=== PATIENT | male | born 1970 | race Caucasian/White ===

== ENCOUNTER 2017-05-20 17:10 | Inpatient (IN) ==
[2017-05-20] MEDS ORDERED: SODIUM CHLORIDE 0.9% 500 ML IV STA (17:32)
[2017-05-20] MEDS ORDERED: ALUM/MAG/SIMETH/LIDO VISC 1:1 30 ML BOTTLE PO STA (17:32)
[2017-05-20] MEDS ORDERED: HYDROmorphone 2 MG/1 ML VIAL IV STA ×2 (17:32→19:15)
[2017-05-20] MEDS ORDERED: ONDANSETRON 4 MG/2 ML VIAL IV STA (17:32)
[2017-05-20] MEDS ORDERED: PANTOPRAZOLE 40 MG VIAL IV STA (17:32)
[2017-05-20] MEDS ORDERED: ALUM/MAG/SIMETH/LIDO VISC 1:1 30 ML BOTTLE PO ONE (17:53)
[2017-05-20] MEDS ORDERED: ONDANSETRON 4 MG/2 ML VIAL ONE (17:53)
[2017-05-20] MEDS ORDERED: HYDROmorphone 2 MG/1 ML VIAL ONE (17:53)
--- NOTE | 2017-05-20 17:53 | Emergency Department Note ---
Priya Downing Emily, am scribing for, and in the presence of, Ricci Bro MD 17: 38. Adali Downing Charles R, MD, personally performed the services described in this documentation, ascribed by Isamar Powers in my presence, and it is both accurate and complete 753 . Arrival - Arrival Chief Complaint: Abdominal / Flank Pain Stated Complaint: AB Pain ED Nursing Triage Note: c/o left sided upper abdominal pain radiating into left ribs and back onset noon. Pain worse upon inspiration. +nausea. Denies fever or urination problems. Mode of Arrival: Ambulatory Limitations: No Limitations Source: Patient Time Seen by Provider: 05/20/17 17:26 - History of Present Illness HPI Narrative: Pt is a 46 y/o male who came to ED with c/o epigastric pain and LUQ pain that started after eating greasy chicken at lunch. Pt notes when the pain came on, he thought was just the heartburn acting up again. Pt reports having to take Prilosec or he will wake up in the middle night burning in chest. Pt states pain is worse laying down, but denies nausea, constipation, hx of stomach ulcers or bad taste in mouth. PMHx of prostate CA - 10 years ago. Pt admits to smoking 4 cigarettes in the morning and using smokless tobacco during the day. Onset (ago): hour(s) Consistency: constant Severity: mild, moderate Severity scale (1-10): 4 Quality: aching, burning Allergies/Adverse Reactions: Allergies Allergy/AdvReac Type Severity Reaction Status Date / Time Penicillins Allergy ANAPHYLAXIS Verified 05/20/17 17:16 Home Medications: Home Medications Medication Instructions Recorded Confirmed Type Omeprazole Magnesium [Prilosec Otc] 20 mg PO DAILY 05/20/17 05/20/17 History Review of System - Review of System 12 point system: reviewed and no additional remarkable complaints except as stated - Review of System Constitutional: Absent: fever, weakness Respiratory: Absent: respiratory distress Cardiovascular: Absent: chest pain Gastrointestinal: Present: abdominal pain ( epigastric and left sided abdomen pain). Absent: nausea, vomiting, constipation Musculoskeletal: Absent: arm pain, neck pain Skin: Absent: rash Neurological: Absent: headache, abnormal gait Medical,Surgical,& Family Hx - Medical History Medical History: noncontributory Genitourinary: History of: Kidney Stones Gastrointestinal: History of: GERD - Family History Family History: noncontributory - Social History Smoking Status: Smoker, status unknown (4 cigarettes in the mornings, then smokeless tobacco during day) Frequency of Alcohol Use: None Type of Drug Use: None Marital Status: Single Lives With:: Alone Functional capacity: independent ambulation Exam Vital Signs: Vital Signs Temperature 98.6 F 05/20/17 17:30 Pulse Rate 86 05/20/17 18:32 Respiratory Rate 15 05/20/17 18:32 Blood Pressure 139/83 05/20/17 18:32 O2 Sat by Pulse Oximetry 96 05/20/17 18:32 - General General appearance: alert, in no apparent distress - Head Head exam: Present: atraumatic, normocephalic - Eye Eye exam: Present: PERRL, EOMI - ENT ENT exam: Present: mucous membranes moist. Absent: mucous membranes dry - Neck Neck exam: Present: full ROM, trachea midline - Chest Chest inspection: Present: symmetric chest wall rise - Respiratory Respiratory exam: Present: normal lung sounds bilaterally (squints when breathing). Absent: respiratory distress - Cardiovascular Cardiovascular exam: Present: tachycardia, normal heart sounds - Abdominal Exam Abdominal exam: Present: soft, distention (bloated, distended), tenderness ( tenderness worse in the LUQ, with some epigastric tenderness to mid sternum), diminished bowel sounds. Absent: guarding, rebound - Extremities Exam Extremities exam: Present: full ROM. Absent: pedal edema - Neurological Exam Neurological exam: Present: alert, oriented X3, CN II-XII intact. Absent: motor sensory deficit - Psychiatric Psychiatric exam: Present: normal affect, normal mood - Skin Skin exam: Present: warm, dry Course - Reevaluation(s) Reevaluation #1: Patient continues to have abdominal pain still nauseated even after 2 mg of Dilaudid. Patient has a new onset diabetes his symptoms of pancreatitis. Time: 20:59 - Consultations Consultation #1: Hospitalist will admit patient Time: 21:04 Results - Labs CBC & BMP: 05/20/17 18:04 05/20/17 18:04 Lab Results: I have reviewed the patients labs Labs: Laboratory Tests 05/20/17 05/20/17 18:04 18:04 WBC 13.8 H RBC 4.83 Hgb 14.9 Hct 39.0 L MCV 80.7 L MCHC 38.2 H Plt Count 311 Neut % (Auto) 75.1 H Lymph % (Auto) 17.8 L Neut # (Auto) 10.4 H D-Dimer, Quantitative <= 0.5 Laboratory Tests 05/20/17 18:04 MCHC 38.2 H Platelet Estimate Adequate - Diagnostic Findings Procedure: Abdominal x-ray: report reviewed by me (No acute abdominal process.) , Chest x-ray: report reviewed by me (No acute cardiopulmonary process compared to the previous study) Critical Care Time Critical Care Time: Yes Total Critical Care Time: 60 Disposition Clinical Impression: Gastroenteritis, Abdominal pain, Pancreatitis, Hyponatremia, New onset type 2 diabetes mellitus, Hyperglycemia, Renal insufficiency Case discussed with: patient, patient's family Disposition: Still a Patient Condition: Guarded Time of Disposition: 21:07
[2017-05-20] MEDS ORDERED: PANTOPRAZOLE 40 MG VIAL IV ONE (17:54)
--- NOTE | 2017-05-20 18:45 | XRay Report ---
History: Abdominal pain Date: 05/20/2017 Study: Flat and erect abdomen Comparison exam: KUB July 15, 2016 The bowel gas pattern is nonobstructive without gross mass lesion. There is a moderate amount of stool in the normal caliber colon. There is no evidence of pneumoperitoneum. No radiopaque calculi are seen. Surgical clips overlie the right upper abdomen from previous cholecystectomy. Impression: No acute abdominal process PROCEDURE INTERPRETED AT [facility] DEPARTMENT OF RADIOLOGY Final Report Signed by: Dr. Laura Kerr
--- NOTE | 2017-05-20 18:52 | EKG Report ---
Stationary ECG Study [facility] ER Test Date: 05/20/2017 6:51:28 PM Pat Name: PONCE IVERSON Department: Room: Gender: M Documentation Writer: : 1970 Requested by: Ricci Champagne Order Number: [id number] Reading MD: STANLEY HIGH Intervals [place] Rate: 86 P: 20 [place]: 134 QRS: 55 QRSD: 100 T: 2 QT: 371 QTc: 414 Interpretive Statements SINUS RHYTHM Electronically Signed On 05-20-17 21:21:43 CDT by STANLEY HIGH [email or web address]
[2017-05-20 18:53] LABS: Basophils # 0.1 10*3/uL (0.0-0.2); Basophils % 0.5 % (0.0-0.8); Eosinophils # 0.2 10*3/uL (0.0-0.87); Eosinophils % 1.5 % (0.00-10.9); Hemoglobin 14.9 GM/DL (14.0-18.0); Immature Granulocytes Absolute 0.14 #; Lymphocytes # 2.5 10*3/uL (1.4-4.0); Lymphocytes % 17.8 % (21.2-54.2); Mean Corpuscular Hemoglobin 31 PG (27-34); Mean Corpuscular Volume 80.7 FL (87-102); Mean Platelet Volume 10.7 FL (9.6-12.0); Monocytes # 0.6 10*3/uL (0.11-0.8); Monocytes % 4.1 % (1.7-12.7); NRBC # 0.07 10*3/uL; Neutrophils # 10.4 10*3/uL (1.4-7.4); Neutrophils % 75.1 % (38.7-73.9); Platelet Count 311 T/CUMM (130-400); Red Blood Count 4.83 MC/CUMM (3.8-5.5); Red Cell Distribution Width 12.8 % (9.3-17.3); White Blood Count 13.8 T/CUMM (4-12)
--- NOTE | 2017-05-20 18:55 | XRay Report ---
History: Abdominal pain Date: 05/20/2017 Study: Chest x-ray single view portable Comparison exam: December 22, 2016 The cardiac silhouette is not enlarged. There is no mediastinal mass. The pulmonary vasculature is not engorged. There is no acute pulmonary infiltrate. The lungs and pleural spaces are generally clear. Osseous structures are unchanged. Impression: No acute cardiopulmonary process compared to the previous study PROCEDURE INTERPRETED AT [facility] DEPARTMENT OF RADIOLOGY Final Report Signed by: Dr. Laura Kerr
[2017-05-20 19:02] LABS: Mean Corpuscular HGB Conc 38.2 GM/DL (32-36)
[2017-05-20 19:05] LABS: Platelet Estimate Adequate
[2017-05-20 19:27] LABS: Alanine Aminotransferase 42 U/L (16-61); Albumin 3.9 G/DL (3.4-5.0); Alkaline Phosphatase 150 U/L (45-117); Amylase 33 U/L (25-115); Aspartate Amino Transferase 25 U/L (0-37); Blood Urea Nitrogen 12 MG/DL (7-18); Calcium 9.2 MG/DL (8.5-10.1); Glucose 463 MG/DL (74-106); Osmolality,Calculated 266.8 MOS/KG (273-304); Potassium 3.7 MMOL/L (3.5-5.1); Sodium 123 MMOL/L (136-145); Total Protein 7.5 G/DL (6.4-8.3); Troponin I Only < 0.015 NG/ML (0.00-0.045)
[2017-05-20 19:40] LABS: Lactic Acid 2.7 MMOL/L (0.4-2.0)
--- NOTE | 2017-05-20 20:29 | CT Report ---
History: Epigastric pain. Left upper quadrant pain. Nausea. History of prostate cancer Date: 05/20/2017 Study: CT abdomen and pelvis without contrast Comparison exam: No previous abdominal CT currently available Technique: Spiral CT sections were obtained from the lung bases to the pubic symphysis without contrast. CT abdomen: There is mild dependent atelectasis in the lung bases. There is no gross pleural or pericardial effusion. The gallbladder is surgically absent. There is mild to moderate diffuse fatty infiltration of the otherwise unremarkable liver. The spleen, adrenal glands, and bile ducts are unremarkable. There is mild hazy opacity in the peripancreatic fat suggesting potential changes of pancreatitis. There is no focal pancreatic mass. There is a 6 mm nonobstructing left lower pole renal stone. Some tiny less than 2 mm renal stones are noted on the right. There is no radiopaque ureteral stone or hydronephrosis. There is no aortic aneurysm. There is no evidence of pneumoperitoneum. The appendix is identified and appears normal. There is a tiny periumbilical hernia containing fat and a tiny knuckle of small bowel without obvious jany bowel obstruction. CT pelvis: There is no pelvic mass or abnormal pelvic fluid collection. There is no pelvic lymphadenopathy by short axis diameter criteria. Impression: Hazy peripancreatic fat opacity such as that which can be seen with pancreatitis Bilateral nephrolithiasis without ureterolithiasis or hydronephrosis The CT exam was performed using one or more of the following dose reduction techniques: Automated exposure control, adjustment of the mA and/or kV according to patient size, or use of iterative reconstruction technique. PROCEDURE INTERPRETED AT [facility] DEPARTMENT OF RADIOLOGY Final Report Signed by: Dr. Laura Kerr
[2017-05-20] MEDS ORDERED: MEPERIDINE 50 MG/1 ML VIAL IV STA (20:58)
[2017-05-20] MEDS ORDERED: PROMETHAZINE 25 MG/1 ML VIAL ONE (20:58)
[2017-05-20] MEDS ORDERED: INSULIN REGULAR 100 UNIT/ML IV STA (20:58)
[2017-05-20] MEDS ORDERED: MEPERIDINE 50 MG/1 ML VIAL ONE (20:58)
[2017-05-20] MEDS ORDERED: PROMETHAZINE 25 MG/1 ML VIAL IM STA (20:58)
[2017-05-20] MEDS ORDERED: INSULIN REGULAR 100 UNIT/ML ONE (21:01)
[2017-05-20 21:21] LABS: Allen Test Positive; Pt O2 Delivery Device Room Air
[2017-05-20 21:39] LABS: Apearance,Urine CLEAR (Clear); Bilirubin,Urine Negative (Negative); Blood, Urine Negative (Negative); Glucose,Urine (UA) >=500 mg/dL (Negative); Ketones,Urine 5 mg/dL (Negative); Mucus,Urine Occasional /LPF (Occasional); Nitrite,Urine Negative (Negative); Protein,Urine 30 MG/DL; RBC,Urine <1 /HPF (0-4); Urine Color Yellow (Yellow); Urine Specific Gravity 1.032 (1.001-1.035); WBC,Urine 1 /HPF (0-6)
--- NOTE | 2017-05-20 21:41 | Hospitalist History & Physical ---
Assessment and Plan (1) Gastroenteritis Status: Acute Current Visit: Yes (2) Abdominal pain Status: Acute Current Visit: Yes (3) Pancreatitis Status: Acute Current Visit: Yes (4) Hyponatremia Status: Acute Current Visit: Yes (5) New onset type 2 diabetes mellitus Status: Acute Current Visit: Yes (6) Hyperglycemia Status: Acute Current Visit: Yes (7) Renal insufficiency Status: Acute Assessment and plan: Our plan for this patient 1. Admit patient our service 2. IV fluids 3. N.p.o. for now 4. Treat the nausea 5. Sliding scale for now 6. Check A1c 7. Pain control 8. IV Levaquin 9. Recheck labs in the morning Current Visit: Yes History of Present Illness Chief complaint: Abdominal pain History of present illness: Mr. Calloway is a 46 year old male with past medical history significant for prostate cancer treated approximately 10 years ago and reflux was in his normal state of health till today. Patient said that he ate some greasy chicken and then developed abdominal pain. He says it is a dull ache with real intensity it is 10 out of 10. He rep reports excessive nausea no diarrhea at this time in a cold sweat. Patient has no history of diabetes but he showed up with initial sugar of 463 that is now 265. Patient had a CT scan of his abdomen. The results of that CT scan there was no pelvic mass or abnormal pelvic fluid collection there was no pelvic lymphadenopathy. There was hazy. Pancreatic fat opacity such as that which can be seen with pancreatitis. Patient will be admitted to our service. I was consulted to admit him to the emergency room. Home Medications Medication Instructions Recorded Confirmed Type Omeprazole Magnesium [Prilosec Otc] 20 mg PO DAILY 05/20/17 05/20/17 History Allergies Allergy/AdvReac Type Severity Reaction Status Date / Time Penicillins Allergy ANAPHYLAXIS Verified 05/20/17 17:16 Medical,Surgical,& Family Hx - Medical History Genitourinary: History of: Kidney Stones Gastrointestinal: History of: GERD - Surgical History Abdominal Surgeries: Surgical HX of: Cholecystectomy Additional Surgical History: Basal cell removal, ulnar nerve repositioning, hernia repair - Family History Family History: Reports;: Family Diabetes, Family Heart Disease - Social History Smoking Status: Smoker, status unknown (4 cigarettes in the mornings, then smokeless tobacco during day) Frequency of Alcohol Use: None Type of Drug Use: None 12 point system: reviewed and no additional remarkable complaints except as stated Exam - Constitutional Vitals: Period Temp Pulse Resp BP Sys/Gutierrez Pulse Ox Last 24 Hr 98.6 F-98.6 F 86-101 15-20 120-156/76-90 96-98 - General General appearance: alert, in no apparent distress - Head Head exam: Present: atraumatic, normocephalic - Eye Eye exam: Present: PERRL, EOMI - ENT ENT exam: Present: mucous membranes moist. - Neck Neck exam: Present: full ROM, trachea midline - Chest Chest inspection: Present: symmetric chest wall rise - Respiratory Respiratory exam: Present: normal lung sounds bilaterally . - Cardiovascular Cardiovascular exam: Present: tachycardia, normal heart sounds - Abdominal Exam Abdominal exam: Present: soft, distention (bloated, distended), tenderness ( tenderness worse in the LUQ, with some epigastric tenderness to mid sternum), diminished bowel sounds. Absent: guarding, rebound - Extremities Exam Extremities exam: Present: full ROM. Absent: pedal edema - Neurological Exam Neurological exam: Present: alert, oriented X3, CN II-XII intact - Psychiatric Psychiatric exam: Present: normal affect, normal mood - Skin Skin exam: Present: warm, dry Results - Labs CBC & BMP: 05/20/17 18:04 05/20/17 18:04
[2017-05-20] MEDS ORDERED: SODIUM CHLORIDE 0.9% 2,700 ML IV ONE (21:47)
[2017-05-20] MEDS ORDERED: GLUCAGON 1 MG VIAL IM PRN (21:47)
[2017-05-20] MEDS ORDERED: DEXTROSE 50% 25 GM/50 ML SYRINGE IV PRN (21:47)
[2017-05-20 21:50] LABS: ABG Base Excess 0.3 MMOL/L (-2.5-2.5); ABG HCO3 26.2 MMOL/L (20-26); ABG Oxygen Saturation 97.5 % (95-100); ABG PH 7.364 (7.35-7.45); ABG TCO2 27.6 MMOL/L (23-27)
[2017-05-20] MEDS ORDERED: LEVOFLOXACIN INJ 500 MG in PREMIX 1 EACH IV SCH (22:00)
[2017-05-21] MEDS: HYDROmorphone 2 MG/1 ML VIAL IV PRN ×6 (00:55→20:30)
[2017-05-21] MEDS: ONDANSETRON 4 MG/2 ML VIAL IV PRN ×3 (00:58→15:18)
[2017-05-21] MEDS: SODIUM CHLORIDE 0.45% 1,000 ML IV SCH ×2 (01:05→14:55)
[2017-05-21] MEDS: ENOXAPARIN 40 MG/0.4 ML SYRINGE SUBCUT SCH ×2 (01:09→23:20)
[2017-05-21] MEDS: PROMETHAZINE 25 MG/1 ML VIAL IM PRN ×2 (03:37→09:25)
[2017-05-21] MEDS ORDERED: INSULIN REGULAR 100 UNIT/ML ONE (06:09)
[2017-05-21] MEDS: INSULIN REGULAR 100 UNIT/ML SUBCUT SCH ×3 (06:17→14:55)
[2017-05-21 06:21] LABS: Basophils # 0.1 10*3/uL (0.0-0.2); Basophils % 0.3 % (0.0-0.8); Hematocrit 39.7 VOL% (42.0-52.0); Hemoglobin 17.7 GM/DL (14.0-18.0); Immature Granulocytes % 0.6 %; Immature Granulocytes Absolute 0.14 #; Lymphocytes # 0.9 10*3/uL (1.4-4.0); Lymphocytes % 4.3 % (21.2-54.2); Mean Corpuscular HGB Conc 44.6 GM/DL (32-36); Mean Corpuscular Hemoglobin 37 PG (27-34); Mean Corpuscular Volume 82.2 FL (87-102); Monocytes # 1.4 10*3/uL (0.11-0.8); Monocytes % 6.3 % (1.7-12.7); Neutrophils # 19.2 10*3/uL (1.4-7.4); Neutrophils % 88.5 % (38.7-73.9); Platelet Count 300 T/CUMM (130-400); Red Blood Count 4.83 MC/CUMM (3.8-5.5); Red Cell Distribution Width 13.1 % (9.3-17.3); White Blood Count 21.7 T/CUMM (4-12)
[2017-05-21 07:29] LABS: Band Neutrophils 10 % (0-10); Hypochromasia 1+; Lymphocytes 6 % (20-55); Microcytosis 1+; Segmented Neutrophils 82 % (50-85); Total Cells Counted 100
[2017-05-21 07:30] LABS: Platelet Estimate Normal
[2017-05-21 07:59] LABS: Bilirubin,Total 1.1 MG/DL (0.2-1.0)
[2017-05-21 08:00] LABS: Albumin 3.7 G/DL (3.4-5.0); Osmolality,Calculated 285.2 MOS/KG (273-304); Potassium 5.8 MMOL/L (3.5-5.1); Total Protein 7.2 G/DL (6.4-8.3)
[2017-05-21 08:24] LABS: Calcium 7.9 MG/DL (8.5-10.1)
[2017-05-21] MEDS ORDERED: PANTOPRAZOLE 40 MG TABLET PO SCH (09:00)
--- NOTE | 2017-05-21 09:16 | Gastrointestinal Consult Note ---
<Genie Proctor - Last Filed: 05/21/17 09:12> Assessment and Plan (1) Pancreatitis Status: Acute Assessment and plan: 05/21-sudden onset of abdominal pain with intractable nausea and vomiting, with findings of elevated lipase and CT findings of pancreatitis. No prior history of pancreatitis. History of laparoscopic cholecystectomy with cholelithiasis. New onset diabetes with hemoglobin A1c of 9.8. Elevated lactic acid at 6.1. Continue NPO and IV fluids. Abdominal US this morning. Plan and addendum to follow by Dr Christensen. Current Visit: Yes History of Present Illness Chief complaint: Abdominal pain, nausea and vomiting History of present illness: Mr. Calloway is a 46 year old male who was admitted to the hospital on yesterday with a sudden onset of upper abdominal pain with intractable nausea vomiting. Patient was in his usual state of health until yesterday after he ate lunch. He states that shortly after this he had a sudden severe onset of pain in his upper abdomen that radiated across to the left side and into his back. He states the pain was also followed with onset of nausea and intractable vomiting. He denies any coffee-ground or hematemesis with this. He states that the pain continued to get more severe therefore he came to the emergency room for further evaluation. Patient states that he is relatively healthy with a history of prostate cancer approximately 10 years ago. He works full-time and is fairly active. He states he has never had pain like this before. He denies any associated diarrhea or changes in his bowel habits with this. On admission, patient was found to have an elevated blood sugar near 500. Hgb A1c of 9.8. He does have a reported history of family diabetes. Patient has no prior history of diabetes. He denies any recent weight loss but states he seems to have gained weight over the last several months. He was also found to have an elevated lipase level of 6348. WBCs are also elevated today at 21,000. Patient has never had an episode of pancreatitis in the past. He had a cholecystectomy approximately 2 years ago in [place] which his states he had a large amount of gallstones at that time. She does not recall him undergoing an ERCP with the procedure. His LFTs are fairly unremarkable with a mildly elevated bilirubin at 1.1 and alkaline phosphatase at 133. CT of abdomen without contrast shows hazy peripancreatic fat opacity which is seen with pancreatitis without focal mass noted. At this time, patient is having intractable dry heaving in which his states he has done nonstop throughout the night. He has had minimal relief from pain medication as well as from anti- medics. He has no history of alcohol or tobacco use. He only takes Prilosec daily for reflux. Denies taking any megh-[id number]-[id number] medications or supplements. Denies any recent illnesses or viruses. Home Medications Medication Instructions Recorded Confirmed Type Omeprazole Magnesium [Prilosec Otc] 20 mg PO DAILY 05/20/17 05/20/17 History Allergies Allergy/AdvReac Type Severity Reaction Status Date / Time Penicillins Allergy ANAPHYLAXIS Verified 05/20/17 17:16 Medical,Surgical,& Family Hx - Medical History Cardio: No history of: Aneurysm, Cardiac Dysrhythmia, Cerebrovascular Disease, Congenital Heart Disease, CHF, CAD, Hypertension, SD, Pacemaker, PVD, Valvular Heart Disease, Cardiovascular Problems Neurology: No history of: Brain Aneurysm, Cerebral Hemorrhage, Cerebrovascular Accident , Cerebral Palsy, Dementia, Migraine, Multiple Sclerosis, Parkinson's Disease, Peripheral Neuropathy, Seizures, TIA, Vertigo, Neurologocal Cancer Endocrine: No history of: Dyslipidemia Respiratory: No history of: Asthma, Bronchitis, COPD, Intubation, Obstructive Sleep Apnea , Pulmonary Embolism, Pulmonary Hypertension, Pneumonia, Lung Cancer, Respiratory Problems Genitourinary: History of: Kidney Stones, Prostate Problems (prostate cancer 10 years ago) Gastrointestinal: No history of: Bowel Obstruction, Clostridium Difficile, Crohn's Disease, Diverticulitis/ Diverticulosis, Esophageal Varices, GERD, Gastrointestinal Bleed , Hemorrhoids, Hematochezia, Hepatitis, Liver Problems, Pancreatitis, Polyps, Ulcerative Colitis, Gastrointestinal Cancer, GI Problems Other: History of: Cancer (prostate cancer 10 years ago) - Surgical History Cardiac Surgeries: Patient Denies: Femoral-Popliteal Bypass Graft, Cardiac Catheterization, Cardiac Surgery, Carotid Endarterectomy, Internal Defibrillator, Vascular Access Devices Thoracic Surgeries: Patient denies;: Lobectomy Neurologic Surgeries: Patient denies: Brain Aneurysm, Cerebral Hemorrhage, Neurologic Surgery HEENT Surgeries: Patient denies: Carotid Endarterectomy Abdominal Surgeries: Surgical HX of: Cholecystectomy Patient denies: Abdominal Surgery, Appendectomy, Colonoscopy, Gastric Bypass Surgery, EGD, Hernia Repair, Splenectomy - Family History Family History: Reports;: Family Diabetes, Family Heart Disease - Social History Smoking Status: Smoker, status unknown Frequency of Alcohol Use: None Type of Drug Use: None 12 point system: reviewed and no additional remarkable complaints except as stated - Constitutional Constitutional: Present: as per HPI - EENT Eyes: Present: as per HPI Ears: Present: as per HPI Nose, mouth and throat: Present: as per HPI - Cardiovascular Cardiovascular: Present: as per HPI - Respiratory Respiratory: Present: as per HPI - Gastrointestinal Gastrointestinal: Present: as per HPI, abdominal pain, nausea, vomiting - Genitourinary Genitourinary: Present: as per HPI - Musculoskeletal Musculoskeletal: Present: as per HPI - Neurological Neurological: Present: as per HPI - Psychiatric Psychiatric: Present: as per HPI - Endocrine Endocrine: Present: as per HPI - Hematologic/Lymphatic Hematologic/Lymphatic: Present: as per HPI Exam - Constitutional Vitals: Period Temp Pulse Resp BP Sys/Gutirerez Pulse Ox Last 24 Hr 97.0 F-98.6 F 82-110 15-20 101-156/70-90 93-99 General appearance: normal weight, no acute distress - Head Head exam: Present: normal inspection, normocephalic - Eye Eye exam: Present: other (Lids and conjunctive are unremarkable). Absent: scleral icterus - ENT ENT exam: Present: normal exam, normal oropharynx - Neck Neck exam: Present: normal inspection - Respiratory Respiratory exam: Present: clear to auscultation bilaterally. Absent: rales, rhonchi, wheezes - Cardiovascular Cardiovascular exam: Present: regular rate and rhythm. Absent: diastolic murmur , JVD, systolic murmur - GI/Abdominal GI/Abdominal exam: Present: normal bowel sounds, tenderness (Upper quadrant), soft. Absent: ascites, distended, mass, organomegaly - Extremities Exam Extremities exam: Present: normal inspection, full ROM - Back Exam Back exam: Present: normal inspection - Neurological Exam Neurological exam: Present: alert, oriented X3 - Psychiatric Psychiatric exam: Present: normal affect, normal mood - Skin Skin exam: Present: normal color, warm, dry Results - Labs CBC & BMP: 05/21/17 05:48 05/21/17 05:48 Lab Results: I have reviewed the past 24 hour labs - Diagnostic Findings Procedure: CT Abdomen and Pelvis: report reviewed by me <Alan Christensen - Last Filed: 05/21/17 21:14> History of Present Illness Chief complaint: 3030 History of present illness: Mr. Calloway is a 46 year old male Exam - Constitutional Vitals: Period Temp Pulse Resp BP Sys/Gutierrez Pulse Ox Last 24 Hr 96.6 F-99.0 F 82-139 12-32 97-135/64-101 90-99 Results - Labs CBC & BMP: 05/21/17 05:48 05/21/17 20:34
[2017-05-21] MEDS ORDERED: SCOPOLAMINE 1.5 MG PATCH TRANSDERM SCH (10:30)
[2017-05-21] MEDS ORDERED: PROMETHAZINE 25 MG/1 ML VIAL IM PRN (10:49)
[2017-05-21] MEDS: PANTOPRAZOLE 40 MG VIAL IV SCH (11:17)
--- NOTE | 2017-05-21 11:52 | Ultrasound Report ---
Right upper quadrant ultrasound Indication: Pancreatitis Findings: The liver is normal in size and echogenicity. The gallbladder gallbladder is been removed. The common bile duct measures 6.9 mm. The visualized portion of the pancreas appear within normal limits The right kidney is normal in size and echogenicity and measures 11.1 cm . No free fluid or free air seen. Impression: No evidence of abnormality demonstrated. Ultrasound images stored and captured. PROCEDURE INTERPRETED AT [facility] DEPARTMENT OF RADIOLOGY Final Report Signed by: Dr. Brian Lindsey
[2017-05-21] MEDS ORDERED: SODIUM CHLORIDE 0.9% 1,000 ML IV ONE ×2 (13:15→20:15)
[2017-05-21] MEDS ORDERED: MAGNESIUM SULF RIDER 4 GM in PREMIX 1 EACH IV PRN (13:15)
[2017-05-21] MEDS ORDERED: SODIUM CHLORIDE 0.9% IV PRN (13:15)
[2017-05-21] MEDS ORDERED: INSULIN REGULAR 100 UNIT/ML IV ONE (13:15)
[2017-05-21] MEDS ORDERED: DEXTROSE 50% 25 GM/50 ML SYRINGE IV PRN ×2 (13:15)
[2017-05-21] MEDS ORDERED: SODIUM PHOSPHATE IV PRN (13:15)
[2017-05-21] MEDS ORDERED: SODIUM BICARB INJ 100 MEQ in STERILE WATER INJ 400 ML IV PRN (13:15)
[2017-05-21 13:56] LABS: Osmolality,Calculated 277.9 MOS/KG (273-304); Potassium 5.4 MMOL/L (3.5-5.1)
[2017-05-21 14:19] LABS: Magnesium 1.9 MG/DL (1.8-2.4)
[2017-05-21 14:23] LABS: Phosphorous 1.7 MG/DL (2.5-4.9)
[2017-05-21 14:24] LABS: Calcium 7.5 MG/DL (8.5-10.1)
[2017-05-21] MEDS: INSULIN REGULAR DRIP 100 ML IV SCH (14:25)
[2017-05-21 14:27] LABS: ABG Base Excess -3.9 MMOL/L (-2.5-2.5); ABG HCO3 21.1 MMOL/L (20-26); ABG Oxygen Saturation 91.1 % (95-100); ABG PCO2 38.5 MM HG (35-48); ABG PH 7.351 (7.35-7.45); ABG PO2 60.7 MM HG (80-95); ABG TCO2 18.2 MMOL/L (23-27); Allen Test Positive; Pt O2 Delivery Device Room Air
[2017-05-21] MEDS: SODIUM CHLORIDE 0.9% 1,000 ML IV SCH ×2 (15:29→17:49)
--- NOTE | 2017-05-21 15:50 | Hospitalist Progress Note ---
Hospitalist: Subjective Interval history: 48-year-old white male who was admitted with nausea vomiting, abdominal pain and acute pancreatitis. He also had new onset diabetes, was found to be in DKA today and transferred to intensive care unit. Exam - Constitutional Vitals: Period Temp Pulse Resp BP Sys/Gutierrez Pulse Ox Last 24 Hr 96.6 F-98.8 F 82-130 12-20 101-156/70-90 91-99 Exam: General: [No Acute Distress, but looks sick] HEENT: [Normocephalic, atraumatic, Extra ocular movements intact] Neck: [Supple, No JVD] Chest: [Clear to auscultation B/L] CV: [S1 + S2 audible without murmur, gallop or rub] Abd: [Epigastric tenderness+, BS +] Ext: [No edema] Skin: [No purpura, bruising or rash] Rheumatologic: [No Joint deformities] Neurologic: [Awake and alert] Results - Labs CBC & BMP: 05/21/17 05:48 05/21/17 14:33 - Impressions Acute pancreatitis due to hypertriglyceridemia Status: Acute Assessment and plan: CT scan of the abdomen was also suggestive of acute pancreatitis, will keep him n.p.o. with IV hydration. Pain management with Dilaudid, antiemetics as needed. Lipase was 6348. Current Visit: Yes Diabetic ketoacidosis Status: Acute Assessment and plan: Patient has new onset diabetes. Patient had worsening hyperglycemia and an elevated anion gap indicated of diabetic ketoacidosis. He has been started on IV insulin and IV fluids per DKA protocol. He has been transferred to intensive care unit. We will monitor frequent Accu-Cheks and electrolytes per protocol. Current Visit: Yes Hpertriglyceridemia Status: Acute Assessment and plan: Triglyceride level was significantly elevated at 6348. This is a very likely cause of his acute pancreatitis. Currently mean ultimately he will need control of his diabetes, diet controlled as well as medication to address this problem. Current Visit: Yes DVT prophylaxis with Lovenox
[2017-05-21 16:25] LABS: ABG Base Excess -7.8 MMOL/L (-2.5-2.5); ABG HCO3 18.1 MMOL/L (20-26); ABG Oxygen Saturation 96.5 % (95-100); ABG PCO2 38.5 MM HG (35-48); ABG PO2 88.2 MM HG (80-95); ABG TCO2 19.3 MMOL/L (23-27)
[2017-05-21 16:59] LABS: Apearance,Urine Slightly Hazy (Clear); Bacteria,Urine Occasional /HPF (Few); Bilirubin,Urine Negative (Negative); Blood, Urine Negative (Negative); Glucose,Urine (UA) >=500 mg/dL (Negative); Ketones,Urine 5 mg/dL (Negative); Mucus,Urine Occasional /LPF (Occasional); Nitrite,Urine Negative (Negative); Protein,Urine 30 MG/DL; Squamous Epithelial Cell,Urine Occasional /HPF (0-10); Urine Color Yellow (Yellow); Urine Specific Gravity 1.026 (1.001-1.035); Urine Urobilinogen < 2.0 EU/DL (0.2-1.0); WBC,Urine 1 /HPF (0-6)
[2017-05-21] MEDS ORDERED: SODIUM CHLORIDE 0.9% 1,000 ML IV SCH (18:16)
--- NOTE | 2017-05-21 18:26 | XRay Report ---
History: Shortness of breath Date: 05/21/2017 Study: Chest x-ray AP portable Comparison exam: 05/20/2017 There is mild cardiomegaly. The pulmonary vasculature is borderline prominent. The mediastinal contour is unchanged. There is strandy and hazy bibasilar atelectasis with or without pneumonia. There is no increased pleural effusion. Osseous structures are unchanged. Impression: Cardiomegaly and borderline prominence of the pulmonary vasculature. Shallow inspiration makes it difficult to exclude some mild CHF Atelectatic changes in the lung bases, left more than right PROCEDURE INTERPRETED AT [facility] DEPARTMENT OF RADIOLOGY Final Report Signed by: Dr. Laura Kerr
[2017-05-21] MEDS ORDERED: ETOMIDATE 20 MG/10 ML VIAL IV ONE ×2 (18:42→18:54)
[2017-05-21] MEDS ORDERED: MIDAZOLAM 10 MG/2 ML VIAL ONE (18:42)
[2017-05-21] MEDS ORDERED: VECURONIUM 10 MG VIAL IV ONE ×2 (18:42→18:55)
[2017-05-21] MEDS ORDERED: MIDAZOLAM 2 MG/2 ML VIAL IV ONE (18:52)
[2017-05-21] MEDS ORDERED: MORPHINE 2 MG/1 ML SYRINGE ONE ×2 (18:54→18:56)
[2017-05-21] MEDS ORDERED: ONDANSETRON 4 MG/2 ML VIAL IV ONE (18:58)
[2017-05-21] MEDS ORDERED: MORPHINE 2 MG/1 ML SYRINGE IV ONE (18:59)
[2017-05-21 19:18] LABS: Albumin 2.4 G/DL (3.4-5.0); Bilirubin,Direct 0.18 MG/DL (0.0-0.20); Bilirubin,Indirect 1.1 MG/DL (0.0-1.0); Bilirubin,Total 1.3 MG/DL (0.2-1.0); Total Protein 5.6 G/DL (6.4-8.3)
[2017-05-21] MEDS: SODIUM CHLORIDE 23.4% CONC INJ 38.5 MEQ, SODIUM BICARB INJ 100 MEQ in STERILE WATER INJ... IV SCH (19:30)
[2017-05-21] MEDS ORDERED: PROPOFOL 1,000 MG/100 ML BOTTLE IV ONE (19:49)
--- NOTE | 2017-05-21 19:54 | Event Note ---
I was called to see Mr. Calloway. He is a 46-year-old male that was admitted to the hospital with pancreatitis and has become acutely worse and decompensated. He has increased oxygen demand and utilization. He is on 6 L of nasal cannula oxygen and is satting in the low 90s. He was tachypneic at a respiratory rate of 30. His mental status had changed and in an effort to protect his airways and continue to adequately oxygenate his tissues, the decision was made to electively intubate the patient for airway safety and continued supportive care for his severe acute pancreatitis. This was discussed with his and family members at the bedside. His consent was also obtained prior to the procedure. - Intubation Sedative: Etomidate and Versed Mg given sedative: 20 mg of etomidate and 6 mg of Versed Paralytic: Vecuronium Mg given paralytic: 10 mg Laryngoscope: [Jayson] ET Tube Size: [8] Tube Secured Depth (cm): 24 Tube Secured Location: lips Tube Placement Confirmation: visualized tube passing through cords, equal breath sounds bilaterally, no breath sounds over epigastrium, confirmation by capnometry, confirmation detector color change Patient tolerated procedure intubation: well, no complications Intubation Complications: The patient had bilious vomiting at the time of intubation. His airway was not compromised. Suction was performed immediately. Additional Comments: Chest x-ray reviewed showing adequate placement and good bilateral aeration without pneumothorax.
--- NOTE | 2017-05-21 19:56 | Event Note ---
The patient was seen and examined. The site was marked. A timeout was taken. The patient's identity, procedure, consent and location were identified. The patient was prepped and draped in sterile fashion. Local anesthesia was given with 1% lidocaine plain. The internal jugular vein was accessed and the guide wire placed without difficulty. After using the tissue dilator, the triple lumen catheter was placed over the wire and the wire removed intact. All ports were flushed with normal saline and functioned well. The central line was secured with the enclosed suture. A chest x-ray was ordered to confirm placement. The patient tolerated the procedure well. The nurse will place the dressing according to the hospital protocols. Initial attempts to cannulized the internal jugular vein led to a puncture of the carotid artery. The needle was removed and pressure applied to the affected area. The patient's blood develops fatty deposition and clots quickly due to his hypertriglyceridemia. Chest x-ray report is pending.
--- NOTE | 2017-05-21 19:57 | Event Note ---
I was called to see Mr. Calloway in CCU room 120. He is admitted with acute pancreatitis with acute worsening. He developed oliguria and respiratory distress. The patient was transferred to the CCU earlier today. He is in acute renal failure with suspected acute tubular necrosis with decreased urine output. I had a lengthy discussion with the patient's and family members at the bedside regarding his care. I have consulted Dr. Eric for nephrology. Consulted Dr. Seymour for general surgery and notify Dr. Christensen who is already following his case. A pulmonary consult will be placed after intubation. A central line was also placed in the right internal jugular vein. He will undergo aggressive fluid hydration and continued supportive care for his acute severe pancreatitis. TriCor and statin therapy should be started for treatment of his hypertriglyceridemia. Further recommendations will depend on his response to therapy. He remains critically ill in the intensive care unit at this time. He is a full code.
[2017-05-21] MEDS ORDERED: LEVOFLOXACIN INJ 500 MG in PREMIX 1 EACH IV SCH (20:00)
[2017-05-21] MEDS ORDERED: PROPOFOL 1,000 MG/100 ML BOTTLE IV SCH (20:00)
[2017-05-21 20:15] LABS: ABG Base Excess -4.8 MMOL/L (-2.5-2.5); ABG Oxygen Saturation 97.9 % (95-100); ABG PCO2 41.6 MM HG (35-48); ABG PH 7.322 (7.35-7.45); ABG PO2 109.2 MM HG (80-95); ABG TCO2 22.3 MMOL/L (23-27)
--- NOTE | 2017-05-21 20:21 | General Surgery Consult Note ---
Assessment and Plan (1) Pancreatitis Status: Acute Assessment and plan: This patient has severe pancreatitis. He has hypertriglyceridemia. Dr. Noel showed me a sample of his blood that was drawn through the central line that he place and it had fat coagulation within the tube demonstrating the severity of his hypertriglyceridemia and no intravascularly volume depleted he is right now. He is being aggressively resuscitated. I agree with everything is being done medically treat his pancreatitis including aggressive volume resuscitation. There is no evidence of infection on his CT scan from yesterday and therefore we have no reason to start any antibiotic treatment right now. Surgical indications for severe pancreatitis include abdominal compartment syndrome, bleeding, and infected necrotic pancreatic tissue. None of these seem to be the case right now. The patient's plateau pressures on the ventilator are less than 30 and he is not having increased pressures or difficulty achieving adequate tidal volumes. His abdomen is soft as well and he is making some urine although his urine output is low. His CVP is around 9- 10. I recommended a liter of saline bolus and an aggressive IV fluid rate at 500 cc an hour for now. IV fluids will need to be titrated for urine output. The patient's abdomen will need to be monitored for development of compartment syndrome and we need to keep in mind the possibility of necrotizing pancreatitis and also infected necrotizing pancreatitis as well as hemorrhagic pancreatitis which could all occur in the severe of an episode of pancreatitis. I will continue to follow the patient. Current Visit: Yes History of Present Illness Chief complaint: Severe pancreatitis History of present illness: Mr. Calloway is a 46 year old male who has a history of hypertriglyceridemia admitted with severe pancreatitis that worsened today and he developed a severe inflammatory response requiring intubation and aggressive IV fluids consistent with severe pancreatitis. I was consulted for management of his severe pancreatitis or assistance with management. Again he has been intubated and a central line has been placed and he is now in ICU room 120. Apparently has no history of pancreatitis my history was obtained from the chart because the patient is intubated and on the ventilator. He was admitted with lactic acidosis that worsened during the day today and his initial CT scan showed haziness around the pancreas. His initial lipase was normal but it is now over 6000. He has already had a cholecystectomy in [place] for gallstones several years ago. Home Medications Medication Instructions Recorded Confirmed Type Omeprazole Magnesium [Prilosec Otc] 20 mg PO DAILY 05/20/17 05/20/17 History Allergies Allergy/AdvReac Type Severity Reaction Status Date / Time Penicillins Allergy ANAPHYLAXIS Verified 05/20/17 17:16 Medical,Surgical,& Family Hx - Medical History Cardio: No history of: Aneurysm, Cardiac Dysrhythmia, Cerebrovascular Disease, Congenital Heart Disease, CHF, CAD, Hypertension, [place], Pacemaker, PVD, Valvular Heart Disease, Cardiovascular Problems Neurology: No history of: Brain Aneurysm, Cerebral Hemorrhage, Cerebrovascular Accident , Cerebral Palsy, Dementia, Migraine, Multiple Sclerosis, Parkinson's Disease, Peripheral Neuropathy, Seizures, TIA, Vertigo, Neurologocal Cancer Endocrine: No history of: Dyslipidemia Respiratory: No history of: Asthma, Bronchitis, COPD, Intubation, Obstructive Sleep Apnea , Pulmonary Embolism, Pulmonary Hypertension, Pneumonia, Lung Cancer, Respiratory Problems Genitourinary: History of: Kidney Stones, Prostate Problems (prostate cancer 10 years ago) Gastrointestinal: No history of: Bowel Obstruction, Clostridium Difficile, Crohn's Disease, Diverticulitis/ Diverticulosis, Esophageal Varices, GERD, Gastrointestinal Bleed , Hemorrhoids, Hematochezia, Hepatitis, Liver Problems, Pancreatitis, Polyps, Ulcerative Colitis, Gastrointestinal Cancer, GI Problems Other: History of: Cancer (prostate cancer 10 years ago) - Surgical History Cardiac Surgeries: Patient Denies: Femoral-Popliteal Bypass Graft, Cardiac Catheterization, Cardiac Surgery, Carotid Endarterectomy, Internal Defibrillator, Vascular Access Devices Thoracic Surgeries: Patient denies;: Lobectomy Neurologic Surgeries: Patient denies: Brain Aneurysm, Cerebral Hemorrhage, Neurologic Surgery HEENT Surgeries: Patient denies: Carotid Endarterectomy Abdominal Surgeries: Surgical HX of: Cholecystectomy Patient denies: Abdominal Surgery, Appendectomy, Colonoscopy, Gastric Bypass Surgery, EGD, Hernia Repair, Splenectomy - Family History Family History: Reports;: Family Diabetes, Family Heart Disease - Social History Smoking Status: Smoker, status unknown Frequency of Alcohol Use: None Type of Drug Use: None - Constitutional Constitutional: Present: as per HPI - EENT Nose, mouth and throat: Present: as per HPI - Cardiovascular Cardiovascular: Present: as per HPI - Respiratory Respiratory: Present: as per HPI - Gastrointestinal Gastrointestinal: Present: as per HPI - Genitourinary Genitourinary: Present: as per HPI - Musculoskeletal Musculoskeletal: Present: as per HPI - Neurological Neurological: Present: as per HPI - Endocrine Endocrine: Present: as per HPI Hematologic/Lymphatic: Present: as per HPI Exam - Constitutional Vitals: Period Temp Pulse Resp BP Sys/Gutierrez Pulse Ox Last 24 Hr 96.6 F-99.0 F 82-139 12-32 97-135/64-101 90-99 General appearance: severe distress, over weight - Head Head exam: Present: normal inspection, normocephalic - Eye Eye exam: Present: EOMI - ENT ENT exam: Present: normal exam Mouth exam: Present: normal external inspection - Neck Neck exam: Present: normal inspection, trachea midline - Respiratory Respiratory exam: Present: clear to auscultation bilaterally. Absent: accessory muscle use, chest wall tenderness - Cardiovascular Cardiovascular exam: Present: tachycardia. Absent: irregular rhythm, systolic murmur - GI/Abdominal GI/Abdominal exam: Present: tenderness (The patient does have grimacing with palpation of his midepigastrium. There are no obvious peritoneal signs.), soft. Absent: guarding, rebound - Extremities Exam Extremities exam: Present: normal inspection, normal capillary refill - Back Exam Back exam: Present: normal inspection - Neurological Exam Speech: Present: normal - Skin Skin exam: Present: normal color, warm Results - Labs CBC & BMP: 05/21/17 05:48 05/21/17 18:22 - Diagnostic Findings Procedure: CT Abdomen and Pelvis: image reviewed by me, report reviewed by me ( Pancreatitis)
--- NOTE | 2017-05-21 20:30 | XRay Report ---
History: Endotracheal tube placement Date: 05/21/2017 at 7:30 PM Study: Chest x-ray AP portable Comparison exam: 05/21/2017 at 5:44 PM The right IJ central line is positioned with its tip overlying the level of the right atrium. There is no pneumothorax. The endotracheal tube tip overlies the distal trachea roughly 1 cm above the marnie. The cardiomediastinal silhouette is unchanged. There is some increasing patchy airspace disease in the right suprahilar region compared to the earlier study. There is continued bibasilar platelike atelectasis. There is no gross pleural effusion. Osseous structures are unchanged. Impression: No evidence of a pneumothorax following central line placement. The endotracheal tube tip overlies the distal trachea level. Increasing right suprahilar infiltrate which could represent pneumonia or aspiration PROCEDURE INTERPRETED AT [facility] DEPARTMENT OF RADIOLOGY Final Report Signed by: Dr. Laura Kerr
[2017-05-21] MEDS ORDERED: LABETALOL 20 MG/4 ML SYRINGE IV ONE (20:32)
[2017-05-21 20:56] LABS: Osmolality,Calculated 283.8 MOS/KG (273-304); Potassium 5.5 MMOL/L (3.5-5.1)
[2017-05-21 20:57] LABS: Calcium 5.9 MG/DL (8.5-10.1)
[2017-05-21] MEDS ORDERED: CALCIUM GLUCONATE 1,000 MG in SODIUM CHLORIDE 0.9% 100 ML IV ONE (21:39)
[2017-05-21] MEDS ORDERED: CALCIUM GLUCONATE IV ONE (23:00)
[2017-05-21] MEDS ORDERED: SODIUM CHLORIDE 0.9% IV ONE (23:00)
[2017-05-21] MEDS: MIDAZOLAM 100 MG in SODIUM CHLORIDE 0.9% 80 ML IV SCH (23:20)
[2017-05-22] MEDS ORDERED: MIDAZOLAM 2 MG/2 ML VIAL IV PRN (00:26)
[2017-05-22] MEDS: NOREPINEPHRINE 8 MG in SODIUM CHLORIDE 0.9% 242 ML IV SCH ×4 (00:35→18:36)
[2017-05-22] MEDS ORDERED: ALBUMIN 25% 25 GM in PREMIX 1 EACH IV ONE ×2 (00:51→19:56)
--- NOTE | 2017-05-22 01:05 | Nephrology Consult Note ---
History of Present Illness Chief complaint: Acute renal failure, pancreatitis History of present illness: Mr. Calloway is a 46 year old male with past medical history of prostate cancer now with a new diagnosis of diabetes after presenting with a one-day history of abdominal pain after eating. The patient's symptoms continued to worsen. He was brought to the emergency room and was found to have elevated triglycerides and evidence of pancreatitis. He had elevated amylase and lipase level as well as CT. Pancreatic fat opacity bilateral nephrolithiasis without evidence of obstruction. Patient's condition continued to worsen on the floor for which he was transitioned to an ICU setting and urgently intubated. Patient's urine output continued to decline throughout the night despite volume resuscitation. He is now intubated on multiple pressor medications and has received empiric antibiotics. Blood cultures and urine cultures have been negative. However, temperature continues to trend upward. Serum creatinine is trended up to 2.6. Nephrology has been consulted for acute renal failure. Home Medications Medication Instructions Recorded Confirmed Type Omeprazole Magnesium [Prilosec Otc] 20 mg PO DAILY 05/20/17 05/20/17 History Allergies Allergy/AdvReac Type Severity Reaction Status Date / Time Penicillins Allergy ANAPHYLAXIS Verified 05/20/17 17:16 Medical,Surgical,& Family Hx - Medical History Cardio: No history of: Aneurysm, Cardiac Dysrhythmia, Cerebrovascular Disease, Congenital Heart Disease, CHF, CAD, Hypertension, [place], Pacemaker, PVD, Valvular Heart Disease, Cardiovascular Problems Neurology: No history of: Brain Aneurysm, Cerebral Hemorrhage, Cerebrovascular Accident , Cerebral Palsy, Dementia, Migraine, Multiple Sclerosis, Parkinson's Disease, Peripheral Neuropathy, Seizures, TIA, Vertigo, Neurologocal Cancer Endocrine: No history of: Dyslipidemia Respiratory: No history of: Asthma, Bronchitis, COPD, Intubation, Obstructive Sleep Apnea , Pulmonary Embolism, Pulmonary Hypertension, Pneumonia, Lung Cancer, Respiratory Problems Genitourinary: History of: Kidney Stones, Prostate Problems (prostate cancer 10 years ago) Gastrointestinal: No history of: Bowel Obstruction, Clostridium Difficile, Crohn's Disease, Diverticulitis/ Diverticulosis, Esophageal Varices, GERD, Gastrointestinal Bleed , Hemorrhoids, Hematochezia, Hepatitis, Liver Problems, Pancreatitis, Polyps, Ulcerative Colitis, Gastrointestinal Cancer, GI Problems Other: History of: Cancer (prostate cancer 10 years ago) - Surgical History Cardiac Surgeries: Patient Denies: Femoral-Popliteal Bypass Graft, Cardiac Catheterization, Cardiac Surgery, Carotid Endarterectomy, Internal Defibrillator, Vascular Access Devices Thoracic Surgeries: Patient denies;: Lobectomy Neurologic Surgeries: Patient denies: Brain Aneurysm, Cerebral Hemorrhage, Neurologic Surgery HEENT Surgeries: Patient denies: Carotid Endarterectomy Abdominal Surgeries: Surgical HX of: Cholecystectomy Patient denies: Abdominal Surgery, Appendectomy, Colonoscopy, Gastric Bypass Surgery, EGD, Hernia Repair, Splenectomy - Family History Family History: Reports;: Family Diabetes, Family Heart Disease - Social History Smoking Status: Smoker, status unknown Frequency of Alcohol Use: None Type of Drug Use: None Review of Systems ROS unobtainable: due to endotracheal tube Exam - Vital Signs Vital signs: Period Temp Pulse Resp BP Sys/Gutierrez Pulse Ox Last 24 Hr 96.6 F-99.0 F 114-155 12-32 74-139/51-101 90-100 - General Appearance General appearance: intubated EENT: ATNC Respiratory: rales Cardiology: rapid rhythm Gastrointestinal: hypoactive bowel sounds, no tenderness Integumentary: no rash, warm and dry Results - Labs CBC & BMP: 05/21/17 05:48 05/22/17 00:15 Assessment and Plan (1) Abdominal pain Status: Acute Current Visit: Yes (2) Hyperglycemia Status: Acute Current Visit: Yes (3) New onset type 2 diabetes mellitus Status: Acute Current Visit: Yes (4) Pancreatitis Status: Acute Current Visit: Yes (5) Renal insufficiency Status: Acute Assessment and plan: Acute renal failure due to ATN. Patient with multisystem organ failure. Aggressive fluid repletion. Making preparations for renal replacement therapy. Ask for dialysis catheter. Current Visit: Yes
[2017-05-22] MEDS: PHENYLEPHRINE DRIP 40 MG/250 ML PREMIX IV SCH ×7 (01:10→17:17)
[2017-05-22] MEDS: ACETAMINOPHEN 325 MG/10.15 ML UDCUP PO PRN ×4 (01:44→21:30)
[2017-05-22] MEDS ORDERED: SODIUM CHLORIDE 0.9% 1,000 ML IV ONE (02:00)
[2017-05-22] MEDS ORDERED: VECURONIUM 10 MG VIAL IV ONE ×2 (02:26→05:33)
[2017-05-22 03:12] LABS: Free T4 (Free Thyroxine) 0.95 NG/DL (0.76-1.46); Thyroid Stimulating Hormone 2.69 uIU/ml (0.358-3.74)
--- NOTE | 2017-05-22 03:14 | Event Note ---
I was called by the patient's nurse about 30 minutes or 45 minutes ago about elevated bladder pressures. The bladder pressure was checked and it was about 33 mmHg. The patient's ventilator tidal volumes and plateau and peak pressures have not changed significantly. The patient has since become hypotensive and is on pressors and is becoming febrile as well. The patient was given 20 mg of vecuronium IV and is repeat bladder pressure was around 20 mmHg. His plateau pressures improved some with paralysis. His abdomen is soft and slightly more distended than it was earlier but it is not tense by any means. He has not made any urine since I was here last and his creatinine is increasing. Nephrology actually as he was consulted and Dr. Morales is the individual that order the bladder pressures. They were initially ordered without paralysis but repeated with paralysis once I arrived. I reviewed all the patient's pertinent imaging. There is no other pathology in his abdomen that appears to be causing his acute illness. The picture in my opinion does not really fit with abdominal compartment syndrome and I tend to trust the ventilator pressures, tidal volumes, and mechanics on the ventilator more than a trust a bladder pressure. However, this patient did have some improvement his bladder pressure on paralysis but it is still consistent with intra-abdominal hypertension and bordering on compartment syndrome pressures and certainly if he has a compartment syndrome that is not relieved he will not survive. In addition, the opportunity to evaluate his abdomen for any other pathology that could be causing his acute demise given that his main presentation was abdominal pain is not stable enough for repeat imaging, laparotomy does have some benefits for this patient including decompression and diagnostic laparotomy. I have discussed this in detail with the patient's and I have fully disclosed to her that I am not confident that the patient has compartment syndrome but I think the best course of action at this time would be to proceed with laparotomy to decompress the abdomen and take the issue of compartment syndrome off the table. We will also perform an exploration to make sure that no other pathology is present in the abdomen that is causing his acute demise. I have discussed the risks, benefits, and alternatives of this operation with the , and the expected outcomes were reviewed. In particular, I discussed the risk of not being able to close the abdomen and developing an abdominal wall hernia. In addition, a dialysis catheter has been requested by nephrology. This will be placed tonight at some point.
[2017-05-22] MEDS: INSULIN REGULAR DRIP 100 ML IV SCH ×2 (03:17→14:58)
[2017-05-22] MEDS ORDERED: CLINDAMYCIN INJ 900 MG in PREMIX 1 EACH IV ONE (03:30)
[2017-05-22] MEDS ORDERED: CALCIUM CHLORIDE 1,000 MG/10 ML SYRINGE IV ONE (05:32)
[2017-05-22] MEDS ORDERED: MIDAZOLAM 10 MG/2 ML VIAL ONE (05:33)
[2017-05-22] MEDS ORDERED: LACTATED RINGERS 1,000 ML IV ONE (05:33)
[2017-05-22] MEDS ORDERED: fentaNYL 100 MCG/2 ML VIAL ONE (05:33)
--- NOTE | 2017-05-22 05:38 | Operative Note ---
Date of procedure: 05/22/17 Pre-op diagnosis: Severe pancreatitis with questionable abdominal compartment syndrome Post-op diagnosis: same Procedure: Preoperative diagnosis Severe pancreatitis of questionable abdominal compartment syndrome Postoperative diagnosis Same Procedures performed 1. Left internal jugular vein hemodialysis catheter placement 2. Ultrasound guidance and interpretation of images 3. Exploratory laparotomy 4. Lysis of adhesions 5. Drainage of pancreatic ascites Findings A non-tunneled left internal jugular vein hemodialysis catheter was placed under ultrasound guidance. Exploration of the abdomen reveal large amount of pancreatic ascites with some cloudy fluid. Explored her laparotomy showed no duodenal perforation gastric perforation. The colon was normal but it was distended and there was a lot of edema in the retroperitoneal tissues. The small bowel was also fully evaluated and was unremarkable. There is no bowel perforation or compromised bowel. There is no obvious fluctuance or infection in the pancreas. I did not feel that opening the lesser sac and debriding any pancreas was necessary based on how things looked in the operation. An abdominal wound VAC dressing was placed. Complications None apparent Specimen None Anesthesia General endotracheal Dr. Acevedo Blood loss Minimal Indications Severe pancreatitis with question of abdominal compartment syndrome. The risks , benefits, and alternatives were discussed with the patient's , and the expected outcomes were reviewed. They like to proceed with the operation. I was also asked to place a hemodialysis catheter by nephrology. This was discussed with the family as well and agreed to consent for the procedure. Description of procedure The patient was taken to the operating room and transferred to the operating table in the supine position. Pressure points were padded and SCDs were placed lower extremities. General endotracheal anesthesia was administered. The left neck was prepped with chlorhexidine and draped sterilely. Timeout was called. An ultrasound was used to identify the vascular structures in the left neck and the left internal jugular vein was seen. It was compressible. It was accessed with a needle and a wire was passed easily. Incision was made alongside the wire after the needle was removed and a dilator was placed. Dilator was removed and a hemodialysis catheter was placed using Seldinger technique over the wire. Wire was removed. All 3 lm returned blood easily and were flushed with saline. The sterile dressing was applied. The drapes were then taken down and the abdomen was prepped with chlorhexidine and draped sterilely. Timeout was called. Preoperative antibiotics were administered. Midline laparotomy incision was made with a scalpel. There is a large amount of turbid pancreatic looking fluid in the abdominal cavity. There were adhesions between the omentum and the right lower quadrant as well as the right upper quadrant from the prior cholecystectomy. Adhesio lysis was performed to allow adequate visualization of the entire abdominal cavity. The abdomen was completely explored after the abdomen was opened with electrocautery and the findings were as follows. The stomach was normal with no perforation. There is saponification of fat in the pancreas in the retroperitoneum that could be seen through the retroperitoneal tissues. There is a lot of edema in the retroperitoneum as well and this was making the colon mesentery and omentum swell. The duodenum was normal and the the remainder of the small bowel is normal hepatic flexure of the colon was taken down to fully inspect the duodenum. There was no perforation. As was the colon other than the edema in the retroperitoneum. The abdomen was irrigated and the NG tube was checked for positioning and was in the appropriate position. The abdomen was then closed with an abdominal wound VAC temporary closure without fascial closure. It was hooked up to 125 mmHg suction. The patient was transferred back to his ICU bed and returned to the ICU. Postoperative plan Continue aggressive IV fluids and pressors as needed Return to operating room for second look in 48-72 hours. Implants: AbThera Wound Vac Anesthesia: DANIEL Surgeon / Physician: Andre Seymour Estimated blood loss: minimal Specimens: none sent Condition: stable Disposition: ICU Results - Labs CBC & BMP: 05/21/17 05:48 05/22/17 03:15 Discharge Plan - Discharge Medications No Action Omeprazole Magnesium [Prilosec Otc] 20 mg PO DAILY - Follow Up or Referral - Forms/Instructions
[2017-05-22 05:52] LABS: Basophils # 0.1 10*3/uL (0.0-0.2); Basophils % 0.5 % (0.0-0.8); Eosinophils % 0.1 % (0.00-10.9); Hematocrit 39.6 VOL% (42.0-52.0); Hemoglobin 14.1 GM/DL (14.0-18.0); Immature Granulocytes % 1.2 %; Immature Granulocytes Absolute 0.14 #; Lymphocytes # 1.6 10*3/uL (1.4-4.0); Lymphocytes % 13.6 % (21.2-54.2); Mean Corpuscular HGB Conc 35.6 GM/DL (32-36); Mean Corpuscular Hemoglobin 31 PG (27-34); Mean Corpuscular Volume 85.7 FL (87-102); Mean Platelet Volume 11.3 FL (9.6-12.0); Monocytes # 0.7 10*3/uL (0.11-0.8); NRBC # 0.02 10*3/uL; Neutrophils % 78.6 % (38.7-73.9); Platelet Count 290 T/CUMM (130-400); Red Blood Count 4.62 MC/CUMM (3.8-5.5); Red Cell Distribution Width 14.2 % (9.3-17.3); White Blood Count 11.4 T/CUMM (4-12)
[2017-05-22 06:00] LABS: ABG PCO2 40.7 MM HG (35-48); ABG PO2 80.4 MM HG (80-95); ABG TCO2 16.6 MMOL/L (23-27)
--- NOTE | 2017-05-22 06:15 | Pulmonology Consult Note ---
Assessment and Plan (1) Hypertriglyceridemia Status: Acute Assessment and plan: Patient has severe hypertriglyceridemia which likely precipitated his pancreatitis. His triglycerides are down to 3000 now. Current Visit: Yes (2) Acute respiratory failure Status: Acute Assessment and plan: The patient has a large A-a O2 gradient and will adjust his ventilator. We will continue with ventilatory support Current Visit: Yes (3) Pancreatitis Status: Acute Assessment and plan: Patient has severe pancreatitis and now has an abdomen opened. Current Visit: Yes (4) New onset type 2 diabetes mellitus Status: Acute Assessment and plan: The patient has been found to be a diabetic and his glucoses are better at this point. Current Visit: Yes (5) Renal insufficiency Status: Acute Assessment and plan: His creatinine is 2.5 and stable at present. Current Visit: Yes History of Present Illness Chief complaint: Ventilator management History of present illness: Mr. Calloway is a 46 year old white male that presented several days ago with acute abdominal pain. He started having some nausea and vomiting and was found to have acute pancreatitis due to severe hyperlipidemia. He has been found to have new onset of diabetes with glucoses around 500. His hemoglobin A1c level was 9.8. His only previous medicine was some Prilosec for dyspepsia. He has developed severe pancreatitis and developed worsening renal failure and respiratory distress and was intubated. He has been hypotensive requiring pressors. During the night he was taken to surgery and exploratory lap for worsening abdominal pressure. He is on the ventilator now on 100% O2. The patient has had no previous problems with his lungs. He does not smoke but does dip snuff. He still has a very large A-a O2 gradient. He is sedated now on the ventilator. Home Medications Medication Instructions Recorded Confirmed Type Omeprazole Magnesium [Prilosec Otc] 20 mg PO DAILY 05/20/17 05/20/17 History Allergies Allergy/AdvReac Type Severity Reaction Status Date / Time Penicillins Allergy ANAPHYLAXIS Verified 05/20/17 17:16 ROS unobtainable: due to endotracheal tube (His says he never complains of much problems and wheezed he complained of severe abdominal pain.) Exam (Pulmonay) H&P - Constitutional Vitals: Period Temp Pulse Resp BP Sys/Gutierrez Pulse Ox Last 24 Hr 96.6 F-103.7 F 114-155 12-32 72-139/51-101 90-100 General appearance: normal weight, other (Patient is sedated on the ventilator at present.) - Head Head exam: Present: normal inspection, normocephalic - Eye Eye exam: Present: EOMI. Absent: scleral icterus Pupils: Present: JACOB - ENT ENT exam: Present: normal exam, other (ET tube is in good position) - Neck Neck exam: Absent: lymphadenopathy, thyromegaly - Respiratory Respiratory exam: Present: rhonchi, other (He has coarse breath sounds with some mild rhonchi bilaterally.) - Cardiovascular Cardiovascular exam: Present: regular rate and rhythm. Absent: gallop, systolic murmur - GI/Abdominal GI/Abdominal exam: Present: distended, other (His abdomen is open with a wound VAC in place.) - Extremities Exam Extremities exam: Absent: calf tenderness, edema - Neurological Exam Neurological exam: Present: other (Patient is sedated at present) - Skin Skin exam: Present: warm, dry Medical,Surgical,& Family Hx - Medical History Cardio: No history of: Aneurysm, Cardiac Dysrhythmia, Cerebrovascular Disease, Congenital Heart Disease, CHF, CAD, Hypertension, MO, Pacemaker, PVD, Valvular Heart Disease, Cardiovascular Problems Neurology: No history of: Brain Aneurysm, Cerebral Hemorrhage, Cerebrovascular Accident , Cerebral Palsy, Dementia, Migraine, Multiple Sclerosis, Parkinson's Disease, Peripheral Neuropathy, Seizures, TIA, Vertigo, Neurologocal Cancer Endocrine: No history of: Dyslipidemia Respiratory: No history of: Asthma, Bronchitis, COPD, Intubation, Obstructive Sleep Apnea , Pulmonary Embolism, Pulmonary Hypertension, Pneumonia, Lung Cancer, Respiratory Problems Genitourinary: History of: Kidney Stones, Prostate Problems (prostate cancer 10 years ago) Gastrointestinal: No history of: Bowel Obstruction, Clostridium Difficile, Crohn's Disease, Diverticulitis/ Diverticulosis, Esophageal Varices, GERD, Gastrointestinal Bleed , Hemorrhoids, Hematochezia, Hepatitis, Liver Problems, Pancreatitis, Polyps, Ulcerative Colitis, Gastrointestinal Cancer, GI Problems Other: History of: Cancer (prostate cancer 10 years ago) - Surgical History Cardiac Surgeries: Patient Denies: Femoral-Popliteal Bypass Graft, Cardiac Catheterization, Cardiac Surgery, Carotid Endarterectomy, Internal Defibrillator, Vascular Access Devices Thoracic Surgeries: Patient denies;: Lobectomy Neurologic Surgeries: Patient denies: Brain Aneurysm, Cerebral Hemorrhage, Neurologic Surgery HEENT Surgeries: Patient denies: Carotid Endarterectomy Abdominal Surgeries: Surgical HX of: Cholecystectomy Patient denies: Abdominal Surgery, Appendectomy, Colonoscopy, Gastric Bypass Surgery, EGD, Hernia Repair, Splenectomy - Family History Family History: Reports;: Family Diabetes, Family Heart Disease - Social History Smoking Status: Smoker, status unknown Frequency of Alcohol Use: None Type of Drug Use: None Results - Labs CBC & BMP: 05/22/17 05:50 05/22/17 03:15 Labs: His PO2 is 80 with a PCO2 of 40 and a pH of 7.27. His lung compliance is not bad at all. - Diagnostic Findings Procedure: Chest x-ray: image reviewed by me, report reviewed by me (Chest x- ray is relatively clear.)
[2017-05-22 06:25] LABS: Magnesium 1.7 MG/DL (1.8-2.4); Phosphorous 1.6 MG/DL (2.5-4.9)
[2017-05-22] MEDS ORDERED: SODIUM CHLORIDE 0.9% 1,000 ML IV SCH (06:30)
[2017-05-22 06:33] LABS: Hypochromasia 1+
[2017-05-22 06:34] LABS: Microcytosis 1+
[2017-05-22] MEDS: SODIUM CHLORIDE 23.4% CONC INJ 38.5 MEQ, SODIUM BICARB INJ 100 MEQ in STERILE WATER INJ... IV SCH ×4 (06:40→20:58)
[2017-05-22 06:42] LABS: Hepatitis A Ab IgM Quant 0.12 Index; Hepatitis A Ab IgM Result Negative (Negative); Hepatitis B Core IgM Quant 0.12 Index; Hepatitis B Core IgM Result Negative (Negative); Hepatitis B Surface Ag Quant 0.23 Index; Hepatitis B Surface Ag Result Negative (Negative); Hepatitis C Virus Ab Quant 0.04 Index; Hepatitis C Virus Ab Result Negative (Negative)
[2017-05-22] MEDS: DEXTROSE 5% NACL 0.9% 1,000 ML IV SCH ×3 (07:03→20:27)
[2017-05-22] MEDS: SODIUM CHLORIDE 0.45% 1,000 ML IV SCH ×4 (07:05→21:29)
[2017-05-22 07:44] LABS: Potassium 5.1 MMOL/L (3.5-5.1); Sodium 141 MMOL/L (136-145)
[2017-05-22 07:47] LABS: Calcium 6.8 MG/DL (8.5-10.1)
[2017-05-22 07:48] LABS: Albumin 2.1 G/DL (3.4-5.0); Blood Urea Nitrogen 26 MG/DL (7-18); Glucose 171 MG/DL (74-106); Osmolality,Calculated 289.3 MOS/KG (273-304)
[2017-05-22 07:51] LABS: Alanine Aminotransferase 40 U/L (16-61); Aspartate Amino Transferase 119 U/L (0-37)
[2017-05-22 07:53] LABS: Total Protein 4.7 G/DL (6.4-8.3)
[2017-05-22 07:54] LABS: Alkaline Phosphatase 62 U/L (45-117)
[2017-05-22] MEDS: COLESEVELAM 625 MG TABLET PO SCH ×2 (07:56→16:42)
[2017-05-22 07:58] LABS: Bilirubin,Direct < 0.100 MG/DL (0.0-0.20); Bilirubin,Indirect 0.9 MG/DL (0.0-1.0)
--- NOTE | 2017-05-22 08:05 | XRay Report ---
XR chest 1V portable Indication: Catheter placement Comparison: 22 May 2017 at 3:11 AM Findings: The heart and mediastinum are normal in size and configuration. Left internal jugular catheter is been added with tip overlying right atrium. Remaining support structures are stable. The pulmonary vascularity is normal in caliber. No lung infiltrates, effusions, pneumothorax or other abnormality is demonstrated. Impression: Left internal jugular catheter position appears within normal limits. PROCEDURE INTERPRETED AT [facility] DEPARTMENT OF RADIOLOGY Final Report Signed by: Dr. Brian Lindsey
[2017-05-22] MEDS: PANTOPRAZOLE 40 MG VIAL IV SCH (08:13)
--- NOTE | 2017-05-22 08:22 | XRay Report ---
XR chest 1V portable Indication: Ventilator patient Comparison: 21 May 2017 Findings: The heart and mediastinum are stable in size and configuration. The lines and tubes are unchanged in position. The pulmonary vascularity is normal in caliber. Linear densities is slightly improved. No other lung infiltrates, effusions, pneumothorax or other abnormality is demonstrated. Impression: Improving linear densities may indicate resolving atelectasis. PROCEDURE INTERPRETED AT [facility] DEPARTMENT OF RADIOLOGY Final Report Signed by: Dr. Brian Lindsey
[2017-05-22] MEDS: MAGNESIUM SULF RIDER 2 GM in PREMIX 1 EACH IV PRN (08:54)
[2017-05-22 09:00] LABS: ABG Base Excess -8.1 MMOL/L (-2.5-2.5); ABG Oxygen Saturation 96.3 % (95-100); ABG PCO2 40.7 MM HG (35-48); ABG PH 7.269 (7.35-7.45); ABG PO2 89.5 MM HG (80-95); ABG TCO2 16.3 MMOL/L (23-27)
--- NOTE | 2017-05-22 09:14 | Nephrology Progress Note ---
Nephrology - PN: Subj Interval history: Patient did undergo exploratory laparoscopy this morning. Urine output is now 30cc/hr. triglycerides remain elevated at 3000. Patient is on multiple present medications. Exam (PN)-Nephrology - Vital Signs Vital signs: Period Temp Pulse Resp BP Sys/Gutierrez Pulse Ox Last 24 Hr 96.6 F-103.7 F 114-155 12-32 72-159/51-101 90-100 - General Appearance General appearance: intubated EENT: ATNC Neck: supple Respiratory: clear Cardiology: regular rate, regular rhythm Gastrointestinal: absent bowel sounds Integumentary: no rash - Lab 05/22/17 05:50 05/22/17 07:45 Most recent lab results ABG pH 7.269 (7.35-7.45) L 05/22/17 08:45 ABG pCO2 40.7 MM HG (35-48) 05/22/17 08:45 ABG pO2 89.5 MM HG (80-95) 05/22/17 08:45 ABG HCO3 18.0 MMOL/L (20-26) L 05/22/17 08:45 ABG O2 Saturation 96.3 % (95-100) 05/22/17 08:45 Calcium 6.8 MG/DL (8.5-10.1) L 05/22/17 05:46 Phosphorus 1.6 MG/DL (2.5-4.9) L 05/22/17 05:46 Magnesium 1.7 MG/DL (1.8-2.4) L 05/22/17 05:46 Assessment and Plan (1) Abdominal pain Status: Acute Current Visit: Yes (2) Hyperglycemia Status: Acute Current Visit: Yes (3) New onset type 2 diabetes mellitus Status: Acute Current Visit: Yes (4) Pancreatitis Status: Acute Current Visit: Yes (5) Renal insufficiency Status: Acute Assessment and plan: Acute renal failure due to ATN. Patient with multisystem organ failure. Aggressive fluid repletion. Making preparations for renal replacement therapy. Ask for dialysis catheter. Current Visit: Yes
[2017-05-22] MEDS ORDERED: CLINDAMYCIN INJ 900 MG in PREMIX 1 EACH IV SCH (09:30)
[2017-05-22 10:22] LABS: Osmolality,Calculated 285.7 MOS/KG (273-304); Potassium 5.4 MMOL/L (3.5-5.1)
[2017-05-22 10:27] LABS: Calcium 5.7 MG/DL (8.5-10.1)
--- NOTE | 2017-05-22 11:01 | Gastrointestinal Progress Note ---
<HiteshGenie Anish - Last Filed: 05/22/17 10:53> Assessment and Plan (1) Pancreatitis Status: Acute Assessment and plan: 05/22-series of events noted as below. Patient continue with aggressive management for his multiple system organ failure at this time. To begin dialysis. Continue to monitor present time. Plan an addendum to followed by Dr. Christensen. 05/21-sudden onset of abdominal pain with intractable nausea and vomiting, with findings of elevated lipase and CT findings of pancreatitis. No prior history of pancreatitis. History of laparoscopic cholecystectomy with cholelithiasis. New onset diabetes with hemoglobin A1c of 9.8. Elevated lactic acid at 6.1. Continue NPO and IV fluids. Abdominal US this morning. Plan and addendum to follow by Dr Christensen. Current Visit: Yes Gastroenterology - PN: Subj Interval history: CC: Pancreatitis Patient is seen now in the intensive care unit, sedated and intubated. Patient was noted to have a triglyceride level over 6000 yesterday afternoon. Series of events are noted from yesterday following initial consult with patient decompensated and developed respiratory distress. At that time he was intubated and placed on the ventilator. He also developed ATN with oliguria. Dr. Morales was consulted at that time as well as Dr. Seymour due to worsening lactic acidosis with concern for abdominal compartment syndrome. Patient was taken last night urgently to the operating room by Dr. Seymour in which he underwent placement of hemodialysis catheter, exploratory laparotomy with lysis of adhesions and drainage of pancreatic ascites. Patient's abdomen was left surgically open and wound VAC was placed. Patient's triglycerides are now down to 2100. Nursing staff states that as patient begins to stabilize, there are tentative plans to transfer him to another facility for higher level care due to complexity of this case. He is noted also to be on pressor support at this time for his pressure. He is starting to make urine however Dr. Morales is going to proceed with dialysis. ROS: No acute distress noted Exam (Progress Note) - Constitutional Vitals: Period Temp Pulse Resp BP Sys/Gutierrez Pulse Ox Last 24 Hr 98.1 F-103.7 F 114-155 12-32 72-159/51-101 90-100 General appearance: normal weight, no acute distress - Head Head exam: Present: normal inspection, normocephalic - Eye Eye exam: Present: other (Lids and identified unremarkable). Absent: scleral icterus - ENT ENT exam: Present: normal exam, normal oropharynx - Neck Neck exam: Present: normal inspection - Respiratory Respiratory exam: Present: clear to auscultation bilaterally. Absent: rales, rhonchi, wheezes - Cardiovascular Cardiovascular exam: Present: regular rate and rhythm. Absent: diastolic murmur , JVD, systolic murmur - GI/Abdominal GI/Abdominal exam: Present: soft. Absent: ascites, distended, mass, organomegaly - Extremities Exam Extremities exam: Present: normal inspection - Back Exam Back exam: Present: normal inspection - Neurological Exam Neurological exam: Present: altered - Psychiatric Psychiatric exam: Present: other - Skin Skin exam: Present: normal color, warm, dry Results - Labs CBC & BMP: 05/22/17 05:50 05/22/17 09:36 Lab Results: I have reviewed the past 24 hour labs <Alan Christensen L - Last Filed: 05/22/17 14:50> Exam (Progress Note) - Constitutional Vitals: Period Temp Pulse Resp BP Sys/Gutierrez Pulse Ox Last 24 Hr 98.6 F-103.7 F 114-155 12-32 72-159/51-106 90-100 Results - Labs CBC & BMP: 05/22/17 05:50 05/22/17 14:25
[2017-05-22] MEDS: MEROPENEM 1,000 MG in SODIUM CHLORIDE 0.9% 100 ML IV SCH ×2 (11:35→21:31)
--- NOTE | 2017-05-22 11:56 | Infectious Disease Consult ---
Assessment and Plan (1) Acute respiratory failure Status: Acute Current Visit: Yes (2) Hypertriglyceridemia Status: Acute Current Visit: Yes (3) New onset type 2 diabetes mellitus Status: Acute Current Visit: Yes (4) Pancreatitis Status: Acute Assessment and plan: This is a very severe case of pancreatitis with abdominal compartment syndrome. Patient with hypotensive shock on 2 vasopressors. He is quite critically ill , on the vent with 100% FiO2. It is probably too early for this to be infected pancreatitis. The fever could just be from the acute pancreatitis and not necessarily infection. However the patient is a newly diagnosed diabetic and that increases his risk for infection in general. Recommendations: I prefer to have the patient's covered empirically for infection and therefore I am going to put him on meropenem renally dosed at 1 g IV every 12 hours. Discontinue levofloxacin and clindamycin. We will follow- up the results of blood cultures which are pending. Thank you very much for the consult. Prognosis guarded. Will check back on Thursday but I am available via telephone over the weekend. Discussed with Dr. Mejia Discussed with patient's at bedside Current Visit: Yes (5) Renal insufficiency Status: Acute Current Visit: Yes History of Present Illness Chief complaint: Fever History of present illness: History obtained from patient's , from review of chart and from discussing with Dr. Mejia. The patient's nurse and Mr. Calloway is a 46 year old male presented to hospital 2 days ago with severe abdominal pain. He drove himself to the hospital. He was found to be hyperglycemic without a previous diagnosis of diabetes. He ultimately was found to have a severe case of pancreatitis based on imaging studies. There is no obvious cause of pancreatitis initially but then when triglyceride level was done it was over 6000. The patient quickly declined after admission and had to be transferred to ICU yesterday and intubated. He has been on 2 vasopressor agents. Patient also has been oliguric although this morning urine output is picking up somewhat. He started spiking fever intermittently yesterday and today has been febrile to almost 100.9. The patient underwent emergency laparotomy last night for abdominal compartment syndrome. He was put on clindamycin and levofloxacin. There is a large to penicillin but this was as a child. I am asked to assist with management. Home Medications Medication Instructions Recorded Confirmed Type Omeprazole Magnesium [Prilosec Otc] 20 mg PO DAILY 05/20/17 05/20/17 History Allergies Allergy/AdvReac Type Severity Reaction Status Date / Time Penicillins Allergy ANAPHYLAXIS Verified 05/20/17 17:16 ROS unobtainable: due to endotracheal tube, due to mental status Medical,Surgical,& Family Hx - Medical History Cardio: No history of: Aneurysm, Cardiac Dysrhythmia, Cerebrovascular Disease, Congenital Heart Disease, CHF, CAD, Hypertension, AL, Pacemaker, PVD, Valvular Heart Disease, Cardiovascular Problems Neurology: No history of: Brain Aneurysm, Cerebral Hemorrhage, Cerebrovascular Accident , Cerebral Palsy, Dementia, Migraine, Multiple Sclerosis, Parkinson's Disease, Peripheral Neuropathy, Seizures, TIA, Vertigo, Neurologocal Cancer Endocrine: No history of: Dyslipidemia Respiratory: No history of: Asthma, Bronchitis, COPD, Intubation, Obstructive Sleep Apnea , Pulmonary Embolism, Pulmonary Hypertension, Pneumonia, Lung Cancer, Respiratory Problems Genitourinary: History of: Kidney Stones, Prostate Problems (prostate cancer 10 years ago) Gastrointestinal: No history of: Bowel Obstruction, Clostridium Difficile, Crohn's Disease, Diverticulitis/ Diverticulosis, Esophageal Varices, GERD, Gastrointestinal Bleed , Hemorrhoids, Hematochezia, Hepatitis, Liver Problems, Pancreatitis, Polyps, Ulcerative Colitis, Gastrointestinal Cancer, GI Problems Other: History of: Cancer (prostate cancer 10 years ago) - Surgical History Cardiac Surgeries: Patient Denies: Femoral-Popliteal Bypass Graft, Cardiac Catheterization, Cardiac Surgery, Carotid Endarterectomy, Internal Defibrillator, Vascular Access Devices Thoracic Surgeries: Patient denies;: Lobectomy Neurologic Surgeries: Patient denies: Brain Aneurysm, Cerebral Hemorrhage, Neurologic Surgery HEENT Surgeries: Patient denies: Carotid Endarterectomy Abdominal Surgeries: Surgical HX of: Cholecystectomy Patient denies: Abdominal Surgery, Appendectomy, Colonoscopy, Gastric Bypass Surgery, EGD, Hernia Repair, Splenectomy - Family History Family History: Reports;: Family Diabetes, Family Heart Disease - Social History Smoking Status: Current every day smoker Frequency of Alcohol Use: None Type of Drug Use: None Infectious Disease Exam H&P - Constitutional Vitals: Vital Signs Temp Pulse Resp BP Pulse Ox 100.9 F H 135 H 26 H 105/70 97 05/22/17 09:12 05/22/17 09:45 05/22/17 11:21 05/22/17 09:45 05/22/17 09:45 Intake and Output 05/21/17 05/22/17 05/22/17 23:59 07:59 15:59 Intake Total 2157.6 / 2157.6 4358.725 / 4358.725 1571.1 / 1571.1 Output Total 265 / 265 587 / 587 160 / 160 Balance 1892.6 / 1892.6 3771.725 / 3771.725 1411.1 / 1411.1 Intake: IV 2157.6 / 2157.6 4238.725 / 4238.725 1571.1 / 1571.1 Albumin 25% 25 gm/100 ml 100 / 100 In Premix 1 Each @ 100 mls/hr IV ONCE ONE Rx#: [id number] Calcium Gluconate 1,000 1040 / 1040 mg/10 ml In Ns 1,000 ml @ 100 mls/hr IV ONCE ONE Rx#:[id number] Calcium Gluconate 1,000 110 / 110 mg/10 ml In Ns 100 ml @ 200 mls/hr IV ONCE ONE Rx #:[id number] Ns 1,000 ml @ 150 mls/ 50 / 50 hr IV .Q6H40M [facility] Rx#: [id number] Insulin Regular Drip 100 27.6 / 27.6 119.1 / 119.1 31.1 / 31.1 Unit/100 ml @ 0.1 UNITS/ KG/HR 9.412 mls/hr IV TITRATE [facility] Rx#: [id number] Levaquin Inj 500 mg In 100 / 100 Premix 1 Each @ 100 mls/ hr IV Q48H [facility] Rx#: [id number] Versed 100 mg In Ns 80 ml 10 / 10 @ 0.02 MG/KG/HR 1.88 mls /hr IV TITRATE [facility] Rx#: [id number] Levophed 8 mg In Ns 242 500 / 500 ml @ 2 MCG/MIN 3.75 mls/ hr IV TITRATE [facility] Rx#: [id number] KRISTA SYNEPHRINE DRIP 40 mg 250 / 250 500 / 500 In 250 ml @ 10 MCG/MIN 3 .75 mls/hr IV TITRATE PEALR Rx#:[id number] DIPRIVAN 1,000 mg In 100 20 / 20 ml @ 5 MCG/KG/MIN 2.824 mls/hr IV TITRATE [place] Rx# :[id number] Ns 1,000 ml @ 250 mls/hr 1999 IV .Q4H ONE Rx#: [id number] NaCl 23.4% Conc Inj 38.5 1109.625 / 1109.625 Meq Sodium Bicarb Inj 50 Meq/50 ml In Water Sterile Inj 1,000 ml @ 100 mls/hr IV .Q11H6M [facility] Rx#:[id number] Oral 0 / 0 Urinary Catheter Flush 120 / 120 Output: Gastric Drainage 60 / 60 0 / 0 Right Nare 60 / 60 0 / 0 Drainage 50 / 50 Wound Vac #1 50 / 50 Urine 160 / 160 477 / 477 160 / 160 Post Void Residual Amount 105 / 105 Uretheral (Snow) 105 / 105 Stool 0 / 0 Other: Voiding Method Indwelling Catheter Indwelling Catheter Indwelling Catheter # Bowel Movements 0 0 Weight 93.894 kg Patient Weight 05/22/17 23:59 Weight 93.894 kg Exam: General: Patient looks very ill, he is moving his limbs a bit but no purposeful interaction, still waiting for the sedation to wear off HEENT: Mucous membranes pink and moist, anicteric acyanotic, JACOB, ET tube in situ Neck: Supple, no thyroid gland enlargement Respiratory system: Breath sounds vesicular, no crepitations or wheezes Cardiovascular: Normal S1 and S2, no murmurs appreciated Abdomen: Very distended, wound VAC present to midline laparotomy wound, absent bowel sounds, s firm, unable to appreciate organomegaly or mass Genitourinary: No suprapubic pain or bladder distention, concentrated urine from Snow catheter Extremities: no edema Skin: No rash Reports - Labs CBC & BMP: 05/22/17 05:50 05/22/17 10:57 Labs: Laboratory Results - last 24 hr 05/21/17 05/21/17 05/21/17 11:45 11:46 12:09 WBC RBC Hgb Hct MCV MCH MCHC RDW Plt Count MPV Neut % (Auto) Lymph % (Auto) [place] % (Auto) Eos % (Auto) Baso % (Auto) Neut # (Auto) Lymph # (Auto) [place] # (Auto) Eos # (Auto) Baso # (Auto) Immature Gran % Nucleated RBC % Immature Gran # Nucleated RBCs # Immature Plt Fraction Hypochromasia Microcytosis Morphology Comment ABG pH ABG pCO2 ABG pO2 ABG HCO3 ABG Total CO2 ABG O2 Saturation ABG Base Excess FiO2 Sodium Potassium Chloride Carbon Dioxide Anion Gap BUN Creatinine GFR Calculation BUN/Creatinine Ratio Glucose 659 H* POC Glucose 469 H 453 H Hemoglobin A1c Calculated Osmolality Calcium Phosphorus Magnesium Total Bilirubin Direct Bilirubin Indirect Bilirubin AST ALT Alkaline Phosphatase Lactate Dehydrogenase Total Protein Albumin Globulin Albumin/Globulin Ratio Triglycerides Free T4 TSH 3rd Generation Urine Color Urine Appearance Urine pH Ur Specific [place] Urine Protein Urine Glucose (UA) Urine Ketones Urine Blood Urine Nitrate Urine Bilirubin Urine Urobilinogen Urine Leukocytes Urine WBC Ur Squamous Epith Cells Urine Bacteria Urine Mucus Ur Culture Indicated? Hepatitis A IgM Ab Hep Bs Antigen Hep B Core IgM Ab Hepatitis C Antibody 05/21/17 05/21/17 05/21/17 12:09 13:00 13:00 WBC RBC Hgb Hct MCV MCH MCHC RDW Plt Count MPV Neut % (Auto) Lymph % (Auto) [place] % (Auto) Eos % (Auto) Baso % (Auto) Neut # (Auto) Lymph # (Auto) [place] # (Auto) Eos # (Auto) Baso # (Auto) Immature Gran % Nucleated RBC % Immature Gran # Nucleated RBCs # Immature Plt Fraction Hypochromasia Microcytosis Morphology Comment ABG pH ABG pCO2 ABG pO2 ABG HCO3 ABG Total CO2 ABG O2 Saturation ABG Base Excess FiO2 Sodium 122 L Potassium 5.4 H Chloride 87 L Carbon Dioxide 21 Anion Gap 19.4 H BUN 18 Creatinine 2.60 H GFR Calculation 35 BUN/Creatinine Ratio 6.00 Glucose 656 H* POC Glucose Hemoglobin A1c Calculated Osmolality 277.9 Calcium 7.5 L Phosphorus 1.7 L Magnesium 1.9 Total Bilirubin Direct Bilirubin Indirect Bilirubin AST ALT Alkaline Phosphatase Lactate Dehydrogenase Total Protein Albumin Globulin Albumin/Globulin Ratio Triglycerides 6393 H Free T4 TSH 3rd Generation Urine Color Urine Appearance Urine pH Ur Specific [place] Urine Protein Urine Glucose (UA) Urine Ketones Urine Blood Urine Nitrate Urine Bilirubin Urine Urobilinogen Urine Leukocytes Urine WBC Ur Squamous Epith Cells Urine Bacteria Urine Mucus Ur Culture Indicated? Hepatitis A IgM Ab Hep Bs Antigen Hep B Core IgM Ab Hepatitis C Antibody 05/21/17 05/21/17 05/21/17 13:30 14:33 14:36 WBC RBC Hgb Hct MCV MCH MCHC RDW Plt Count MPV Neut % (Auto) Lymph % (Auto) [place] % (Auto) Eos % (Auto) Baso % (Auto) Neut # (Auto) Lymph # (Auto) [place] # (Auto) Eos # (Auto) Baso # (Auto) Immature Gran % Nucleated RBC % Immature Gran # Nucleated RBCs # Immature Plt Fraction Hypochromasia Microcytosis Morphology Comment ABG pH 7.351 ABG pCO2 38.5 ABG pO2 60.7 L ABG HCO3 21.1 ABG Total CO2 18.2 L ABG O2 Saturation 91.1 L ABG Base Excess -3.9 L FiO2 21.00 Sodium Potassium Chloride Carbon Dioxide Anion Gap BUN Creatinine GFR Calculation BUN/Creatinine Ratio Glucose 607 H* POC Glucose Hemoglobin A1c Calculated Osmolality Calcium Phosphorus Magnesium Total Bilirubin Direct Bilirubin Indirect Bilirubin AST ALT Alkaline Phosphatase Lactate Dehydrogenase Total Protein Albumin Globulin Albumin/Globulin Ratio Triglycerides Free T4 TSH 3rd Generation Urine Color Yellow Urine Appearance Slightly hazy Urine pH 5.0 Ur Specific [place] 1.026 Urine Protein 30 Urine Glucose (UA) >=500 Urine Ketones 5 Urine Blood Negative Urine Nitrate Negative Urine Bilirubin Negative Urine Urobilinogen < 2.0 H Urine Leukocytes Negative Urine WBC 1 Ur Squamous Epith Cells Occasional Urine Bacteria Occasional Urine Mucus Occasional Ur Culture Indicated? Not indicated Hepatitis A IgM Ab Hep Bs Antigen Hep B Core IgM Ab Hepatitis C Antibody 05/21/17 05/21/17 05/21/17 15:16 15:30 16:21 WBC RBC Hgb Hct MCV MCH MCHC RDW Plt Count MPV Neut % (Auto) Lymph % (Auto) [place] % (Auto) Eos % (Auto) Baso % (Auto) Neut # (Auto) Lymph # (Auto) [place] # (Auto) Eos # (Auto) Baso # (Auto) Immature Gran % Nucleated RBC % Immature Gran # Nucleated RBCs # Immature Plt Fraction Hypochromasia Microcytosis Morphology Comment ABG pH 7.290 L ABG pCO2 38.5 ABG pO2 88.2 ABG HCO3 18.1 L ABG Total CO2 19.3 L ABG O2 Saturation 96.5 ABG Base Excess -7.8 L FiO2 Sodium Potassium Chloride Carbon Dioxide Anion Gap BUN Creatinine GFR Calculation BUN/Creatinine Ratio Glucose 512 H* 460 H POC Glucose Hemoglobin A1c Calculated Osmolality Calcium Phosphorus Magnesium Total Bilirubin Direct Bilirubin Indirect Bilirubin AST ALT Alkaline Phosphatase Lactate Dehydrogenase Total Protein Albumin Globulin Albumin/Globulin Ratio Triglycerides Free T4 TSH 3rd Generation Urine Color Urine Appearance Urine pH Ur Specific [place] Urine Protein Urine Glucose (UA) Urine Ketones Urine Blood Urine Nitrate Urine Bilirubin Urine Urobilinogen Urine Leukocytes Urine WBC Ur Squamous Epith Cells Urine Bacteria Urine Mucus Ur Culture Indicated? Hepatitis A IgM Ab Hep Bs Antigen Hep B Core IgM Ab Hepatitis C Antibody 05/21/17 05/21/17 05/21/17 18:19 18:22 18:22 WBC RBC Hgb Hct MCV MCH MCHC RDW Plt Count MPV Neut % (Auto) Lymph % (Auto) [place] % (Auto) Eos % (Auto) Baso % (Auto) Neut # (Auto) Lymph # (Auto) [place] # (Auto) Eos # (Auto) Baso # (Auto) Immature Gran % Nucleated RBC % Immature Gran # Nucleated RBCs # Immature Plt Fraction Hypochromasia Microcytosis Morphology Comment ABG pH ABG pCO2 ABG pO2 ABG HCO3 ABG Total CO2 ABG O2 Saturation ABG Base Excess FiO2 Sodium Potassium Chloride Carbon Dioxide Anion Gap BUN Creatinine GFR Calculation BUN/Creatinine Ratio Glucose 415 H POC Glucose 307 H Hemoglobin A1c Calculated Osmolality Calcium Phosphorus Magnesium Total Bilirubin 1.30 H Direct Bilirubin 0.180 Indirect Bilirubin 1.1 H AST 46 H ALT 30 Alkaline Phosphatase 87 Lactate Dehydrogenase Total Protein 5.6 L Albumin 2.4 L Globulin Albumin/Globulin Ratio Triglycerides Free T4 TSH 3rd Generation Urine Color Urine Appearance Urine pH Ur Specific [place] Urine Protein Urine Glucose (UA) Urine Ketones Urine Blood Urine Nitrate Urine Bilirubin Urine Urobilinogen Urine Leukocytes Urine WBC Ur Squamous Epith Cells Urine Bacteria Urine Mucus Ur Culture Indicated? Hepatitis A IgM Ab Hep Bs Antigen Hep B Core IgM Ab Hepatitis C Antibody 05/21/17 05/21/17 05/21/17 18:22 19:30 20:34 WBC RBC Hgb Hct MCV MCH MCHC RDW Plt Count MPV Neut % (Auto) Lymph % (Auto) [place] % (Auto) Eos % (Auto) Baso % (Auto) Neut # (Auto) Lymph # (Auto) [place] # (Auto) Eos # (Auto) Baso # (Auto) Immature Gran % Nucleated RBC % Immature Gran # Nucleated RBCs # Immature Plt Fraction Hypochromasia Microcytosis Morphology Comment ABG pH 7.322 L ABG pCO2 41.6 ABG pO2 109.2 H ABG HCO3 21.0 ABG Total CO2 22.3 L ABG O2 Saturation 97.9 ABG Base Excess -4.8 L FiO2 Sodium 130 L Potassium 5.5 H Chloride 98 Carbon Dioxide 20 L Anion Gap 17.5 H BUN 24 H Creatinine 2.50 H GFR Calculation 37 BUN/Creatinine Ratio 9.00 Glucose 455 H POC Glucose Hemoglobin A1c Calculated Osmolality 283.8 Calcium 5.9 L D Phosphorus Magnesium Total Bilirubin Direct Bilirubin Indirect Bilirubin AST ALT Alkaline Phosphatase Lactate Dehydrogenase 402 H Total Protein Albumin Globulin Albumin/Globulin Ratio Triglycerides Free T4 TSH 3rd Generation Urine Color Urine Appearance Urine pH Ur Specific [place] Urine Protein Urine Glucose (UA) Urine Ketones Urine Blood Urine Nitrate Urine Bilirubin Urine Urobilinogen Urine Leukocytes Urine WBC Ur Squamous Epith Cells Urine Bacteria Urine Mucus Ur Culture Indicated? Hepatitis A IgM Ab Hep Bs Antigen Hep B Core IgM Ab Hepatitis C Antibody 05/21/17 05/22/17 05/22/17 23:00 00:15 01:30 WBC RBC Hgb Hct MCV MCH MCHC RDW Plt Count MPV Neut % (Auto) Lymph % (Auto) [place] % (Auto) Eos % (Auto) Baso % (Auto) Neut # (Auto) Lymph # (Auto) [place] # (Auto) Eos # (Auto) Baso # (Auto) Immature Gran % Nucleated RBC % Immature Gran # Nucleated RBCs # Immature Plt Fraction Hypochromasia Microcytosis Morphology Comment ABG pH ABG pCO2 ABG pO2 ABG HCO3 ABG Total CO2 ABG O2 Saturation ABG Base Excess FiO2 Sodium Potassium Chloride Carbon Dioxide Anion Gap BUN Creatinine GFR Calculation BUN/Creatinine Ratio Glucose 293 H 236 H POC Glucose Hemoglobin A1c Calculated Osmolality Calcium Phosphorus Magnesium Total Bilirubin Direct Bilirubin Indirect Bilirubin AST ALT Alkaline Phosphatase Lactate Dehydrogenase Total Protein Albumin Globulin Albumin/Globulin Ratio Triglycerides 3081 H Free T4 TSH 3rd Generation Urine Color Urine Appearance Urine pH Ur Specific [place] Urine Protein Urine Glucose (UA) Urine Ketones Urine Blood Urine Nitrate Urine Bilirubin Urine Urobilinogen Urine Leukocytes Urine WBC Ur Squamous Epith Cells Urine Bacteria Urine Mucus Ur Culture Indicated? Hepatitis A IgM Ab Hep Bs Antigen Hep B Core IgM Ab Hepatitis C Antibody 05/22/17 05/22/17 05/22/17 01:30 01:30 03:15 WBC RBC Hgb Hct MCV MCH MCHC RDW Plt Count MPV Neut % (Auto) Lymph % (Auto) [place] % (Auto) Eos % (Auto) Baso % (Auto) Neut # (Auto) Lymph # (Auto) [place] # (Auto) Eos # (Auto) Baso # (Auto) Immature Gran % Nucleated RBC % Immature Gran # Nucleated RBCs # Immature Plt Fraction Hypochromasia Microcytosis Morphology Comment ABG pH ABG pCO2 ABG pO2 ABG HCO3 ABG Total CO2 ABG O2 Saturation ABG Base Excess FiO2 Sodium Potassium Chloride Carbon Dioxide Anion Gap BUN Creatinine GFR Calculation BUN/Creatinine Ratio Glucose 183 H POC Glucose Hemoglobin A1c Calculated Osmolality Calcium Phosphorus Magnesium Total Bilirubin Direct Bilirubin Indirect Bilirubin AST ALT Alkaline Phosphatase Lactate Dehydrogenase Total Protein Albumin Globulin Albumin/Globulin Ratio Triglycerides Free T4 0.95 TSH 3rd Generation 2.690 Urine Color Urine Appearance Urine pH Ur Specific [place] Urine Protein Urine Glucose (UA) Urine Ketones Urine Blood Urine Nitrate Urine Bilirubin Urine Urobilinogen Urine Leukocytes Urine WBC Ur Squamous Epith Cells Urine Bacteria Urine Mucus Ur Culture Indicated? Hepatitis A IgM Ab Negative Hep Bs Antigen Negative Hep B Core IgM Ab Negative Hepatitis C Antibody Negative 05/22/17 05/22/17 05/22/17 05:04 05:46 05:46 WBC RBC Hgb Hct MCV MCH MCHC RDW Plt Count MPV Neut % (Auto) Lymph % (Auto) [place] % (Auto) Eos % (Auto) Baso % (Auto) Neut # (Auto) Lymph # (Auto) [place] # (Auto) Eos # (Auto) Baso # (Auto) Immature Gran % Nucleated RBC % Immature Gran # Nucleated RBCs # Immature Plt Fraction Hypochromasia Microcytosis Morphology Comment ABG pH ABG pCO2 ABG pO2 ABG HCO3 ABG Total CO2 ABG O2 Saturation ABG Base Excess FiO2 Sodium 141 Potassium 5.1 Chloride 111 H Carbon Dioxide 18 L Anion Gap 17.1 H BUN 26 H Creatinine 2.90 H GFR Calculation 31 BUN/Creatinine Ratio 8.00 Glucose 171 H POC Glucose 116 H Hemoglobin A1c Calculated Osmolality 289.3 Calcium 6.8 L Phosphorus 1.6 L Magnesium 1.7 L Total Bilirubin 1.00 Direct Bilirubin < 0.100 Indirect Bilirubin 0.9 AST 119 H ALT 40 Alkaline Phosphatase 62 Lactate Dehydrogenase 694 H Total Protein 4.7 L Albumin 2.1 L Globulin 2.6 Albumin/Globulin Ratio 0.8 L Triglycerides Free T4 TSH 3rd Generation Urine Color Urine Appearance Urine pH Ur Specific [place] Urine Protein Urine Glucose (UA) Urine Ketones Urine Blood Urine Nitrate Urine Bilirubin Urine Urobilinogen Urine Leukocytes Urine WBC Ur Squamous Epith Cells Urine Bacteria Urine Mucus Ur Culture Indicated? Hepatitis A IgM Ab Hep Bs Antigen Hep B Core IgM Ab Hepatitis C Antibody 05/22/17 05/22/17 05/22/17 05:46 05:50 06:35 WBC 11.4 D RBC 4.62 Hgb 14.1 D Hct 39.6 L MCV 85.7 L MCH 31 MCHC 35.6 RDW 14.2 Plt Count 290 MPV 11.3 Neut % (Auto) 78.6 H Lymph % (Auto) 13.6 L [place] % (Auto) 6.0 Eos % (Auto) 0.1 Baso % (Auto) 0.5 Neut # (Auto) 9.0 H Lymph # (Auto) 1.6 [place] # (Auto) 0.7 Eos # (Auto) 0.0 Baso # (Auto) 0.1 Immature Gran % 1.2 Nucleated RBC % 0.2 Immature Gran # 0.14 Nucleated RBCs # 0.02 Immature Plt Fraction 0.0 Hypochromasia 1+ Microcytosis 1+ Morphology Comment ABG pH 7.270 L ABG pCO2 40.7 ABG pO2 80.4 ABG HCO3 18.0 L ABG Total CO2 16.6 L ABG O2 Saturation 95.0 ABG Base Excess -8.0 L FiO2 Sodium Potassium Chloride Carbon Dioxide Anion Gap BUN Creatinine GFR Calculation BUN/Creatinine Ratio Glucose POC Glucose Hemoglobin A1c 10.2 H Calculated Osmolality Calcium Phosphorus Magnesium Total Bilirubin Direct Bilirubin Indirect Bilirubin AST ALT Alkaline Phosphatase Lactate Dehydrogenase Total Protein Albumin Globulin Albumin/Globulin Ratio Triglycerides Free T4 TSH 3rd Generation Urine Color Urine Appearance Urine pH Ur Specific [place] Urine Protein Urine Glucose (UA) Urine Ketones Urine Blood Urine Nitrate Urine Bilirubin Urine Urobilinogen Urine Leukocytes Urine WBC Ur Squamous Epith Cells Urine Bacteria Urine Mucus Ur Culture Indicated? Hepatitis A IgM Ab Hep Bs Antigen Hep B Core IgM Ab Hepatitis C Antibody 05/22/17 05/22/17 05/22/17 06:35 07:45 08:45 WBC RBC Hgb Hct MCV MCH MCHC RDW Plt Count MPV Neut % (Auto) Lymph % (Auto) [place] % (Auto) Eos % (Auto) Baso % (Auto) Neut # (Auto) Lymph # (Auto) [place] # (Auto) Eos # (Auto) Baso # (Auto) Immature Gran % Nucleated RBC % Immature Gran # Nucleated RBCs # Immature Plt Fraction Hypochromasia Microcytosis Morphology Comment ABG pH ABG pCO2 ABG pO2 ABG HCO3 ABG Total CO2 ABG O2 Saturation ABG Base Excess FiO2 Sodium 138 Potassium 5.4 H Chloride 109 H Carbon Dioxide 22 Anion Gap 12.4 BUN 27 H Creatinine 2.78 H GFR Calculation 32 BUN/Creatinine Ratio 9.00 Glucose 207 H 234 H 210 H POC Glucose Hemoglobin A1c Calculated Osmolality 285.7 Calcium 5.7 L* Phosphorus Magnesium Total Bilirubin Direct Bilirubin Indirect Bilirubin AST ALT Alkaline Phosphatase Lactate Dehydrogenase Total Protein Albumin Globulin Albumin/Globulin Ratio Triglycerides 2183 H Free T4 TSH 3rd Generation Urine Color Urine Appearance Urine pH Ur Specific [place] Urine Protein Urine Glucose (UA) Urine Ketones Urine Blood Urine Nitrate Urine Bilirubin Urine Urobilinogen Urine Leukocytes Urine WBC Ur Squamous Epith Cells Urine Bacteria Urine Mucus Ur Culture Indicated? Hepatitis A IgM Ab Hep Bs Antigen Hep B Core IgM Ab Hepatitis C Antibody 05/22/17 05/22/17 05/22/17 08:45 09:36 10:57 WBC RBC Hgb Hct MCV MCH MCHC RDW Plt Count MPV Neut % (Auto) Lymph % (Auto) [place] % (Auto) Eos % (Auto) Baso % (Auto) Neut # (Auto) Lymph # (Auto) [place] # (Auto) Eos # (Auto) Baso # (Auto) Immature Gran % Nucleated RBC % Immature Gran # Nucleated RBCs # Immature Plt Fraction Hypochromasia Microcytosis Morphology Comment ABG pH 7.269 L ABG pCO2 40.7 ABG pO2 89.5 ABG HCO3 18.0 L ABG Total CO2 16.3 L ABG O2 Saturation 96.3 ABG Base Excess -8.1 L FiO2 [employer] Sodium Potassium Chloride Carbon Dioxide Anion Gap BUN Creatinine GFR Calculation BUN/Creatinine Ratio Glucose 206 H 196 H POC Glucose Hemoglobin A1c Calculated Osmolality Calcium Phosphorus Magnesium Total Bilirubin Direct Bilirubin Indirect Bilirubin AST ALT Alkaline Phosphatase Lactate Dehydrogenase Total Protein Albumin Globulin Albumin/Globulin Ratio Triglycerides Free T4 TSH 3rd Generation Urine Color Urine Appearance Urine pH Ur Specific [place] Urine Protein Urine Glucose (UA) Urine Ketones Urine Blood Urine Nitrate Urine Bilirubin Urine Urobilinogen Urine Leukocytes Urine WBC Ur Squamous Epith Cells Urine Bacteria Urine Mucus Ur Culture Indicated? Hepatitis A IgM Ab Hep Bs Antigen Hep B Core IgM Ab Hepatitis C Antibody - Reports Microbiology: Microbiology 05/20/17 21:13 Urine Culture - Final Urine,Voided No Growth at 48 hours. 05/20/17 22:24 Blood Culture - Preliminary Blood No growth at 1 day 05/20/17 21:13 Blood Culture - Preliminary Blood No growth at 1 day - Diagnostic Findings Procedure: Chest x-ray: image reviewed by me, report reviewed by me (No consolidation or effusion), CT Abdomen and Pelvis: report reviewed by me ( Pancreatitis)
[2017-05-22] MEDS ORDERED: SODIUM CHLORIDE 0.9% 250 ML IV PRN (12:14)
[2017-05-22] MEDS ORDERED: CALCIUM GLUCONATE 2,000 MG in SODIUM CHLORIDE 0.9% 100 ML IV ONE ×2 (12:45→21:00)
[2017-05-22] MEDS: MIDAZOLAM 100 MG in SODIUM CHLORIDE 0.9% 80 ML IV SCH ×3 (13:01→23:15)
--- NOTE | 2017-05-22 13:45 | Hospitalist Progress Note ---
Assessment and Plan (1) Hypertriglyceridemia Status: Acute Assessment and plan: We do not perform plasmapheresis at this hospital however Dr. Morales will use the dialysis machine to perform phoresis and transfuse plasma for 2 hours each day until patient stable enough to transport to [facility] for plasma phoresis. Current Visit: Yes (2) Acute renal failure Status: Acute Assessment and plan: urine output has improved overnight. Dr. Morales consulted. Potassium valeriano to 5.4 but repeat potassium down to 4.3 Current Visit: Yes (3) Compartment syndrome Status: Acute Assessment and plan: Dr. Seymour consulted for possible compartment syndrome P. Patient was taken to the OR on May 22, 2017 a dialysis catheter was placed. Exploratory lap was done with lysis of adhesions and drainage of pancreatic ascites and a wound VAC was placed. Current Visit: Yes (4) Hypomagnesemia Status: Acute Assessment and plan: replacing and recheck in am Current Visit: Yes (5) Hypophosphatemia Status: Acute Assessment and plan: replacing and recheck in am Current Visit: Yes (6) Pancreatitis Status: Acute Assessment and plan: will start TPN Current Visit: Yes (7) Hyponatremia Status: Acute Assessment and plan: resolved Current Visit: Yes (8) New onset type 2 diabetes mellitus Status: Acute Assessment and plan: no evidence of DKA, diabetes new onset and contributed to the pancreatitis, hgb A1c 10.2, insulin drip Current Visit: Yes (9) Acute respiratory failure Status: Acute Assessment and plan: Dr. Martinez managing the vent. Respiratory failure mainly due to volume overload caused by third spacing Current Visit: Yes (10) Hypotension Status: Acute Assessment and plan: due to shock, doubt sepsis but will do sepsis protocol, keep cvp 10-12. Cont pressors Current Visit: Yes Hospitalist: Subjective Interval history: Meet with patient's twice today and spoke with both Dr. Morales and Dr. Murry. Patient too unstable to transport. Plasma pheresis is not available at this hospital. Patient is currently on 2 pressors and would not be able to survive transport to [facility] or [facility] at this time. If I can stabilize him on one pressor we may be able to fly him out to [facility] or [facility]. Family prefers [facility] when he is stable. Currently his CVP pressure was vacillating between 8 and 9 our goal is to keep it between 10 and 12. He is currently on 2 50/h of normal saline. Dr. Morales is going to use the dialysis machine in order to do a type of pheresis until we can get him to [facility]. We will do this for approximately 2 hours each day. I have asked Dr. Morales to specifically speak to the about the procedure. His urine output has picked up overnight. He is waking up and following commands which is wonderful. I have asked him to use Versed for sedation as he is prone to less hypotension with Versed. Elevation in his white count is probably inflammatory in nature but I discussed with Dr. Moreira switching him over to meropenem. 60 min cc Exam - Constitutional Vitals: Period Temp Pulse Resp BP Sys/Gutierrez Pulse Ox Last 24 Hr 98.6 F-103.7 F 114-155 12-32 72-159/51-106 90-100 Exam: Heart Rate-[tachy] Lungs-[CTAB] GI-[diminished,distended with edema, wound vac ] Ext-[1+ LE edema third spacing ] Neuro woke up and following simple commands, trying to talk to his psych agitated mood and affect General [no acute distress] Results - Labs CBC & BMP: 05/22/17 05:50 05/22/17 12:56 Lab Results: I have reviewed the past 24 hour labs - Diagnostic Findings Procedure: Chest x-ray: report reviewed by me (nothing acute )
[2017-05-22 13:49] LABS: Osmolality,Calculated 288.4 MOS/KG (273-304); Potassium 4.3 MMOL/L (3.5-5.1)
[2017-05-22] MEDS ORDERED: SODIUM CHLORIDE 0.9% 500 ML IV ONE (14:18)
[2017-05-22 14:25] LABS: ABG HCO3 18.8 MMOL/L (20-26); ABG Oxygen Saturation 98.4 % (95-100); ABG PCO2 33.1 MM HG (35-48); ABG PH 7.341 (7.35-7.45); ABG TCO2 15.6 MMOL/L (23-27)
[2017-05-22] MEDS ORDERED: SODIUM PHOSPHATE INJ 30 MMOL in SODIUM CHLORIDE 0.9% 250 ML IV ONE (15:00)
[2017-05-22] MEDS: fentaNYL INJ 1,250 MCG in SODIUM CHLORIDE 0.9% 225 ML IV SCH (15:08)
[2017-05-22] MEDS ORDERED: DEXTROSE 5% NACL 0.45% 1,000 ML IV SCH (16:30)
[2017-05-22] MEDS ORDERED: TRACE ELEMENTS (5) 1 ML, MULTIVITAMIN INJ 10 ML in AMINO ACIDS 10% 700 ML, DEXTROSE 70%... IV SCH (17:00)
[2017-05-22] MEDS ORDERED: DEXTROSE 10% 1,000 ML IV PRN (17:00)
--- NOTE | 2017-05-22 17:01 | ECHO Report ---
Lester Calloway Exam Date: 05/22/2017 14:35 Referring Physician: Technologist: Dimple Saenz Age: 46 Ht (in): 71 Wt (lb): 207 Gender: M Exam Location: [facility] Echo Indications: Hypotension, acute resp. failure, acute pancreatitis due to hypertrigly, diabetic ketoacidosis BP: 106 / 66 HR: 127 Rhythm: tachycarddia Technical Quality: Technically difficult study IMPRESSIONS Mild concentric left ventricular hypertrophy. No mass, thrombus or pericardial effusion visualized. Left ventricular ejection fraction is estimated at 50-55 %. Normal right ventricular size. Normal right atrial size. Normal left atrial size. Morphologically normal mitral valve. The aortic valve is trileaflet, delicate and has normal motion. Morphologically normal tricuspid valve. Pulmonic valve not well visualized. No pericardial effusion. Normal size aortic root and proximal ascending aorta. MEASUREMENTS (Male / Female) Normal Values 2D ECHO LV Diastolic Diameter PLAX 3.1 cm 4.2 - 5.9 / 3.9 - 5.3 cm LV Systolic Diameter PLAX 1.5 cm LV Fractional Shortening PLAX 50.4 % IVS Diastolic Thickness 1.0 cm 0.6 - 1.0 / 0.6 - 0.9 cm LVPW Diastolic Thickness 1.1 cm 0.6 - 1.0 / 0.6 - 0.9 cm Aortic Root Diameter 2.6 cm LA Systolic Diameter LX 2.9 cm 3.0 - 4.0 / 2.7 - 3.8 cm FINDINGS Left Ventricle Mild concentric left ventricular hypertrophy. No mass, thrombus or pericardial effusion visualized. Left ventricular ejection fraction is estimated at 50-55 %. Right Ventricle Normal right ventricular size. Right Atrium Normal right atrial size. Left Atrium Normal left atrial size. Mitral Valve Morphologically normal mitral valve. Aortic Valve The aortic valve is trileaflet, delicate and has normal motion. Tricuspid Valve Morphologically normal tricuspid valve. Pulmonic Valve Pulmonic valve not well visualized. Pericardium No pericardial effusion. Aorta Normal size aortic root and proximal ascending aorta. Tylor Carmona MD (Electronically Signed) Final Date: 22 May 2017 17:00
[2017-05-22] MEDS ORDERED: SODIUM CHLORIDE 0.9% IV ONE (17:31)
[2017-05-22] MEDS ORDERED: ALTEPLASE IV ONE (17:31)
[2017-05-22] MEDS ORDERED: ALTEPLASE 2 MG VIAL INTRACATH ONE ×2 (18:00→18:30)
[2017-05-22] MEDS: PHENYLEPHRINE INJ 80 MG in SODIUM CHLORIDE 0.9% 242 ML IV SCH (18:45)
[2017-05-22 20:37] LABS: ABG Base Excess -4.6 MMOL/L (-2.5-2.5); ABG HCO3 20.4 MMOL/L (20-26); ABG Oxygen Saturation 95.6 % (95-100); ABG PCO2 37.2 MM HG (35-48); ABG PH 7.357 (7.35-7.45); ABG TCO2 21.5 MMOL/L (23-27)
[2017-05-22] MEDS: NOREPINEPHRINE 16 MG in SODIUM CHLORIDE 0.9% 234 ML IV SCH (20:49)
[2017-05-22] MEDS: ENOXAPARIN 40 MG/0.4 ML SYRINGE SUBCUT SCH (21:01)
[2017-05-22 21:38] LABS: Calcium 6.5 MG/DL (8.5-10.1); Osmolality,Calculated 290.8 MOS/KG (273-304); Potassium 3.5 MMOL/L (3.5-5.1)
[2017-05-22] MEDS: POTASSIUM CHLORIDE RIDER 20 MEQ in PREMIX 1 EACH IV PRN (22:24)
[2017-05-23] MEDS: fentaNYL INJ 1,250 MCG in SODIUM CHLORIDE 0.9% 225 ML IV SCH ×3 (00:15→18:58)
[2017-05-23] MEDS: PHENYLEPHRINE INJ 80 MG in SODIUM CHLORIDE 0.9% 242 ML IV SCH ×5 (00:15→21:57)
[2017-05-23] MEDS: POTASSIUM CHLORIDE RIDER 10 MEQ in PREMIX 1 EACH IV PRN ×3 (00:23→19:42)
[2017-05-23 01:36] LABS: Calcium 6.2 MG/DL (8.5-10.1)
[2017-05-23] MEDS: SODIUM CHLORIDE 23.4% CONC INJ 38.5 MEQ, SODIUM BICARB INJ 100 MEQ in STERILE WATER INJ... IV SCH ×4 (03:28→18:02)
[2017-05-23 04:48] LABS: ABG Base Excess -6.8 MMOL/L (-2.5-2.5); ABG HCO3 18.8 MMOL/L (20-26); ABG Oxygen Saturation 94.1 % (95-100); ABG PCO2 41.5 MM HG (35-48); ABG PH 7.282 (7.35-7.45); ABG PO2 75.8 MM HG (80-95); ABG TCO2 17.9 MMOL/L (23-27)
[2017-05-23 05:26] LABS: Albumin 2.4 G/DL (3.4-5.0); Bilirubin,Total 1.2 MG/DL (0.2-1.0); Calcium 6.3 MG/DL (8.5-10.1); Osmolality,Calculated 292.1 MOS/KG (273-304); Potassium 4.4 MMOL/L (3.5-5.1); Total Protein 4.7 G/DL (6.4-8.3)
[2017-05-23 05:39] LABS: Basophils % 0.2 % (0.0-0.8); Eosinophils % 0.1 % (0.00-10.9); Hematocrit 29.4 VOL% (42.0-52.0); Immature Granulocytes % 0.7 %; Immature Granulocytes Absolute 0.08 #; Lymphocytes # 0.8 10*3/uL (1.4-4.0); Lymphocytes % 7.6 % (21.2-54.2); Mean Corpuscular Hemoglobin 30 PG (27-34); Mean Corpuscular Volume 87.8 FL (87-102); Mean Platelet Volume 10.3 FL (9.6-12.0); Monocytes # 0.6 10*3/uL (0.11-0.8); Monocytes % 5.4 % (1.7-12.7); Neutrophils # 9.3 10*3/uL (1.4-7.4); Red Blood Count 3.35 MC/CUMM (3.8-5.5); Red Cell Distribution Width 14.6 % (9.3-17.3); White Blood Count 10.8 T/CUMM (4-12)
[2017-05-23 05:40] LABS: Platelet Count 150 T/CUMM (130-400)
[2017-05-23] MEDS ORDERED: DEXTROSE 50% 25 GM/50 ML SYRINGE IV PRN (05:44)
[2017-05-23] MEDS ORDERED: GLUCAGON 1 MG VIAL IM PRN (05:44)
[2017-05-23 05:57] LABS: Band Neutrophils 15 % (0-10); Lymphocytes 8 % (20-55); Segmented Neutrophils 76 % (50-85); Total Cells Counted 100
[2017-05-23 05:58] LABS: Platelet Estimate Normal
[2017-05-23 06:08] LABS: Magnesium 1.8 MG/DL (1.8-2.4); Phosphorous 3.2 MG/DL (2.5-4.9)
[2017-05-23] MEDS: SODIUM CHLORIDE 0.45% 1,000 ML IV SCH ×2 (06:14→08:12)
--- NOTE | 2017-05-23 07:08 | Operative Note ---
Date of procedure: 05/23/17 Pre-op diagnosis: Need for hemodialysis access Post-op diagnosis: same Procedure: Preoperative diagnosis Need for hemodialysis access with malfunctioning left dialysis catheter Postoperative diagnosis Same Procedures performed Placement of new non-tunneled right internal jugular vein dialysis catheter using existing wire access through triple-lumen catheter Findings The existing triple-lumen catheter was used and the dialysis catheter was placed over a wire through the existing catheter access. Postop x-rays showed no pneumothorax and good positioning of the tip of the catheter. Complications None apparent Specimen None Anesthesia None Blood loss Minimal Indications Need for hemodialysis access with malfunctioning left internal jugular vein hemodialysis catheter Description of procedure The patient remained in his ICU bed and his neck was turned to the left side. The existing catheter was prepped and draped with chlorhexidine and sterile drapes. The wire access was used through the distal lumen of the catheter and the existing catheter was removed. The incision on the neck was extended and dilators were placed over the wire using Seldinger technique. A new dialysis catheter was placed over the wire and advanced easily to its final position. Catheter was sewn in place with 3-0 silk sutures and a sterile dressing was applied with a Biopatch. Chest x-ray revealed good position of the tip the catheter and it returned blood and flushed easily. Postoperative plan Resume hemodialysis per nephrology Surgeon / Physician: Andre Seymour Results - Labs CBC & BMP: 05/23/17 04:30 05/23/17 04:30 Discharge Plan - Discharge Medications No Action Omeprazole Magnesium [Prilosec Otc] 20 mg PO DAILY - Follow Up or Referral - Forms/Instructions
[2017-05-23] MEDS: COLESEVELAM 625 MG TABLET PO SCH ×2 (07:14→17:12)
[2017-05-23] MEDS ORDERED: INSULIN LISPRO 100 UNIT/ML SUBCUT SCH (07:30)
[2017-05-23] MEDS: NOREPINEPHRINE 16 MG in SODIUM CHLORIDE 0.9% 234 ML IV SCH ×2 (07:40→20:32)
--- NOTE | 2017-05-23 07:44 | Pulmonology Progress Note ---
Pulmonary - PN: Subj Interval history: 46-year-old white male with acute pancreatitis. He had abdominal compartment syndrome requiring surgery. This apparently was caused by severe hypertriglyceridemia and an undiagnosed diabetic. He is on the ventilator. Chest x-ray really looks okay. Minimal right upper lobe infiltrate. ET tube good position. PO2 is only 75 on 100% with 10 of PEEP. Not able to reduce minute ventilation or FiO2 at this time. Probably has pulmonary shunting due to his pancreatitis. Exam (Progress Note) - Constitutional Vitals: Period Temp Pulse Resp BP Sys/Gutierrez Pulse Ox Last 24 Hr 100.1 F-101.2 F 103-140 11 69-158/52-106 92-100 Exam: Patient is sedated. Systolic blood pressure 98 on maximum dose Rafael-Synephrine. Pupils reactive. Orotracheal tube in place. Neck is supple. Chest reveals good breath sounds bilaterally. Heart rate is around 110 regular rhythm. I do not hear murmur. Abdomen distended wound VAC in place. No bowel sounds. Extremities no clubbing cyanosis trace of edema. Results - Labs CBC & BMP: 05/23/17 04:30 05/23/17 06:55 Lab Results: I have reviewed the past 24 hour labs - Diagnostic Findings Procedure: Chest x-ray: image reviewed by me (Minimal right upper lobe infiltrate. ET tube good position.) Assessment and Plan (1) Pancreatitis Status: Acute Assessment and plan: Due to severe hypertriglyceridemia. Developed an abdominal compartment syndrome. Also acute renal failure due to this. Prognosis guarded. Current Visit: Yes (2) New onset type 2 diabetes mellitus Status: Acute Assessment and plan: Continuing sliding scale insulin. Blood sugars look acceptable. Current Visit: Yes (3) Acute respiratory failure Status: Acute Assessment and plan: PO2 only 75 on 100% with 10 cm of PEEP. Likely has pulmonary shunting due to the pancreatitis. No real infiltrates on x-ray to indicate ARDS but it acts like that. Unable to decrease ventilator settings at present. He is on assist control of 16 with a tidal volume of 700. Keeping him sedated. Current Visit: Yes Qualifiers: Qualified Code(s): J96.01 - Acute respiratory failure with hypoxia; J96.02 - Acute respiratory failure with hypercapnia (4) Acute renal failure Status: Acute Assessment and plan: Continuing dialysis as required Current Visit: Yes (5) Compartment syndrome Status: Acute Assessment and plan: Has had laparotomy to decompress. Acute abdominal compartment syndrome due to pancreatitis. Current Visit: Yes (6) Hypotension Status: Acute Assessment and plan: Still requiring max dose Rafael-Synephrine. Current Visit: Yes
[2017-05-23] MEDS ORDERED: FUROSEMIDE INJ 160 MG in SODIUM CHLORIDE 0.9% 50 ML IV ONE (07:57)
[2017-05-23] MEDS: PANTOPRAZOLE 40 MG VIAL IV SCH (08:10)
[2017-05-23] MEDS: MAGNESIUM SULF RIDER 2 GM in PREMIX 1 EACH IV PRN (08:10)
[2017-05-23] MEDS: ACETAMINOPHEN 325 MG/10.15 ML UDCUP PO PRN (08:11)
[2017-05-23] MEDS: INSULIN REGULAR DRIP 100 ML IV SCH ×3 (09:34→18:34)
--- NOTE | 2017-05-23 09:34 | XRay Report ---
History is central line placement ventilator management Comparison earlier the same day Chest one view 05/23/2017 at 6:30 AM Mediastinal contours and support devices unchanged. ET tube tip remains at T4 Mild hazy bilateral perihilar infiltrates remain with the mild hypoaeration changes in the left lung base. No pneumothorax seen Impression: No interval change described above PROCEDURE INTERPRETED AT [facility] DEPARTMENT OF RADIOLOGY Final Report Signed by: Dr. Cherri Rolon
[2017-05-23] MEDS: MEROPENEM 1,000 MG in SODIUM CHLORIDE 0.9% 100 ML IV SCH ×2 (09:41→21:30)
[2017-05-23 09:43] LABS: Calcium 6.2 MG/DL (8.5-10.1); Osmolality,Calculated 292.5 MOS/KG (273-304)
--- NOTE | 2017-05-23 10:24 | Event Note ---
General Surgery Progress Note Chief complaint This patient is a 46-year-old man admitted with pancreatitis due to hypertriglyceridemia who was eventually treated with a decompressive laparotomy for potential abdominal compartment syndrome that occurred with his resuscitation on 05/22/2017 Interval history The patient had no major events last night. He is still critically ill. His dialysis catheter that I placed in the OR yesterday clotted and a new one was placed this morning in his right internal jugular vein. He is receiving modified plasma exchange with dialysis filters in attempts to clear his cytokine release and hypertriglyceridemia. He is still making urine and his lab work is relatively stable. Physical exam The patient is sedated on the ventilator Chest is clear Heart is tachycardic but regular Abdomen is distended and wound VAC has a good seal Labs Reviewed Imaging Reviewed, catheters appear in good position with no pneumothorax Assessment and plan s/p decompressive laparotomy with wound vac placement Continue aggressive supportive care The wound VAC will be changed on Thursday and I will schedule a noncontrast CT scan of the abdomen tomorrow to evaluate for any infection that could be occurring in his pancreatic tissue. Continue to follow
[2017-05-23] MEDS: MIDAZOLAM 100 MG in SODIUM CHLORIDE 0.9% 80 ML IV SCH ×3 (10:34→21:52)
--- NOTE | 2017-05-23 10:34 | XRay Report ---
Single view the chest. Indication: Shortness of breath. Comparison: May 22, 2017. The heart is normal in size. The film was obtained in expiration. An endotracheal tube, nasogastric tube, and right IJ line are in satisfactory position. No consolidation, pneumothorax, or pleural effusion. Stable pleural thickening and mild interstitial prominence at the right lung apex. Impression: Expiratory chest. Stable findings of the right lung apex. PROCEDURE INTERPRETED AT [facility] DEPARTMENT OF RADIOLOGY Final Report Signed by: Dr. Tameka Rolon
--- NOTE | 2017-05-23 10:53 | Nephrology Progress Note ---
Nephrology - PN: Subj Interval history: Mr. Calloway is seen in follow-up of his acute renal failure. He is making urine but blood pressure is 90-100 with Levophed support. He has a good bit of edema and a CVP of 20. Triglycerides are down to around 700 this morning. We will plan to dialyze him today with the new right internal jugular catheter and hopefully there will be less occlusion of the dialyzer membrane by triglyceride since the triglyceride level is decreasing. He remains critically ill with maximal support on the ventilator and on pressor support. Exam (PN)-Nephrology - Vital Signs Vital signs: Period Temp Pulse Resp BP Sys/Gutierrez Pulse Ox Last 24 Hr 99.9 F-101.2 F 103-139 11-26 69-142/50-99 92-100 - Lab 05/23/17 04:30 05/23/17 09:12 Most recent lab results ABG pH 7.282 (7.35-7.45) L 05/23/17 04:30 ABG pCO2 41.5 MM HG (35-48) 05/23/17 04:30 ABG pO2 75.8 MM HG (80-95) L 05/23/17 04:30 ABG HCO3 18.8 MMOL/L (20-26) L 05/23/17 04:30 ABG O2 Saturation 94.1 % (95-100) L 05/23/17 04:30 Calcium 6.2 MG/DL (8.5-10.1) L 05/23/17 09:12 Phosphorus 3.2 MG/DL (2.5-4.9) 05/23/17 04:30 Magnesium 1.8 MG/DL (1.8-2.4) 05/23/17 04:30
[2017-05-23] MEDS ORDERED: CALCIUM GLUCONATE 2,000 MG in SODIUM CHLORIDE 0.9% 100 ML IV ONE ×2 (11:08→14:19)
--- NOTE | 2017-05-23 12:41 | Anesthesia Post-Op ---
Anesthesia Post OP - Post Ansesthetic Evaluation Patient seen in post op: Yes Resp: within normal limits (pt still on vent vss NAC noted) CV: within normal limits Mental: within normal limits Temp: within normal limits [id number]: within normal limits Nausea and Vomiting: within normal limits Pain: within normal limits
--- NOTE | 2017-05-23 12:50 | Event Note ---
Chief complaint pancreatitis with multisystem failure Remains on a ventilator with pressors in place bicarbonate drip for acidosis urinary output has actually improved some. Dialysis has been initiated. No significant elevation of his white count is been noted lipase has continued to improve serum creatinine is 2.2. He does look more comfortable today with his fentanyl infusion. Review of systems unobtainable for the patient on the ventilator. On exam vital signs are noted blood pressure remains stable but requiring pressor support. Patient is unresponsive lids conjunctiva was unremarkable lungs clear to auscultation heart regular rate and rhythm without murmur abdomen protuberant bowel sounds decreased extremities reveal 1+ edema. Recommendations: Continue aggressive medical support. He has had a relatively uneventful 24 hours and hopefully this represents some stabilization and turn towards improvement. Biggest concern at this time remains his ongoing acidosis. At this time I see no indication for repeat exploration. Family was not available in the waiting room for discussion
--- NOTE | 2017-05-23 14:05 | Dialysis Note ---
Dialysis Note - Dialysis Note Mr. Calloway is seen during his hemodialysis. He is tolerating dialysis fairly well today but we are unable to remove fluid due to hypotension. He is not clotting his dialyzer with triglycerides today.
--- NOTE | 2017-05-23 14:11 | Hospitalist Progress Note ---
Assessment and Plan (1) Hypertriglyceridemia Status: Acute Assessment and plan: Improving with insulin drip, IV fluids and use of dialysis filters. Triglycerides are down to 778 before dialysis today. Current Visit: Yes (2) Acute renal failure Status: Acute Assessment and plan: Patient continues to have adequate urine output. Potassium valeriano to 5 today. Patient is still slightly acidotic despite fluids with bicarb. Creatinine is stable. Patient had dialysis today and remove 400 mL's. Patient responded with 160 of Lasix by putting out over 600 mL's of fluid per I will continue giving 25% albumin every 6 hours Current Visit: Yes (3) Compartment syndrome Status: Acute Assessment and plan: Status post fasciotomy with wound VAC in place Dr. Seymour managing and monitoring. Repeat CT of abdomen on Thursday. Current Visit: Yes (4) Hypomagnesemia Status: Acute Assessment and plan: To need to replace and recheck in a.m. Current Visit: No (5) Hypophosphatemia Status: Acute Assessment and plan: Resolved Current Visit: Yes (6) Pancreatitis Status: Acute Assessment and plan: Start TPN, continue bowel rest, NG hooked to wall suction draining stool-like contents, lipase down to 485. Continue meropenem white count almost returning to normal. Repeat CT of abdomen on Thursday. Current Visit: Yes (7) New onset type 2 diabetes mellitus Status: Acute Assessment and plan: Continue insulin drip to control blood sugars during critical care illness. Insulin drip also helping to curtail elevation of triglycerides. Current Visit: Yes (8) Acute respiratory failure Status: Acute Assessment and plan: Ana had seen him and adjusted the vent. Patient is requiring less PEEP today. We will attempt to diurese him to wean his FiO2. Current Visit: Yes Qualifiers: Qualified Code(s): J96.01 - Acute respiratory failure with hypoxia; J96.02 - Acute respiratory failure with hypercapnia (9) Hypotension Status: Acute Assessment and plan: We will continue to keep CVP pressure between 10 and 12, patient has arterial line, completely weaned off Levophed, continue attempts to wean off neisha- Current Visit: Yes (10) Anemia Status: Acute Assessment and plan: cont protonix IV Current Visit: Yes Hospitalist: Subjective Interval history: Patient's condition improved overnight. Patient was weaned completely off the Levophed patient CVP pressure was elevated at 20 and I spoke with Dr. Boothe asked me to give 160 mg IV Lasix 1. His triglycerides were down to 855. We are going to attempt to do dialysis today to pull off more triglycerides if possible and fluid. Patient's urine output varies from 30-60 mL's per hour. I have spoke with Dr. Perez who indicated he was planning to adjust the oxygen and PEEP down. Patient seems less agitated today. He is still receiving Versed and fentanyl. Swelling in his abdomen is less pronounced today. He is still third spacing pretty bad. His white count had returned to almost normal at 10.8 I have consulted with Dr. Seymour this morning and he is comfortable managing his pancreatitis. He plans to repeat his CT of his abdomen on Thursday. Patient's dialysis catheter on the left was clogged with triglycerides. Dr. Seymour placed a new dialysis catheter on the right today. I met with his , parents and other family this morning and told them that he was stable to transfer to [facility] if they still preferred to transfer him. At this point he would not require plasmapheresis. I have spoken with renal pulmonary and surgery all of which are comfortable managing his care at [facility] but if they still want to proceed with transfer to [facility] we will be happy to do so at any time as he is stable now to transfer. Was able to remove 400 ml by dialysis. 60 min critical care time. Exam - Constitutional Vitals: Period Temp Pulse Resp BP Sys/Gutierrez Pulse Ox Last 24 Hr 99.6 F-101.2 F 102-139 11-21 69-147/50-99 92-100 Exam: Heart Rate-[tachy] Lungs-[diffuse fine crackles ] GI-[diminished,distended with edema, wound vac, less distended than last night ] Ext-[2 anasarca ] Neuro sedated and intubated psych sedated and intubated General [no acute distress] Results - Labs CBC & BMP: 05/23/17 04:30 05/23/17 09:12 Lab Results: I have reviewed the past 24 hour labs Labs: Blood cultures 4 negative no growth, urine culture negative no growth, nares no evidence MRSA - Diagnostic Findings Procedure: Chest x-ray: report reviewed by me (Bilateral perihilar infiltrates with hypo-aeration changes in left lung base)
[2017-05-23] MEDS ORDERED: MAGNESIUM SULF RIDER 2 GM in PREMIX 1 EACH IV ONE (14:20)
[2017-05-23 15:23] LABS: Calcium 7.9 MG/DL (8.5-10.1); Osmolality,Calculated 280.7 MOS/KG (273-304); Potassium 3.3 MMOL/L (3.5-5.1)
[2017-05-23] MEDS: ALBUMIN 25% 25 GM in PREMIX 1 EACH IV SCH ×2 (15:38→21:30)
[2017-05-23] MEDS: MINERAL OIL/PETROLATUM OPH OINT 3.5 GM TUBE BOTH EYES SCH ×2 (15:55→20:24)
[2017-05-23] MEDS: POTASSIUM CHLORIDE RIDER 20 MEQ in PREMIX 1 EACH IV PRN ×2 (16:32→20:23)
[2017-05-23] MEDS ORDERED: INSULIN REGULAR DRIP 100 ML IV ONE (18:30)
[2017-05-23] MEDS: TRACE ELEMENTS (5) 1 ML, MULTIVITAMIN INJ 10 ML in AMINO ACIDS 10% 700 ML, DEXTROSE 70%... IV SCH (18:36)
[2017-05-23] MEDS: FUROSEMIDE 40 MG/4 ML VIAL IV SCH (18:39)
--- NOTE | 2017-05-23 18:43 | XRay Report ---
Portable chest. Indication: Line placement. Comparison: Exam from 6:00 AM. The heart is normal in size with left ventricular hypertrophy. An endotracheal tube and nasogastric tube are in satisfactory position. The distal tip of a right IJ line is in the right atrium. There is development of atelectasis and possible infiltrate at the left lung base, with a pleural effusion. There is prominent pulmonary vasculature bilaterally. Impression: Development of left basilar pleural and parenchymal abnormality. PROCEDURE INTERPRETED AT [facility] DEPARTMENT OF RADIOLOGY Final Report Signed by: Dr. Tameka Rolon
[2017-05-23 18:53] LABS: ABG Base Excess 3.6 MMOL/L (-2.5-2.5); ABG HCO3 27.6 MMOL/L (20-26); ABG Oxygen Saturation 99.4 % (95-100); ABG PCO2 38.1 MM HG (35-48); ABG PH 7.465 (7.35-7.45); ABG TCO2 24.9 MMOL/L (23-27)
[2017-05-23] MEDS ORDERED: SODIUM CHLORIDE 0.9% 250 ML IV ONE (19:07)
[2017-05-23] MEDS ORDERED: SODIUM CHLORIDE 0.9% 1,000 ML IV SCH (19:30)
[2017-05-23 19:45] LABS: Albumin 2.3 G/DL (3.4-5.0); Bilirubin,Total 1.2 MG/DL (0.2-1.0); Calcium 7.1 MG/DL (8.5-10.1); Osmolality,Calculated 284.3 MOS/KG (273-304); Potassium 3.3 MMOL/L (3.5-5.1); Total Protein 4.6 G/DL (6.4-8.3)
[2017-05-23] MEDS: ENOXAPARIN 40 MG/0.4 ML SYRINGE SUBCUT SCH (21:18)
[2017-05-24] MEDS: POTASSIUM CHLORIDE RIDER 20 MEQ in PREMIX 1 EACH IV PRN ×6 (01:16→22:16)
[2017-05-24] MEDS: INSULIN REGULAR DRIP 100 ML IV SCH ×3 (03:29→14:08)
[2017-05-24 04:30] LABS: Basophils % 0.1 % (0.0-0.8); Eosinophils # 0.1 10*3/uL (0.0-0.87); Eosinophils % 1.1 % (0.00-10.9); Hematocrit 22.8 VOL% (42.0-52.0); Hemoglobin 7.6 GM/DL (14.0-18.0); Immature Granulocytes % 0.5 %; Immature Granulocytes Absolute 0.04 #; Lymphocytes # 0.6 10*3/uL (1.4-4.0); Lymphocytes % 7.9 % (21.2-54.2); Mean Corpuscular HGB Conc 33.3 GM/DL (32-36); Mean Corpuscular Hemoglobin 29 PG (27-34); Mean Platelet Volume 10.1 FL (9.6-12.0); Monocytes # 0.3 10*3/uL (0.11-0.8); Monocytes % 4.6 % (1.7-12.7); Neutrophils # 6.3 10*3/uL (1.4-7.4); Neutrophils % 85.8 % (38.7-73.9); Platelet Count 109 T/CUMM (130-400); Red Blood Count 2.62 MC/CUMM (3.8-5.5); Red Cell Distribution Width 14.6 % (9.3-17.3); White Blood Count 7.3 T/CUMM (4-12)
[2017-05-24 04:40] LABS: ABG Oxygen Saturation 97.6 % (95-100); ABG PCO2 39.3 MM HG (35-48); ABG PO2 100.1 MM HG (80-95); ABG TCO2 29.2 MMOL/L (23-27)
[2017-05-24 05:03] LABS: Magnesium 2.4 MG/DL (1.8-2.4); Phosphorous 1.7 MG/DL (2.5-4.9)
[2017-05-24] MEDS: ALBUMIN 25% 25 GM in PREMIX 1 EACH IV SCH ×3 (05:48→21:31)
[2017-05-24] MEDS: POTASSIUM CHLORIDE RIDER 10 MEQ in PREMIX 1 EACH IV PRN (05:49)
[2017-05-24 06:42] LABS: Anisocytosis 1+; Hypochromasia 1+; Platelet Estimate Adequate
[2017-05-24 07:38] LABS: Albumin 2.6 G/DL (3.4-5.0); Bilirubin,Total 1.4 MG/DL (0.2-1.0); Calcium 7.2 MG/DL (8.5-10.1); Potassium 3.2 MMOL/L (3.5-5.1); Total Protein 4.7 G/DL (6.4-8.3)
--- NOTE | 2017-05-24 07:55 | CT Report ---
CT of the abdomen and pelvis without intravenous or oral contrast. Indication: Pancreatitis. Comparison: May 20, 2017. Axial images were obtained with sagittal and coronal 2-D reconstructions. The heart is normal in size. Distal tip of a central venous catheter is at the junction of the SVC and right atrium. The distal tip of the nasogastric tube is within the antrum of the stomach. There are small bilateral pleural effusions which have developed since the previous exam. There is consolidation with air bronchograms now seen in both lower lobes. Scattered atelectasis in the anterior lung bases. The liver the liver is enlarged with a length of 22 cm. There is fatty infiltration of the liver. There has been a decompression of the abdomen in the interval, due to compartment syndrome from the pancreatitis. The midline of the abdomen is open, and there is a air beneath the peritoneal surface, thought to be related to the surgery. There is an increase in the amount of fluid within the abdomen and pelvis, extending along both paracolic gutter areas, and into the pelvis. The pancreas is less distinct than seen previously, with stranding in the surrounding fat. There is no air within the pancreas. No discrete pseudocyst formation. The pancreatic duct is not discernible. There is edema involving the duodenum and proximal small intestine. The terminal ileum and appendix present a normal appearance. The colon is relatively unremarkable. No evidence of bowel obstruction. A catheter is noted within the urinary bladder. There is generalized subcutaneous edema present. The osseous structures are unchanged. Impression: 1. Status post decompression for compartment syndrome secondary to appendicitis. There is air just beneath the peritoneal surface, consistent with sequelae of the procedure. 2. There is an increase in the amount of free fluid within the abdomen and pelvis in the amount of inflammation surrounding the pancreas 3. There is no air in the pancreas. 4. Enlarged fatty liver. 5. Diffuse subcutaneous edema. 6. Development of bilateral basilar pneumonia and small bilateral pleural effusions. These findings were discussed with Dr. Seymour but the time of dictation. The CT exam was performed using one or more of the following dose reduction techniques: Automated exposure control, adjustment of the mA and/or kV according to patient size, or use of iterative reconstruction technique. PROCEDURE INTERPRETED AT [facility] DEPARTMENT OF RADIOLOGY Final Report Signed by: Dr. Tameka Rolon
--- NOTE | 2017-05-24 08:11 | Pulmonology Progress Note ---
Pulmonary - PN: Subj Interval history: 46-year-old white male with acute pancreatitis. He had abdominal compartment syndrome requiring surgery. This apparently was caused by severe hypertriglyceridemia and an undiagnosed diabetic. He is on the ventilator. Chest x-ray really looks okay. Minimal right upper lobe infiltrate. ET tube good position. PO2 is only 75 on 100% with 10 of PEEP. Not able to reduce minute ventilation or FiO2 at this time. Probably has pulmonary shunting due to his pancreatitis. 05/24/2017 patient remained sedated. Triglyceride levels have come down below 500. ABGs a little better with PO2 100 on 80% and 8 of PEEP. Will try to reduce a little further and start CPAP's. Still has fairly firm abdomen and pretty severe pancreatitis. Not ready for extubation yet. Chest x-ray showing small left pleural effusion as before Exam (Progress Note) - Constitutional Vitals: Period Temp Pulse Resp BP Sys/Gutierrez Pulse Ox Last 24 Hr 99.6 F-100.3 F 93-116 15-25 73-147/46-80 90-100 Exam: Patient is sedated. Systolic blood pressure 98 on maximum dose Rafael-Synephrine. Pupils reactive. Orotracheal tube in place. Neck is supple. Chest reveals good breath sounds bilaterally. Heart rate is around 100 regular rhythm. I do not hear murmur. Abdomen distended wound VAC in place. No bowel sounds. Extremities no clubbing cyanosis trace of edema. Results - Labs CBC & BMP: 05/24/17 04:20 05/24/17 06:56 Lab Results: I have reviewed the past 24 hour labs - Diagnostic Findings Procedure: Chest x-ray: image reviewed by me (Small left pleural effusion. ET tube in good position.) Assessment and Plan (1) Pancreatitis Status: Acute Assessment and plan: Due to severe hypertriglyceridemia. Developed an abdominal compartment syndrome. Also acute renal failure due to this. Prognosis guarded. 05/24/2017 severe life-threatening pancreatitis due to hypertriglyceridemia. Triglycerides now down to normal. Hopefully pancreatitis will cool off soon. Current Visit: Yes (2) New onset type 2 diabetes mellitus Status: Acute Assessment and plan: Continuing sliding scale insulin. Blood sugars look acceptable. 05/24/2017 blood sugars controlled. Current Visit: Yes (3) Acute respiratory failure Status: Acute Assessment and plan: PO2 only 75 on 100% with 10 cm of PEEP. Likely has pulmonary shunting due to the pancreatitis. No real infiltrates on x-ray to indicate ARDS but it acts like that. Unable to decrease ventilator settings at present. He is on assist control of 16 with a tidal volume of 700. Keeping him sedated. 05/24/2017 PO2 100 on 80% and 8 of PEEP. Will reduce settings further. Hopefully can start CPAP. However not ready for extubation yet. Current Visit: Yes Qualifiers: Qualified Code(s): J96.01 - Acute respiratory failure with hypoxia; J96.02 - Acute respiratory failure with hypercapnia (4) Acute renal failure Status: Acute Assessment and plan: Continuing dialysis as required 05/24/2017 creatinine down to 1.3. Dialysis was to offload the triglycerides. Current Visit: Yes (5) Compartment syndrome Status: Acute Assessment and plan: Has had laparotomy to decompress. Acute abdominal compartment syndrome due to pancreatitis. Current Visit: Yes (6) Hypotension Status: Acute Assessment and plan: Still requiring max dose Rafael-Synephrine. 05/24/2017 and blood pressure improved. Requiring less pressors. Current Visit: Yes
[2017-05-24] MEDS ORDERED: SODIUM CHLORIDE 0.9% 250 ML IV PRN (08:28)
[2017-05-24] MEDS: FUROSEMIDE 40 MG/4 ML VIAL IV SCH ×2 (08:50→16:16)
[2017-05-24] MEDS: COLESEVELAM 625 MG TABLET PO SCH (08:50)
[2017-05-24] MEDS: PANTOPRAZOLE 40 MG VIAL IV SCH (08:50)
[2017-05-24] MEDS: MINERAL OIL/PETROLATUM OPH OINT 3.5 GM TUBE BOTH EYES SCH ×2 (08:51→21:13)
--- NOTE | 2017-05-24 08:53 | Nephrology Progress Note ---
Nephrology - PN: Subj Interval history: Mr. Calloway is seen in follow-up of his acute renal failure and pancreatitis. He has improved significantly. He is now making generous amounts of urine and his creatinine is down to 1.3. His blood pressure is stable off pressors with a systolic of 120. He remains on a ventilator. His renal function should remain stable and he should not require further dialysis. His acidosis has resolved. Overall he is much improved Exam (PN)-Nephrology - Vital Signs Vital signs: Period Temp Pulse Resp BP Sys/Gutierrez Pulse Ox Last 24 Hr 99.6 F-100.3 F 93-116 15-25 73-147/46-80 90-100 - Lab 05/24/17 04:20 05/24/17 06:56 Most recent lab results ABG pH 7.470 (7.35-7.45) H 05/24/17 04:30 ABG pCO2 39.3 MM HG (35-48) 05/24/17 04:30 ABG pO2 100.1 MM HG (80-95) H 05/24/17 04:30 ABG HCO3 28.0 MMOL/L (20-26) H 05/24/17 04:30 ABG O2 Saturation 97.6 % (95-100) 05/24/17 04:30 Calcium 7.2 MG/DL (8.5-10.1) L 05/24/17 06:56 Phosphorus 1.7 MG/DL (2.5-4.9) L 05/24/17 04:20 Magnesium 2.4 MG/DL (1.8-2.4) 05/24/17 04:20
[2017-05-24 09:28] LABS: ABG Base Excess 4.3 MMOL/L (-2.5-2.5); ABG HCO3 28.2 MMOL/L (20-26); ABG Oxygen Saturation 96.7 % (95-100); ABG PCO2 41.3 MM HG (35-48); ABG PH 7.449 (7.35-7.45); ABG TCO2 25.7 MMOL/L (23-27)
[2017-05-24] MEDS: MEROPENEM 1,000 MG in SODIUM CHLORIDE 0.9% 100 ML IV SCH ×2 (09:30→21:30)
--- NOTE | 2017-05-24 10:30 | XRay Report ---
Portable chest. Indication: Pancreatitis. Shortness of breath. Comparison: Yesterday's exam. The heart is normal in size. There is infiltrate and pleural effusion present at the left lung base. Central venous catheters, endotracheal tube and nasogastric tube are in satisfactory position Impression: No interval change. PROCEDURE INTERPRETED AT [facility] DEPARTMENT OF RADIOLOGY Final Report Signed by: Dr. Tameka Rolon
--- NOTE | 2017-05-24 10:52 | Event Note ---
General Surgery Progress Note Chief complaint This patient is a 46-year-old man admitted with pancreatitis due to hypertriglyceridemia who was eventually treated with a decompressive laparotomy for potential abdominal compartment syndrome that occurred with his resuscitation on 05/22/2017 Interval history The patient is improving overnight. This is the most improvement is made in a 24 hour. Since he came into the hospital. He is off of pressors. He has minimal NG tube output. He developed some neck swelling last night but I was asked to look at but it looks mostly like third spacing edema. He is still on high ventilator support. He is responding with brisk urine output to Lasix diuresis. His renal function is improving. His blood counts did drop some today hemoglobin is 7.6 and the hospitalist service has ordered 2 units packed red blood cells for transfusion. I ordered a CT scan of the abdomen and pelvis without IV contrast which showed no air in the pancreas and no obvious necrotizing pancreatitis although IV contrast was not used and the study was limited for that reason. Physical exam The patient is sedated on the ventilator Chest is clear Heart is tachycardic but regular Abdomen is distended and wound VAC has a good seal Labs Reviewed Imaging Reviewed Assessment and plan s/p decompressive laparotomy with wound vac placement CT scan today shows no evidence of infected necrotic pancreas. Plan for changing wound VAC tomorrow in the operating room. We will start trickle tube feeds today. There is plenty of new data to support enteral feeding and pancreatitis and I do not think we need to rely solely on TPN for postpyloric tube feeding. Continue TPN until tolerating enteral feeding Repeat labs tomorrow
[2017-05-24] MEDS: FUROSEMIDE 40 MG/4 ML VIAL IV PRN ×2 (11:24→14:28)
[2017-05-24] MEDS ORDERED: POTASSIUM PHOSPHATE 30 MMOL in SODIUM CHLORIDE 0.9% 250 ML IV ONE (11:32)
--- NOTE | 2017-05-24 11:33 | Hospitalist Progress Note ---
Assessment and Plan (1) Hypertriglyceridemia Status: Acute Assessment and plan: Continues to improve. Triglycerides down to 387, continue insulin drip. Current Visit: Yes (2) Acute renal failure Status: Acute Assessment and plan: Improving significantly creatinine down to 1.3 Current Visit: Yes (3) Compartment syndrome Status: Acute Assessment and plan: Status post fasciotomy with wound VAC in place Dr. Seymour. Dr. Seymour does not plan on closing the abdomen. Current Visit: Yes (4) Hypomagnesemia Status: Acute Assessment and plan: Resolved Current Visit: No (5) Hypophosphatemia Status: Acute Assessment and plan: We will continue to replace and recheck in am Current Visit: Yes (6) Pancreatitis Status: Acute Assessment and plan: Continue TPN. Hold trickle feeds. Lipase down to 240. Continue to control triglycerides. Current Visit: Yes (7) New onset type 2 diabetes mellitus Status: Acute Assessment and plan: Continue insulin drip per critical care protocol. Keep blood sugars less than less than 180 but greater than 80. Current Visit: Yes (8) Acute respiratory failure Status: Acute Assessment and plan: Patient's chest x-ray has improved and we are weaning his FiO2 and PEEP down. He tolerated 1 hour of CPAP. Current Visit: Yes Qualifiers: Qualified Code(s): J96.01 - Acute respiratory failure with hypoxia; J96.02 - Acute respiratory failure with hypercapnia (9) Hypotension Status: Acute Assessment and plan: She has been completely weaned off the Rafael-Synephrine and Levophed. His CVP pressure remains high and I will continue to diurese him. Current Visit: Yes (10) Anemia Status: Acute Assessment and plan: 2 units of packed red blood cells, cont protonix IV Current Visit: Yes (11) Hypokalemia Status: Acute Assessment and plan: Aggressive replacement of potassium, CMP every 12 Current Visit: Yes Hospitalist: Subjective Interval history: Mr. Calloway's family was given an update today at his improvement and prognosis. Dr. Seymour has seen him and reviewed his CT feels that his pancreatitis is resolving. He does not intend to close him. He would like to start him on trickle feeds to get his got moving. I have stopped his WelChol as it can be very constipating even though it is very good for lowering triglycerides. Patient's hemoglobin is drifted down and will receive 2 units of packed red blood cells today. Dr. Boothe and I have also discussed his case no further dialysis is needed as his urinary output is excellent. Exam - Constitutional Vitals: Period Temp Pulse Resp BP Sys/Gutierrez Pulse Ox Last 24 Hr 99.4 F-100.3 F 93-116 16-25 78-147/46-80 90-100 Exam: Heart Rate-[tachy] Lungs-[course crackles ] GI-[diminished,distended with edema, wound vac, less distended than yesterday Ext-[1 anasarca ] Neuro sedated and intubated psych sedated and intubated General [no acute distress] Results - Labs CBC & BMP: 05/24/17 04:20 05/24/17 09:04 Lab Results: I have reviewed the past 24 hour labs Labs: Triglycerides 387, lipase 240, magnesium 2.4, phosphorus 1.7, potassium 3.1, sodium 143, BUN 23, creatinine 1.3, glucose 93. Blood cultures 4 negative no growth urine culture negative no growth. - Diagnostic Findings Procedure: Chest x-ray: report reviewed by me (No interval change NG tube in satisfactory position. Central venous catheters and ET tube in good position), CT Abdomen and Pelvis: report reviewed by me (Status post decompression for compartment syndrome, increase free fluid within the abdomen and pelvis. Fatty liver and subcutaneous edema still present. Bilateral basilar pneumonia and pleural effusions)
[2017-05-24] MEDS: POTASSIUM CHLORIDE 20 MEQ/15 ML UDCUP PER TUBE SCH ×2 (11:53→21:13)
--- NOTE | 2017-05-24 13:09 | Event Note ---
Chief complaint pancreatitis Overall more stable today's pH is now normalized his urine output is improved he is off pressors with more stable blood pressure. He remains sedated on ventilator. Plans for repeat surgical exploration tomorrow are noted. I discussed with Dr. Seymour I am reluctant at this time to start early tube feedings and would recommend we go ahead and hold off on this unless we can have more distal to its unit in the good to lessen pancreatic stimulation. We have discussed consideration of small bowel feeding tube tomorrow and surgery if he feels like it is appropriate. This is likely to be a long-haul and additional enteral nutrition distal to the pancreas may be beneficial. TPN without has been started and at this point we have to remain aware that this can also aggravate his pancreatitis particularly with intralipids which so far being held. Review of systems unobtainable. On exam he is afebrile vital signs are stable he remains on a ventilator sedated lungs clear to auscultation heart regular rate and rhythm without murmur abdomen is soft remains open Extremities 2+ edema Recommendations continue aggressive supportive care. NG tube feeding continue TPN without lipids and consideration of small bowel jejunal feeding tube. Prognosis remains guarded.
[2017-05-24] MEDS: fentaNYL INJ 1,250 MCG in SODIUM CHLORIDE 0.9% 225 ML IV SCH (14:15)
[2017-05-24] MEDS: TRACE ELEMENTS (5) 1 ML, MULTIVITAMIN INJ 10 ML in AMINO ACIDS 10% 700 ML, DEXTROSE 70%... IV SCH (14:28)
[2017-05-24] MEDS: ACETAMINOPHEN 325 MG/10.15 ML UDCUP PO PRN (16:16)
[2017-05-24] MEDS: PHENYLEPHRINE INJ 80 MG in SODIUM CHLORIDE 0.9% 242 ML IV SCH (19:38)
[2017-05-24] MEDS: MIDAZOLAM 100 MG in SODIUM CHLORIDE 0.9% 80 ML IV SCH ×2 (19:39→21:14)
[2017-05-24 19:40] LABS: Albumin 2.7 G/DL (3.4-5.0); Bilirubin,Total 1.4 MG/DL (0.2-1.0); Calcium 7.8 MG/DL (8.5-10.1); Osmolality,Calculated 290.7 MOS/KG (273-304); Potassium 3.1 MMOL/L (3.5-5.1); Total Protein 5.1 G/DL (6.4-8.3)
[2017-05-24] MEDS: ENOXAPARIN 40 MG/0.4 ML SYRINGE SUBCUT SCH (21:14)
[2017-05-25] MEDS: INSULIN REGULAR DRIP 100 ML IV SCH ×2 (01:38→14:39)
[2017-05-25] MEDS: fentaNYL INJ 1,250 MCG in SODIUM CHLORIDE 0.9% 225 ML IV SCH ×2 (01:40→17:53)
[2017-05-25 03:57] LABS: Magnesium 2.2 MG/DL (1.8-2.4); Phosphorous 1.8 MG/DL (2.5-4.9)
[2017-05-25 04:00] LABS: Basophils % 0.3 % (0.0-0.8); Eosinophils # 0.2 10*3/uL (0.0-0.87); Eosinophils % 2.4 % (0.00-10.9); Immature Granulocytes % 0.9 %; Immature Granulocytes Absolute 0.07 #; Lymphocytes # 0.5 10*3/uL (1.4-4.0); Lymphocytes % 6.9 % (21.2-54.2); Mean Corpuscular HGB Conc 33.3 GM/DL (32-36); Mean Corpuscular Hemoglobin 30 PG (27-34); Mean Corpuscular Volume 88.5 FL (87-102); Mean Platelet Volume 10.4 FL (9.6-12.0); Monocytes # 0.7 10*3/uL (0.11-0.8); Monocytes % 9.4 % (1.7-12.7); Neutrophils # 5.9 10*3/uL (1.4-7.4); Neutrophils % 80.1 % (38.7-73.9); Platelet Count 101 T/CUMM (130-400); Red Blood Count 3.05 MC/CUMM (3.8-5.5); Red Cell Distribution Width 14.6 % (9.3-17.3); White Blood Count 7.4 T/CUMM (4-12)
[2017-05-25 04:02] LABS: ABG Base Excess 5.7 MMOL/L (-2.5-2.5); ABG HCO3 29.5 MMOL/L (20-26); ABG Oxygen Saturation 95.8 % (95-100); ABG PH 7.469 (7.35-7.45); ABG PO2 75.4 MM HG (80-95); ABG TCO2 27.2 MMOL/L (23-27); Allen Test Positive; Pt O2 Delivery Device Ventilator
[2017-05-25] MEDS: POTASSIUM CHLORIDE RIDER 20 MEQ in PREMIX 1 EACH IV PRN ×2 (04:05→06:13)
[2017-05-25 05:13] LABS: Band Neutrophils 5 % (0-10); Eosinophils 4 % (0-10); Lymphocytes 10 % (20-55); Platelet Estimate Adequate; Polychromasia Slight; Segmented Neutrophils 75 % (50-85); Total Cells Counted 100
[2017-05-25] MEDS: ALBUMIN 25% 25 GM in PREMIX 1 EACH IV SCH (06:15)
[2017-05-25] MEDS: MIDAZOLAM 100 MG in SODIUM CHLORIDE 0.9% 80 ML IV SCH ×2 (06:46→21:01)
--- NOTE | 2017-05-25 07:14 | Event Note ---
General Surgery Progress Note Chief complaint This patient is a 46-year-old man admitted with pancreatitis due to hypertriglyceridemia who was eventually treated with a decompressive laparotomy for potential abdominal compartment syndrome that occurred with his resuscitation on 05/22/2017 Interval history No events overnight. NG tube output 300cc bilious fluid Physical exam The patient is sedated on the ventilator Chest is clear Heart is tachycardic but regular Abdomen is distended and wound VAC has a good seal Labs Reviewed Imaging Reviewed Assessment and plan s/p decompressive laparotomy with wound vac placement Plan for vac change under anesthesia with possible jejunostomy tube placement to assist with enteral feedings
--- NOTE | 2017-05-25 07:53 | Pulmonology Progress Note ---
Pulmonary - PN: Subj Interval history: The patient is a 46-year-old white man that has very severe pancreatitis from hypertriglyceridemia. He was found to be a diabetic recently and had very high lipids. He came in with abdominal pain and acute pancreatitis. He has been very ill but seems to be improving now. He had a compartment syndrome with the renal failure and had exploratory lap last week. He is going back for a wound VAC change today. He was started on dialysis and has done fairly well over the weekend. He is off pressors and his blood pressure is better. He has very good urine output now. His triglycerides are down to 335. His glucose is under much better control. His creatinine was 1.4 yesterday. His oxygenation has improved and his lung compliance is stable. He is on 60% O2 and 6 of PEEP and his PO2 75. Chest x-ray does have some mild fluid present. Overall he is reasonably stable at present. Exam (Progress Note) - Constitutional Vitals: Period Temp Pulse Resp BP Sys/Gutierrez Pulse Ox Last 24 Hr 99.3 F-101 F 103-118 16-38 91-138/54-76 94-100 Exam: General appearance: normal weight, other (Patient is sedated on the ventilator at present. He appears to be hemodynamically stable.) - Head Head exam: Present: normal inspection, normocephalic - Eye Eye exam: Present: EOMI. Absent: scleral icterus Pupils: Present: JACOB - ENT ENT exam: Present: normal exam, other (ET tube is in good position) - Neck Neck exam: Absent: lymphadenopathy, thyromegaly - Respiratory Respiratory exam: Present: His lungs have good breath sounds bilaterally with fairly good air movement. He does have some minimal rhonchi. - Cardiovascular Cardiovascular exam: Present: regular rate and rhythm. Absent: gallop, systolic murmur - GI/Abdominal GI/Abdominal exam: Present: His abdomen is still very distended and wrapped but it is soft. - Extremities Exam Extremities exam: Absent: calf tenderness, edema - Neurological Exam Neurological exam: Present: other (Patient is sedated at present) - Skin Skin exam: Present: warm, dry Results - Labs CBC & BMP: 05/25/17 03:55 05/25/17 02:15 Labs: Her PO2 75 with a PCO2 of 41 and a pH of 7.46. - Diagnostic Findings Procedure: Chest x-ray: image reviewed by me, report reviewed by me (Chest x- ray does show mild effusions and mild infiltrates.) Assessment and Plan (1) Hypertriglyceridemia Status: Acute Assessment and plan: Patient has severe hypertriglyceridemia which likely precipitated his pancreatitis. His triglycerides are now down to 335. Current Visit: Yes (2) Acute respiratory failure Status: Acute Assessment and plan: The patient has a large A-a O2 gradient and will adjust his ventilator. His oxygenation is better but he still is requiring a high FiO2. We will continue ventilatory support for now. Current Visit: Yes Qualifiers: Qualified Code(s): J96.01 - Acute respiratory failure with hypoxia; J96.02 - Acute respiratory failure with hypercapnia (3) Pancreatitis Status: Acute Assessment and plan: Patient has severe pancreatitis and now has an abdomen opened. He is going back to surgery today. Current Visit: Yes (4) New onset type 2 diabetes mellitus Status: Acute Assessment and plan: The patient has been found to be a diabetic and his glucoses are better at this point. His glucose was 78 today. Current Visit: Yes (5) Renal insufficiency Status: Acute Assessment and plan: His creatinine is 1.3 today. He had dialysis over the weekend. Current Visit: Yes
[2017-05-25 07:56] LABS: Albumin 2.8 G/DL (3.4-5.0); Bilirubin,Total 1.3 MG/DL (0.2-1.0); Calcium 7.9 MG/DL (8.5-10.1); Osmolality,Calculated 287.8 MOS/KG (273-304); Potassium 3.5 MMOL/L (3.5-5.1); Total Protein 5.6 G/DL (6.4-8.3)
[2017-05-25] MEDS: POTASSIUM CHLORIDE 20 MEQ/15 ML UDCUP PER TUBE SCH ×2 (08:02→21:01)
--- NOTE | 2017-05-25 08:46 | XRay Report ---
Exam: XR chest 1V portable Date: 05/25/2017 4:00 AM Indication: Shortness of breath follow-up Comparison: 05/24/2017 Technical: AP Findings: A right IJ catheter and a left IJ catheter endotracheal tube and nasogastric tube are present. Mild cardiac enlargement with low volume effusions and shunt vascularity without pneumothorax. Bony structures are intact. Impression: 1. Stable appearance of the life support tubes 2. Increasing effusions bilaterally with layering with underlying atelectatic change. PROCEDURE INTERPRETED AT [facility] DEPARTMENT OF RADIOLOGY Final Report Signed by: Dr. Alek Ulrich
--- NOTE | 2017-05-25 09:13 | Hospitalist Progress Note ---
Assessment and Plan (1) Pancreatitis Status: Acute Assessment and plan: The patient's initial illness was triglyceride induced pancreatitis. The patient's lipase has now normalized to 176. The patient remains on mechanical ventilation with evidence of systemic inflammatory response syndrome. The patient will have wound VAC changed today and we will continue supportive care with TPN and insulin infusion. The patient has good urine output today. Current Visit: Yes (2) Hypertriglyceridemia Status: Acute Current Visit: Yes (3) Acute respiratory failure Status: Acute Current Visit: Yes Qualifiers: Qualified Code(s): J96.01 - Acute respiratory failure with hypoxia; J96.02 - Acute respiratory failure with hypercapnia Hospitalist: Subjective Interval history: Mr. Calloway is resting quietly on ventilator today. He is well sedated. I coordinated care with Dr. Seymour today and reviewed the hospital course today with the patient's family at the bedside. The patient continues on mechanical ventilation and oxygenation is stable although he has a large AA gradient. The patient will go today for change of wound VAC on the belly and possible jejunostomy placement. Exam - Constitutional Vitals: Period Temp Pulse Resp BP Sys/Gutierrez Pulse Ox Last 24 Hr 99.3 F-101 F 103-118 16-38 91-138/54-75 94-100 Exam: Constitutional System: Sedated and without distress. No tremulousness. The patient is orally intubated and mechanically ventilated Head: Normocephalic, atraumatic. Ears, Nose and Throat System: No evidence of Otitis or Mastoiditis. No epistaxis or discharge Eyes System: Pupils equal, round, and reactive. Neck: Supple, without adenopathy, No jugular venous distention. Respiratory System: Chest bilateral rhonchi to auscultation. Cardiovascular System: Heart with regular rate and rhythm. No murmur. GI System: Abdomen wound dressing in place with wound VAC. Musculoskeletal System: limbs with 1+ pedal edema. Full distal pulses. Neurological System: Not testable due to sedation Results - Labs CBC & BMP: 05/25/17 03:55 05/25/17 07:08 Lab Results: I have reviewed the past 24 hour labs
--- NOTE | 2017-05-25 09:46 | Nephrology Progress Note ---
Nephrology - PN: Subj Interval history: Patient did undergo exploratory laparoscopy this morning. Urine output is now 30cc/hr. triglycerides remain elevated at 3000. Patient is on multiple present medications. 05/25/2017. The patient has shown dramatic improvement in over the weekend. He did require 2 sessions of dialysis over the weekend. His triglycerides have trended down. He is currently off pressor medications. He has been able to put out approximately 40-50 cc an hour. Serum creatinine is noted to be 1. At this time no new recommendations for this patient from a renal standpoint. We will sign off please call if needed. Exam (PN)-Nephrology - Vital Signs Vital signs: Period Temp Pulse Resp BP Sys/Gutierrez Pulse Ox Last 24 Hr 99.3 F-101 F 103-118 16-38 91-138/54-75 94-100 - General Appearance General appearance: well-developed, well-nourished, intubated Neck: supple Respiratory: clear Cardiology: regular rate, regular rhythm Gastrointestinal: hypoactive bowel sounds - Lab 05/25/17 03:55 05/25/17 07:08 Most recent lab results ABG pH 7.469 (7.35-7.45) H 05/25/17 03:55 ABG pCO2 41.0 MM HG (35-48) 05/25/17 03:55 ABG pO2 75.4 MM HG (80-95) L 05/25/17 03:55 ABG HCO3 29.5 MMOL/L (20-26) H 05/25/17 03:55 ABG O2 Saturation 95.8 % (95-100) 05/25/17 03:55 Calcium 7.9 MG/DL (8.5-10.1) L 05/25/17 07:08 Phosphorus 1.8 MG/DL (2.5-4.9) L 05/25/17 02:15 Magnesium 2.2 MG/DL (1.8-2.4) 05/25/17 02:15 Assessment and Plan (1) Abdominal pain Status: Acute Current Visit: Yes (2) Hyperglycemia Status: Resolved Current Visit: Yes (3) New onset type 2 diabetes mellitus Status: Chronic Current Visit: Yes (4) Pancreatitis Status: Acute Current Visit: Yes (5) Renal insufficiency Status: Resolved Assessment and plan: Renal function is recovered. No indication for hemodialysis. Will sign off. Please call if needed. Current Visit: Yes
[2017-05-25] MEDS: FUROSEMIDE 40 MG/4 ML VIAL IV SCH ×3 (09:53→17:10)
[2017-05-25] MEDS: PANTOPRAZOLE 40 MG VIAL IV SCH (10:14)
[2017-05-25] MEDS: MINERAL OIL/PETROLATUM OPH OINT 3.5 GM TUBE BOTH EYES SCH ×2 (10:16→21:01)
[2017-05-25] MEDS: MEROPENEM 1,000 MG in SODIUM CHLORIDE 0.9% 100 ML IV SCH ×3 (10:16→21:00)
[2017-05-25] MEDS ORDERED: PHENYLEPHRINE 1 MG/10 ML SYRINGE IV ONE (10:38)
[2017-05-25] MEDS ORDERED: LACTATED RINGERS 1,000 ML IV ONE (11:13)
[2017-05-25] MEDS ORDERED: MIDAZOLAM 2 MG/2 ML VIAL ONE (11:13)
[2017-05-25] MEDS ORDERED: ROCURONIUM 100 MG/10 ML VIAL IV ONE (11:13)
[2017-05-25] MEDS ORDERED: SEVOFLURANE 1 UNIT/15 MINUTE INH ONE ×2 (11:13→12:29)
[2017-05-25] MEDS ORDERED: TISSUE ADHESIVE 1 EACH APPLICATOR TOP ONE (11:42)
--- NOTE | 2017-05-25 12:05 | Operative Note ---
Date of procedure: 05/25/17 Pre-op diagnosis: Open abdomen with severe acute pancreatitis Post-op diagnosis: same Procedure: Preoperative diagnosis Open abdomen with severe acute pancreatitis with inability to tolerate gastric tube feeds Postoperative diagnosis same Procedures performed 1. Reopening of recent laparotomy 2. Abdominal washout 3. Feeding jejunostomy tube placement 4. Reapplication of wound VAC under anesthesia Findings There is some fibrinous exudate on some of the bowel but there is no evidence of abscess or necrotizing pancreatitis. The abdomen was washed out with saline and the Witzel tunnel was created with feeding jejunostomy tube placed 10 cm distal to the ligament of Treitz. The wound VAC was reapplied. Complications None apparent Specimen None Anesthesia General endotracheal Blood loss Minimal Indications Open abdomen with severe acute pancreatitis with inability to tolerate gastric tube feeds. The risks, benefits, and alternatives of the operation were discussed with the family in detail, and the expected outcomes were reviewed. They elected to proceed with the operation. Description of procedure The patient was taken to the operating room and transferred to the operating table in supine position. Pressure points were padded and general anesthesia was administered. The abdominal wound VAC was removed and the abdomen was prepped with Betadine and draped sterilely. Timeout was called. The abdomen was washed out and the exudate in the abdomen was cleared off. There is no evidence of necrotizing pancreatitis or abscess in the retroperitoneum. The ligament of Treitz was identified and the spot on the jejunum 10 cm distal to ligament of Treitz was repaired for jejunostomy placement. A separate incision was made in the left lateral abdominal wall and the jejunostomy tube was pulled through the fascia with a Krystal clamp. A spot on the jejunum was then opened in the catheter was placed within the jejunal lumen. A Witzel tunnel was then created with seromuscular 3-0 silk sutures approximately 3 cm in length. The distal balloon on the feeding tube was inflated slightly but with care to not occlude the lumen of the jejunum. The Witzel tunnel and jejunostomy was then sewn up to the abdominal wall and the flange on the catheter was secured to the abdominal wall with skin glue. The abdomen was reclosed with a temporary abdominal wound VAC dressing with no complications. The jejunal tube flushed easily and was left in place. The patient was transferred back to the intensive care unit in stable condition. Postoperative plan Start tube feeds tomorrow and flush tube 3 times daily with sterile water. Implants: jejunostomy tube Anesthesia: GETA Surgeon / Physician: Andre Seymour Specimens: none sent Condition: critical Disposition: ICU Results - Labs CBC & BMP: 05/25/17 03:55 05/25/17 10:01 Discharge Plan - Discharge Medications No Action Omeprazole Magnesium [Prilosec Otc] 20 mg PO DAILY - Follow Up or Referral - Forms/Instructions
--- NOTE | 2017-05-25 12:27 | Anesthesia Post-Op ---
Anesthesia Post OP - Post Ansesthetic Evaluation Patient seen in post op: Yes Resp: other (pt to ICU intubated and sedated) CV: within normal limits Mental: other (sedated) Temp: within normal limits [id number]: within normal limits Nausea and Vomiting: within normal limits Pain: within normal limits
[2017-05-25] MEDS: TRACE ELEMENTS (5) 1 ML, MULTIVITAMIN INJ 10 ML in AMINO ACIDS 10% 700 ML, DEXTROSE 70%... IV SCH (12:58)
--- NOTE | 2017-05-25 13:16 | Gastrointestinal Progress Note ---
<HiteshGenie Anish - Last Filed: 05/25/17 13:13> Assessment and Plan (1) Pancreatitis Status: Acute Assessment and plan: 05/25-postop reopened laparotomy. Labs noted as below. Hemodynamically stable at present time. Jejunostomy tube placed today and to start feedings tomorrow. Plan an addendum to followed by Dr. Christensen. 05/22-series of events noted as below. Patient continue with aggressive management for his multiple system organ failure at this time. To begin dialysis. Continue to monitor present time. Plan an addendum to followed by Dr. Christensen. 05/21-sudden onset of abdominal pain with intractable nausea and vomiting, with findings of elevated lipase and CT findings of pancreatitis. No prior history of pancreatitis. History of laparoscopic cholecystectomy with cholelithiasis. New onset diabetes with hemoglobin A1c of 9.8. Elevated lactic acid at 6.1. Continue NPO and IV fluids. Abdominal US this morning. Plan and addendum to follow by Dr Christensen. Current Visit: Yes Gastroenterology - PN: Subj Interval history: CC: Pancreatitis Patient is seen, sedated, on the ventilator just returning from surgery in which he had reopening of his laparotomy with abdominal washout, jejunostomy feeding tube placement and reapplication of wound VAC. He is hemodynamically stable at this time off of pressor support. He is having good urine output as well with creatinine down to 1.0. His H&H is stable at 06/03 following 2 units of packed red blood cells on yesterday. Lipase is down to 176 and triglycerides are also trended down to 234. Abdominal dressing is intact. ROS: No acute distress at this time. Exam (Progress Note) - Constitutional Vitals: Period Temp Pulse Resp BP Sys/Gutierrez Pulse Ox Last 24 Hr 99.3 F-101 F 103-117 16-23 91-141/54-75 94-100 General appearance: normal weight, no acute distress - Head Head exam: Present: normal inspection, normocephalic - Eye Eye exam: Present: other (Lids and conjunctivae are unremarkable). Absent: scleral icterus - ENT ENT exam: Present: normal exam, normal oropharynx - Neck Neck exam: Present: normal inspection - Respiratory Respiratory exam: Present: clear to auscultation bilaterally. Absent: rales, rhonchi, wheezes - Cardiovascular Cardiovascular exam: Present: regular rate and rhythm. Absent: diastolic murmur , JVD, systolic murmur - GI/Abdominal GI/Abdominal exam: Present: other (Dressing intact, wound VAC). Absent: ascites , distended, mass, organomegaly - Extremities Exam Extremities exam: Present: normal inspection - Back Exam Back exam: Present: normal inspection - Neurological Exam Neurological exam: Present: other (Sedated) - Psychiatric Psychiatric exam: Present: other (Sedated) - Skin Skin exam: Present: normal color, warm, dry Results - Labs CBC & BMP: 05/25/17 03:55 05/25/17 10:01 Lab Results: I have reviewed the past 24 hour labs <Alan Christensen - Last Filed: 05/25/17 18:00> Exam (Progress Note) - Constitutional Vitals: Period Temp Pulse Resp BP Sys/Gutierrez Pulse Ox Last 24 Hr 99.5 F-101.3 F 103-115 16-23 91-141/54-78 94-100 Results - Labs CBC & BMP: 05/25/17 03:55 05/25/17 10:01
[2017-05-25] MEDS: HYDROmorphone 2 MG/1 ML VIAL IV PRN (13:50)
--- NOTE | 2017-05-25 14:25 | Infectious Disease Progress ---
Assessment and Plan (1) Acute respiratory failure Status: Acute Current Visit: Yes Qualifiers: Qualified Code(s): J96.01 - Acute respiratory failure with hypoxia; J96.02 - Acute respiratory failure with hypercapnia (2) Hypertriglyceridemia Status: Acute Current Visit: Yes (3) New onset type 2 diabetes mellitus Status: Chronic Current Visit: Yes (4) Pancreatitis Status: Acute Assessment and plan: This is a very severe case of pancreatitis with abdominal compartment syndrome. He status post laparotomy and went again today for second continue wound VAC. No positive cultures. The fever is likely because of the information related to the severe pancreatitis. Recommendations: Continue empiric meropenem but given resolved renal failure will increase dose to 1 g every 8 hours. Discussed with patient's mother at bedside Current Visit: Yes (5) Renal insufficiency Status: Resolved Assessment and plan: Patient got 2 sessions of dialysis. Renal function has now normalized. Current Visit: Yes Infectious Disease - PN: Subj Interval history: Patient did dialysis over the weekend. Seems incrementally better. No fever over the weekend but again today fever up to 101. He went for wound VAC changes morning and per Dr. Seymour soft note there was no obviously infected fluid or tissues in the abdomen. Infectious Disease Exam (PN) - Constitutional Vitals: Temp Pulse Resp BP Pulse Ox 100.3 F H 108 H 16 132/57 95 05/25/17 08:00 05/25/17 10:00 05/25/17 14:11 05/25/17 10:00 05/25/17 10:00 General appearance: normal weight, no acute distress Exam: General appearance: Sedated on the vent - Eye Eye exam: Present: EOMI. no icterus Pupils: Present: JACOB - ENT ENT exam: ET tube in situ - Respiratory Respiratory exam: vesicular BS, no crepitations or wheezes - Cardiovascular Cardiovascular exam: regular rate and rhythm, no murmurs - GI/Abdominal GI/Abdominal exam: Wound VAC to mid abdomen, absent bowel sounds, soft, non- tender, no organomegaly or mass - Extremities Exam Extremities exam: no edema - Skin Skin exam: no rash Results - Labs CBC & BMP: 05/25/17 03:55 05/25/17 10:01 Lab Results: I have reviewed the past 24 hour labs (Blood cultures negative to date) - Diagnostic Findings Procedure: Chest x-ray: image reviewed by me, report reviewed by me (Bilateral pleural effusions), CT Abdomen and Pelvis: image reviewed by me, report reviewed by me (Bilateral effusions and probable compressive atelectasis bilaterally, left more than right)
[2017-05-25] MEDS: POTASSIUM CHLORIDE RIDER 10 MEQ in PREMIX 1 EACH IV PRN ×3 (17:11→21:00)
[2017-05-25] MEDS: ACETAMINOPHEN 325 MG/10.15 ML UDCUP PO PRN (17:52)
[2017-05-25] MEDS: ENOXAPARIN 40 MG/0.4 ML SYRINGE SUBCUT SCH (21:01)
[2017-05-26] MEDS: INSULIN REGULAR DRIP 100 ML IV SCH ×4 (00:35→22:07)
[2017-05-26] MEDS: HYDROmorphone 2 MG/1 ML VIAL IV PRN ×4 (01:12→18:18)
[2017-05-26] MEDS: ONDANSETRON 4 MG/2 ML VIAL IV PRN (01:13)
[2017-05-26] MEDS: MIDAZOLAM 100 MG in SODIUM CHLORIDE 0.9% 80 ML IV SCH ×3 (02:22→21:14)
[2017-05-26] MEDS: ACETAMINOPHEN 325 MG/10.15 ML UDCUP PO PRN ×4 (02:27→20:13)
[2017-05-26 03:54] LABS: ABG Base Excess 5.2 MMOL/L (-2.5-2.5); ABG HCO3 29.1 MMOL/L (20-26); ABG Oxygen Saturation 99.2 % (95-100); ABG PCO2 42.9 MM HG (35-48); ABG PH 7.449 (7.35-7.45); Allen Test Positive; Pt O2 Delivery Device Ventilator
[2017-05-26 04:27] LABS: Basophils % 0.4 % (0.0-0.8); Eosinophils # 0.3 10*3/uL (0.0-0.87); Eosinophils % 3.4 % (0.00-10.9); Hematocrit 28.9 VOL% (42.0-52.0); Hemoglobin 9.6 GM/DL (14.0-18.0); Immature Granulocytes % 5.5 %; Immature Granulocytes Absolute 0.44 #; Lymphocytes # 0.9 10*3/uL (1.4-4.0); Lymphocytes % 10.9 % (21.2-54.2); Mean Corpuscular HGB Conc 33.2 GM/DL (32-36); Mean Corpuscular Hemoglobin 30 PG (27-34); Mean Corpuscular Volume 90.3 FL (87-102); Mean Platelet Volume 10.7 FL (9.6-12.0); Monocytes # 0.9 10*3/uL (0.11-0.8); Monocytes % 10.7 % (1.7-12.7); Neutrophils # 5.6 10*3/uL (1.4-7.4); Neutrophils % 69.1 % (38.7-73.9); Platelet Count 116 T/CUMM (130-400); Red Cell Distribution Width 14.8 % (9.3-17.3)
[2017-05-26 05:00] LABS: Albumin 2.3 G/DL (3.4-5.0); Bilirubin,Total 0.9 MG/DL (0.2-1.0); Calcium 7.6 MG/DL (8.5-10.1); Osmolality,Calculated 297.4 MOS/KG (273-304); Potassium 3.3 MMOL/L (3.5-5.1); Total Protein 4.8 G/DL (6.4-8.3)
[2017-05-26 05:03] LABS: Band Neutrophils 5 % (0-10); Lymphocytes 11 % (20-55); Metamyelocytes 1 %; Myelocytes 2 %; Platelet Estimate Adequate; Segmented Neutrophils 74 % (50-85); Total Cells Counted 100
[2017-05-26] MEDS: TRACE ELEMENTS (5) 1 ML, MULTIVITAMIN INJ 10 ML in AMINO ACIDS 10% 700 ML, DEXTROSE 70%... IV SCH ×2 (05:20→09:59)
[2017-05-26] MEDS: POTASSIUM CHLORIDE RIDER 20 MEQ in PREMIX 1 EACH IV PRN ×3 (05:48→16:25)
[2017-05-26] MEDS: MEROPENEM 1,000 MG in SODIUM CHLORIDE 0.9% 100 ML IV SCH ×3 (05:49→21:15)
--- NOTE | 2017-05-26 07:09 | Event Note ---
General Surgery Progress Note Chief complaint This patient is a 46-year-old man admitted with pancreatitis due to hypertriglyceridemia who was eventually treated with a decompressive laparotomy for potential abdominal compartment syndrome that occurred with his resuscitation on 05/22/2017 Interval history Patient had a jejunostomy tube placed yesterday. No events overnight. He continues to show signs of improvement on the ventilator. Tube was flushed with 10 cc of sterile water every 8 hours overnight with no problems. Physical exam The patient is sedated on the ventilator Chest is clear Heart is tachycardic but regular Abdomen is distended and wound VAC has a good seal, there is some bowel visible under the left lateral wound VAC but I took the outer sticky dressing off and the bowel was still covered by the internal protective layer of the wound VAC. The seal was reapplied with a Tegaderm. This is unchanged this morning. Jejunostomy tube is in place with no evidence of complications. Labs Reviewed Imaging Reviewed Assessment and plan Start jejunal tube feeds today Return to operating room tomorrow for wound VAC change and possible Dara patch placement to assist with abdominal wall closure
--- NOTE | 2017-05-26 07:43 | Pulmonology Progress Note ---
Pulmonary - PN: Subj Interval history: The patient is a 46-year-old white man that has very severe pancreatitis from hypertriglyceridemia. He was found to be a diabetic recently and had very high lipids. He came in with abdominal pain and acute pancreatitis. He has been very ill but seems to be improving now. He had a compartment syndrome with the renal failure and had exploratory lap last week. He is going back for a wound VAC change today. He was started on dialysis and has done fairly well over the weekend. He is off pressors and his blood pressure is better. He went back to surgery and had his wound VAC change. He has a jejunostomy tube placed. He has continued to diurese well and his renal function is back to normal. He did have a temp to 101.5 and is on meropenem. His oxygenation is improving nicely. Overall he continues to do fairly well. Exam (Progress Note) - Constitutional Vitals: Period Temp Pulse Resp BP Sys/Gutierrez Pulse Ox Last 24 Hr 99 F-101.4 F 97-110 16-23 86-138/53-78 94-100 Exam: General appearance: normal weight, other (Patient is sedated on the ventilator at present. He appears to be hemodynamically stable. His oxygenation is much improved.) - Head Head exam: Present: normal inspection, normocephalic - Eye Eye exam: Present: EOMI. Absent: scleral icterus Pupils: Present: JACOB - ENT ENT exam: Present: normal exam, other (ET tube is in good position) - Neck Neck exam: Absent: lymphadenopathy, thyromegaly - Respiratory Respiratory exam: Present: His lungs have good breath sounds bilaterally with fairly good air movement. His lungs sound better overall. - Cardiovascular Cardiovascular exam: Present: regular rate and rhythm. Absent: gallop, systolic murmur - GI/Abdominal GI/Abdominal exam: Present: His abdomen is still very distended and wrapped but it is soft. - Extremities Exam Extremities exam: Absent: calf tenderness, edema - Neurological Exam Neurological exam: Present: other (Patient is sedated at present) - Skin Skin exam: Present: warm, dry Results - Labs CBC & BMP: 05/26/17 04:00 05/26/17 04:10 Labs: Her PO2 is 158 with a PCO2 of 42 and a pH of 7.44 - Diagnostic Findings Procedure: Chest x-ray: image reviewed by me, report reviewed by me (Chest x- ray shows mild bilateral infiltrates but does look better.) Assessment and Plan (1) Hypertriglyceridemia Status: Acute Assessment and plan: Patient has severe hypertriglyceridemia which likely precipitated his pancreatitis. His triglycerides are now down to 179. Current Visit: Yes (2) Acute respiratory failure Status: Acute Assessment and plan: The patient has improving oxygenation and will adjust his ventilator. Current Visit: Yes Qualifiers: Qualified Code(s): J96.01 - Acute respiratory failure with hypoxia; J96.02 - Acute respiratory failure with hypercapnia (3) Pancreatitis Status: Acute Assessment and plan: Patient has severe pancreatitis and now has an abdomen opened. He is going back to surgery tomorrow. Current Visit: Yes (4) New onset type 2 diabetes mellitus Status: Chronic Assessment and plan: The patient has been found to be a diabetic and his glucoses are better at this point. His glucose was 95 today. Current Visit: Yes (5) Renal insufficiency Status: Resolved Assessment and plan: His creatinine is down to 0.9 and his renal function is much better. Current Visit: Yes
--- NOTE | 2017-05-26 08:26 | XRay Report ---
XR chest 1V portable Indication: Hypoxia Comparison: Chest x-ray May 25, 2017 Technique: Single frontal view of the chest. Findings: Lines and tubes appear grossly unchanged. The cardiomediastinal silhouette is stable in configuration. Hazy opacification of the left lung with probable layering pleural fluid appears grossly unchanged. Visualized osseous and surrounding soft tissue structures appear grossly unchanged. IMPRESSION: No significant interval change. PROCEDURE INTERPRETED AT [facility] DEPARTMENT OF RADIOLOGY Final Report Signed by: Dr Raphael Kevin
[2017-05-26] MEDS: MINERAL OIL/PETROLATUM OPH OINT 3.5 GM TUBE BOTH EYES SCH ×2 (09:31→21:16)
[2017-05-26] MEDS: POTASSIUM CHLORIDE 20 MEQ/15 ML UDCUP PER TUBE SCH ×2 (09:31→21:16)
[2017-05-26] MEDS: PANTOPRAZOLE 40 MG VIAL IV SCH (09:31)
[2017-05-26] MEDS: FUROSEMIDE 40 MG/4 ML VIAL IV SCH ×2 (09:31→15:41)
--- NOTE | 2017-05-26 10:22 | Hospitalist Progress Note ---
Assessment and Plan (1) Pancreatitis Status: Acute Assessment and plan: The patient's initial illness was triglyceride induced pancreatitis. The patient's lipase has now normalized. The patient remains on mechanical ventilation with evidence of systemic inflammatory response syndrome. Had wound VAC changed yesterday and will likely have it changed again tomorrow. The patient has no evidence of intra-abdominal ischemia at present. We will discontinue arterial line today as he is no longer on pressor support. The patient will continue weaning from the ventilator with the goal of extubation in 1-2 days. Current Visit: Yes (2) Hypertriglyceridemia Status: Acute Current Visit: Yes (3) Acute respiratory failure Status: Acute Current Visit: Yes Qualifiers: Qualified Code(s): J96.01 - Acute respiratory failure with hypoxia; J96.02 - Acute respiratory failure with hypercapnia Hospitalist: Subjective Interval history: Mr. Guthrie has improved gas exchange today. The patient had jejunostomy placed yesterday and is starting tube feedings. Kidney function is improved and urine output is brisk. We will discontinue arterial line today as pressor support is no longer necessary. Exam - Constitutional Vitals: Period Temp Pulse Resp BP Sys/Gutierrez Pulse Ox Last 24 Hr 99 F-101.4 F 97-119 13-25 86-138/53-89 94-100 Exam: Constitutional System: Sedated and without distress. No tremulousness. The patient is orally intubated and mechanically ventilated Head: Normocephalic, atraumatic. Ears, Nose and Throat System: No evidence of Otitis or Mastoiditis. No epistaxis or discharge Eyes System: Pupils equal, round, and reactive. Neck: Supple, without adenopathy, No jugular venous distention. Respiratory System: Chest bilateral rhonchi to auscultation. Cardiovascular System: Heart with regular rate and rhythm. No murmur. GI System: Abdomen wound dressing in place with wound VAC. Musculoskeletal System: limbs with 1+ pedal edema. Full distal pulses. Neurological System: Not testable due to sedation Results - Labs CBC & BMP: 05/26/17 04:00 05/26/17 04:10 Lab Results: I have reviewed the past 24 hour labs
[2017-05-26] MEDS: fentaNYL INJ 1,250 MCG in SODIUM CHLORIDE 0.9% 225 ML IV SCH ×2 (10:56→14:31)
--- NOTE | 2017-05-26 12:45 | Gastrointestinal Progress Note ---
<HiteshGenie Anish - Last Filed: 05/26/17 12:43> Assessment and Plan (1) Pancreatitis Status: Acute Assessment and plan: 05/26-no changes noted as below. Tolerating tube feedings at present time. Plan an addendum to followed by Dr. Christensen. 05/25-postop reopened laparotomy. Labs noted as below. Hemodynamically stable at present time. Jejunostomy tube placed today and to start feedings tomorrow. Plan an addendum to followed by Dr. Christensen. 05/22-series of events noted as below. Patient continue with aggressive management for his multiple system organ failure at this time. To begin dialysis. Continue to monitor present time. Plan an addendum to followed by Dr. Christensen. 05/21-sudden onset of abdominal pain with intractable nausea and vomiting, with findings of elevated lipase and CT findings of pancreatitis. No prior history of pancreatitis. History of laparoscopic cholecystectomy with cholelithiasis. New onset diabetes with hemoglobin A1c of 9.8. Elevated lactic acid at 6.1. Continue NPO and IV fluids. Abdominal US this morning. Plan and addendum to follow by Dr Christensen. Current Visit: Yes Gastroenterology - PN: Subj Interval history: CC: Pancreatitis Patient is seen, sedated on the ventilator. He is reportedly continuing weaning trials at this time. He has had tube feedings initiated this morning and at this time is tolerating this per jejunostomy tube. He continues on TPN however if patient tolerates the tube feedings this will be weaned down. He continues to have good urine output without any pressor support. He is afebrile without leukocytosis. Triglycerides are down to 179 today. Nursing staff states that patient does respond when sedation is weaned down however not purposefully to commands due to agitation. Abdominal dressing/wound VAC noted. ROS: No acute distress. Exam (Progress Note) - Constitutional Vitals: Period Temp Pulse Resp BP Sys/Gutierrez Pulse Ox Last 24 Hr 99 F-101.4 F 97-119 13-25 86-138/53-89 94-100 General appearance: normal weight, no acute distress - Head Head exam: Present: normal inspection, normocephalic - Eye Eye exam: Present: other (Lids and conjunctive are unremarkable). Absent: scleral icterus - ENT ENT exam: Present: normal exam, normal oropharynx - Neck Neck exam: Present: normal inspection - Respiratory Respiratory exam: Present: clear to auscultation bilaterally. Absent: rales, rhonchi, wheezes - Cardiovascular Cardiovascular exam: Present: regular rate and rhythm. Absent: diastolic murmur , JVD, systolic murmur - GI/Abdominal GI/Abdominal exam: Absent: ascites, distended, mass, organomegaly - Extremities Exam Extremities exam: Present: normal inspection - Back Exam Back exam: Present: normal inspection - Neurological Exam Neurological exam: Present: other - Psychiatric Psychiatric exam: Present: other - Skin Skin exam: Present: normal color, warm, dry Results - Labs CBC & BMP: 05/26/17 04:00 05/26/17 04:10 Lab Results: I have reviewed the past 24 hour labs <Alan Christensen - Last Filed: 05/26/17 22:15> Exam (Progress Note) - Constitutional Vitals: Period Temp Pulse Resp BP Sys/Gutierrez Pulse Ox Last 24 Hr 99 F-101.4 F 98-119 12-29 86-134/53-89 96-100 Results - Labs CBC & BMP: 05/26/17 04:00 05/26/17 14:39
--- NOTE | 2017-05-26 15:17 | Infectious Disease Progress ---
Assessment and Plan (1) Acute respiratory failure Status: Acute Current Visit: Yes Qualifiers: Qualified Code(s): J96.01 - Acute respiratory failure with hypoxia; J96.02 - Acute respiratory failure with hypercapnia (2) Hypertriglyceridemia Status: Acute Current Visit: Yes (3) New onset type 2 diabetes mellitus Status: Chronic Current Visit: Yes (4) Pancreatitis Status: Acute Assessment and plan: This is a very severe case of pancreatitis with abdominal compartment syndrome. He status post laparotomy and generally seems to be improving since last week. No positive cultures. Recommendations: Continue empiric meropenem Current Visit: Yes (5) Renal insufficiency Status: Resolved Current Visit: Yes Infectious Disease - PN: Subj Interval history: Patient somewhat improved, been off vasopressors for the past 1-2 days. Still with fever but fever curve generally seems to be down. Urine output is good, he has responded well to Lasix. Infectious Disease Exam (PN) - Constitutional Vitals: Temp Pulse Resp BP Pulse Ox 100.3 F H 109 H 15 111/56 97 05/26/17 15:00 05/26/17 15:00 05/26/17 15:00 05/26/17 15:00 05/26/17 15:00 General appearance: normal weight, no acute distress Exam: General appearance: Sedated on the vent - Eye Eye exam: Present: EOMI. no icterus Pupils: Present: JACOB - ENT ENT exam: ET tube in situ - Respiratory Respiratory exam: vesicular BS, no crepitations or wheezes - Cardiovascular Cardiovascular exam: regular rate and rhythm, no murmurs - GI/Abdominal GI/Abdominal exam: Wound VAC to mid abdomen with serosanguineous output, absent bowel sounds, soft - Extremities Exam Extremities exam: Increasing edema - Skin Skin exam: no rash Results - Labs CBC & BMP: 05/26/17 04:00 05/26/17 04:10 Lab Results: I have reviewed the past 24 hour labs (All blood cultures have been negative)
[2017-05-26] MEDS: ENOXAPARIN 40 MG/0.4 ML SYRINGE SUBCUT SCH (21:16)
[2017-05-27] MEDS: TRACE ELEMENTS (5) 1 ML, MULTIVITAMIN INJ 10 ML in AMINO ACIDS 10% 700 ML, DEXTROSE 70%... IV SCH (00:58)
[2017-05-27] MEDS: fentaNYL INJ 1,250 MCG in SODIUM CHLORIDE 0.9% 225 ML IV SCH ×2 (02:46→18:22)
[2017-05-27 02:57] LABS: ABG Base Excess 5.9 MMOL/L (-2.5-2.5); ABG HCO3 29.8 MMOL/L (20-26); ABG Oxygen Saturation 98.1 % (95-100); ABG PCO2 42.4 MM HG (35-48); ABG PH 7.462 (7.35-7.45); ABG TCO2 27.5 MMOL/L (23-27); Allen Test Positive; Pt O2 Delivery Device Ventilator
[2017-05-27] MEDS: HYDROmorphone 2 MG/1 ML VIAL IV PRN ×2 (03:58→12:39)
[2017-05-27] MEDS: ACETAMINOPHEN 325 MG/10.15 ML UDCUP PO PRN ×3 (03:58→17:46)
[2017-05-27 05:10] LABS: Basophils % 0.4 % (0.0-0.8); Eosinophils # 0.3 10*3/uL (0.0-0.87); Eosinophils % 2.8 % (0.00-10.9); Hematocrit 28.8 VOL% (42.0-52.0); Hemoglobin 9.5 GM/DL (14.0-18.0); Immature Granulocytes % 5.5 %; Immature Granulocytes Absolute 0.61 #; Lymphocytes % 9.1 % (21.2-54.2); Mean Corpuscular Hemoglobin 30 PG (27-34); Mean Corpuscular Volume 90.6 FL (87-102); Monocytes # 1.2 10*3/uL (0.11-0.8); Monocytes % 10.8 % (1.7-12.7); Neutrophils % 71.4 % (38.7-73.9); Platelet Count 160 T/CUMM (130-400); Red Blood Count 3.18 MC/CUMM (3.8-5.5); Red Cell Distribution Width 14.7 % (9.3-17.3); White Blood Count 11.1 T/CUMM (4-12)
[2017-05-27 05:29] LABS: Calcium 7.8 MG/DL (8.5-10.1); Magnesium 2.1 MG/DL (1.8-2.4); Osmolality,Calculated 296.4 MOS/KG (273-304); Potassium 3.9 MMOL/L (3.5-5.1)
[2017-05-27 05:38] LABS: Band Neutrophils 5 % (0-10); Eosinophils 3 % (0-10); Giant Platelets Few; Hypochromasia 1+; Lymphocytes 6 % (20-55); Platelet Estimate Normal; Segmented Neutrophils 79 % (50-85); Total Cells Counted 100
[2017-05-27] MEDS: MEROPENEM 1,000 MG in SODIUM CHLORIDE 0.9% 100 ML IV SCH ×3 (06:03→21:07)
--- NOTE | 2017-05-27 07:44 | Pulmonology Progress Note ---
Pulmonary - PN: Subj Interval history: The patient is a 46-year-old white man that has very severe pancreatitis from hypertriglyceridemia. He was found to be a diabetic recently and had very high lipids. He came in with abdominal pain and acute pancreatitis. He has been very ill but seems to be improving now. He had a compartment syndrome with the renal failure and had exploratory lap last week. He is going back for a wound VAC change today. He was started on dialysis and has done fairly well over the weekend. He is off pressors and his blood pressure is better. He went back to surgery and had his wound VAC change. He has a jejunostomy tube placed. He has continued to diurese well and his renal function is back to normal. He continues to have a low-grade fever but his cultures have been negative. He looks quite comfortable on the ventilator and his oxygenation is been okay. His renal function is back to normal. He is going back to surgery to have his wound evaluated today. He is tolerating some CPAP trials. Exam (Progress Note) - Constitutional Vitals: Period Temp Pulse Resp BP Sys/Gutierrez Pulse Ox Last 24 Hr 99 F-101.3 F 99-118 12-29 86-134/52-76 96-100 Exam: General appearance: normal weight, other (Patient is sedated on the ventilator at present. He appears to be hemodynamically stable. His oxygenation is much improved. He looks comfortable on the ventilator. He still has a low-grade fever from his pancreatitis.) - Head Head exam: Present: normal inspection, normocephalic - Eye Eye exam: Present: EOMI. Absent: scleral icterus Pupils: Present: JACOB - ENT ENT exam: Present: normal exam, other (ET tube is in good position) - Neck Neck exam: Absent: lymphadenopathy, thyromegaly - Respiratory Respiratory exam: Present: His lungs have good breath sounds bilaterally with fairly good air movement. His lungs sound better overall. - Cardiovascular Cardiovascular exam: Present: regular rate and rhythm. Absent: gallop, systolic murmur - GI/Abdominal GI/Abdominal exam: Present: His abdomen is still very distended and wrapped but it is soft. - Extremities Exam Extremities exam: Absent: calf tenderness, edema - Neurological Exam Neurological exam: Present: other (Patient is sedated at present) - Skin Skin exam: Present: warm, dry Results - Labs CBC & BMP: 05/27/17 04:00 05/27/17 04:00 Labs: PO2 is 105 with a PCO2 of 42 and a pH of 7.46 - Diagnostic Findings Procedure: Chest x-ray: image reviewed by me, report reviewed by me (Chest x- ray is improved with less infiltrates) Assessment and Plan (1) Hypertriglyceridemia Status: Acute Assessment and plan: Patient has severe hypertriglyceridemia which likely precipitated his pancreatitis. His triglycerides are now down to 147 Current Visit: Yes (2) Acute respiratory failure Status: Acute Assessment and plan: The patient is quite stable on the ventilator and his oxygenation is better. Current Visit: Yes Qualifiers: Qualified Code(s): J96.01 - Acute respiratory failure with hypoxia; J96.02 - Acute respiratory failure with hypercapnia (3) Pancreatitis Status: Acute Assessment and plan: Patient has severe pancreatitis and now has an abdomen opened. He will have his wound VAC changed today and surgery. Overall he is improving. Current Visit: Yes (4) New onset type 2 diabetes mellitus Status: Chronic Assessment and plan: The patient has been found to be a diabetic and his glucoses are better at this point. His glucose was 81 today. Current Visit: Yes (5) Renal insufficiency Status: Resolved Assessment and plan: His creatinine is 1.0 and fairly stable now. He has good urine output. Current Visit: Yes
--- NOTE | 2017-05-27 07:53 | Event Note ---
The patient continues to show signs of improvement. He is still having intermittent fevers. The output from the wound VAC is clear. He is tolerating tube feeds well through his jejunostomy tube and his NG tube output is decreased. Plan to go back to the operating room today for washout of the abdomen and Dara patch placement
[2017-05-27] MEDS ORDERED: LIDOCAINE 1%/EPI INJ 20 ML VIAL ONE (08:11)
--- NOTE | 2017-05-27 08:41 | XRay Report ---
XR chest 1V portable Indication: Hypoxemia Comparison: 26 May 2017 Findings: The heart and mediastinum are stable in size and configuration. The lines and tubes are unchanged in position. The pulmonary vascularity is prominent similar to previous exam. There is hazy left lower lung density present. No other lung infiltrates, effusions, pneumothorax or other abnormality is demonstrated. Impression: No significant change PROCEDURE INTERPRETED AT [facility] DEPARTMENT OF RADIOLOGY Final Report Signed by: Dr. Brian Lindsey
[2017-05-27] MEDS ORDERED: DEXTROSE 50% 25 GM/50 ML SYRINGE IV PRN (09:30)
[2017-05-27] MEDS ORDERED: GLUCAGON 1 MG VIAL IM PRN (09:30)
--- NOTE | 2017-05-27 09:33 | Operative Note ---
Date of procedure: 05/27/17 Pre-op diagnosis: Open abdomen with severe acute pancreatitis Post-op diagnosis: same Procedure: Preoperative diagnosis Open abdomen with severe acute pancreatitis Postoperative diagnosis Same Procedures performed 1. Reopening of recent laparotomy 2. Partial abdominal wall closure with application of Flor patch 3. Application of negative pressure wound VAC dressing Findings The abdomen was irrigated and there was no infection or evidence of pancreatic abscess. The J-tube was in good position. The abdomen was partially closed with a Hubbard patch that was sewn into the fascial edges and secured down. A wound VAC was reapplied. Complications None apparent Specimen None Anesthesia General endotracheal Blood loss None Indications Open abdomen with severe acute pancreatitis Description of procedure The patient was taken to the operating room and transferred to the operating table in the supine position. Pressure points were padded and SCDs were applied to the lower extremities. General endotracheal anesthesia was administered. The abdomen was prepped with Betadine and draped sterilely after the wound VAC was removed. Timeout was called. The abdomen was irrigated and there is no evidence of pancreatic necrosis or infection. The abdominal irrigation revealed no undrained abscess or cloudy fluid. The J-tube is in good position. The Witzel tunnel was intact and sewn to the abdominal wall as prior. The internal plastic layer of the wound VAC was reapplied and a Flor patch was sewn to the edges of the fascia using a running #1 Prolene suture. This allowed partial closure of the abdomen with a wound VAC secured on top of the Hubbard patch after the Hubbard patch was secured to itself using a self adhesive properties. The wound VAC sponge was then applied and suction was re- created. The patient tolerated the procedure well. He was transferred back to the intensive care unit. Postoperative plan Repeat washout and continued closure in 2 days Implants: flor patch Anesthesia: DANIEL Surgeon / Physician: Andre Seymour Estimated blood loss: none Specimens: none sent Condition: stable Disposition: ICU Results - Labs CBC & BMP: 05/27/17 04:00 05/27/17 04:00 Discharge Plan - Discharge Medications No Action Omeprazole Magnesium [Prilosec Otc] 20 mg PO DAILY - Follow Up or Referral - Forms/Instructions
--- NOTE | 2017-05-27 09:35 | Hospitalist Progress Note ---
Assessment and Plan (1) Pancreatitis Status: Acute Assessment and plan: The patient's initial illness was triglyceride induced pancreatitis. The patient's lipase has now normalized. The patient remains on mechanical ventilation with evidence of systemic inflammatory response syndrome. His wound VAC will be changed during surgery today. The patient will continue on progressive weaning from the ventilator. We are going to transition to enteral feedings with sliding scale insulin today. Current Visit: Yes Qualifiers: Chronicity: acute Pancreatitis type: other (2) Hypertriglyceridemia Status: Acute Current Visit: Yes (3) Acute respiratory failure Status: Acute Current Visit: Yes Qualifiers: Qualified Code(s): J96.01 - Acute respiratory failure with hypoxia; J96.02 - Acute respiratory failure with hypercapnia Hospitalist: Subjective Interval history: the patient continues with incremnetal improvement. Gas exchange is improved and the patient is tolerating jejunal feedings. We are ready to discontinue TPN and insulin infusion. The patient will be on sliding scale now. Exam - Constitutional Vitals: Period Temp Pulse Resp BP Sys/Gutierrez Pulse Ox Last 24 Hr 99 F-101.3 F 99-118 12-29 98-134/52-76 97-100 Exam: Constitutional System: Sedated and without distress. No tremulousness. The patient is orally intubated and mechanically ventilated Head: Normocephalic, atraumatic. Ears, Nose and Throat System: No evidence of Otitis or Mastoiditis. No epistaxis or discharge Eyes System: Pupils equal, round, and reactive. Neck: Supple, without adenopathy, No jugular venous distention. Respiratory System: Chest bilateral rhonchi to auscultation. Cardiovascular System: Heart with regular rate and rhythm. No murmur. GI System: Abdomen wound dressing in place with wound VAC. Musculoskeletal System: limbs with 1+ pedal edema. Full distal pulses. Neurological System: Not testable due to sedation Results - Labs CBC & BMP: 05/27/17 04:00 05/27/17 04:00 Lab Results: I have reviewed the past 24 hour labs
--- NOTE | 2017-05-27 09:47 | Anesthesia Post-Op ---
Anesthesia Post OP - Post Ansesthetic Evaluation Patient seen in post op: Yes Resp: within normal limits CV: within normal limits Mental: within normal limits Temp: within normal limits [id number]-[id number]: within normal limits Nausea and Vomiting: within normal limits Pain: within normal limits
[2017-05-27] MEDS: MINERAL OIL/PETROLATUM OPH OINT 3.5 GM TUBE BOTH EYES SCH ×2 (09:51→21:08)
[2017-05-27] MEDS: FUROSEMIDE 40 MG/4 ML VIAL IV SCH ×2 (09:52→15:09)
[2017-05-27] MEDS: PANTOPRAZOLE 40 MG VIAL IV SCH (09:52)
[2017-05-27] MEDS: POTASSIUM CHLORIDE 20 MEQ/15 ML UDCUP PER TUBE SCH ×2 (09:53→21:07)
[2017-05-27] MEDS: INSULIN LISPRO 100 UNIT/ML SUBCUT SCH ×2 (09:54→13:47)
[2017-05-27] MEDS ORDERED: VECURONIUM 10 MG VIAL IV ONE (11:33)
[2017-05-27] MEDS ORDERED: LACTATED RINGERS 1,000 ML IV ONE (11:33)
[2017-05-27] MEDS ORDERED: SEVOFLURANE 1 UNIT/15 MINUTE INH ONE (11:33)
[2017-05-27] MEDS ORDERED: MIDAZOLAM 2 MG/2 ML VIAL ONE (11:34)
[2017-05-27] MEDS ORDERED: fentaNYL 100 MCG/2 ML VIAL ONE (11:34)
--- NOTE | 2017-05-27 12:23 | Gastrointestinal Progress Note ---
<HiteshGenie Anish - Last Filed: 05/27/17 12:20> Assessment and Plan (1) Pancreatitis Status: Acute Assessment and plan: 05/27-tolerating tube feedings. Postop from partial abdominal wound closure. Lab values noted as below. Plan an addendum to followed by Dr. Christensen. 05/26-no changes noted as below. Tolerating tube feedings at present time. Plan an addendum to followed by Dr. Christensen. 05/25-postop reopened laparotomy. Labs noted as below. Hemodynamically stable at present time. Jejunostomy tube placed today and to start feedings tomorrow. Plan an addendum to followed by Dr. Christensen. 05/22-series of events noted as below. Patient continue with aggressive management for his multiple system organ failure at this time. To begin dialysis. Continue to monitor present time. Plan an addendum to followed by Dr. Christensen. 05/21-sudden onset of abdominal pain with intractable nausea and vomiting, with findings of elevated lipase and CT findings of pancreatitis. No prior history of pancreatitis. History of laparoscopic cholecystectomy with cholelithiasis. New onset diabetes with hemoglobin A1c of 9.8. Elevated lactic acid at 6.1. Continue NPO and IV fluids. Abdominal US this morning. Plan and addendum to follow by Dr Christensen. Current Visit: Yes Qualifiers: Chronicity: acute Pancreatitis type: other Gastroenterology - PN: Subj Interval history: CC: Pancreatitis Patient is seen, sedated on the vent, just returning from partial abdominal wall closure with [place] patch. He is reportedly tolerating his tube feedings at this time. He has been reportedly tolerating some of his CPAP trials as well. Lipase levels are down to 158 with triglycerides 147. Creatinine is 1 with good urine output. Overall patient is making incremental improvements. Abdomen is noted with dressing intact. ROS: No acute distress at this time. Exam (Progress Note) - Constitutional Vitals: Period Temp Pulse Resp BP Sys/Gutierrez Pulse Ox Last 24 Hr 99 F-101.3 F 99-118 12-29 98-134/52-81 94-100 General appearance: normal weight, no acute distress - Head Head exam: Present: normal inspection, normocephalic - Eye Eye exam: Present: other (Lids and conjunctive are unremarkable). Absent: scleral icterus - ENT ENT exam: Present: normal exam, normal oropharynx - Neck Neck exam: Present: normal inspection - Respiratory Respiratory exam: Present: clear to auscultation bilaterally. Absent: rales, rhonchi, wheezes - Cardiovascular Cardiovascular exam: Present: regular rate and rhythm. Absent: diastolic murmur , JVD, systolic murmur - GI/Abdominal GI/Abdominal exam: Present: hypoactive bowel sounds, soft. Absent: ascites, distended, mass, organomegaly, tenderness - Extremities Exam Extremities exam: Present: normal inspection, full ROM - Back Exam Back exam: Present: normal inspection - Neurological Exam Neurological exam: Present: altered - Psychiatric Psychiatric exam: Present: other - Skin Skin exam: Present: normal color, warm, dry Results - Labs CBC & BMP: 05/27/17 04:00 05/27/17 04:00 Lab Results: I have reviewed the past 24 hour labs <Alan Christensen - Last Filed: 05/27/17 21:58> Exam (Progress Note) - Constitutional Vitals: Period Temp Pulse Resp BP Sys/Gutierrez Pulse Ox Last 24 Hr 99 F-101.9 F 99-120 14-26 96-122/52-81 92-100 Results - Labs CBC & BMP: 05/27/17 04:00 05/27/17 04:00
--- NOTE | 2017-05-27 12:34 | Infectious Disease Progress ---
Assessment and Plan (1) Acute respiratory failure Status: Acute Current Visit: Yes Qualifiers: Qualified Code(s): J96.01 - Acute respiratory failure with hypoxia; J96.02 - Acute respiratory failure with hypercapnia (2) Hypertriglyceridemia Status: Acute Current Visit: Yes (3) New onset type 2 diabetes mellitus Status: Chronic Current Visit: Yes (4) Pancreatitis Status: Acute Assessment and plan: This is a very severe case of pancreatitis with abdominal compartment syndrome. He status post laparotomy and generally has improved since last week off vasopressors. Still has low-grade fevers but probably because of the significant inflammation intra-abdominally. Recommendations: Continue empiric meropenem. May consider stopping it towards the end of the week. Current Visit: Yes Qualifiers: Chronicity: acute Pancreatitis type: other (5) Renal insufficiency Status: Resolved Assessment and plan: Patient got 2 sessions of dialysis. Renal function has now normalized. Current Visit: Yes Infectious Disease - PN: Subj Interval history: Patient went back to the operating room today and by Dr. Seymour's op note no infected tissue is noted in the abdomen. Wound VAC was changed. He continues to have intermittent fever, T-max 101.3 early this morning. Normal hemodynamic instability. Infectious Disease Exam (PN) - Constitutional Vitals: Temp Pulse Resp BP Pulse Ox 100 F H 112 H 16 107/77 94 L 05/27/17 07:00 05/27/17 11:54 05/27/17 11:54 05/27/17 11:54 05/27/17 11:00 General appearance: normal weight, no acute distress Exam: General appearance: Sedated on the vent - Eye Eye exam: Present: EOMI. no icterus Pupils: Present: JACOB - ENT ENT exam: ET tube in situ - Respiratory Respiratory exam: vesicular BS, no crepitations or wheezes - Cardiovascular Cardiovascular exam: regular rate and rhythm, no murmurs - GI/Abdominal GI/Abdominal exam: Wound VAC to mid abdomen with serosanguineous output, absent bowel sounds, soft - Extremities Exam Extremities exam: Peripheral edema less than yesterday - Skin Skin exam: no rash Results - Labs CBC & BMP: 05/27/17 04:00 05/27/17 04:00 Lab Results: I have reviewed the past 24 hour labs (Blood cultures 2 sets from last week negative)
[2017-05-27] MEDS: MIDAZOLAM 100 MG in SODIUM CHLORIDE 0.9% 80 ML IV SCH (15:01)
[2017-05-27] MEDS: INSULIN REGULAR DRIP 100 ML IV SCH ×2 (17:07→18:20)
[2017-05-27] MEDS: ENOXAPARIN 40 MG/0.4 ML SYRINGE SUBCUT SCH (21:07)
[2017-05-28] MEDS: HYDROmorphone 2 MG/1 ML VIAL IV PRN ×5 (00:51→18:26)
[2017-05-28 03:21] LABS: ABG HCO3 29.9 MMOL/L (20-26); ABG PCO2 47.2 MM HG (35-48); ABG PH 7.429 (7.35-7.45); ABG TCO2 28.4 MMOL/L (23-27); Allen Test Positive; Pt O2 Delivery Device Ventilator
[2017-05-28 03:23] LABS: Basophils % 0.2 % (0.0-0.8); Eosinophils # 0.2 10*3/uL (0.0-0.87); Eosinophils % 1.9 % (0.00-10.9); Hematocrit 30.4 VOL% (42.0-52.0); Hemoglobin 9.7 GM/DL (14.0-18.0); Immature Granulocytes Absolute 0.61 #; Lymphocytes # 1.2 10*3/uL (1.4-4.0); Lymphocytes % 9.5 % (21.2-54.2); Mean Corpuscular HGB Conc 31.9 GM/DL (32-36); Mean Corpuscular Hemoglobin 30 PG (27-34); Monocytes # 0.7 10*3/uL (0.11-0.8); Monocytes % 5.5 % (1.7-12.7); Neutrophils # 9.5 10*3/uL (1.4-7.4); Neutrophils % 77.9 % (38.7-73.9); Platelet Count 208 T/CUMM (130-400); Red Blood Count 3.27 MC/CUMM (3.8-5.5); Red Cell Distribution Width 14.9 % (9.3-17.3); White Blood Count 12.2 T/CUMM (4-12)
[2017-05-28 03:46] LABS: Calcium 7.8 MG/DL (8.5-10.1); Magnesium 2.5 MG/DL (1.8-2.4); Osmolality,Calculated 308.4 MOS/KG (273-304); Potassium 4.4 MMOL/L (3.5-5.1)
[2017-05-28 04:18] LABS: Band Neutrophils 3 % (0-10); Eosinophils 1 % (0-10); Lymphocytes 4 % (20-55); Metamyelocytes 2 %; Platelet Estimate Normal; Promyelocytes 1 %; Segmented Neutrophils 85 % (50-85); Total Cells Counted 100
[2017-05-28 04:21] LABS: Phosphorous 2.9 MG/DL (2.5-4.9); Prealbumin 8.1 MG/DL (20-40)
[2017-05-28] MEDS: ACETAMINOPHEN 325 MG/10.15 ML UDCUP PO PRN ×4 (04:36→18:28)
[2017-05-28] MEDS: MEROPENEM 1,000 MG in SODIUM CHLORIDE 0.9% 100 ML IV SCH (04:36)
[2017-05-28] MEDS: MIDAZOLAM 100 MG in SODIUM CHLORIDE 0.9% 80 ML IV SCH ×2 (04:36→13:30)
[2017-05-28] MEDS: INSULIN REGULAR DRIP 100 ML IV SCH ×4 (06:14→22:29)
--- NOTE | 2017-05-28 07:08 | XRay Report ---
Exam: XR chest 1V portable Date: 05/28/2017 4:00 AM Indication: Respiratory failure follow-up ventilator Comparison: 05/27/2017 Technical: AP Findings: Endotracheal tube is at the mid clavicle. A right IJ catheter and the left sided catheter are present with the distal tip in superior vena cava right atrial junction. Mild cardiomegaly present. Low volume left effusion. External cardiac leads are present. No pneumothorax. Mediastinum is intact. Platelike atelectatic change in the right upper and left perihilar region. Impression: 1. Stable appearance of life support tubing with persistent low volume effusions without significant interval change and underlying atelectasis. PROCEDURE INTERPRETED AT [facility] DEPARTMENT OF RADIOLOGY Final Report Signed by: Dr. Alek Ulrich
--- NOTE | 2017-05-28 07:12 | Event Note ---
No major changes. Dara patch and wound VAC placed yesterday. Patient is tolerating tube feeds at goal. He is having fevers. His VAC drainage is clear. He does have 2 lines in his neck and has had a Snow since admission. Chest x-ray shows persistent left pleural effusion but no discrete infiltrate on my review. He is weaning off the ventilator with argue against a worsening pneumonia. On his abdominal exam he does have some skin blistering but there is no erythema. His abdomen was pristine yesterday with no evidence of infection. We will plan to return to the operating room tomorrow for wound VAC change and tightening of [place] patch with hopes of eventual abdominal closure. I will order repeat blood cultures and urine cultures with urinalysis today to evaluate for the source of his fever.
--- NOTE | 2017-05-28 07:20 | Pulmonology Progress Note ---
Pulmonary - PN: Subj Interval history: The patient is a 46-year-old white man that has very severe pancreatitis from hypertriglyceridemia. He was found to be a diabetic recently and had very high lipids. He came in with abdominal pain and acute pancreatitis. He has been very ill but seems to be improving now. He had a compartment syndrome with the renal failure and had exploratory lap last week. He is going back for a wound VAC change today. He was started on dialysis and has done fairly well over the weekend. He is off pressors and his blood pressure is better. He went back to surgery and had his wound VAC change. He has a jejunostomy tube placed. He has continued to diurese well and his renal function is back to normal. He has been reasonably stable on the ventilator but does have a temperature to 102. His chest x-ray is better with just slight left pleural effusion. He still has a wound VAC on his abdomen. His blood cultures have been negative. His urine output is much improved. He is on meropenem now. Exam (Progress Note) - Constitutional Vitals: Period Temp Pulse Resp BP Sys/Gutierrez Pulse Ox Last 24 Hr 100.9 F-102 F 99-120 14-26 96-126/56-83 92-100 Exam: General appearance: normal weight, other (Patient is sedated on the ventilator at present. He appears to be hemodynamically stable. His oxygenation is much improved. He looks comfortable on the ventilator. He still has a low-grade fever from his pancreatitis.) - Head Head exam: Present: normal inspection, normocephalic - Eye Eye exam: Present: EOMI. Absent: scleral icterus Pupils: Present: JACOB - ENT ENT exam: Present: normal exam, other (ET tube is in good position) - Neck Neck exam: Absent: lymphadenopathy, thyromegaly - Respiratory Respiratory exam: Present: His lungs have good breath sounds bilaterally with fairly good air movement. His lungs still sound reasonably clear at present. - Cardiovascular Cardiovascular exam: Present: regular rate and rhythm. Absent: gallop, systolic murmur - GI/Abdominal GI/Abdominal exam: Present: His abdomen is still very distended and wrapped but it is soft. He has a wound VAC in place. - Extremities Exam Extremities exam: Absent: calf tenderness, edema - Neurological Exam Neurological exam: Present: other (Patient is sedated at present) - Skin Skin exam: Present: warm, dry Results - Labs CBC & BMP: 05/28/17 03:12 05/28/17 03:12 Labs: PO2 is 107 with a PCO2 of 47 and pH of 7.42 - Diagnostic Findings Procedure: Chest x-ray: image reviewed by me, report reviewed by me (Chest x- ray shows a mild left pleural effusion) Assessment and Plan (1) Hypertriglyceridemia Status: Acute Assessment and plan: Patient has severe hypertriglyceridemia which likely precipitated his pancreatitis. His triglycerides are now down to 147. Current Visit: Yes (2) Acute respiratory failure Status: Acute Assessment and plan: The patient is quite stable on the ventilator and his oxygenation is better. His chest x-ray is improving. Will continue with CPAP trials. Current Visit: Yes Qualifiers: Qualified Code(s): J96.01 - Acute respiratory failure with hypoxia; J96.02 - Acute respiratory failure with hypercapnia (3) Pancreatitis Status: Acute Assessment and plan: Patient has severe pancreatitis and now has an abdomen opened. He has a wound VAC in place. His abdomen is improving now. Current Visit: Yes Qualifiers: Chronicity: acute Pancreatitis type: other (4) New onset type 2 diabetes mellitus Status: Chronic Assessment and plan: The patient has been found to be a diabetic and his glucoses are better at this point. His glucose was 235 today. Current Visit: Yes (5) Renal insufficiency Status: Resolved Assessment and plan: His creatinine is 1.1 and fairly stable now. He has good urine output. I will cut back on his diuresis now. Current Visit: Yes
[2017-05-28] MEDS: FUROSEMIDE 40 MG/4 ML VIAL IV SCH (08:10)
[2017-05-28] MEDS: POTASSIUM CHLORIDE 20 MEQ/15 ML UDCUP PER TUBE SCH (08:11)
[2017-05-28] MEDS: PANTOPRAZOLE 40 MG VIAL IV SCH (08:11)
[2017-05-28] MEDS: MINERAL OIL/PETROLATUM OPH OINT 3.5 GM TUBE BOTH EYES SCH ×2 (08:12→21:09)
[2017-05-28 08:39] LABS: Apearance,Urine Slightly Hazy (Clear); Bilirubin,Urine Negative (Negative); Blood, Urine Moderate mg/dL (Negative); Glucose,Urine (UA) 50 mg/dL (Negative); Ketones,Urine Negative (Negative); Mucus,Urine Occasional /LPF (Occasional); Nitrite,Urine Negative (Negative); Protein,Urine 100 MG/DL; RBC,Urine 1 /HPF (0-4); Urine Color Yellow (Yellow); Urine Specific Gravity 1.025 (1.001-1.035); Urine Urobilinogen < 2.0 EU/DL (0.2-1.0); WBC,Urine 3 /HPF (0-6)
[2017-05-28] MEDS: fentaNYL INJ 1,250 MCG in SODIUM CHLORIDE 0.9% 225 ML IV SCH ×3 (10:31→22:28)
--- NOTE | 2017-05-28 11:16 | Gastrointestinal Progress Note ---
Addendum entered and electronically signed by Genie Proctor FNP 05/28/17 14:11: Original Note: Assessment and Plan (1) Pancreatitis Status: Acute Assessment and plan: 05/28-continues to tolerate his tube feedings. Findings noted as below. Continue to monitor present time. Plan an addendum to followed by Dr. Christensen. 05/27-tolerating tube feedings. Postop from partial abdominal wound closure. Lab values noted as below. Plan an addendum to followed by Dr. Christensen. 05/26-no changes noted as below. Tolerating tube feedings at present time. Plan an addendum to followed by Dr. Christensen. 05/25-postop reopened laparotomy. Labs noted as below. Hemodynamically stable at present time. Jejunostomy tube placed today and to start feedings tomorrow. Plan an addendum to followed by Dr. Christensen. 05/22-series of events noted as below. Patient continue with aggressive management for his multiple system organ failure at this time. To begin dialysis. Continue to monitor present time. Plan an addendum to followed by Dr. Christensen. 05/21-sudden onset of abdominal pain with intractable nausea and vomiting, with findings of elevated lipase and CT findings of pancreatitis. No prior history of pancreatitis. History of laparoscopic cholecystectomy with cholelithiasis. New onset diabetes with hemoglobin A1c of 9.8. Elevated lactic acid at 6.1. Continue NPO and IV fluids. Abdominal US this morning. Plan and addendum to follow by Dr Christensen. Current Visit: Yes Qualifiers: Chronicity: acute Pancreatitis type: other Gastroenterology - PN: Subj Interval history: CC:Pancreatitis Patient is seen, sedated on ventilator. He continues with CPAP trials and weaning which nursing staff states he is doing fairly well with. He continues to have good urine output. He is noted to have a temp of 202 last night with an elevation in WBCs at 12,000. He does awaken off of sedation and has some purposeful movements to command but not fully. Blood cultures have been ordered. Urinalysis fairly unremarkable. Wound VAC abdominal dressing intact. Chest x-ray noted with mild left pleural effusion. ROS: No acute distress Exam (Progress Note) - Constitutional Vitals: Period Temp Pulse Resp BP Sys/Gutierrez Pulse Ox Last 24 Hr 100.1 F-102 F 103-120 12-26 96-128/56-83 92-100 General appearance: normal weight, no acute distress - Head Head exam: Present: normal inspection, normocephalic - Eye Eye exam: Present: other (Lids and conjunctive are unremarkable). Absent: scleral icterus - ENT ENT exam: Present: normal exam, normal oropharynx - Neck Neck exam: Present: normal inspection - Respiratory Respiratory exam: Present: clear to auscultation bilaterally. Absent: rales, rhonchi, wheezes - Cardiovascular Cardiovascular exam: Present: regular rate and rhythm. Absent: JVD, systolic murmur - GI/Abdominal GI/Abdominal exam: Present: hypoactive bowel sounds, soft. Absent: ascites, distended, mass, organomegaly - Extremities Exam Extremities exam: Present: normal inspection - Back Exam Back exam: Present: normal inspection - Neurological Exam Neurological exam: Present: altered - Psychiatric Psychiatric exam: Present: other - Skin Skin exam: Present: normal color, warm, dry Results - Labs CBC & BMP: 05/28/17 03:12 05/28/17 03:12 Lab Results: I have reviewed the past 24 hour labs
[2017-05-28] MEDS: MEROPENEM 1,000 MG in SODIUM CHLORIDE 0.9% 50 ML IV SCH ×2 (12:55→21:08)
--- NOTE | 2017-05-28 15:11 | Infectious Disease Progress ---
Assessment and Plan (1) Acute respiratory failure Status: Acute Current Visit: Yes Qualifiers: Qualified Code(s): J96.01 - Acute respiratory failure with hypoxia; J96.02 - Acute respiratory failure with hypercapnia (2) Hypertriglyceridemia Status: Acute Current Visit: Yes (3) New onset type 2 diabetes mellitus Status: Chronic Current Visit: Yes (4) Pancreatitis Status: Acute Assessment and plan: This is a very severe case of pancreatitis with abdominal compartment syndrome. He has been persistently febrile but initial cultures were negative. His initial severe leukocytosis has just about resolved. Incremental increase in white count today. No more hemodynamic instability. Recommendations: Continue empiric meropenem. Agree with Dr. Seymour to revisit possibility of infection. He has been on TPN now for almost a week and is at risk for candidemia among other bloodstream infections. We will see what culture sent off today have shown. If hemodynamic instability occurs or if white blood cell count increases further, will add antifungal therapy. Discussed with Current Visit: Yes Qualifiers: Chronicity: acute Pancreatitis type: other (5) Renal insufficiency Status: Resolved Assessment and plan: Patient got 2 sessions of dialysis. Renal function has now normalized. Current Visit: Yes Infectious Disease - PN: Subj Interval history: Patient still with almost persistent fever, T-max 102 this morning early. He remains off vasopressors for several days. Today he has been doing well with CPAP since 730 this morning until about an hour ago. Infectious Disease Exam (PN) - Constitutional Vitals: Temp Pulse Resp BP Pulse Ox 100 F H 106 H 15 127/79 99 05/28/17 14:58 05/28/17 14:00 05/28/17 14:00 05/28/17 14:00 05/28/17 14:00 General appearance: normal weight, no acute distress Exam: General appearance: Arousable, relatively comfortable on CPAP t - Eye Eye exam: Present: EOMI. no icterus Pupils: Present: JACOB - ENT ENT exam: ET tube in situ - Respiratory Respiratory exam: vesicular BS, no crepitations or wheezes - Cardiovascular Cardiovascular exam: regular rate and rhythm, no murmurs - GI/Abdominal GI/Abdominal exam: Wound VAC to mid abdomen with serosanguineous output, no significant surrounding erythema, absent bowel sounds, soft - Extremities Exam Extremities exam: Peripheral edema present - Skin Skin exam: no rash Results - Labs CBC & BMP: 05/28/17 03:12 05/28/17 03:12 Lab Results: I have reviewed the past 24 hour labs
[2017-05-28] MEDS: ENOXAPARIN 40 MG/0.4 ML SYRINGE SUBCUT SCH (21:08)
[2017-05-28] MEDS ORDERED: MIDAZOLAM 100 MG in SODIUM CHLORIDE 0.9% 80 ML IV SCH (22:00)
[2017-05-29] MEDS: ACETAMINOPHEN 325 MG/10.15 ML UDCUP PO PRN ×4 (00:29→21:14)
[2017-05-29 03:37] LABS: ABG Base Excess 9.6 MMOL/L (-2.5-2.5); ABG HCO3 34.1 MMOL/L (20-26); ABG Oxygen Saturation 98.2 % (95-100); ABG PCO2 46.4 MM HG (35-48); ABG PH 7.484 (7.35-7.45); ABG PO2 131.7 MM HG (80-95); ABG TCO2 35.5 MMOL/L (23-27); Allen Test Positive; Pt O2 Delivery Device Ventilator
[2017-05-29 04:43] LABS: Basophils % 0.3 % (0.0-0.8); Eosinophils # 0.5 10*3/uL (0.0-0.87); Hemoglobin 10.2 GM/DL (14.0-18.0); Immature Granulocytes % 2.5 %; Immature Granulocytes Absolute 0.39 #; Mean Corpuscular HGB Conc 31.9 GM/DL (32-36); Mean Corpuscular Hemoglobin 30 PG (27-34); Mean Corpuscular Volume 93.6 FL (87-102); Mean Platelet Volume 11.2 FL (9.6-12.0); Monocytes % 6.4 % (1.7-12.7); Neutrophils # 11.6 10*3/uL (1.4-7.4); Neutrophils % 74.8 % (38.7-73.9); Platelet Count 256 T/CUMM (130-400); Red Blood Count 3.42 MC/CUMM (3.8-5.5); Red Cell Distribution Width 14.9 % (9.3-17.3); White Blood Count 15.5 T/CUMM (4-12)
[2017-05-29 05:05] LABS: Calcium 7.9 MG/DL (8.5-10.1); Magnesium 2.4 MG/DL (1.8-2.4); Osmolality,Calculated 307.7 MOS/KG (273-304); Potassium 4.3 MMOL/L (3.5-5.1)
[2017-05-29 05:28] LABS: Band Neutrophils 1 % (0-10); Eosinophils 4 % (0-10); Hypochromasia Slight; Lymphocytes 14 % (20-55); Platelet Estimate Normal; Segmented Neutrophils 74 % (50-85); Total Cells Counted 100
[2017-05-29] MEDS: MEROPENEM 1,000 MG in SODIUM CHLORIDE 0.9% 50 ML IV SCH (05:36)
[2017-05-29] MEDS: HYDROmorphone 2 MG/1 ML VIAL IV PRN ×2 (05:36→20:06)
[2017-05-29] MEDS ORDERED: LIDOCAINE 1%/EPI INJ 20 ML VIAL ONE (06:33)
[2017-05-29] MEDS: fentaNYL INJ 1,250 MCG in SODIUM CHLORIDE 0.9% 225 ML IV SCH ×3 (07:02→21:33)
--- NOTE | 2017-05-29 07:34 | XRay Report ---
Exam: XR chest 1V portable Date: 05/29/2017 4:00 AM Indication: Follow-up ventilator respiratory failure Comparison: 05/28/2017 Technical: AP Findings: A right IJ catheter is present. A left IJ catheter is present. Endotracheal tube and nasogastric tube are present. Atelectatic change and low volume left effusion present with mild cardiac enlargement. Mediastinum is intact. No pneumothorax Impression: 1. Stable appearance of life support tubing 2. Low volume effusions and atelectatic change left base similar to previous exam. Overall no significant interval change PROCEDURE INTERPRETED AT [facility] DEPARTMENT OF RADIOLOGY Final Report Signed by: Dr. Alek Ulrich
--- NOTE | 2017-05-29 07:44 | Operative Note ---
Date of procedure: 05/29/17 Pre-op diagnosis: Open abdomen with severe acute pancreatitis Post-op diagnosis: same Procedure: Preoperative diagnosis Open abdomen with severe acute pancreatitis Postoperative diagnosis Same Procedures performed 1. Reopening of recent laparotomy 2. Abdominal washout 3. Tightening of Guthrie patch with partial abdominal wall closure 4. Reapplication of negative pressure wound therapy under anesthesia Findings There is no evidence of infection the abdomen. Progress was made with tightening of the Dara patch and partial closure of the abdominal wall. There is no changes in the pressures on the ventilator. Complications None apparent Specimen None Anesthesia GETA Blood loss None Indications Open abdomen with severe acute pancreatitis. The risks, benefits, and alternatives of the operation were discussed with the patient's and the expected outcomes were reviewed. They like to proceed with the operation. Description of procedure The patient was taken to the operating room and transferred to the operating table in the supine position. Pressure points were padded and SCDs were placed lower extremities. General endotracheal anesthesia was administered. The abdomen was prepped with Betadine and draped sterilely. The outer layer of the wound VAC was removed prior to prepping. Timeout was called. The Guthrie patch was undone and the internal layer of the wound VAC was removed. The was no infection in the abdomen and the abdomen was washed out. The J-tube appeared intact and working well. The washout was performed with warm normal saline and the internal layer of the wound VAC was reapplied. A Guthrie patch was then tightened down and the wound VAC was reapplied. The excess Dara patch was trimmed off. Wound VAC was hooked up to suction patient was awakened from anesthesia and transferred to back to ICU. Postoperative plan Return to operating room Thursday Implants: wound vac Anesthesia: JELANIA Surgeon / Physician: Andre Seymour Estimated blood loss: none Specimens: none sent Condition: stable Disposition: ICU Results - Labs CBC & BMP: 05/29/17 03:50 05/29/17 03:50 Discharge Plan - Discharge Medications No Action Omeprazole Magnesium [Prilosec Otc] 20 mg PO DAILY - Follow Up or Referral - Forms/Instructions
--- NOTE | 2017-05-29 08:02 | Anesthesia Post-Op ---
Anesthesia Post OP - Post Ansesthetic Evaluation Patient seen in post op: Yes Resp: within normal limits CV: within normal limits Mental: within normal limits Temp: within normal limits Nmct-Cf-[id number]: within normal limits Nausea and Vomiting: within normal limits Pain: within normal limits
[2017-05-29] MEDS ORDERED: ROCURONIUM 100 MG/10 ML VIAL IV ONE (08:04)
[2017-05-29] MEDS ORDERED: SEVOFLURANE 1 UNIT/15 MINUTE INH ONE (08:04)
[2017-05-29] MEDS: PANTOPRAZOLE 40 MG VIAL IV SCH (08:50)
[2017-05-29] MEDS: FUROSEMIDE 40 MG/4 ML VIAL IV SCH (08:52)
[2017-05-29] MEDS: POTASSIUM CHLORIDE 20 MEQ/15 ML UDCUP PER TUBE SCH (08:59)
[2017-05-29] MEDS: MINERAL OIL/PETROLATUM OPH OINT 3.5 GM TUBE BOTH EYES SCH ×2 (09:05→21:41)
--- NOTE | 2017-05-29 09:14 | Hospitalist Progress Note ---
Assessment and Plan (1) Pancreatitis Status: Acute Assessment and plan: The patient's initial illness was triglyceride induced pancreatitis. The patient's lipase has now normalized. The patient remains on mechanical ventilation with evidence of systemic inflammatory response syndrome. The patient is off TPN. The patient is to restart tube feedings through jejunostomy later today. The patient remains on insulin infusion for optimal glucose control. I discussed antibiotic care with Dr. Murry. I am going to discontinue meropenem and start Levaquin today to rule out the possibility of drug fever. Current Visit: Yes Qualifiers: Chronicity: acute Pancreatitis type: other (2) Hypertriglyceridemia Status: Acute Current Visit: Yes (3) Acute respiratory failure Status: Acute Current Visit: Yes Qualifiers: Qualified Code(s): J96.01 - Acute respiratory failure with hypoxia; J96.02 - Acute respiratory failure with hypercapnia Hospitalist: Subjective Interval history: The patient is resting quietly in his room this morning. The patient had surgery this morning to washout the abdominal wound and to replace the negative pressure dressing. I coordinate care with Dr. Martinez and with Dr. Murry. The patient remains with some fever without obvious source of infection. Hemodynamics are stable without pressor. The patient's peak pressure on the ventilator is little higher today. Exam - Constitutional Vitals: Period Temp Pulse Resp BP Sys/Gutierrez Pulse Ox Last 24 Hr 99 F-102.1 F 97-123 11-26 91-137/59-81 96-100 Exam: Constitutional System: Sedated and without distress. No tremulousness. The patient is orally intubated and mechanically ventilated Head: Normocephalic, atraumatic. Ears, Nose and Throat System: No evidence of Otitis or Mastoiditis. No epistaxis or discharge Eyes System: Pupils equal, round, and reactive. Neck: Supple, without adenopathy, No jugular venous distention. Respiratory System: Chest bilateral rhonchi to auscultation. Cardiovascular System: Heart with regular rate and rhythm. No murmur. GI System: Abdomen wound dressing in place with wound VAC. Musculoskeletal System: limbs with 1+ pedal edema. Full distal pulses. Neurological System: Not testable due to sedation Results - Labs CBC & BMP: 05/29/17 03:50 05/29/17 03:50 Lab Results: I have reviewed the past 24 hour labs
--- NOTE | 2017-05-29 09:17 | Pulmonology Progress Note ---
Pulmonary - PN: Subj Interval history: The patient is a 46-year-old white man that has very severe pancreatitis from hypertriglyceridemia. He was found to be a diabetic recently and had very high lipids. He came in with abdominal pain and acute pancreatitis. He has been very ill but seems to be improving now. He had a compartment syndrome with the renal failure and had exploratory lap last week. He has gone back to surgery several times and he went back this morning. The abdomen apparently look good without signs of infection. He has been reasonably stable on the ventilator. His oxygenation was much better this morning and his chest x-ray looks okay. Overall he has been hemodynamically stable. Exam (Progress Note) - Constitutional Vitals: Period Temp Pulse Resp BP Sys/Gutierrez Pulse Ox Last 24 Hr 99 F-102.1 F 97-123 11-26 91-137/59-81 96-100 Exam: General appearance: normal weight, other (Patient is sedated on the ventilator at present. He still has a low-grade fever but is stable.) Head exam: Present: normal inspection, normocephalic - Eye Eye exam: Present: EOMI. Absent: scleral icterus Pupils: Present: JACOB - ENT ENT exam: Present: normal exam, other (ET tube is in good position) - Neck Neck exam: Absent: lymphadenopathy, thyromegaly - Respiratory Respiratory exam: Present: His lungs have good breath sounds bilaterally with fairly good air movement. His lungs still sound reasonably clear at present. - Cardiovascular Cardiovascular exam: Present: regular rate and rhythm. Absent: gallop, systolic murmur - GI/Abdominal GI/Abdominal exam: Present: His abdomen is less distended but still has a wound VAC in place. - Extremities Exam Extremities exam: Absent: calf tenderness, edema - Neurological Exam Neurological exam: Present: other (Patient is sedated at present) - Skin Skin exam: Present: warm, dry Results - Labs CBC & BMP: 05/29/17 03:50 05/29/17 03:50 Labs: His PO2 was 131 on 50% oxygen. His PCO2 is 46 with a pH of 7.48 - Diagnostic Findings Procedure: Chest x-ray: image reviewed by me, report reviewed by me (Chest x- ray still shows mild consolidation in the left base.) Assessment and Plan (1) Hypertriglyceridemia Status: Acute Assessment and plan: Patient has severe hypertriglyceridemia which likely precipitated his pancreatitis. His triglycerides are now down to 147. Current Visit: Yes (2) Acute respiratory failure Status: Acute Assessment and plan: The patient is quite stable on the ventilator and his oxygenation is better. His chest x-ray is improving. We will continue ventilatory support over the weekend since he is going back to surgery Thursday. We will continue weaning trials. Current Visit: Yes Qualifiers: Qualified Code(s): J96.01 - Acute respiratory failure with hypoxia; J96.02 - Acute respiratory failure with hypercapnia (3) Pancreatitis Status: Acute Assessment and plan: Patient has severe pancreatitis and now has an abdomen opened. His exploration this morning apparently look better. He will continue with present therapy. Current Visit: Yes Qualifiers: Chronicity: acute Pancreatitis type: other (4) New onset type 2 diabetes mellitus Status: Chronic Assessment and plan: The patient has been found to be a diabetic and his glucoses are better at this point. His glucose was 156 today. Current Visit: Yes (5) Renal insufficiency Status: Resolved Assessment and plan: His creatinine is 0.8 today. Current Visit: Yes
--- NOTE | 2017-05-29 09:26 | Infectious Disease Progress ---
Assessment and Plan (1) Acute respiratory failure Status: Acute Current Visit: Yes Qualifiers: Qualified Code(s): J96.01 - Acute respiratory failure with hypoxia; J96.02 - Acute respiratory failure with hypercapnia (2) Hypertriglyceridemia Status: Acute Current Visit: Yes (3) New onset type 2 diabetes mellitus Status: Chronic Current Visit: Yes (4) Pancreatitis Status: Acute Assessment and plan: This is a very severe case of pancreatitis with abdominal compartment syndrome. He has been persistently febrile but initial cultures were negative. Dr. Posada mentioned possibility of a drug fever from meropenem and I think that is a good thought. Recommendations: 1. Agree with Dr. Posada in switching meropenem to levofloxacin 2. Follow-up blood cultures 3. If the fever persists after 2 days of meropenem, consider adding antifungal therapy, micafungin Discussed with Dr. Posada Current Visit: Yes Qualifiers: Chronicity: acute Pancreatitis type: other (5) Renal insufficiency Status: Resolved Assessment and plan: Patient got 2 sessions of dialysis. Renal function has now normalized. Current Visit: Yes Infectious Disease - PN: Subj Interval history: Patient went back to the operating room again today, further closure of wound done, wound VAC placed. Patient still having almost persisting fever. He remains off vasopressors. Infectious Disease Exam (PN) - Constitutional Vitals: Temp Pulse Resp BP Pulse Ox 99 F 106 H 25 H 100/59 100 05/29/17 09:00 05/29/17 06:00 05/29/17 06:00 05/29/17 06:00 05/29/17 06:00 General appearance: normal weight, no acute distress Exam: General appearance: Sedated, just came out from the OR - Eye Eye exam: Present: EOMI. no icterus Pupils: Present: JACOB - ENT ENT exam: ET tube in situ - Respiratory Respiratory exam: vesicular BS, no crepitations or wheezes - Cardiovascular Cardiovascular exam: regular rate and rhythm, no murmurs - GI/Abdominal GI/Abdominal exam: Wound VAC to mid abdomen with serosanguineous output, wound significantly smaller than yesterday, no significant surrounding erythema, absent bowel sounds - Extremities Exam Extremities exam: Peripheral edema present - Skin Skin exam: no rash Results - Labs CBC & BMP: 05/29/17 03:50 05/29/17 03:50 Lab Results: I have reviewed the past 24 hour labs (Blood cultures from yesterday negative to date)
[2017-05-29] MEDS: LEVOFLOXACIN INJ 500 MG in PREMIX 1 EACH IV SCH (11:11)
--- NOTE | 2017-05-29 11:44 | Gastrointestinal Progress Note ---
<Genie Proctor Anish - Last Filed: 05/29/17 11:41> Assessment and Plan (1) Pancreatitis Status: Acute Assessment and plan: 05/29-tolerating tube feedings. Labs noted as below. Continue to monitor present time. Plan an addendum to followed by Dr. Christensen 05/28-continues to tolerate his tube feedings. Findings noted as below. Continue to monitor present time. Plan an addendum to followed by Dr. Christensen. 05/27-tolerating tube feedings. Postop from partial abdominal wound closure. Lab values noted as below. Plan an addendum to followed by Dr. Christensen. 05/26-no changes noted as below. Tolerating tube feedings at present time. Plan an addendum to followed by Dr. Christensen. 05/25-postop reopened laparotomy. Labs noted as below. Hemodynamically stable at present time. Jejunostomy tube placed today and to start feedings tomorrow. Plan an addendum to followed by Dr. Christensen. 05/22-series of events noted as below. Patient continue with aggressive management for his multiple system organ failure at this time. To begin dialysis. Continue to monitor present time. Plan an addendum to followed by Dr. Christensen. 05/21-sudden onset of abdominal pain with intractable nausea and vomiting, with findings of elevated lipase and CT findings of pancreatitis. No prior history of pancreatitis. History of laparoscopic cholecystectomy with cholelithiasis. New onset diabetes with hemoglobin A1c of 9.8. Elevated lactic acid at 6.1. Continue NPO and IV fluids. Abdominal US this morning. Plan and addendum to follow by Dr Christensen. Current Visit: Yes Qualifiers: Chronicity: acute Pancreatitis type: other Gastroenterology - PN: Subj Interval history: CC: Pancreatitis Patient is seen, sedated on the vent. He is returned from additional surgery to continue to close his abdomen. He remains hemodynamically stable although blood pressure is slightly on the low side at this time. Abdomen is soft, dressing intact. He continues to have weaning from the vent at this time. Dr. Maguire is a consult with patient and is adjusting his antibiotic therapy. WBCs are elevated 15,000 today. Low-grade fever noted. He has continued to tolerate his tube feedings as well. ROS: No acute distress at present time Exam (Progress Note) - Constitutional Vitals: Period Temp Pulse Resp BP Sys/Gutierrez Pulse Ox Last 24 Hr 98.8 F-102.1 F 93-123 11- 90-137/7-81 96-100 General appearance: normal weight, no acute distress - Head Head exam: Present: normal inspection, normocephalic - Eye Eye exam: Present: other (Lids and conjunctival unremarkable). Absent: scleral icterus - ENT ENT exam: Present: normal exam, normal oropharynx - Neck Neck exam: Present: normal inspection - Respiratory Respiratory exam: Present: clear to auscultation bilaterally. Absent: rales, rhonchi, wheezes - Cardiovascular Cardiovascular exam: Present: regular rate and rhythm. Absent: diastolic murmur , JVD, systolic murmur - GI/Abdominal GI/Abdominal exam: Present: hypoactive bowel sounds, soft. Absent: ascites, distended, mass, organomegaly - Extremities Exam Extremities exam: Present: normal inspection - Back Exam Back exam: Present: normal inspection - Neurological Exam Neurological exam: Present: altered - Psychiatric Psychiatric exam: Present: other Results - Labs CBC & BMP: 05/29/17 03:50 05/29/17 03:50 Lab Results: I have reviewed the past 24 hour labs <Alan Christensen - Last Filed: 05/29/17 12:59> Exam (Progress Note) - Constitutional Vitals: Period Temp Pulse Resp BP Sys/Gutierrez Pulse Ox Last 24 Hr 98.8 F-102.1 F 93-123 11-26 90-137/7-81 96-100 Results - Labs CBC & BMP: 05/29/17 03:50 05/29/17 03:50
--- NOTE | 2017-05-29 12:44 | Physician Query Form ---
CLICK EDIT DOCUMENT TO SELECT QUERY ANSWER --> OK --> SIGN PROVIDERS: Make your selection(s) from the choices in EACH section by typing an "x" and enter comments in the comment section. Please use your independent medical judgment in providing your response. This request does not imply that any particular answer is desired or expected. CLINICAL INDICATORS: (Providers should not edit this section) The medical record indicates that the patient was admitted with pancreatitis, [place] , admitted to the ER on the evening of the @ 17:12---- glucose Level of 463 # on the @ 18:04----Glucose of 659 on the @ 12:09---- on the history on the : "New onset type 2 diabetes mellitus" is mentioned---- on the : Urine Ketones on the , Urine Glucose > 500----on the : "was found to be in DKA today" ----and the patient would be placed in ICU on the . ----As the attending MD can you please clarify if the DKA was ? Diagnosis: DKA Please clarify the status of (diagnosis) based on the above: ( X) The above diagnosis was present on admission ( ) The above diagnosis was NOT present on admission ( ) Other, please specify: ( ) Clinically unable to determine COMMENTS: PLEASE ALSO DOCUMENT RESPONSE IN PROGRESS NOTES AND/OR DISCHARGE SUMMARY Use of terms such as suspected, likely, or probable (associated with a specific diagnosis that is being evaluated, monitored, or treated as if it exists) are acceptable and can be restated in the discharge summary if not ruled out. MTDD
--- NOTE | 2017-05-29 12:45 | Physician Query Form ---
CLICK EDIT DOCUMENT TO SELECT QUERY ANSWER --> OK --> SIGN Stefania Orellana RN, CCDS Certified Clinical Recruiting Consultant W) [phone] (f) [phone] [email or web address] PROVIDERS: Make your selection(s) from the choices in EACH section by typing an "x" and enter comments in the comment section. Please use your independent medical judgment in providing your response. This request does not imply that any particular answer is desired or expected. CLINICAL INDICATORS: (Providers should not edit this section) The below diagnosis was documented in the record, but is not consistently noted in subsequent documentation. "Severe pancreatitis with questionable abdominal compartment syndrome" and the patient later had surgery: Diagnosis: abdominal compartment syndrome Please clarify the following: ( ) The above diagnosis was monitored, evaluated, and/or treated and is a confirmed diagnosis ( ) The above diagnosis was ruled out (x) The above diagnosis is still a likely, suspected, probable diagnosis ( ) Other, please specify: ( ) Clinically unable to determine COMMENTS: PLEASE ALSO DOCUMENT RESPONSE IN PROGRESS NOTES AND/OR DISCHARGE SUMMARY Use of terms such as suspected, likely, or probable (associated with a specific diagnosis that is being evaluated, monitored, or treated as if it exists) are acceptable and can be restated in the discharge summary if not ruled out. MTDD
[2017-05-29] MEDS: MIDAZOLAM 100 MG in SODIUM CHLORIDE 0.9% 80 ML IV SCH (15:09)
[2017-05-29] MEDS: INSULIN REGULAR DRIP 100 ML IV SCH ×2 (18:01→21:28)
[2017-05-29] MEDS ORDERED: INSULIN NPH 100 UNIT/ML SUBCUT ONE (20:08)
[2017-05-29] MEDS: ENOXAPARIN 40 MG/0.4 ML SYRINGE SUBCUT SCH (21:41)
[2017-05-30] MEDS ORDERED: INSULIN REGULAR 100 UNIT/ML SUBCUT SCH
[2017-05-30] MEDS: HYDROmorphone 2 MG/1 ML VIAL IV PRN ×3 (00:03→21:16)
[2017-05-30] MEDS: ACETAMINOPHEN 325 MG/10.15 ML UDCUP PO PRN ×3 (01:50→17:05)
[2017-05-30 04:45] LABS: ABG HCO3 30.7 MMOL/L (20-26); ABG Oxygen Saturation 96.3 % (95-100); ABG PCO2 56.3 MM HG (35-48); ABG PH 7.383 (7.35-7.45); ABG PO2 87.7 MM HG (80-95); ABG TCO2 30.7 MMOL/L (23-27); Allen Test Positive; Pt O2 Delivery Device Ventilator
[2017-05-30 05:00] LABS: Basophils % 0.2 % (0.0-0.8); Eosinophils # 0.4 10*3/uL (0.0-0.87); Eosinophils % 2.8 % (0.00-10.9); Hematocrit 30.7 VOL% (42.0-52.0); Hemoglobin 9.3 GM/DL (14.0-18.0); Immature Granulocytes % 2.7 %; Immature Granulocytes Absolute 0.36 #; Lymphocytes # 1.5 10*3/uL (1.4-4.0); Lymphocytes % 11.5 % (21.2-54.2); Mean Corpuscular HGB Conc 30.3 GM/DL (32-36); Mean Corpuscular Hemoglobin 29 PG (27-34); Mean Corpuscular Volume 94.8 FL (87-102); Mean Platelet Volume 10.6 FL (9.6-12.0); Monocytes # 0.8 10*3/uL (0.11-0.8); Monocytes % 5.9 % (1.7-12.7); Neutrophils # 10.3 10*3/uL (1.4-7.4); Neutrophils % 76.9 % (38.7-73.9); Platelet Count 245 T/CUMM (130-400); Red Blood Count 3.24 MC/CUMM (3.8-5.5); Red Cell Distribution Width 14.7 % (9.3-17.3); White Blood Count 13.4 T/CUMM (4-12)
[2017-05-30 05:26] LABS: Calcium 7.7 MG/DL (8.5-10.1); Magnesium 2.7 MG/DL (1.8-2.4); Osmolality,Calculated 312.7 MOS/KG (273-304); Potassium 3.9 MMOL/L (3.5-5.1)
[2017-05-30 06:29] LABS: Band Neutrophils 2 % (0-10); Eosinophils 4 % (0-10); Giant Platelets Few; Hypochromasia 1+; Lymphocytes 9 % (20-55); Microcytosis Slight; Platelet Estimate Adequate; Segmented Neutrophils 76 % (50-85); Total Cells Counted 100
[2017-05-30] MEDS: POTASSIUM CHLORIDE RIDER 20 MEQ in PREMIX 1 EACH IV PRN (06:33)
--- NOTE | 2017-05-30 08:14 | Pulmonology Progress Note ---
Pulmonary - PN: Subj Interval history: The patient is a 46-year-old white man that has very severe pancreatitis from hypertriglyceridemia. He was found to be a diabetic recently and had very high lipids. He came in with abdominal pain and acute pancreatitis. He has been very ill but seems to be improving now. He had a compartment syndrome with the renal failure and had exploratory lap last week. He has gone back to surgery several times and he went back this morning. The abdomen apparently look good without signs of infection. He has been reasonably stable on the ventilator. His oxygenation was much better this morning and his chest x-ray looks okay. Overall he has been hemodynamically stable. Patient had a fairly stable night and is comfortable on the ventilator. His renal function has been stable. He will go back to surgery Thursday. Exam (Progress Note) - Constitutional Vitals: Period Temp Pulse Resp BP Sys/Gutierrez Pulse Ox Last 24 Hr 98.8 F-102 F 90-126 12-18 83-120/7-87 92-100 Exam: General appearance: normal weight, other (Patient is sedated on the ventilator at present. He still has a low-grade fever but is stable.) Head exam: Present: normal inspection, normocephalic - Eye Eye exam: Present: EOMI. Absent: scleral icterus Pupils: Present: JACOB - ENT ENT exam: Present: normal exam, other (ET tube is in good position) - Neck Neck exam: Absent: lymphadenopathy, thyromegaly - Respiratory Respiratory exam: Present: His lungs have good breath sounds bilaterally with fairly good air movement. His lungs still sound reasonably clear at present. - Cardiovascular Cardiovascular exam: Present: regular rate and rhythm. Absent: gallop, systolic murmur - GI/Abdominal GI/Abdominal exam: Present: His abdomen is less distended but still has a wound VAC in place. He is still quite swollen. - Extremities Exam Extremities exam: Absent: calf tenderness, edema - Neurological Exam Neurological exam: Present: other (Patient is sedated at present) - Skin Skin exam: Present: warm, dry Results - Labs CBC & BMP: 05/30/17 04:50 05/30/17 04:50 Labs: His PO2 is 87 with a PCO2 of 56 and a pH of 7.38 - Diagnostic Findings Procedure: Chest x-ray: image reviewed by me, report reviewed by me (Chest x- ray shows minimal changes in the left base.) Assessment and Plan (1) Hypertriglyceridemia Status: Acute Assessment and plan: Patient has severe hypertriglyceridemia which likely precipitated his pancreatitis. His triglycerides are now down to 147. Current Visit: Yes (2) Acute respiratory failure Status: Acute Assessment and plan: The patient is quite stable on the ventilator and his oxygenation is better. His chest x-ray is improving. We will continue ventilatory support for now. We will continue with CPAP trials. Current Visit: Yes Qualifiers: Qualified Code(s): J96.01 - Acute respiratory failure with hypoxia; J96.02 - Acute respiratory failure with hypercapnia (3) Pancreatitis Status: Acute Assessment and plan: Patient has severe pancreatitis and now has an abdomen opened. He will go back to surgery Thursday. Current Visit: Yes Qualifiers: Chronicity: acute Pancreatitis type: other (4) New onset type 2 diabetes mellitus Status: Chronic Assessment and plan: The patient has been found to be a diabetic and his glucoses are better at this point. His glucose was 169 today. He is getting insulin infusion. Current Visit: Yes (5) Renal insufficiency Status: Resolved Assessment and plan: His creatinine is 0.9 today. Current Visit: Yes
[2017-05-30] MEDS: PANTOPRAZOLE 40 MG VIAL IV SCH (09:14)
[2017-05-30] MEDS: POTASSIUM CHLORIDE 20 MEQ/15 ML UDCUP PER TUBE SCH (09:14)
[2017-05-30] MEDS: MINERAL OIL/PETROLATUM OPH OINT 3.5 GM TUBE BOTH EYES SCH ×2 (09:16→21:17)
[2017-05-30] MEDS: fentaNYL INJ 1,250 MCG in SODIUM CHLORIDE 0.9% 225 ML IV SCH ×3 (09:16→21:49)
[2017-05-30] MEDS: MIDAZOLAM 100 MG in SODIUM CHLORIDE 0.9% 80 ML IV SCH ×2 (09:18→16:07)
[2017-05-30] MEDS: INSULIN REGULAR DRIP 100 ML IV SCH ×2 (09:19→23:46)
[2017-05-30] MEDS: LEVOFLOXACIN INJ 500 MG in PREMIX 1 EACH IV SCH (09:29)
--- NOTE | 2017-05-30 11:41 | XRay Report ---
History is ventilator management Comparison 05/29/2017 The heart is enlarged. Support devices grossly unchanged with ET tube tip at T4 There remain mild hazy opacities in the lower half the left chest consistent with combination of the infiltrate and suspected underlying effusion. Atelectasis could easily be present as well. Right lung is clear Impression: No significant change detailed above PROCEDURE INTERPRETED AT [facility] DEPARTMENT OF RADIOLOGY Final Report Signed by: Dr. Cherri Rolon
--- NOTE | 2017-05-30 12:12 | Hospitalist Progress Note ---
Assessment and Plan (1) Pancreatitis Status: Acute Assessment and plan: The patient's initial illness was triglyceride induced pancreatitis. The patient's lipase has now normalized. The patient remains on mechanical ventilation with evidence of systemic inflammatory response syndrome. The patient is having nutrition via jejunostomy. The patient remains on insulin infusion for optimal glucose control. The patient continues on Levaquin IV antibiotic. If fever persists we will add Diflucan tomorrow. Current Visit: Yes Qualifiers: Chronicity: acute Pancreatitis type: other (2) Hypertriglyceridemia Status: Acute Current Visit: Yes (3) Acute respiratory failure Status: Acute Current Visit: Yes Qualifiers: Qualified Code(s): J96.01 - Acute respiratory failure with hypoxia; J96.02 - Acute respiratory failure with hypercapnia Hospitalist: Subjective Interval history: Mr. Calloway continues incremental recovering from severe pancreatitis which was apparently caused by hypertriglyceridemia on account of new onset diabetes mellitus. The patient continues with stable hemodynamics on mechanical ventilation. The patient will have surgery again on Thursday for management of the laparotomy wound. The patient has been febrile and we have changed antibiotic from meropenem to Levaquin yesterday. Temperature trend has been lower but we continue surveillance for infection. The patient is tolerating tube feedings and blood glucose is controlled on insulin infusion. Exam - Constitutional Vitals: Period Temp Pulse Resp BP Sys/Gutierrez Pulse Ox Last 24 Hr 99.1 F-102 F 90-126 10-18 83-126/48-87 92-100 Exam: Constitutional System: Sedated and without distress. No tremulousness. The patient is orally intubated and mechanically ventilated Head: Normocephalic, atraumatic. Ears, Nose and Throat System: No evidence of Otitis or Mastoiditis. No epistaxis or discharge Eyes System: Pupils equal, round, and reactive. Neck: Supple, without adenopathy, No jugular venous distention. Respiratory System: Chest bilateral rhonchi to auscultation. Cardiovascular System: Heart with regular rate and rhythm. No murmur. GI System: Abdomen wound dressing in place with wound VAC. Musculoskeletal System: limbs with 1+ pedal edema. Full distal pulses. Neurological System: Not testable due to sedation Results - Labs CBC & BMP: 05/30/17 04:50 05/30/17 04:50 Lab Results: I have reviewed the past 24 hour labs
[2017-05-30] MEDS: INSULIN GLARGINE 100 UNIT/ML SUBCUT SCH (14:30)
--- NOTE | 2017-05-30 17:33 | Event Note ---
05/30/2017 Patient remains on the ventilator is stable at this time when wound VAC is functioning well. He is scheduled for surgery again on Thursday. Labs generally looks stable at this time and is tolerating his tube feedings without problems. Will maintain present supportive care.
[2017-05-30] MEDS ORDERED: INSULIN NPH 100 UNIT/ML SUBCUT ONE (19:23)
[2017-05-30] MEDS: FLUCONAZOLE INJ 200 MG in PREMIX 1 EACH IV SCH (21:16)
[2017-05-30] MEDS: ENOXAPARIN 40 MG/0.4 ML SYRINGE SUBCUT SCH (21:51)
[2017-05-31 03:53] LABS: ABG Base Excess 8.1 MMOL/L (-2.5-2.5); ABG HCO3 31.9 MMOL/L (20-26); ABG Oxygen Saturation 98.4 % (95-100); ABG PCO2 49.7 MM HG (35-48); ABG PH 7.436 (7.35-7.45); ABG TCO2 30.7 MMOL/L (23-27)
[2017-05-31] MEDS: fentaNYL INJ 1,250 MCG in SODIUM CHLORIDE 0.9% 225 ML IV SCH ×4 (04:11→17:34)
[2017-05-31 05:35] LABS: Basophils % 0.2 % (0.0-0.8); Eosinophils # 0.4 10*3/uL (0.0-0.87); Eosinophils % 2.8 % (0.00-10.9); Hematocrit 28.7 VOL% (42.0-52.0); Hemoglobin 8.8 GM/DL (14.0-18.0); Immature Granulocytes % 2.4 %; Lymphocytes # 1.8 10*3/uL (1.4-4.0); Lymphocytes % 13.9 % (21.2-54.2); Mean Corpuscular HGB Conc 30.7 GM/DL (32-36); Mean Corpuscular Hemoglobin 29 PG (27-34); Mean Corpuscular Volume 94.7 FL (87-102); Mean Platelet Volume 10.9 FL (9.6-12.0); Monocytes % 7.8 % (1.7-12.7); Neutrophils # 9.2 10*3/uL (1.4-7.4); Neutrophils % 72.9 % (38.7-73.9); Platelet Count 263 T/CUMM (130-400); Red Blood Count 3.03 MC/CUMM (3.8-5.5); Red Cell Distribution Width 15.1 % (9.3-17.3); White Blood Count 12.6 T/CUMM (4-12)
[2017-05-31 06:16] LABS: Calcium 7.7 MG/DL (8.5-10.1); Osmolality,Calculated 307.4 MOS/KG (273-304); Potassium 4.4 MMOL/L (3.5-5.1)
[2017-05-31 06:28] LABS: Band Neutrophils 1 % (0-10); Giant Platelets Few; Hypochromasia 1+; Lymphocytes 14 % (20-55); Platelet Estimate Adequate; Segmented Neutrophils 78 % (50-85); Total Cells Counted 100
[2017-05-31 06:29] LABS: Microcytosis Slight
[2017-05-31 06:41] LABS: Magnesium 2.7 MG/DL (1.8-2.4)
--- NOTE | 2017-05-31 07:38 | Pulmonology Progress Note ---
Pulmonary - PN: Subj Interval history: The patient is a 46-year-old white man that has very severe pancreatitis from hypertriglyceridemia. He was found to be a diabetic recently and had very high lipids. He came in with abdominal pain and acute pancreatitis. He has been very ill but seems to be improving now. He had a compartment syndrome with the renal failure and had exploratory lap last week. He has gone back to surgery several times still has an open abdomen with wound VAC in place. He has been very stable on the ventilator. His oxygenation is getting better. He appears to be hemodynamically stable. Exam (Progress Note) - Constitutional Vitals: Period Temp Pulse Resp BP Sys/Gutierrez Pulse Ox Last 24 Hr 98.2 F-102 F 95-119 10-23 93-135/53-95 91-100 Exam: General appearance: normal weight, other (Patient is sedated on the ventilator at present. He still has a low-grade fever but is stable. His blood pressure and heart rate of been stable.) Head exam: Present: normal inspection, normocephalic - Eye Eye exam: Present: EOMI. Absent: scleral icterus Pupils: Present: JACOB - ENT ENT exam: Present: normal exam, other (ET tube is in good position) - Neck Neck exam: Absent: lymphadenopathy, thyromegaly - Respiratory Respiratory exam: Present: His lungs have good breath sounds bilaterally with fairly good air movement. His lungs do sound better now. - Cardiovascular Cardiovascular exam: Present: regular rate and rhythm. Absent: gallop, systolic murmur - GI/Abdominal GI/Abdominal exam: Present: His abdomen is less distended but still has a wound VAC in place. He is still quite swollen. - Extremities Exam Extremities exam: Absent: calf tenderness, edema - Neurological Exam Neurological exam: Present: other (Patient is sedated at present) - Skin Skin exam: Present: warm, dry Results - Labs CBC & BMP: 05/31/17 04:47 05/31/17 04:47 Labs: PO2 is 117 with a PCO2 of 49 and a pH of 7.43 - Diagnostic Findings Procedure: Chest x-ray: image reviewed by me, report reviewed by me (Chest x- ray has minimal changes in the left base and overall looks better.) Assessment and Plan (1) Hypertriglyceridemia Status: Acute Assessment and plan: Patient has severe hypertriglyceridemia which likely precipitated his pancreatitis. His triglycerides are now down to 121. Current Visit: Yes (2) Acute respiratory failure Status: Acute Assessment and plan: The patient is quite stable on the ventilator and his oxygenation is better. His chest x-ray is improving. He has been doing CPAP quite well. He should be able to come off the ventilator once surgery is completed. Current Visit: Yes Qualifiers: Qualified Code(s): J96.01 - Acute respiratory failure with hypoxia; J96.02 - Acute respiratory failure with hypercapnia (3) Pancreatitis Status: Acute Assessment and plan: Patient has severe pancreatitis and now has an abdomen opened. He will go back to surgery Thursday. His pancreatitis is improving. Current Visit: Yes Qualifiers: Chronicity: acute Pancreatitis type: other (4) New onset type 2 diabetes mellitus Status: Chronic Assessment and plan: The patient has been found to be a diabetic and his glucoses are better at this point. His glucose was 123 today. He is getting insulin infusion. Current Visit: Yes (5) Renal insufficiency Status: Resolved Assessment and plan: His creatinine is 0.8 today. Current Visit: Yes
[2017-05-31] MEDS ORDERED: GLIMEPIRIDE 4 MG TABLET PER TUBE SCH ×2 (08:00→15:00)
[2017-05-31] MEDS ORDERED: POTASSIUM CHLORIDE 20 MEQ/15 ML UDCUP PER TUBE SCH (08:01)
[2017-05-31] MEDS: MINERAL OIL/PETROLATUM OPH OINT 3.5 GM TUBE BOTH EYES SCH ×2 (08:20→20:40)
[2017-05-31] MEDS: PANTOPRAZOLE 40 MG VIAL IV SCH (08:20)
[2017-05-31] MEDS: INSULIN GLARGINE 100 UNIT/ML SUBCUT SCH (08:20)
[2017-05-31] MEDS: ACETAMINOPHEN 325 MG/10.15 ML UDCUP PO PRN ×2 (08:23→15:34)
[2017-05-31] MEDS: LEVOFLOXACIN INJ 500 MG in PREMIX 1 EACH IV SCH (08:54)
--- NOTE | 2017-05-31 10:56 | XRay Report ---
Portable chest Exam date: 05/31/2017 4:00 AM Indication: Shortness of breath, cough Comparison: Previous day at 0324 hours Findings: Cardiomediastinal contours are stable with no change in tube or line placement. Bibasilar atelectasis with suspect small left pleural effusion, unchanged. No acute osseous abnormalities. Visualized upper abdomen demonstrates no acute pathology. Impression: Bibasilar atelectasis with small left pleural effusion, unchanged PROCEDURE INTERPRETED AT [facility] DEPARTMENT OF RADIOLOGY Final Report Signed by: Frankie Farnsworth
--- NOTE | 2017-05-31 11:35 | Event Note ---
05/31/2017 1130 hrs. Patient has little change at this time a little low-grade temperature 200 last night. Labs look fairly stable. Wound VAC is in place and apparently is scheduled to be changed tomorrow. Not overly responsive seems to be tolerating the tube feedings at this time. Will maintain present level of care.
[2017-05-31] MEDS: MIDAZOLAM 100 MG in SODIUM CHLORIDE 0.9% 80 ML IV SCH ×2 (14:33→17:33)
[2017-05-31] MEDS: INSULIN REGULAR DRIP 100 ML IV SCH (14:34)
--- NOTE | 2017-05-31 14:41 | Hospitalist Progress Note ---
Assessment and Plan (1) Pancreatitis Status: Acute Assessment and plan: The patient's initial illness was triglyceride induced pancreatitis. The patient's lipase has now normalized. The patient remains on mechanical ventilation with evidence of systemic inflammatory response syndrome. The patient is having nutrition via jejunostomy. The patient remains on insulin infusion for optimal glucose control. The patient continues on Levaquin IV antibiotic. I am going to add Diflucan today due to persistent fever. I had coordinated this issue with Dr. Murry on Thursday. I am going to increase free water to bring the sodium back in 2 normal limits. We will recheck electrolytes tomorrow. I am going to increase oral antidiabetic medication. Current Visit: Yes Qualifiers: Chronicity: acute Pancreatitis type: other (2) Hypertriglyceridemia Status: Acute Current Visit: Yes (3) Acute respiratory failure Status: Acute Current Visit: Yes Qualifiers: Qualified Code(s): J96.01 - Acute respiratory failure with hypoxia; J96.02 - Acute respiratory failure with hypercapnia Hospitalist: Subjective Interval history: The patient continues with incremental improvement of pancreatitis and ventilation gas exchange. The patient is tolerating jejunal feedings at goal rate. The patient is appropriately sedated. The patient tolerated 15 hours CPAP yesterday. Blood glucose control is improving. Exam - Constitutional Vitals: Period Temp Pulse Resp BP Sys/Gutierrez Pulse Ox Last 24 Hr 99.4 F-102 F 91-119 10-23 90-135/56-95 91-100 Exam: Constitutional System: Sedated and without distress. No tremulousness. The patient is orally intubated and mechanically ventilated Head: Normocephalic, atraumatic. Ears, Nose and Throat System: No evidence of Otitis or Mastoiditis. No epistaxis or discharge Eyes System: Pupils equal, round, and reactive. Neck: Supple, without adenopathy, No jugular venous distention. Respiratory System: Chest bilateral rhonchi to auscultation. Cardiovascular System: Heart with regular rate and rhythm. No murmur. GI System: Abdomen wound dressing in place with wound VAC. Musculoskeletal System: limbs with 1+ pedal edema. Full distal pulses. Neurological System: Not testable due to sedation Results - Labs CBC & BMP: 05/31/17 04:47 05/31/17 04:47 Lab Results: I have reviewed the past 24 hour labs
[2017-05-31] MEDS: ENOXAPARIN 40 MG/0.4 ML SYRINGE SUBCUT SCH (21:59)
[2017-05-31] MEDS: FLUCONAZOLE INJ 200 MG in PREMIX 1 EACH IV SCH (21:59)
[2017-06-01] MEDS: fentaNYL INJ 1,250 MCG in SODIUM CHLORIDE 0.9% 225 ML IV SCH ×4 (00:04→20:56)
[2017-06-01] MEDS: INSULIN REGULAR DRIP 100 ML IV SCH (00:27)
[2017-06-01] MEDS: ACETAMINOPHEN 325 MG/10.15 ML UDCUP PO PRN ×4 (03:22→21:21)
[2017-06-01 03:29] LABS: Basophils % 0.1 % (0.0-0.8); Eosinophils # 0.3 10*3/uL (0.0-0.87); Eosinophils % 1.8 % (0.00-10.9); Immature Granulocytes % 2.2 %; Immature Granulocytes Absolute 0.34 #; Lymphocytes # 1.6 10*3/uL (1.4-4.0); Lymphocytes % 10.2 % (21.2-54.2); Mean Corpuscular Hemoglobin 29 PG (27-34); Mean Corpuscular Volume 94.2 FL (87-102); Mean Platelet Volume 10.4 FL (9.6-12.0); Monocytes # 0.9 10*3/uL (0.11-0.8); Monocytes % 5.6 % (1.7-12.7); Neutrophils # 12.4 10*3/uL (1.4-7.4); Neutrophils % 80.1 % (38.7-73.9); Platelet Count 261 T/CUMM (130-400); Red Blood Count 3.08 MC/CUMM (3.8-5.5); Red Cell Distribution Width 14.8 % (9.3-17.3); White Blood Count 15.4 T/CUMM (4-12)
[2017-06-01 03:51] LABS: Band Neutrophils 1 % (0-10); Eosinophils 4 % (0-10); Lymphocytes 5 % (20-55); Segmented Neutrophils 85 % (50-85)
[2017-06-01 03:52] LABS: Anisocytosis Slight; Hypochromasia 1+; Microcytosis Slight; Platelet Estimate Normal
[2017-06-01 03:53] LABS: Total Cells Counted 100
[2017-06-01 03:59] LABS: Calcium 7.6 MG/DL (8.5-10.1); Potassium 4.5 MMOL/L (3.5-5.1)
[2017-06-01 04:00] LABS: ABG Base Excess 7.1 MMOL/L (-2.5-2.5); ABG HCO3 30.9 MMOL/L (20-26); ABG Oxygen Saturation 97.3 % (95-100); ABG PCO2 45.8 MM HG (35-48); ABG PH 7.452 (7.35-7.45); ABG PO2 93.8 MM HG (80-95); ABG TCO2 29.4 MMOL/L (23-27); Pt O2 Delivery Device Ventilator
[2017-06-01 04:22] LABS: Magnesium 2.6 MG/DL (1.8-2.4); Phosphorous 3.9 MG/DL (2.5-4.9); Prealbumin 6.8 MG/DL (20-40)
[2017-06-01 05:42] LABS: Apearance,Urine Slightly Hazy (Clear); Bilirubin,Urine Negative (Negative); Blood, Urine Moderate mg/dL (Negative); Glucose,Urine (UA) Negative (Negative); Granular Casts,Urine 3 /LPF (0-1); Hyaline Casts,Urine 4 /LPF (0-3); Ketones,Urine Negative (Negative); Mucus,Urine Occasional /LPF (Occasional); Nitrite,Urine Negative (Negative); Protein,Urine 100 MG/DL; RBC,Urine 57 /HPF (0-4); Urine Color Amber (Yellow); Urine Specific Gravity 1.028 (1.001-1.035); WBC,Urine 8 /HPF (0-6)
[2017-06-01] MEDS ORDERED: PHENYLEPHRINE 1 MG/10 ML SYRINGE IV ONE (07:05)
[2017-06-01] MEDS ORDERED: ROCURONIUM 100 MG/10 ML VIAL IV ONE (07:05)
--- NOTE | 2017-06-01 07:10 | Event Note ---
No events over the weekend. Plan for wound VAC change today in the operating room
--- NOTE | 2017-06-01 07:33 | Pulmonology Progress Note ---
Pulmonary - PN: Subj Interval history: The patient is a 46-year-old white man that has very severe pancreatitis from hypertriglyceridemia. He was found to be a diabetic recently and had very high lipids. He came in with abdominal pain and acute pancreatitis. He has been very ill but seems to be improving now. He had a compartment syndrome with the renal failure and had exploratory lap last week. He has gone back to surgery several times still has an open abdomen with wound VAC in place. He has been very stable on the ventilator. He will probably go back to surgery today. Hopefully we can wean him in a few days. He has been doing CPAP very well. Exam (Progress Note) - Constitutional Vitals: Period Temp Pulse Resp BP Sys/Gutierrez Pulse Ox Last 24 Hr 99.2 F-102.1 F 88-110 10-18 90-121/53-78 96-100 Exam: General appearance: normal weight, other (Patient is sedated on the ventilator at present. He still has a low-grade fever but is stable. His blood pressure and heart rate of been stable.) Head exam: Present: normal inspection, normocephalic - Eye Eye exam: Present: EOMI. Absent: scleral icterus Pupils: Present: JACOB - ENT ENT exam: Present: normal exam, other (ET tube is in good position) - Neck Neck exam: Absent: lymphadenopathy, thyromegaly - Respiratory Respiratory exam: Present: His lungs have good breath sounds bilaterally with fairly good air movement. His lungs sound better with just very minimal rhonchi. - Cardiovascular Cardiovascular exam: Present: regular rate and rhythm. Absent: gallop, systolic murmur - GI/Abdominal GI/Abdominal exam: Present: His abdomen is less distended and appears to be softer and still has a wound VAC in place. - Extremities Exam Extremities exam: Absent: calf tenderness, edema - Neurological Exam Neurological exam: Present: other (Patient is sedated at present. he does respond quite easily.) - Skin Skin exam: Present: warm, dry Results - Labs CBC & BMP: 06/01/17 03:18 06/01/17 03:18 Labs: PO2 is 93 with a PCO2 of 45 and a pH of 7.45 - Diagnostic Findings Procedure: Chest x-ray: image reviewed by me, report reviewed by me (Chest x- ray shows mild left lower lobe infiltrate) Assessment and Plan (1) Hypertriglyceridemia Status: Acute Assessment and plan: Patient has severe hypertriglyceridemia which likely precipitated his pancreatitis. His triglycerides are now down to 121. Current Visit: Yes (2) Acute respiratory failure Status: Acute Assessment and plan: The patient is quite stable on the ventilator and his oxygenation is better. His chest x-ray is improving. He has been doing CPAP quite well. His respiratory status is stable overall. Hopefully will try him off the ventilator in the next day or 2. Current Visit: Yes Qualifiers: Qualified Code(s): J96.01 - Acute respiratory failure with hypoxia; J96.02 - Acute respiratory failure with hypercapnia (3) Pancreatitis Status: Acute Assessment and plan: Patient has severe pancreatitis and now has an abdomen opened. He will go back to surgery today for relook. He has been doing better overall. Current Visit: Yes Qualifiers: Chronicity: acute Pancreatitis type: other (4) New onset type 2 diabetes mellitus Status: Chronic Assessment and plan: The patient has been found to be a diabetic and his glucoses are better at this point. His glucose was 125 today. He is getting insulin infusion. Current Visit: Yes (5) Renal insufficiency Status: Resolved Assessment and plan: His creatinine is 0.9 today. Current Visit: Yes
--- NOTE | 2017-06-01 07:57 | XRay Report ---
History: Patient on ventilator Date: 06/01/2017 Study: Chest x-ray AP portable Comparison exam: 05/31/2017 The supporting tubes are unchanged. There is no pneumothorax. The cardiomediastinal silhouette is unchanged. There is mildly increased patchy and strandy atelectasis/infiltrate in the left lower lung compared to the previous study. There is mild left pleural effusion, mildly increased. Strandy atelectatic changes in the right mid to upper lung are mildly improved. Osseous structures are similar. Impression: Increasing atelectasis/infiltrate and mild left pleural effusion in the left lung base compared to the previous study PROCEDURE INTERPRETED AT [facility] DEPARTMENT OF RADIOLOGY Final Report Signed by: Dr. Laura Kerr
--- NOTE | 2017-06-01 08:14 | Operative Note ---
Date of procedure: 06/01/17 Pre-op diagnosis: Open abdomen with severe acute pancreatitis Post-op diagnosis: same Procedure: Preoperative diagnosis Open abdomen with severe acute pancreatitis Postoperative diagnosis Same Procedures performed 1. Reopening of recent laparotomy 2. Removal of [place] patch 3. Abdominal washout 4. Complete closure of abdominal wall Findings There is no purulent fluid in the abdomen. The effluent in the abdomen was clear. The abdomen was closed with no significant increase in ventilator pressures were decreased tidal volumes or difficulty with ventilation. The skin was left open and a wet-to-dry dressing was placed with plans for wound VAC. Complications None apparent Specimen None Anesthesia GETA Blood loss Minimal Indications Open abdomen with severe acute pancreatitis. The family was counseled regarding the risks, benefits, and alternatives of the operation, and the expected outcomes were reviewed. They like to proceed with the operation. Description of procedure Patient was taken to the operating room and transferred to the operating table in the supine position. Pressure points were padded and SCDs were placed lower extremities. The abdominal wound VAC was removed and the abdomen was prepped with Betadine and draped sterilely. General endotracheal anesthesia was administered with paralysis. Timeout was performed and preoperative antibiotics were administered. The [place] patch was removed when it became evident that the fascia would be able to be closed without any significant increased tension on the abdominal wall. The sutures on the Dara patch was cut and the abdomen was washed out with irrigation was warm. The effluent was clear there is no evidence of infection. The abdomen was closed with a running #1 non-looped PDS suture. There were no significant increases in the ventilator pressures with closure of the abdomen. The skin was left open and packed with a wet-to-dry dressing. The patient was transferred to the ICU. Postoperative plan Place wound VAC to open skin wound on abdominal wall Anesthesia: DANIEL Surgeon / Physician: Andre Seymour Estimated blood loss: minimal Specimens: none sent Condition: stable Disposition: ICU Results - Labs CBC & BMP: 06/01/17 03:18 06/01/17 03:18 Discharge Plan - Discharge Medications No Action Omeprazole Magnesium [Prilosec Otc] 20 mg PO DAILY - Follow Up or Referral - Forms/Instructions
--- NOTE | 2017-06-01 08:35 | Anesthesia Post-Op ---
Anesthesia Post OP - Post Ansesthetic Evaluation Patient seen in post op: Yes Resp: other (remains intubated on preop vent settings) CV: within normal limits Mental: other (remains sedated) Temp: within normal limits [id number]: within normal limits Nausea and Vomiting: within normal limits Pain: within normal limits
[2017-06-01] MEDS ORDERED: ALBUMIN 5% 12.5 GM/250 ML VIAL IV ONE (08:40)
[2017-06-01] MEDS ORDERED: SEVOFLURANE 1 UNIT/15 MINUTE INH ONE (08:40)
[2017-06-01] MEDS ORDERED: MIDAZOLAM 10 MG/2 ML VIAL ONE (08:41)
[2017-06-01] MEDS ORDERED: fentaNYL 100 MCG/2 ML VIAL ONE (08:41)
[2017-06-01] MEDS ORDERED: GLUCAGON 1 MG VIAL IM PRN (08:45)
--- NOTE | 2017-06-01 08:54 | Hospitalist Progress Note ---
Assessment and Plan (1) IDDM (insulin dependent diabetes mellitus) Status: Acute Assessment and plan: The patient has insulin-dependent diabetes mellitus related to his acute severe pancreatitis. He has been receiving IV insulin and will be transitioned to subcutaneous NovoLog. Continue Accu-Cheks and sliding scale insulin coverage every 4 hours. Will discuss with dietitian regarding changing the patient over to diabetic formulations and reassessing his goal rate. Current Visit: Yes (2) Hypernatremia Status: Acute Assessment and plan: Increase free water flushes to 80 cc/h. Continue to monitor sodium and chloride levels. The only sodium chloride containing solutions are his sedation and pain medication including fentanyl and Versed. Current Visit: Yes (3) Pancreatitis Status: Acute Assessment and plan: This is improving. Current Visit: Yes Qualifiers: Chronicity: acute Pancreatitis type: other (4) Hypertriglyceridemia Status: Acute Assessment and plan: Continue medications Current Visit: Yes (5) Acute respiratory failure Status: Acute Assessment and plan: Pulmonary following. Vent weaning in progress. Current Visit: Yes Qualifiers: Qualified Code(s): J96.01 - Acute respiratory failure with hypoxia; J96.02 - Acute respiratory failure with hypercapnia Hospitalist: Subjective Interval history: Patient seen and examined. No acute events overnight. Case discussed with nursing staff. Labs reviewed. The patient was seen after returning from the operating room after abdominal wall closure. Tube feeds are being restarted. I am going to change him over to subcutaneous NovoLog insulin and q. 4 hour Accu-Cheks. Will discuss with pump house engineer and dietitians regarding his tube feeds selection and goal rate. He is currently on Osmolite 1.2 at 80 cc/h. He has received approximately 245 cc of insulin in the last 24 hours. Exam - Constitutional Vitals: Period Temp Pulse Resp BP Sys/Gutierrez Pulse Ox Last 24 Hr 99.2 F-102.1 F 88-110 10-18 90-121/53-78 96-100 Exam: Constitutional System: No distress. No tremulousness. Remains intubated and sedated. Head: Normocephalic, atraumatic. Ears, Nose and Throat System: No pain or tenderness. No epistaxis or discharge. NG tube and ET tube in place Eyes System: Pupils equal, round, and reactive. Extraocular muscles intact. Neck: Supple, without adenopathy, No jugular venous distention. No thyromegaly, neck mass, or prior surgery apparent. Respiratory System: Chest clear to auscultation. Cardiovascular System: Heart with regular rate and rhythm. No murmur. GI System: Abdomen is distended with hypoactive bowel sounds. Surgical dressing in place with minimal drainage. Musculoskeletal System: limbs with no pedal edema. Full distal pulses. Normal capillary refill. Results - Labs CBC & BMP: 06/01/17 03:18 06/01/17 03:18 Lab Results: I have reviewed the past 24 hour labs
[2017-06-01] MEDS: INSULIN GLARGINE 100 UNIT/ML SUBCUT SCH (09:42)
[2017-06-01] MEDS: PANTOPRAZOLE 40 MG VIAL IV SCH (09:43)
[2017-06-01] MEDS: LEVOFLOXACIN INJ 500 MG in PREMIX 1 EACH IV SCH (09:45)
[2017-06-01] MEDS: MINERAL OIL/PETROLATUM OPH OINT 3.5 GM TUBE BOTH EYES SCH ×2 (09:50→21:21)
[2017-06-01] MEDS ORDERED: DEXTROSE 50% 25 GM/50 ML VIAL IV PRN (10:01)
[2017-06-01] MEDS: INSULIN LISPRO 100 UNIT/ML SUBCUT SCH ×4 (11:03→21:22)
[2017-06-01] MEDS: INSULIN ASPART PROTAMINE/ASPART 70/30 100 UNIT/ML SUBCUT SCH ×2 (11:03→15:40)
--- NOTE | 2017-06-01 11:19 | Gastrointestinal Progress Note ---
<HiteshGenie Anish - Last Filed: 06/01/17 11:17> Assessment and Plan (1) Pancreatitis Status: Acute Assessment and plan: 06/01-continues tolerate tube feedings. Events noted as below. Continue to monitor this time. Plan an addendum to followed by Dr. Christensen. 05/29-tolerating tube feedings. Labs noted as below. Continue to monitor present time. Plan an addendum to followed by Dr. Christensen 05/28-continues to tolerate his tube feedings. Findings noted as below. Continue to monitor present time. Plan an addendum to followed by Dr. Christensen. 05/27-tolerating tube feedings. Postop from partial abdominal wound closure. Lab values noted as below. Plan an addendum to followed by Dr. Christensen. 05/26-no changes noted as below. Tolerating tube feedings at present time. Plan an addendum to followed by Dr. Christensen. 05/25-postop reopened laparotomy. Labs noted as below. Hemodynamically stable at present time. Jejunostomy tube placed today and to start feedings tomorrow. Plan an addendum to followed by Dr. Christensen. 05/22-series of events noted as below. Patient continue with aggressive management for his multiple system organ failure at this time. To begin dialysis. Continue to monitor present time. Plan an addendum to followed by Dr. Christensen. 05/21-sudden onset of abdominal pain with intractable nausea and vomiting, with findings of elevated lipase and CT findings of pancreatitis. No prior history of pancreatitis. History of laparoscopic cholecystectomy with cholelithiasis. New onset diabetes with hemoglobin A1c of 9.8. Elevated lactic acid at 6.1. Continue NPO and IV fluids. Abdominal US this morning. Plan and addendum to follow by Dr Christensen. Current Visit: Yes Qualifiers: Chronicity: acute Pancreatitis type: other Gastroenterology - PN: Subj Interval history: CC: Pancreatitis Patient is seen, sedated, on the ventilator. He is returned from repeat surgery for abdominal closure. He is to have a wound VAC placed later today. He continues to run low-grade fever with WBCs at 15,000. According to nursing staff, Dr. Seymour did not see any evidence in his abdomen for source of his fever at this time. He is tolerating his tube feedings at this time. He has no longer on insulin infusion as well and his had NovoLog initiated. Abdominal dressing is intact. Patient is able to follow commands when sedation is lifted. ROS: No acute distress at this time. Exam (Progress Note) - Constitutional Vitals: Period Temp Pulse Resp BP Sys/Gutierrez Pulse Ox Last 24 Hr 98.3 F-102.1 F 88-110 10-18 91-121/53-78 97-100 General appearance: normal weight, no acute distress - Head Head exam: Present: normal inspection, normocephalic - Eye Eye exam: Present: other (Lids and conjunctival are unremarkable). Absent: scleral icterus - ENT ENT exam: Present: normal exam, normal oropharynx - Neck Neck exam: Present: normal inspection - Respiratory Respiratory exam: Present: clear to auscultation bilaterally. Absent: rales, rhonchi, wheezes - Cardiovascular Cardiovascular exam: Present: regular rate and rhythm. Absent: diastolic murmur , JVD, systolic murmur - GI/Abdominal GI/Abdominal exam: Present: soft. Absent: ascites, distended, mass, organomegaly, tenderness - Extremities Exam Extremities exam: Present: normal inspection, full ROM - Back Exam Back exam: Present: normal inspection - Neurological Exam Neurological exam: Present: altered - Psychiatric Psychiatric exam: Present: other - Skin Skin exam: Present: normal color, warm, dry Results - Labs CBC & BMP: 06/01/17 03:18 06/01/17 03:18 Lab Results: I have reviewed the past 24 hour labs <Alan Christensen - Last Filed: 06/01/17 20:21> Exam (Progress Note) - Constitutional Vitals: Period Temp Pulse Resp BP Sys/Gutierrez Pulse Ox Last 24 Hr 98.3 F-103 F 88-125 12-24 93-129/62-93 94-100 Results - Labs CBC & BMP: 06/01/17 03:18 06/01/17 03:18
--- NOTE | 2017-06-01 12:22 | Infectious Disease Progress ---
Assessment and Plan (1) Acute respiratory failure Status: Acute Current Visit: Yes Qualifiers: Qualified Code(s): J96.01 - Acute respiratory failure with hypoxia; J96.02 - Acute respiratory failure with hypercapnia (2) Hypertriglyceridemia Status: Acute Current Visit: Yes (3) New onset type 2 diabetes mellitus Status: Chronic Current Visit: Yes (4) Pancreatitis Status: Acute Assessment and plan: This is a very severe case of pancreatitis with abdominal compartment syndrome. He has been persistently febrile but all cultures are negative. The possibility of drug fever to meropenem was entertained last Thursday however he continues to have fever off this drug this is not likely be a drug fever. Suspect he was due to the extensive inflammation about the pancreas. Recommendations: Continue current antimicrobials and follow-up finalized cultures. Current Visit: Yes Qualifiers: Chronicity: acute Pancreatitis type: other (5) Renal insufficiency Status: Resolved Current Visit: Yes Infectious Disease - PN: Subj Interval history: Chart reviewed and events over the weekend noted. Patient went back to the operating room today for repeat laparotomy and then had complete closure of abdominal wound. He continues to have fever almost persistently. No hemodynamic instability. He does awaken off sedation and follows commands appropriately. Infectious Disease Exam (PN) - Constitutional Vitals: Temp Pulse Resp BP Pulse Ox 98.3 F 108 H 21 126/81 99 06/01/17 08:00 06/01/17 12:00 06/01/17 12:00 06/01/17 12:00 06/01/17 11:00 General appearance: normal weight, no acute distress Exam: General appearance: Sedated, just came out from the OR - Eye Eye exam: Present: EOMI. no icterus Pupils: Present: JACOB - ENT ENT exam: ET tube in situ - Respiratory Respiratory exam: vesicular BS, no crepitations or wheezes - Cardiovascular Cardiovascular exam: regular rate and rhythm, no murmurs - GI/Abdominal GI/Abdominal exam: Surgical dressing over midline abdominal wound, absent bowel sounds - Extremities Exam Extremities exam: Peripheral edema present possibly slightly less than last week - Skin Skin exam: no rash Results - Labs CBC & BMP: 06/01/17 03:18 06/01/17 03:18 Lab Results: I have reviewed the past 24 hour labs (Blood cultures from 4 days ago negative today)
[2017-06-01] MEDS: HYDROmorphone 2 MG/1 ML VIAL IV PRN ×2 (13:55→17:59)
[2017-06-01] MEDS: MIDAZOLAM 100 MG in SODIUM CHLORIDE 0.9% 80 ML IV SCH ×2 (15:06→16:03)
[2017-06-01] MEDS: ONDANSETRON 4 MG/2 ML VIAL IV PRN (15:32)
[2017-06-01] MEDS: METOCLOPRAMIDE 10 MG/2 ML VIAL IV SCH (18:00)
--- NOTE | 2017-06-01 20:05 | XRay Report ---
Limited abdomen June 01, 2017 at 618 p.m. Indication: NG tube placement Comparison images dated May 20, 2017 Findings: Limited evaluation of the upper abdomen demonstrates satisfactory nasogastric tube placement. Bibasilar atelectasis is noted Impression: Satisfactory NG tube placement PROCEDURE INTERPRETED AT [facility] DEPARTMENT OF RADIOLOGY Final Report Signed by: Frankie Farnsworth
[2017-06-01] MEDS: FLUCONAZOLE INJ 200 MG in PREMIX 1 EACH IV SCH (21:20)
[2017-06-01] MEDS: ENOXAPARIN 40 MG/0.4 ML SYRINGE SUBCUT SCH (21:21)
[2017-06-01] MEDS: IBUPROFEN 100 MG/5 ML UDCUP PO PRN (22:28)
[2017-06-02] MEDS: METOCLOPRAMIDE 10 MG/2 ML VIAL IV SCH ×5 (00:40→23:45)
[2017-06-02] MEDS ORDERED: SODIUM CHLORIDE 0.9% 500 ML IV ONE (01:57)
[2017-06-02] MEDS: INSULIN LISPRO 100 UNIT/ML SUBCUT SCH ×6 (02:11→21:36)
[2017-06-02 04:39] LABS: Basophils % 0.2 % (0.0-0.8); Eosinophils # 0.2 10*3/uL (0.0-0.87); Hematocrit 26.4 VOL% (42.0-52.0); Hemoglobin 8.1 GM/DL (14.0-18.0); Immature Granulocytes % 2.1 %; Lymphocytes # 1.3 10*3/uL (1.4-4.0); Lymphocytes % 6.9 % (21.2-54.2); Mean Corpuscular HGB Conc 30.7 GM/DL (32-36); Mean Corpuscular Hemoglobin 29 PG (27-34); Mean Platelet Volume 10.9 FL (9.6-12.0); Monocytes % 5.1 % (1.7-12.7); NRBC # 0.02 10*3/uL; Neutrophils # 16.2 10*3/uL (1.4-7.4); Neutrophils % 84.7 % (38.7-73.9); Platelet Count 297 T/CUMM (130-400); Red Blood Count 2.78 MC/CUMM (3.8-5.5); Red Cell Distribution Width 14.7 % (9.3-17.3); White Blood Count 19.1 T/CUMM (4-12)
[2017-06-02] MEDS: HYDROmorphone 2 MG/1 ML VIAL IV PRN (04:48)
[2017-06-02 04:56] LABS: Albumin 1.6 G/DL (3.4-5.0); Bilirubin,Total 0.8 MG/DL (0.2-1.0); Calcium 7.5 MG/DL (8.5-10.1); Osmolality,Calculated 307.1 MOS/KG (273-304); Potassium 4.4 MMOL/L (3.5-5.1); Total Protein 5.3 G/DL (6.4-8.3)
[2017-06-02 05:12] LABS: Lymphocytes 5 % (20-55); Platelet Estimate Normal; Segmented Neutrophils 89 % (50-85); Total Cells Counted 100
[2017-06-02] MEDS: INSULIN GLARGINE 100 UNIT/ML SUBCUT SCH (08:23)
[2017-06-02] MEDS: PANTOPRAZOLE 40 MG VIAL IV SCH (08:23)
[2017-06-02] MEDS: INSULIN ASPART PROTAMINE/ASPART 70/30 100 UNIT/ML SUBCUT SCH ×3 (08:23→16:51)
[2017-06-02] MEDS: MINERAL OIL/PETROLATUM OPH OINT 3.5 GM TUBE BOTH EYES SCH ×2 (08:24→21:43)
[2017-06-02] MEDS: IBUPROFEN 100 MG/5 ML UDCUP PO PRN ×2 (08:31→23:44)
[2017-06-02] MEDS: LEVOFLOXACIN INJ 500 MG in PREMIX 1 EACH IV SCH (08:39)
--- NOTE | 2017-06-02 09:00 | Pulmonology Progress Note ---
Pulmonary - PN: Subj Interval history: The patient is a 46-year-old white man that has very severe pancreatitis from hypertriglyceridemia. He was found to be a diabetic recently and had very high lipids. He came in with abdominal pain and acute pancreatitis. He has been very ill but seems to be improving now. He had a compartment syndrome with the renal failure and had exploratory lap last week. He has gone back to surgery several times still has an open abdomen with wound VAC in place. He has been very stable on the ventilator. He went back yesterday and had his abdomen partially closed. He continues to have some fever at night. He has been doing CPAP quite well. He still has a mild left lower lobe infiltrate. He can probably come off the ventilator if he does not require more surgery soon. Exam (Progress Note) - Constitutional Vitals: Period Temp Pulse Resp BP Sys/Gutierrez Pulse Ox Last 24 Hr 97.7 F-103 F 89-125 14-24 87-129/49-93 94-100 Exam: General appearance: normal weight, other (Patient is sedated on the ventilator at present. He still has a low-grade fever but is stable. His blood pressure and heart rate have been stable.) Head exam: Present: normal inspection, normocephalic - Eye Eye exam: Present: EOMI. Absent: scleral icterus Pupils: Present: JACOB - ENT ENT exam: Present: normal exam, other (ET tube is in good position) - Neck Neck exam: Absent: lymphadenopathy, thyromegaly - Respiratory Respiratory exam: Present: His lungs have good breath sounds bilaterally with fairly good air movement. His lungs sound better with just very minimal rhonchi. - Cardiovascular Cardiovascular exam: Present: regular rate and rhythm. Absent: gallop, systolic murmur - GI/Abdominal GI/Abdominal exam: Present: His abdomen is less distended and appears to be softer and still has a wound VAC in place. He still has a fairly large wound. - Extremities Exam Extremities exam: Absent: calf tenderness, edema - Neurological Exam Neurological exam: Present: other (Patient is sedated at present. he does respond quite easily.) - Skin Skin exam: Present: warm, dry Results - Labs CBC & BMP: 06/02/17 03:40 06/02/17 03:40 - Diagnostic Findings Procedure: Chest x-ray: image reviewed by me, report reviewed by me (Chest x- ray does show a small left effusion and infiltrate.) Assessment and Plan (1) Hypertriglyceridemia Status: Acute Assessment and plan: Patient has severe hypertriglyceridemia which likely precipitated his pancreatitis. His triglycerides are now down to 121. Current Visit: Yes (2) Acute respiratory failure Status: Acute Assessment and plan: The patient is quite stable on the ventilator and his oxygenation has been okay. He has been doing CPAP well. We can probably try him off the ventilator if he is not going back to surgery soon. Current Visit: Yes Qualifiers: Qualified Code(s): J96.01 - Acute respiratory failure with hypoxia; J96.02 - Acute respiratory failure with hypercapnia (3) Pancreatitis Status: Acute Assessment and plan: Patient has severe pancreatitis and now has an abdomen opened. He will go back to surgery today for relook. He has been doing better overall. Current Visit: Yes Qualifiers: Chronicity: acute Pancreatitis type: other (4) New onset type 2 diabetes mellitus Status: Chronic Assessment and plan: The patient has been found to be a diabetic and his glucoses are better at this point. His glucose was 160 today. He is getting insulin infusion. Current Visit: Yes (5) Renal insufficiency Status: Resolved Assessment and plan: His creatinine is 1.4 today. Current Visit: Yes
[2017-06-02] MEDS: MIDAZOLAM 100 MG in SODIUM CHLORIDE 0.9% 80 ML IV SCH ×3 (09:30→23:59)
--- NOTE | 2017-06-02 10:38 | XRay Report ---
Exam: XR chest 1V portable Date: 06/02/2017 10:17 AM Indication: Follow-up pneumonia Comparison: 06/01/2017 Technical: AP portable Findings: Endotracheal tube nasogastric tube and dialysis catheters are present from a left and right IJ approach with the distal tip right atrium. Low volume effusions are present with alveolar edema and infiltrates present in the perihilar regions left greater than right. Mild cardiac enlargement. External cardiac leads are present. No pneumothorax. Mediastinum reveals no acute findings. Impression: 1. Stable appearance of life support tubing with persistent effusions and alveolar infiltrates more prominent in the left perihilar region but unchanged from previous study PROCEDURE INTERPRETED AT [facility] DEPARTMENT OF RADIOLOGY Final Report Signed by: Dr. Alek Ulrich
--- NOTE | 2017-06-02 10:38 | Hospitalist Progress Note ---
Assessment and Plan (1) Pneumonia involving left lung Status: Acute Assessment and plan: Patient receiving Diflucan and Levaquin. Appears worse on x-ray today. Will discuss with pulmonary and infectious disease. WBC count increased to 19,000 and persistent fever spikes of 102 and 103 overnight. Current Visit: Yes Qualifiers: Pneumonia type: due to unspecified organism Lung location: lower lobe of lung Qualified Code(s): J18.1 - Lobar pneumonia, unspecified organism (2) IDDM (insulin dependent diabetes mellitus) Status: Acute Assessment and plan: The patient has insulin-dependent diabetes mellitus related to his acute severe pancreatitis. He has been receiving IV insulin and will be transitioned to subcutaneous NovoLog. Continue Accu-Cheks and sliding scale insulin coverage every 4 hours. Blood sugars remain under 200 with subcutaneous insulin administration and Glucerna tube feeds. Current Visit: Yes (3) Hypernatremia Status: Acute Assessment and plan: Increase free water flushes to 80 cc/h. Continue to monitor sodium and chloride levels. The only sodium chloride containing solutions are his sedation and pain medication including fentanyl and Versed. Improving with free water flushes Current Visit: Yes (4) Pancreatitis Status: Acute Assessment and plan: This is improving. Current Visit: Yes Qualifiers: Chronicity: acute Pancreatitis type: other (5) Hypertriglyceridemia Status: Acute Assessment and plan: Continue medications Current Visit: Yes (6) Acute respiratory failure Status: Acute Assessment and plan: Pulmonary following. Vent weaning in progress. Current Visit: Yes Qualifiers: Qualified Code(s): J96.01 - Acute respiratory failure with hypoxia; J96.02 - Acute respiratory failure with hypercapnia Hospitalist: Subjective Interval history: Patient seen and examined. No acute events overnight. Case discussed with nursing staff. Labs reviewed. Plans for extubation today. Chest x-ray reveals worsening of left lung pneumonia. Patient continues to spike fevers of 102 and 103. He is currently receiving Levaquin and Diflucan. Blood sugars have improved with subcutaneous insulin and change of tube feedings to Glucerna. Exam - Constitutional Vitals: Period Temp Pulse Resp BP Sys/Gutierrez Pulse Ox Last 24 Hr 97.7 F-103 F 89-125 14-24 87-129/49-93 94-100 Exam: Constitutional System: No distress. No tremulousness. Remains intubated. Sedation held for planned extubation. Patient follows commands. Head: Normocephalic, atraumatic. Ears, Nose and Throat System: No pain or tenderness. No epistaxis or discharge. NG tube and ET tube in place Eyes System: Pupils equal, round, and reactive. Extraocular muscles intact. Neck: Supple, without adenopathy, No jugular venous distention. No thyromegaly, neck mass, or prior surgery apparent. Respiratory System: Chest rhonchi left lung to auscultation. Cardiovascular System: Heart with regular rate and rhythm. No murmur. GI System: Abdomen is distended with hypoactive bowel sounds. Surgical dressing in place with minimal drainage. Musculoskeletal System: limbs with no pedal edema. Full distal pulses. Normal capillary refill. Results - Labs CBC & BMP: 06/02/17 03:40 06/02/17 03:40 Lab Results: I have reviewed the past 24 hour labs - Diagnostic Findings Procedure: Chest x-ray: image reviewed by me, report reviewed by me
[2017-06-02] MEDS ORDERED: DEXTROSE 5% NACL 0.45% 1,000 ML IV SCH (11:00)
--- NOTE | 2017-06-02 12:24 | Event Note ---
General surgery progress note Chief Complaint Patient is a 46-year-old male initially admitted with pancreatitis who underwent exploratory laparotomy for concern for abdominal compartment syndrome with drainage of pancreatic ascites on 05/22/2017. Repeat laparotomy with abdominal washout and Jtube placement 05/25/2017. Additional repeat abdominal washouts 05/27, 05/29, and 06/01 with abdominal wall closure and wound vac placement. Interval History No evidence overnight. Leukocytosis worsened with WBC of 19. H&H are stable. Patient continues to spike fevers with T-max 93 with a worsening infiltrate on chest x-ray. Patient on IV Diflucan and Levaquin. He is tolerating tube feedings. Objective: T-max 103; slight tachycardia; blood pressure stable Wound VAC in place. Abdomen is soft. Bowel sounds present. Labs reviewed as above Assessment and plan The patient is postop day #1 status post his most recent procedure as above with wound VAC in place. No intra-abdominal process suspected to explain worsening leukocytosis at this time. Continue to monitor.
--- NOTE | 2017-06-02 14:12 | Infectious Disease Progress ---
Assessment and Plan (1) Acute respiratory failure Status: Acute Current Visit: Yes Qualifiers: Qualified Code(s): J96.01 - Acute respiratory failure with hypoxia; J96.02 - Acute respiratory failure with hypercapnia (2) Hypertriglyceridemia Status: Acute Current Visit: Yes (3) New onset type 2 diabetes mellitus Status: Chronic Current Visit: Yes (4) Pancreatitis Status: Acute Assessment and plan: Abdomen looks better and he has had progressive closure of his wound. Current Visit: Yes Qualifiers: Chronicity: acute Pancreatitis type: other (5) Renal insufficiency Status: Resolved Current Visit: Yes (6) Fever Status: Acute Assessment and plan: Patient has persisting fever [though better today] and I am not sure what the cause is. He has a lot of inflammation in the abdomen but there is no evidence of infection. All blood cultures have been negative, no evidence of UTI. He is developing an opacity in the left lung and maybe he has now a ventilator associated pneumonia. Recommendations: Continue with the levofloxacin and I am going to discontinue fluconazole. Sputum culture pending, the Gram stain was negative. Continue to monitor. If he gets a high fever again, add aztreonam. Current Visit: Yes Infectious Disease - PN: Subj Interval history: Patient has been hemodynamically stable but almost persistently febrile. He tolerated about 5 hours of CPAP yesterday. When sedation is turned down he does wake up and follow commands appropriately according to his nurse. Infectious Disease Exam (PN) - Constitutional Vitals: Temp Pulse Resp BP Pulse Ox 99.1 F 106 H 25 H 111/56 98 06/02/17 12:00 06/02/17 13:00 06/02/17 13:00 06/02/17 13:00 06/02/17 13:00 General appearance: normal weight, no acute distress Exam: General appearance: Sedated - Eye Eye exam: Present: EOMI. no icterus Pupils: Present: JACOB - ENT ENT exam: ET tube in situ - Respiratory Respiratory exam: vesicular BS decreased in bases, no crepitations or wheezes - Cardiovascular Cardiovascular exam: regular rate and rhythm, no murmurs - GI/Abdominal GI/Abdominal exam: Wound VAC to midline abdominal wound - Extremities Exam Extremities exam: Generalized edema present - Skin Skin exam: no rash Results - Labs CBC & BMP: 06/02/17 03:40 06/02/17 03:40 Lab Results: I have reviewed the past 24 hour labs
--- NOTE | 2017-06-02 14:36 | Operative Note ---
Date of procedure: 06/02/17 Pre-op diagnosis: Left lower lobe infiltrate Post-op diagnosis: other (Unremarkable airways with minimal secretions) Procedure: The patient is on the ventilator in ICU. He has had a low-grade fever and has a slightly worsening infiltrate in the left. A fiberoptic bronchoscope will be done to clear airways and obtain cultures. Procedure: The patient is on the ventilator in ICU. The bronchoscope was passed through the ET tube into the airways. The bronchopulmonary segments were identified and specimens obtained. Findings: The ET tube is in good position in the trachea. The main bronchi are open. The airways look unremarkable and the left upper lobe, lingula, and left lower lobe are open. The right upper lobe, right middle lobe, and right lower lobe are open. There is only a small amount of frothy secretions present and they do not look that purulent. The left upper lobe and left lower lobe were irrigated and washings were sent for culture. He tolerated the procedure well without any problems. Impression: Left lung infiltrate which may be pleural effusion, with only minimal secretions in the airways. Plan: We will continue treatment for possible pneumonia and await culture. Hopefully can extubate soon. Anesthesia: conscious sedation Surgeon / Physician: Bob Martinez Estimated blood loss: none Specimens: other (Washings were sent for culture) Condition: stable Disposition: ICU Results - Labs CBC & BMP: 06/02/17 03:40 06/02/17 03:40 Discharge Plan - Discharge Medications No Action Omeprazole Magnesium [Prilosec Otc] 20 mg PO DAILY - Follow Up or Referral - Forms/Instructions
[2017-06-02] MEDS: fentaNYL INJ 1,250 MCG in SODIUM CHLORIDE 0.9% 225 ML IV SCH ×2 (15:33→23:58)
[2017-06-02] MEDS: ACETAMINOPHEN 325 MG/10.15 ML UDCUP PO PRN ×2 (15:39→20:34)
[2017-06-02] MEDS: ENOXAPARIN 40 MG/0.4 ML SYRINGE SUBCUT SCH (21:44)
[2017-06-03] MEDS: INSULIN LISPRO 100 UNIT/ML SUBCUT SCH ×6 (01:58→21:38)
[2017-06-03 05:07] LABS: Basophils % 0.2 % (0.0-0.8); Eosinophils # 0.4 10*3/uL (0.0-0.87); Eosinophils % 2.5 % (0.00-10.9); Hematocrit 24.7 VOL% (42.0-52.0); Hemoglobin 7.6 GM/DL (14.0-18.0); Immature Granulocytes % 2.7 %; Immature Granulocytes Absolute 0.44 #; Lymphocytes # 1.8 10*3/uL (1.4-4.0); Lymphocytes % 11.3 % (21.2-54.2); Mean Corpuscular HGB Conc 30.8 GM/DL (32-36); Mean Corpuscular Hemoglobin 29 PG (27-34); Mean Corpuscular Volume 94.6 FL (87-102); Mean Platelet Volume 11.3 FL (9.6-12.0); Monocytes % 5.9 % (1.7-12.7); Neutrophils # 12.5 10*3/uL (1.4-7.4); Neutrophils % 77.4 % (38.7-73.9); Platelet Count 326 T/CUMM (130-400); Red Blood Count 2.61 MC/CUMM (3.8-5.5); Red Cell Distribution Width 15.1 % (9.3-17.3); White Blood Count 16.2 T/CUMM (4-12)
[2017-06-03] MEDS: METOCLOPRAMIDE 10 MG/2 ML VIAL IV SCH ×4 (05:56→23:36)
[2017-06-03 06:07] LABS: Calcium 7.8 MG/DL (8.5-10.1); Osmolality,Calculated 301.4 MOS/KG (273-304); Potassium 4.2 MMOL/L (3.5-5.1)
[2017-06-03 06:43] LABS: Band Neutrophils 7 % (0-10); Eosinophils 5 % (0-10); Hypochromasia 1+; Lymphocytes 11 % (20-55); Microcytosis Slight; Platelet Estimate Adequate; Segmented Neutrophils 71 % (50-85); Total Cells Counted 100
[2017-06-03] MEDS ORDERED: AZTREONAM 2,000 MG in SODIUM CHLORIDE 0.9% 50 ML IV SCH (07:00)
--- NOTE | 2017-06-03 07:49 | Pulmonology Progress Note ---
Pulmonary - PN: Subj Interval history: The patient is a 46-year-old white man that has very severe pancreatitis from hypertriglyceridemia. He was found to be a diabetic recently and had very high lipids. He came in with abdominal pain and acute pancreatitis. He has been very ill but seems to be improving now. He had a compartment syndrome with the renal failure and had exploratory lap last week. He has gone back to surgery several times and still has an open abdomen with wound VAC in place. He has been very stable on the ventilator. He does have a left lung infiltrate in yesterday we did a bronchoscope. His airways did not look bad at all. He has had a fairly stable night and his oxygenation is okay. We will see if he can come off the ventilator today. Exam (Progress Note) - Constitutional Vitals: Period Temp Pulse Resp BP Sys/Gutierrez Pulse Ox Last 24 Hr 99.1 F-101.8 F 96-122 14-29 90-136/51-84 97-100 Exam: General appearance: normal weight, other (Patient is sedated on the ventilator at present. He does respond okay. He still has a low-grade fever but is stable. His blood pressure and heart rate have been stable.) Head exam: Present: normal inspection, normocephalic - Eye Eye exam: Present: EOMI. Absent: scleral icterus Pupils: Present: JACOB - ENT ENT exam: Present: normal exam, other (ET tube is in good position) - Neck Neck exam: Absent: lymphadenopathy, thyromegaly - Respiratory Respiratory exam: Present: His lungs have good breath sounds bilaterally with fairly good air movement. His lungs are sounding better today. - Cardiovascular Cardiovascular exam: Present: regular rate and rhythm. Absent: gallop, systolic murmur - GI/Abdominal GI/Abdominal exam: Present: His abdomen is less distended and appears to be softer and still has a wound VAC in place. He still has a fairly large wound. - Extremities Exam Extremities exam: Absent: calf tenderness, edema - Neurological Exam Neurological exam: Present: other (Patient is sedated at present. he does respond quite easily.) - Skin Skin exam: Present: warm, dry Results - Labs CBC & BMP: 06/03/17 04:32 06/03/17 04:32 Assessment and Plan (1) Hypertriglyceridemia Status: Acute Assessment and plan: Patient has severe hypertriglyceridemia which likely precipitated his pancreatitis. His triglycerides are now down to 121. Current Visit: Yes (2) Acute respiratory failure Status: Acute Assessment and plan: The patient is quite stable on the ventilator and his oxygenation has been okay. He has been doing CPAP well. We can probably try him off the ventilator if he is not going back to surgery soon. We will see about extubating him today. Current Visit: Yes Qualifiers: Qualified Code(s): J96.01 - Acute respiratory failure with hypoxia; J96.02 - Acute respiratory failure with hypercapnia (3) Pancreatitis Status: Acute Assessment and plan: Patient has severe pancreatitis and now has an abdomen opened. He has a wound VAC in place and is doing fairly well. Current Visit: Yes Qualifiers: Chronicity: acute Pancreatitis type: other (4) New onset type 2 diabetes mellitus Status: Chronic Assessment and plan: The patient has been found to be a diabetic and his glucoses are better at this point. His glucose was 153 today. He is getting insulin infusion. Current Visit: Yes (5) Renal insufficiency Status: Resolved Assessment and plan: His creatinine is 1.2 today. Current Visit: Yes
[2017-06-03 08:28] LABS: ABG Base Excess 4.4 MMOL/L (-2.5-2.5); ABG HCO3 28.3 MMOL/L (20-26); ABG PH 7.401 (7.35-7.45); ABG PO2 96.7 MM HG (80-95); ABG TCO2 27.4 MMOL/L (23-27); Allen Test Positive; Pt O2 Delivery Device Ventilator
[2017-06-03] MEDS: AZTREONAM 2,000 MG in SODIUM CHLORIDE 0.9% 100 ML IV SCH ×3 (08:51→23:36)
[2017-06-03] MEDS: INSULIN GLARGINE 100 UNIT/ML SUBCUT SCH (08:52)
[2017-06-03] MEDS: INSULIN ASPART PROTAMINE/ASPART 70/30 100 UNIT/ML SUBCUT SCH ×3 (08:52→16:07)
[2017-06-03] MEDS: PANTOPRAZOLE 40 MG VIAL IV SCH (08:52)
[2017-06-03] MEDS: MINERAL OIL/PETROLATUM OPH OINT 3.5 GM TUBE BOTH EYES SCH ×2 (09:02→21:38)
[2017-06-03] MEDS: IBUPROFEN 100 MG/5 ML UDCUP PO PRN ×2 (09:25→18:32)
[2017-06-03] MEDS ORDERED: SODIUM CHLORIDE 0.9% 250 ML IV PRN (09:27)
--- NOTE | 2017-06-03 09:33 | Hospitalist Progress Note ---
Assessment and Plan (1) Pneumonia involving left lung Status: Acute Assessment and plan: Patient receiving aztreonam and Levaquin. Appears improved on x-ray today. Bronchoscopy report From 06/02/2017 reviewed WBC count improving however he still has persistent fever spikes of 102 overnight. Current Visit: Yes Qualifiers: Pneumonia type: due to unspecified organism Lung location: lower lobe of lung Qualified Code(s): J18.1 - Lobar pneumonia, unspecified organism (2) IDDM (insulin dependent diabetes mellitus) Status: Acute Assessment and plan: The patient has insulin-dependent diabetes mellitus related to his acute severe pancreatitis. He has been receiving IV insulin and will be transitioned to subcutaneous NovoLog. Continue Accu-Cheks and sliding scale insulin coverage every 4 hours. Blood sugars remain under 200 with subcutaneous insulin administration and Glucerna tube feeds. Current Visit: Yes (3) Hypernatremia Status: Acute Assessment and plan: Increase free water flushes to 80 cc/h. Continue to monitor sodium and chloride levels. The only sodium chloride containing solutions are his sedation and pain medication including fentanyl and Versed. Improving with free water flushes Current Visit: Yes (4) Pancreatitis Status: Acute Assessment and plan: This is improving. Current Visit: Yes Qualifiers: Chronicity: acute Pancreatitis type: other (5) Hypertriglyceridemia Status: Acute Assessment and plan: Continue medications. Improved 150 today Current Visit: Yes (6) Acute respiratory failure Status: Acute Assessment and plan: Pulmonary following. Vent weaning in progress. Current Visit: Yes Qualifiers: Qualified Code(s): J96.01 - Acute respiratory failure with hypoxia; J96.02 - Acute respiratory failure with hypercapnia Hospitalist: Subjective Interval history: Patient seen and examined. No acute events overnight. Case discussed with nursing staff. Labs reviewed. Case discussed with Dr. Martinez. Patient continues to have high fever overnight. Aztreonam added this morning. Hemoglobin is down to 7.5. Plan to transfuse 2 units of packed red blood cells today and add Lasix for peripheral and scrotal edema. Plan for extubation today. Chest x-ray appears improved. Bronchial washings and sputum culture pending with no organisms seen on preliminary results. Consider LTAC placement for prolonged illness and rehab. Exam - Constitutional Vitals: Period Temp Pulse Resp BP Sys/Gutierrez Pulse Ox Last 24 Hr 99.1 F-102 F 96-122 14-29 90-136/51-84 97-100 Exam: Constitutional System: No distress. No tremulousness. Remains intubated. Sedation held for planned extubation. Patient follows commands. Head: Normocephalic, atraumatic. Ears, Nose and Throat System: No pain or tenderness. No epistaxis or discharge. NG tube and ET tube in place Eyes System: Pupils equal, round, and reactive. Extraocular muscles intact. Neck: Supple, without adenopathy, No jugular venous distention. Respiratory System: Chest clear to auscultation. Cardiovascular System: Heart with tachycardic rate and rhythm. No murmur. GI System: Abdomen is distended with hypoactive bowel sounds. Wound VAC dressing in place Musculoskeletal System: limbs with bilateral edema. Full distal pulses. Normal capillary refill. Scrotal swelling noted Results - Labs CBC & BMP: 06/03/17 04:32 06/03/17 04:32 Lab Results: I have reviewed the past 24 hour labs - Diagnostic Findings Procedure: Chest x-ray: image reviewed by me, report reviewed by me
--- NOTE | 2017-06-03 09:34 | Gastrointestinal Progress Note ---
<HiteshGenie Anish - Last Filed: 06/03/17 09:31> Assessment and Plan (1) Pancreatitis Status: Acute Assessment and plan: 06/03-tolerating tube feedings. Lipase level is elevated today at 413. Continues to be febrile however WBCs down today. Her extubation later this morning. Plan an addendum to follow Dr. Christensen. 06/01-continues tolerate tube feedings. Events noted as below. Continue to monitor this time. Plan an addendum to followed by Dr. Christensen. 05/29-tolerating tube feedings. Labs noted as below. Continue to monitor present time. Plan an addendum to followed by Dr. Christensen 05/28-continues to tolerate his tube feedings. Findings noted as below. Continue to monitor present time. Plan an addendum to followed by Dr. Christensen. 05/27-tolerating tube feedings. Postop from partial abdominal wound closure. Lab values noted as below. Plan an addendum to followed by Dr. Christensen. 05/26-no changes noted as below. Tolerating tube feedings at present time. Plan an addendum to followed by Dr. Christensen. 05/25-postop reopened laparotomy. Labs noted as below. Hemodynamically stable at present time. Jejunostomy tube placed today and to start feedings tomorrow. Plan an addendum to followed by Dr. Christensen. 05/22-series of events noted as below. Patient continue with aggressive management for his multiple system organ failure at this time. To begin dialysis. Continue to monitor present time. Plan an addendum to followed by Dr. Christensen. 05/21-sudden onset of abdominal pain with intractable nausea and vomiting, with findings of elevated lipase and CT findings of pancreatitis. No prior history of pancreatitis. History of laparoscopic cholecystectomy with cholelithiasis. New onset diabetes with hemoglobin A1c of 9.8. Elevated lactic acid at 6.1. Continue NPO and IV fluids. Abdominal US this morning. Plan and addendum to follow by Dr Christensen. Current Visit: Yes Gastroenterology - PN: Subj Interval history: CC: Pancreatitis Patient is seen, continued on ventilator at this time. His sedation is now on hold for possible extubation this morning. He was noted to have an FOB on yesterday with findings of left lung infiltrate and bronchial washings with no fungus seen and negative Gram stain on the sputum. Nursing staff at bedside states that he will awaken and follow commands however he does remain still somewhat somnolent. His lipase levels are noted to be elevated today at 413. H &H is down slightly at 724 without overt bleeding. He is to be transfused 2 units of packed red blood cells this morning. His WBCs are trending downward as well at 16,000 however he continues to run fever at 102. He remains tachycardic. He is tolerating his tube feedings as well. Wound VAC in place. Dr. Murry is following his initiated Azactam this morning. ROS: No acute distress at present time Exam (Progress Note) - Constitutional Vitals: Period Temp Pulse Resp BP Sys/Gutierrez Pulse Ox Last 24 Hr 99.1 F-102 F 96-122 14-29 90-136/51-84 97-100 General appearance: normal weight, no acute distress - Head Head exam: Present: normal inspection, normocephalic - Eye Eye exam: Present: other (Lids and conjunctive are unremarkable). Absent: scleral icterus - ENT ENT exam: Present: normal exam, normal oropharynx - Neck Neck exam: Present: normal inspection - Respiratory Respiratory exam: Present: clear to auscultation bilaterally. Absent: rales, rhonchi, wheezes - Cardiovascular Cardiovascular exam: Present: regular rate and rhythm. Absent: diastolic murmur , JVD, systolic murmur - GI/Abdominal GI/Abdominal exam: Absent: ascites, distended, mass, organomegaly - Extremities Exam Extremities exam: Present: normal inspection, full ROM - Back Exam Back exam: Present: normal inspection - Neurological Exam Neurological exam: Present: alert, altered - Psychiatric Psychiatric exam: Present: other - Skin Skin exam: Present: normal color, warm, dry Results - Labs CBC & BMP: 06/03/17 04:32 06/03/17 04:32 Lab Results: I have reviewed the past 24 hour labs <Alan Christensen - Last Filed: 06/03/17 20:53> Exam (Progress Note) - Constitutional Vitals: Period Temp Pulse Resp BP Sys/Gutierrez Pulse Ox Last 24 Hr 99.0 F-102 F 96-122 12-40 93-130/51-81 97-100 Results - Labs CBC & BMP: 06/03/17 04:32 06/03/17 04:32
[2017-06-03] MEDS: LEVOFLOXACIN INJ 500 MG in PREMIX 1 EACH IV SCH (10:31)
--- NOTE | 2017-06-03 11:06 | Infectious Disease Progress ---
Assessment and Plan (1) Acute respiratory failure Status: Acute Current Visit: Yes Qualifiers: Qualified Code(s): J96.01 - Acute respiratory failure with hypoxia; J96.02 - Acute respiratory failure with hypercapnia (2) Hypertriglyceridemia Status: Acute Current Visit: Yes (3) New onset type 2 diabetes mellitus Status: Chronic Current Visit: Yes (4) Pancreatitis Status: Acute Assessment and plan: Abdomen looks better and he has had progressive closure of his wound. Current Visit: Yes Qualifiers: Chronicity: acute Pancreatitis type: other (5) Renal insufficiency Status: Resolved Assessment and plan: Resolved Current Visit: Yes (6) Fever Status: Acute Assessment and plan: Persisting fever but cultures remain negative including sputum from yesterday. Causes probably inflammatory but we are not show. He does have 2 central lines although there is no apparent drainage from about that. Recommendations: 1. Repeat blood cultures again today 2. Add aztreonam 2 g every 8 hours 3. Continue with levofloxacin for now 4. It would be nice to start getting rid of his central lines however his nurse tells me he still needs all of them because of all the medicines he is getting Current Visit: Yes Infectious Disease - PN: Subj Interval history: Patient continues to be persistently febrile however he remains hemodynamically stable. He was to be extubated today however he still quite sleepy even though sedation was turned off at about 7:00 this morning. Infectious Disease Exam (PN) - Constitutional Vitals: Temp Pulse Resp BP Pulse Ox 100.5 F H 113 H 36 H 107/58 98 06/03/17 11:02 06/03/17 11:02 06/03/17 11:02 06/03/17 11:02 06/03/17 11:02 General appearance: normal weight, no acute distress Exam: General appearance: Sedated but slightly arousable trying to open eyes with stimulation - Eye Eye exam: Present: EOMI. no icterus Pupils: Present: JACOB - ENT ENT exam: ET tube in situ - Respiratory Respiratory exam: vesicular BS decreased in bases, no crepitations or wheezes - Cardiovascular Cardiovascular exam: regular rate and rhythm, no murmurs - GI/Abdominal GI/Abdominal exam: Wound VAC to midline abdominal wound, abdomen is less distended, bowel sounds heard - Extremities Exam Extremities exam: Generalized edema present - Skin Skin exam: no rash Results - Labs CBC & BMP: 06/03/17 04:32 06/03/17 04:32 Lab Results: I have reviewed the past 24 hour labs (Sputum culture with normal connie to date)
[2017-06-03] MEDS: HYDROmorphone 2 MG/1 ML VIAL IV PRN ×5 (11:24→23:47)
--- NOTE | 2017-06-03 11:26 | XRay Report ---
Exam: XR chest 1V portable Date: 06/03/2017 7:47 AM Indication: Follow-up respiratory failure intubation dialysis Comparison: 06/02/2017 Technical: AP Findings: Endotracheal tube nasogastric tube and right and left IJ catheters are present with distal tip in the right atrium. Cardiomegaly is present. Tiny low volume effusions are present. Improving aeration with decreasing infiltrates in the perihilar regions bilaterally. No pneumothorax. External cardiac leads are present. Impression: 1. Stable position of life-support tubing 2. Improving aeration with decreasing infiltrates and effusions bilaterally PROCEDURE INTERPRETED AT [facility] DEPARTMENT OF RADIOLOGY Final Report Signed by: Dr. Alek Ulrich
--- NOTE | 2017-06-03 12:40 | Event Note ---
General surgery progress note Chief Complaint Patient is a 46-year-old male initially admitted with pancreatitis who underwent exploratory laparotomy for concern for abdominal compartment syndrome with drainage of pancreatic ascites on 05/22/2017. Repeat laparotomy with abdominal washout and Jtube placement 05/25/2017. Additional repeat abdominal washouts 05/27, 05/29, and 06/01 with abdominal wall closure and wound vac placement. Interval History Remains intubated. No events overnight. Leukocytosis improved with WBC of 16. Slight drop in Hgb 7.6. He is tolerating tube feedings thru J-tube. Wound vac remains. Objective: T-max 103; slight tachycardia; blood pressure stable Wound VAC in place without leak. Abdomen is soft and slightly distended. Bowel sounds present. Labs reviewed as above Assessment and plan The patient is postop day #2 status post his most recent procedure as above with wound VAC in place. No surgical complications evident at this time. Continue to follow.
[2017-06-03] MEDS: FUROSEMIDE 40 MG/4 ML VIAL IV SCH ×2 (13:32→16:45)
[2017-06-03] MEDS: fentaNYL INJ 1,250 MCG in SODIUM CHLORIDE 0.9% 225 ML IV SCH (14:20)
[2017-06-03] MEDS: ACETAMINOPHEN 325 MG/10.15 ML UDCUP PO PRN ×2 (15:20→23:51)
[2017-06-03] MEDS: MIDAZOLAM 100 MG in SODIUM CHLORIDE 0.9% 80 ML IV SCH (15:35)
[2017-06-03] MEDS: DEXTROSE 50% 25 GM/50 ML SYRINGE IV PRN (17:16)
[2017-06-03] MEDS: ENOXAPARIN 40 MG/0.4 ML SYRINGE SUBCUT SCH (21:37)
[2017-06-04] MEDS: HYDROmorphone 2 MG/1 ML VIAL IV SCH ×4 (01:30→08:03)
[2017-06-04] MEDS: DIAZEPAM 10 MG/2 ML SYRINGE IV PRN ×3 (02:25→21:57)
[2017-06-04] MEDS: INSULIN LISPRO 100 UNIT/ML SUBCUT SCH ×6 (02:27→22:10)
[2017-06-04] MEDS: IBUPROFEN 100 MG/5 ML UDCUP PO PRN ×3 (04:50→19:40)
[2017-06-04 05:26] LABS: Basophils % 0.2 % (0.0-0.8); Eosinophils # 0.3 10*3/uL (0.0-0.87); Eosinophils % 1.9 % (0.00-10.9); Hematocrit 28.5 VOL% (42.0-52.0); Immature Granulocytes % 2.5 %; Immature Granulocytes Absolute 0.39 #; Lymphocytes # 1.6 10*3/uL (1.4-4.0); Lymphocytes % 10.5 % (21.2-54.2); Mean Corpuscular HGB Conc 31.6 GM/DL (32-36); Mean Corpuscular Hemoglobin 29 PG (27-34); Mean Corpuscular Volume 91.6 FL (87-102); Mean Platelet Volume 10.9 FL (9.6-12.0); Monocytes % 6.4 % (1.7-12.7); Neutrophils # 12.3 10*3/uL (1.4-7.4); Neutrophils % 78.5 % (38.7-73.9); Platelet Count 370 T/CUMM (130-400); Red Blood Count 3.11 MC/CUMM (3.8-5.5); Red Cell Distribution Width 15.4 % (9.3-17.3); White Blood Count 15.6 T/CUMM (4-12)
[2017-06-04] MEDS: METOCLOPRAMIDE 10 MG/2 ML VIAL IV SCH ×4 (05:45→23:12)
[2017-06-04 05:52] LABS: Calcium 7.4 MG/DL (8.5-10.1); Magnesium 2.5 MG/DL (1.8-2.4); Osmolality,Calculated 293.7 MOS/KG (273-304); Potassium 3.8 MMOL/L (3.5-5.1)
[2017-06-04 06:02] LABS: Phosphorous 3.7 MG/DL (2.5-4.9); Prealbumin 6.2 MG/DL (20-40)
--- NOTE | 2017-06-04 07:36 | Pulmonology Progress Note ---
Pulmonary - PN: Subj Interval history: The patient is a 46-year-old white man that has very severe pancreatitis from hypertriglyceridemia. He was found to be a diabetic recently and had very high lipids. He came in with abdominal pain and acute pancreatitis. He has been very ill but seems to be improving now. He had a compartment syndrome with the renal failure and had exploratory lap last week. He has gone back to surgery several times and still has an open abdomen with wound VAC in place. He has been very stable on the ventilator. His chest x-ray looks much better yesterday but he was very slow to wake up. He has done fairly well through the night and is now more alert. He has done well on CPAP. His oxygenation is better. Will try to extubate today. Exam (Progress Note) - Constitutional Vitals: Period Temp Pulse Resp BP Sys/Gutierrez Pulse Ox Last 24 Hr 98.8 F-102.8 F 98-121 12-40 95-135/56-100 96-100 Exam: General appearance: normal weight, other (Patient is more alert and looks comfortable. He still has fever each night.) Head exam: Present: normal inspection, normocephalic - Eye Eye exam: Present: EOMI. Absent: scleral icterus Pupils: Present: JACOB - ENT ENT exam: Present: normal exam, other (ET tube is in good position) - Neck Neck exam: Absent: lymphadenopathy, thyromegaly - Respiratory Respiratory exam: Present: His lungs have good breath sounds bilaterally with fairly good air movement. His lungs are sounding better today. He is moving air well. - Cardiovascular Cardiovascular exam: Present: regular rate and rhythm. Absent: gallop, systolic murmur - GI/Abdominal GI/Abdominal exam: Present: His abdomen is less distended and appears to be softer and still has a wound VAC in place. He still has a fairly large wound. - Extremities Exam Extremities exam: Absent: calf tenderness, edema - Neurological Exam Neurological exam: Present: other (Patient is sedated at present. he does respond quite easily.) - Skin Skin exam: Present: warm, dry Results - Labs CBC & BMP: 06/04/17 04:00 06/04/17 04:00 Assessment and Plan (1) Hypertriglyceridemia Status: Acute Assessment and plan: Patient has severe hypertriglyceridemia which likely precipitated his pancreatitis. His triglycerides are now down to 121. Current Visit: Yes (2) Acute respiratory failure Status: Acute Assessment and plan: The patient is quite stable on the ventilator and his oxygenation has been okay. He has been doing CPAP well. His chest x-ray looked better yesterday. We will try to extubate him today. Current Visit: Yes Qualifiers: Qualified Code(s): J96.01 - Acute respiratory failure with hypoxia; J96.02 - Acute respiratory failure with hypercapnia (3) Pancreatitis Status: Acute Assessment and plan: Patient has severe pancreatitis and now has an abdomen opened. He has a wound VAC in place and is doing fairly well. Current Visit: Yes Qualifiers: Chronicity: acute Pancreatitis type: other (4) New onset type 2 diabetes mellitus Status: Chronic Assessment and plan: The patient has been found to be a diabetic and his glucoses are better at this point. His glucose was 120 today. He is getting insulin infusion. Current Visit: Yes (5) Renal insufficiency Status: Resolved Assessment and plan: His creatinine is 0.9 today. Current Visit: Yes
[2017-06-04 07:41] LABS: Band Neutrophils 2 % (0-10); Eosinophils 1 % (0-10); Giant Platelets Few; Hypochromasia 1+; Lymphocytes 11 % (20-55); Microcytosis Slight; Ovalocytes Slight; Platelet Estimate Adequate; Segmented Neutrophils 79 % (50-85); Total Cells Counted 100
[2017-06-04] MEDS: AZTREONAM 2,000 MG in SODIUM CHLORIDE 0.9% 100 ML IV SCH ×2 (07:47→15:38)
[2017-06-04] MEDS ORDERED: INSULIN ASPART PROTAMINE/ASPART 70/30 100 UNIT/ML SUBCUT SCH (08:01)
[2017-06-04] MEDS: INSULIN ASPART PROTAMINE/ASPART 70/30 100 UNIT/ML SUBCUT SCH (08:02)
[2017-06-04] MEDS: HYDROmorphone 2 MG/1 ML VIAL IV PRN ×4 (10:00→19:30)
--- NOTE | 2017-06-04 10:03 | Hospitalist Progress Note ---
Assessment and Plan (1) Pneumonia involving left lung Status: Acute Assessment and plan: Patient receiving aztreonam and Levaquin. Appears improved on x-ray today. Bronchoscopy report From 06/02/2017 reviewed. WBC count improving however he still has persistent fever spikes of 102 overnight. We will begin removing central lines once peripheral access is achieved Current Visit: Yes Qualifiers: Pneumonia type: due to unspecified organism Lung location: lower lobe of lung Qualified Code(s): J18.1 - Lobar pneumonia, unspecified organism (2) IDDM (insulin dependent diabetes mellitus) Status: Acute Assessment and plan: The patient has insulin-dependent diabetes mellitus related to his acute severe pancreatitis. He has been receiving IV insulin and will be transitioned to subcutaneous NovoLog. Continue Accu-Cheks and sliding scale insulin coverage every 4 hours. Blood sugars remain under 200 with subcutaneous insulin administration and Glucerna tube feeds. Reduce insulin dose to 40 units subcutaneously 3 times daily. Reduce Lantus to 35 units daily. Current Visit: Yes (3) Hypernatremia Status: Acute Assessment and plan: Continue free water flushes at 60 cc/h. Continue to monitor sodium and chloride levels. Improving with free water flushes Current Visit: Yes (4) Pancreatitis Status: Acute Assessment and plan: This is improving. Current Visit: Yes Qualifiers: Chronicity: acute Pancreatitis type: other (5) Hypertriglyceridemia Status: Acute Assessment and plan: Continue medications. Improved 150 today Current Visit: Yes (6) Acute respiratory failure Status: Acute Assessment and plan: Pulmonary following. Vent weaning in progress. Extubation today Current Visit: Yes Qualifiers: Qualified Code(s): J96.01 - Acute respiratory failure with hypoxia; J96.02 - Acute respiratory failure with hypercapnia Hospitalist: Subjective Interval history: Patient seen and examined. No acute events overnight. Case discussed with nursing staff. Labs reviewed. He did have a fever spike yesterday evening. He is being extubated this morning. He still has significant NG tube output while on suction. He is more awake and alert this morning. He is having bowel movements. He was transfused 2 units of packed red blood cells yesterday. Exam - Constitutional Vitals: Period Temp Pulse Resp BP Sys/Gutierrez Pulse Ox Last 24 Hr 98.8 F-102.8 F 98-121 12-40 95-135/56-100 96-100 Exam: Constitutional System: No distress. No tremulousness. Remains intubated. Sedation held for planned extubation. Patient follows commands. Head: Normocephalic, atraumatic. Ears, Nose and Throat System: No pain or tenderness. No epistaxis or discharge. NG tube and ET tube in place Eyes System: Pupils equal, round, and reactive. Extraocular muscles intact. Neck: Supple, without adenopathy, No jugular venous distention. Respiratory System: Chest clear to auscultation. Cardiovascular System: Heart with tachycardic rate and rhythm. No murmur. GI System: Abdomen is distended with hypoactive bowel sounds. Wound VAC dressing in place Musculoskeletal System: limbs with bilateral edema. Full distal pulses. Normal capillary refill. Scrotal swelling noted Results - Labs CBC & BMP: 06/04/17 04:00 06/04/17 04:00 Lab Results: I have reviewed the past 24 hour labs
[2017-06-04] MEDS ORDERED: INSULIN GLARGINE 100 UNIT/ML SUBCUT SCH (10:05)
--- NOTE | 2017-06-04 10:58 | Event Note ---
General surgery progress note Chief Complaint Patient is a 46-year-old male initially admitted with pancreatitis who underwent exploratory laparotomy for concern for abdominal compartment syndrome with drainage of pancreatic ascites on 05/22/2017. Repeat laparotomy with abdominal washout and Jtube placement 05/25/2017. Additional repeat abdominal washouts 05/27, 05/29, and 06/01 with abdominal wall closure and wound vac placement. Interval History Remains intubated. No events overnight. Continues on IV merrem and levaquin. Leukocytosis improved with WBC of 15. S/p transfusion 2u PRBC with h/h 9.0/28. He is tolerating tube feedings thru J-tube. Wound vac remains intact and operational. He remains febrile. Left IJ pulled this am. Right IJ remains. Objective: T-max 103; slight tachycardia; blood pressure stable Wound VAC in place without leak. Abdomen is soft and less distended today. Bowel sounds hypoactive. Labs reviewed as above; creatinine 0.9 Assessment and plan The patient is postop day #3 status post his most recent procedure as above with wound VAC in place. No surgical complications evident at this time. Left IJ pulled this am with plans to attempt peripheral access and remove the right. Recommed sending tip for culture. Continue to follow.
[2017-06-04] MEDS: MINERAL OIL/PETROLATUM OPH OINT 3.5 GM TUBE BOTH EYES SCH ×2 (11:09→21:17)
[2017-06-04] MEDS: PANTOPRAZOLE 40 MG VIAL IV SCH (11:09)
[2017-06-04] MEDS: LEVOFLOXACIN INJ 500 MG in PREMIX 1 EACH IV SCH (11:09)
[2017-06-04] MEDS: INSULIN GLARGINE 100 UNIT/ML SUBCUT SCH (11:23)
[2017-06-04] MEDS ORDERED: niCARdipine 25 MG/10 ML VIAL IV ONE (12:34)
[2017-06-04] MEDS: DEXTROSE 50% 25 GM/50 ML SYRINGE IV PRN ×2 (14:21→21:45)
--- NOTE | 2017-06-04 15:47 | Infectious Disease Progress ---
Assessment and Plan (1) Acute respiratory failure Status: Acute Current Visit: Yes Qualifiers: Qualified Code(s): J96.01 - Acute respiratory failure with hypoxia; J96.02 - Acute respiratory failure with hypercapnia (2) Hypertriglyceridemia Status: Acute Current Visit: Yes (3) New onset type 2 diabetes mellitus Status: Chronic Current Visit: Yes (4) Pancreatitis Status: Acute Assessment and plan: Abdomen looks better and he has had progressive closure of his wound. Current Visit: Yes Qualifiers: Chronicity: acute Pancreatitis type: other (5) Renal insufficiency Status: Resolved Assessment and plan: Resolved. We will watch renal function closely now that he is on vancomycin. Current Visit: Yes (6) Fever Status: Acute Assessment and plan: Persisting fever -patient generally better but now we have 1 of 2 sets of blood cultures positive gram-positive cocci. We will need to wait on the ID to find out if it is a contaminant or true infection. Recommendations: 1. Repeat blood cultures again now 2. Add vancomycin. Consult pharmacy to assist with dosing and monitoring. We will have to watch renal function closely as he had some renal insufficiency when he came in. 3. Discontinue levofloxacin but continue aztreonam for now pending finalization of the cultures Discussed with Dr. Noel Discussed with patient's Current Visit: Yes Infectious Disease - PN: Subj Interval history: Patient was extubated this morning and has been comfortable on oxygen via facemask. He remains intermittently febrile to more than 102 at times. No hemodynamic instability. Infectious Disease Exam (PN) - Constitutional Vitals: Temp Pulse Resp BP Pulse Ox 100.2 F H 127 H 38 H 158/88 98 06/04/17 15:00 06/04/17 15:00 06/04/17 15:00 06/04/17 15:00 06/04/17 15:00 General appearance: normal weight, no acute distress Exam: General appearance: A bit drowsy but easily arousable and speaks. Complains of being thirsty. - Eye Eye exam: Present: EOMI. no icterus Pupils: Present: JACOB - ENT ENT exam: No obvious oral exudates - Respiratory Respiratory exam: vesicular BS decreased in bases, no crepitations or wheezes - Cardiovascular Cardiovascular exam: regular rate and rhythm, no murmurs - GI/Abdominal GI/Abdominal exam: Wound VAC to midline abdominal wound which appears smaller, abdomen only mildly distended, bowel sounds heard - Extremities Exam Extremities exam: Generalized edema present but improving - Skin Skin exam: no rash Results - Labs CBC & BMP: 06/04/17 04:00 06/04/17 04:00 Lab Results: I have reviewed the past 24 hour labs (Gram-positive cocci in 1 of 2 sets of blood cultures)
[2017-06-04] MEDS: ACETAMINOPHEN 325 MG/10.15 ML UDCUP PO PRN (16:43)
[2017-06-04] MEDS: VANCOMYCIN INJ 1,500 MG in SODIUM CHLORIDE 0.9% 500 ML IV SCH (18:34)
[2017-06-04] MEDS: DESITIN 4OZ/NYSTATIN 15 GRAM MIXTURE PASTE TOP SCH (21:17)
[2017-06-04] MEDS: ENOXAPARIN 40 MG/0.4 ML SYRINGE SUBCUT SCH (21:45)
[2017-06-04] MEDS: AZTREONAM 2,000 MG in SODIUM CHLORIDE 0.9% 50 ML IV SCH (23:19)
[2017-06-04] MEDS ORDERED: ZIPRASIDONE 20 MG/1 ML VIAL IM PRN (23:25)
[2017-06-05] MEDS: INSULIN LISPRO 100 UNIT/ML SUBCUT SCH ×6 (02:13→21:30)
[2017-06-05] MEDS: VANCOMYCIN INJ 1,500 MG in SODIUM CHLORIDE 0.9% 500 ML IV SCH ×3 (02:14→17:55)
[2017-06-05] MEDS: IBUPROFEN 100 MG/5 ML UDCUP PO PRN ×3 (02:40→16:40)
[2017-06-05 05:34] LABS: Calcium 7.6 MG/DL (8.5-10.1); Magnesium 2.6 MG/DL (1.8-2.4); Osmolality,Calculated 289.8 MOS/KG (273-304); Potassium 3.8 MMOL/L (3.5-5.1)
[2017-06-05] MEDS: METOCLOPRAMIDE 10 MG/2 ML VIAL IV SCH ×4 (06:15→23:32)
--- NOTE | 2017-06-05 07:16 | XRay Report ---
Portable chest Date: 06/05/2017 Clinical history: Respiratory failure Comparison: 06/03/2017 Technique: Portable AP sitting chest Findings: The heart is borderline in size with interval removal of endotracheal tube, nasogastric tube , and right IJ venous catheter. Reduced atelectasis/infiltration at the right lung base. Similar progressive findings at the left lung base with larger small pleural effusion. Stable mediastinum and osseous structures. Impression: Removal of the supportive devices with reduced atelectasis/infiltration at the right lung base. Similar progressive findings in the left lower lobe with small left pleural effusion. PROCEDURE INTERPRETED AT [facility] DEPARTMENT OF RADIOLOGY Final Report Signed by: Dr. Yolande Cornell
--- NOTE | 2017-06-05 07:24 | Pulmonology Progress Note ---
Pulmonary - PN: Subj Interval history: The patient is a 46-year-old white man that has very severe pancreatitis from hypertriglyceridemia. He was found to be a diabetic recently and had very high lipids. He came in with abdominal pain and acute pancreatitis. He has been very ill but seems to be improving now. He had a compartment syndrome with the renal failure and had exploratory lap last week. He has gone back to surgery several times and still has an open abdomen with wound VAC in place. He has been doing CPAP well and yesterday we extubated him. He has done fairly well with his breathing although he is a little tachypneic. This is mainly metabolic as he does have fever and a good bit of discomfort. He is confused a good bit also. He is maintaining an adequate O2 saturation and looks like he is moving air well. Exam (Progress Note) - Constitutional Vitals: Period Temp Pulse Resp BP Sys/Gutierrez Pulse Ox Last 24 Hr 98.8 F-103.0 F 107-139 20-57 110-158/61-88 91-100 Exam: General appearance: normal weight, other (Patient is restless and confused at times. He still has a low-grade fever.) Head exam: Present: normal inspection, normocephalic - Eye Eye exam: Present: EOMI. Absent: scleral icterus Pupils: Present: JACOB - ENT ENT exam: Present: normal exam, - Neck Neck exam: Absent: lymphadenopathy, thyromegaly - Respiratory Respiratory exam: Present: His lungs have good breath sounds bilaterally and his lungs are still reasonably clear now. - Cardiovascular Cardiovascular exam: Present: regular rate and rhythm. Absent: gallop, systolic murmur - GI/Abdominal GI/Abdominal exam: Present: His abdomen is less distended and appears to be softer and still has a wound VAC in place. He still has an open wound. - Extremities Exam Extremities exam: Absent: calf tenderness, edema - Neurological Exam Neurological exam: Present: other (Patient is responding but does get confused easily. He moves his extremities okay.) - Skin Skin exam: Present: warm, dry Results - Labs CBC & BMP: 06/04/17 04:00 06/05/17 04:42 - Diagnostic Findings Procedure: Chest x-ray: image reviewed by me, report reviewed by me (Chest x- ray shows minimal left lower lobe infiltrate.) Assessment and Plan (1) Hypertriglyceridemia Status: Resolved Assessment and plan: Patient has severe hypertriglyceridemia which likely precipitated his pancreatitis. His triglycerides are now down to 121. Current Visit: Yes (2) Acute respiratory failure Status: Acute Assessment and plan: The patient has done okay off the ventilator. He still has rapid shallow breathing but he does have a lot of discomfort still. He is also confused. He looks like he is moving air well and maintaining his O2 saturation. He has a very good cough. He is doing okay off the ventilator. Current Visit: Yes Qualifiers: Qualified Code(s): J96.01 - Acute respiratory failure with hypoxia; J96.02 - Acute respiratory failure with hypercapnia (3) Pancreatitis Status: Acute Assessment and plan: Patient has severe pancreatitis and now has an abdomen opened. He has a wound VAC in place and is doing fairly well. Current Visit: Yes Qualifiers: Chronicity: acute Pancreatitis type: other (4) New onset type 2 diabetes mellitus Status: Chronic Assessment and plan: The patient has been found to be a diabetic and his glucoses are better at this point. His glucose was 123 today. He is getting insulin infusion. Current Visit: Yes (5) Renal insufficiency Status: Resolved Assessment and plan: His creatinine is 0.9 today. He has had good urine output. Current Visit: Yes
--- NOTE | 2017-06-05 08:58 | Hospitalist Progress Note ---
Assessment and Plan (1) Pneumonia involving left lung Status: Acute Assessment and plan: Patient receiving aztreonam and vancomycin. Appears improved but still has persistent fever spikes of 102 overnight. Removed central lines yesterday with tip cultures pending. 1 out of 2 blood cultures positive for gram-positive cocci - non-MRSA. Current Visit: Yes Qualifiers: Pneumonia type: due to unspecified organism Lung location: lower lobe of lung Qualified Code(s): J18.1 - Lobar pneumonia, unspecified organism (2) IDDM (insulin dependent diabetes mellitus) Status: Acute Assessment and plan: The patient has insulin-dependent diabetes mellitus related to his acute severe pancreatitis. He has been receiving IV insulin and will be transitioned to subcutaneous NovoLog. Continue Accu-Cheks and sliding scale insulin coverage every 4 hours. Blood sugars remain under 200 with subcutaneous insulin administration and Glucerna tube feeds. Reduce insulin dose to 40 units subcutaneously 2 times daily. Reduce Lantus to 35 units daily. Current Visit: Yes (3) Hypernatremia Status: Acute Assessment and plan: Continue free water flushes at 60 cc/h. Continue to monitor sodium and chloride levels. Improving with free water flushes Current Visit: Yes (4) Pancreatitis Status: Acute Assessment and plan: This is improving. Repeat lipase in a.m. Current Visit: Yes Qualifiers: Chronicity: acute Pancreatitis type: other (5) Hypertriglyceridemia Status: Resolved Assessment and plan: Continue medications. Current Visit: Yes Hospitalist: Subjective Interval history: Patient seen and examined. No acute events overnight. Case discussed with nursing staff. Labs reviewed. Mr. Calloway is a little tachypneic this morning. He is slightly confused. He is oxygenating well. Blood sugars have improved. Insulin has been reduced. We will try to get him in a chair today for his comfort. Edema is also improving. Exam - Constitutional Vitals: Period Temp Pulse Resp BP Sys/Gutierrez Pulse Ox Last 24 Hr 98.8 F-103.0 F 107-139 20-57 110-158/61-88 91-100 Exam: Constitutional System: No distress. No tremulousness. Follows commands but remains confused. Head: Normocephalic, atraumatic. Ears, Nose and Throat System: No pain or tenderness. No epistaxis or discharge. NG tube and ET tube in place Eyes System: Pupils equal, round, and reactive. Extraocular muscles intact. Neck: Supple, without adenopathy, No jugular venous distention. Respiratory System: Chest clear to auscultation. Tachypneic and shallow respirations. Cardiovascular System: Heart with tachycardic rate and rhythm. No murmur. GI System: Abdomen is distended with hypoactive bowel sounds. Wound VAC dressing in place Musculoskeletal System: limbs with improving edema. Full distal pulses. Normal capillary refill. Scrotal swelling noted Results - Labs CBC & BMP: 06/04/17 04:00 06/05/17 04:42 Lab Results: I have reviewed the past 24 hour labs - Diagnostic Findings Procedure: Chest x-ray: report reviewed by me, image reviewed by me
[2017-06-05] MEDS ORDERED: FUROSEMIDE 40 MG/4 ML VIAL IV ONE (09:10)
[2017-06-05] MEDS: AZTREONAM 2,000 MG in SODIUM CHLORIDE 0.9% 50 ML IV SCH ×3 (09:18→22:55)
[2017-06-05] MEDS: INSULIN GLARGINE 100 UNIT/ML SUBCUT SCH (09:20)
[2017-06-05] MEDS: PANTOPRAZOLE 40 MG VIAL IV SCH (09:21)
[2017-06-05] MEDS: INSULIN ASPART PROTAMINE/ASPART 70/30 100 UNIT/ML SUBCUT SCH ×2 (09:21→16:49)
[2017-06-05] MEDS: DESITIN 4OZ/NYSTATIN 15 GRAM MIXTURE PASTE TOP SCH ×2 (09:28→20:17)
[2017-06-05] MEDS: MINERAL OIL/PETROLATUM OPH OINT 3.5 GM TUBE BOTH EYES SCH ×2 (09:28→20:17)
--- NOTE | 2017-06-05 09:31 | Gastrointestinal Progress Note ---
<HiteshGenie Anish - Last Filed: 06/05/17 09:26> Assessment and Plan (1) Pancreatitis Status: Acute Assessment and plan: 06/05-extubated and stable at present time. Continues with fever of 100.9. ID following. Plan an addendum to follow Dr. Christensen. 06/03-tolerating tube feedings. Lipase level is elevated today at 413. Continues to be febrile however WBCs down today. Her extubation later this morning. Plan an addendum to follow Dr. Christensen. 06/01-continues tolerate tube feedings. Events noted as below. Continue to monitor this time. Plan an addendum to followed by Dr. Christensen. 05/29-tolerating tube feedings. Labs noted as below. Continue to monitor present time. Plan an addendum to followed by Dr. Christensen 05/28-continues to tolerate his tube feedings. Findings noted as below. Continue to monitor present time. Plan an addendum to followed by Dr. Christensen. 05/27-tolerating tube feedings. Postop from partial abdominal wound closure. Lab values noted as below. Plan an addendum to followed by Dr. Christensen. 05/26-no changes noted as below. Tolerating tube feedings at present time. Plan an addendum to followed by Dr. Christensen. 05/25-postop reopened laparotomy. Labs noted as below. Hemodynamically stable at present time. Jejunostomy tube placed today and to start feedings tomorrow. Plan an addendum to followed by Dr. Christensen. 05/22-series of events noted as below. Patient continue with aggressive management for his multiple system organ failure at this time. To begin dialysis. Continue to monitor present time. Plan an addendum to followed by Dr. Christensen. 05/21-sudden onset of abdominal pain with intractable nausea and vomiting, with findings of elevated lipase and CT findings of pancreatitis. No prior history of pancreatitis. History of laparoscopic cholecystectomy with cholelithiasis. New onset diabetes with hemoglobin A1c of 9.8. Elevated lactic acid at 6.1. Continue NPO and IV fluids. Abdominal US this morning. Plan and addendum to follow by Dr Christensen. Current Visit: Yes Qualifiers: Chronicity: acute Pancreatitis type: other Gastroenterology - PN: Subj Interval history: CC: Pancreatitis Patient is seen, extubated, awake and alert however he is confused. He has no complaints of at this time and is hemodynamically stable. His stool samples have been negative for C. difficile 2. He has noted to have gram-positive cocci on his pulmonary blood cultures which are still pending. ID is following patient at this time. He continues to be febrile with a temp up to 100.9. He has had vancomycin started. Abdomen is soft, nontender. Continues to tolerate tube feedings. ROS: Denies shortness of breath or chest pain Exam (Progress Note) - Constitutional Vitals: Period Temp Pulse Resp BP Sys/Gutierrez Pulse Ox Last 24 Hr 98.8 F-103.0 F 107-139 20-57 110-158/61-88 91-100 General appearance: normal weight, no acute distress - Head Head exam: Present: normal inspection, normocephalic - Eye Eye exam: Present: other (Lids and conjunctive are unremarkable). Absent: scleral icterus - ENT ENT exam: Present: normal exam, normal oropharynx - Neck Neck exam: Present: normal inspection - Respiratory Respiratory exam: Present: clear to auscultation bilaterally. Absent: rales, rhonchi, wheezes - Cardiovascular Cardiovascular exam: Present: regular rate and rhythm. Absent: diastolic murmur , JVD, systolic murmur - GI/Abdominal GI/Abdominal exam: Present: soft. Absent: ascites, distended, mass, organomegaly - Extremities Exam Extremities exam: Present: normal inspection, full ROM - Back Exam Back exam: Present: normal inspection - Neurological Exam Neurological exam: Present: alert, altered - Psychiatric Psychiatric exam: Present: normal affect, normal mood - Skin Skin exam: Present: normal color, warm, dry Results - Labs CBC & BMP: 06/04/17 04:00 06/05/17 04:42 Lab Results: I have reviewed the past 24 hour labs <Alan Christensen - Last Filed: 06/05/17 13:13> Exam (Progress Note) - Constitutional Vitals: Period Temp Pulse Resp BP Sys/Gutierrez Pulse Ox Last 24 Hr 98.9 F-103.0 F 107-139 25-57 110-158/61-88 91-100 Results - Labs CBC & BMP: 06/04/17 04:00 06/05/17 04:42
[2017-06-05] MEDS ORDERED: POTASSIUM CHLORIDE 20 MEQ/15 ML UDCUP PER TUBE ONE (10:00)
--- NOTE | 2017-06-05 10:39 | Event Note ---
General surgery progress note Chief Complaint Patient is a 46-year-old male initially admitted with pancreatitis who underwent exploratory laparotomy for concern for abdominal compartment syndrome with drainage of pancreatic ascites on 05/22/2017. Repeat laparotomy with abdominal washout and Jtube placement 05/25/2017. Additional repeat abdominal washouts 05/27, 05/29, and 06/01 with abdominal wall closure and wound vac placement. Interval History Extubated yesterday. No events overnight. Continues on IV merrem and vancomycin. Wound vac remains intact and operational. Tmax 103. Objective: T-max 103; slight tachycardia; blood pressure stable Wound VAC in place without leak. Abdomen is soft and less distended today. Bowel sounds hypoactive. Labs reviewed blood cultures MRSA/MSSA negative Catheter tip culture no growth at 24 hrs Assessment and plan The patient is postop day #4 status post his most recent procedure as above with wound VAC in place. No surgical complications evident at this time.
--- NOTE | 2017-06-05 11:44 | Infectious Disease Progress ---
Assessment and Plan (1) Acute respiratory failure Status: Acute Current Visit: Yes (2) Hypertriglyceridemia Status: Resolved Current Visit: Yes (3) New onset type 2 diabetes mellitus Status: Chronic Current Visit: Yes (4) Pancreatitis Status: Acute Assessment and plan: Abdomen looks better and he has had progressive closure of his wound. Current Visit: Yes Qualifiers: Chronicity: acute Pancreatitis type: other (5) Renal insufficiency Status: Resolved Assessment and plan: Resolved. Currently normal on vancomycin. Current Visit: Yes (6) Fever Status: Acute Assessment and plan: Persisting fever but patient generally looking better. He has not required vasopressors. 1 of 2 blood cultures positive for gram-positive cocci, most likely contamination. Recommendations: 1. Continue vancomycin and aztreonam 2. Follow-up blood cultures. If it turns out to be staph epi then I would stop vancomycin Discussed with patient's Current Visit: Yes Infectious Disease - PN: Subj Interval history: Patient continues to be comfortable off the vent. He is a bit confused. Still with fevers of 103 last night. Both of his central lines have been removed. Infectious Disease Exam (PN) - Constitutional Vitals: Temp Pulse Resp BP Pulse Ox 99.6 F 111 H 52 H 142/68 96 06/05/17 10:27 06/05/17 11:00 06/05/17 11:00 06/05/17 11:00 06/05/17 11:00 General appearance: normal weight, no acute distress Exam: General appearance: Awake, interacting with his - Eye Eye exam: Present: EOMI. no icterus Pupils: Present: JACOB - ENT ENT exam: No oral exudates, mouth just a bit dry - Respiratory Respiratory exam: vesicular BS decreased in bases, no crepitations or wheezes - Cardiovascular Cardiovascular exam: regular rate and rhythm, no murmurs - GI/Abdominal GI/Abdominal exam: Wound VAC to midline abdominal wound which appears smaller, abdomen only mildly distended, bowel sounds heard - Extremities Exam Extremities exam: Generalized edema significantly better, resolved in upper extremities, decreasing in lower extremities and scrotum - Skin Skin exam: no rash Results - Labs CBC & BMP: 06/04/17 04:00 06/05/17 04:42 Lab Results: I have reviewed the past 24 hour labs (Gram-positive cocci in 1 of 2 sets, not staph aureus)
[2017-06-05] MEDS ORDERED: INFLUENZA VIRUS VACCINE 0.5 ML SYRINGE IM ONE (12:09)
[2017-06-05] MEDS: LORazepam 2 MG/1 ML VIAL IV PRN ×3 (12:14→23:32)
[2017-06-05] MEDS: METOPROLOL TARTRATE 25 MG TABLET PO SCH ×2 (19:23→20:13)
[2017-06-05 19:52] LABS: ABG Base Excess 6.6 MMOL/L (-2.5-2.5); ABG HCO3 30.4 MMOL/L (20-26); ABG Oxygen Saturation 95.6 % (95-100); ABG PCO2 37.9 MM HG (35-48); ABG PH 7.507 (7.35-7.45); ABG PO2 75.9 MM HG (80-95); ABG TCO2 27.5 MMOL/L (23-27); Allen Test Positive
[2017-06-05] MEDS ORDERED: SODIUM CHLORIDE 0.45% 500 ML IV ONE (20:07)
[2017-06-05] MEDS: ALBUTEROL 0.63 MG/3 ML NEB RESP TX PRN (21:10)
[2017-06-05] MEDS: ENOXAPARIN 40 MG/0.4 ML SYRINGE SUBCUT SCH (21:30)
[2017-06-05] MEDS: HYDROmorphone 2 MG/1 ML VIAL IV PRN (22:56)
[2017-06-06] MEDS: IBUPROFEN 100 MG/5 ML UDCUP PO PRN ×2 (01:42→09:54)
[2017-06-06] MEDS: INSULIN LISPRO 100 UNIT/ML SUBCUT SCH ×6 (01:42→21:07)
[2017-06-06 01:57] LABS: Basophils # 0.1 10*3/uL (0.0-0.2); Basophils % 0.4 % (0.0-0.8); Eosinophils # 0.2 10*3/uL (0.0-0.87); Eosinophils % 1.4 % (0.00-10.9); Hematocrit 30.2 VOL% (42.0-52.0); Hemoglobin 10.1 GM/DL (14.0-18.0); Immature Granulocytes % 1.1 %; Immature Granulocytes Absolute 0.15 #; Lymphocytes # 1.4 10*3/uL (1.4-4.0); Lymphocytes % 10.2 % (21.2-54.2); Mean Corpuscular HGB Conc 33.4 GM/DL (32-36); Mean Corpuscular Hemoglobin 29 PG (27-34); Mean Platelet Volume 11.1 FL (9.6-12.0); Monocytes # 1.1 10*3/uL (0.11-0.8); NRBC # 0.03 10*3/uL; Neutrophils # 10.9 10*3/uL (1.4-7.4); Neutrophils % 78.9 % (38.7-73.9); Platelet Count 334 T/CUMM (130-400); Red Blood Count 3.43 MC/CUMM (3.8-5.5); Red Cell Distribution Width 14.5 % (9.3-17.3); White Blood Count 13.8 T/CUMM (4-12)
[2017-06-06] MEDS: VANCOMYCIN INJ 1,500 MG in SODIUM CHLORIDE 0.9% 500 ML IV SCH ×3 (02:11→17:10)
[2017-06-06 05:52] LABS: Albumin 1.5 G/DL (3.4-5.0); Bilirubin,Total 0.7 MG/DL (0.2-1.0); Calcium 7.4 MG/DL (8.5-10.1); Potassium 3.9 MMOL/L (3.5-5.1)
[2017-06-06] MEDS: METOCLOPRAMIDE 10 MG/2 ML VIAL IV SCH ×4 (05:53→23:14)
[2017-06-06] MEDS: METOPROLOL TARTRATE 25 MG TABLET PO SCH ×2 (08:51→21:07)
[2017-06-06] MEDS: PANTOPRAZOLE 40 MG VIAL IV SCH (08:51)
[2017-06-06] MEDS: AZTREONAM 2,000 MG in SODIUM CHLORIDE 0.9% 50 ML IV SCH ×3 (08:52→23:14)
--- NOTE | 2017-06-06 09:04 | Event Note ---
T-max 100.3 which is better. Vital signs are stable. Abdomen is soft less distended mildly tender at the epigastrium. He has been tolerating tube feeds at goal through his J-tube. His NG tube output has been fairly high and appears to be bile tinged. There are no tube feeds in the NG aspirate. He is having bowel movements. Labs are noted and his white blood cell count has improved. Lipase slightly elevated at 656. We will continue tube feeds. Check abdominal x-ray to make sure the NG tube has not migrated to far.
[2017-06-06] MEDS: INSULIN ASPART PROTAMINE/ASPART 70/30 100 UNIT/ML SUBCUT SCH ×2 (09:48→16:13)
[2017-06-06] MEDS: INSULIN GLARGINE 100 UNIT/ML SUBCUT SCH (09:48)
[2017-06-06] MEDS: MINERAL OIL/PETROLATUM OPH OINT 3.5 GM TUBE BOTH EYES SCH ×2 (09:49→21:08)
[2017-06-06] MEDS: DESITIN 4OZ/NYSTATIN 15 GRAM MIXTURE PASTE TOP SCH ×2 (09:49→21:08)
--- NOTE | 2017-06-06 10:20 | Pulmonology Progress Note ---
Pulmonary - PN: Subj Interval history: This is a 46-year-old white male. He was admitted with severe abdominal pain and had pancreatitis due to high triglycerides. His triglycerides were over 3000. He was very ill. Eventually required surgery. He had abdominal compartment syndrome. He had renal insufficiency which is improved. He was on mechanical ventilation postop but he is now extubated and his breathing seems to be fine. He still has a lot of discomfort and he is clearly confused Chest x-ray done 06/05/2017 shows a left pleural effusion which is probably from his pancreatitis I see no infiltrates there is no evidence of congestive heart failure. Lab electrolytes normal creatinine 0.7 BUNs 20 proteins albumin and globulin 6.0 , 1.5 and 4.5 respectively. Lipase is 656 which is elevated. Vancomycin trough level which is being managed by pharmacology is dropped from 34.1-17.8. White blood cell count is 13,800 with 7910 lymphs H&H 10./30.2. Platelets 333, 000. Physical exam. Psychiatric confused Neurologic. Cranial nerves are grossly intact the patient clearly moves all 4 extremities. Vital signs. See below temp is 100.8 has been elevated for a number of days at a consistent level. Patient previously had gram-positive cocci in his blood. Face. Symmetrical. No edema. Neck. Symmetrical no meningismus. Chest reveals a faint amount of coarse large airway congestion Heart. No gallop Abdomen post surgical Extremities. No obvious deep venous thrombophlebitis. The remainder the physical exam is noncontributory Plan. 1. Continue present regimen. 2. Continue to follow present parameters Exam (Progress Note) - Constitutional Vitals: Period Temp Pulse Resp BP Sys/Gutierrez Pulse Ox Last 24 Hr 98.9 F-101.4 F 92-119 18-52 125-156/68-98 92-98 Results - Labs CBC & BMP: 06/06/17 01:24 06/06/17 04:15
--- NOTE | 2017-06-06 10:32 | XRay Report ---
XR chest 1V portable Indication: NG tube placement Comparison: 05 June 2017 at 6:50 AM Findings: Exam is centered over the lower chest and upper abdomen. NG tube is present with tip overlying the left upper quadrant. Impression: NG tube appears in appropriate x-ray position. PROCEDURE INTERPRETED AT [facility] DEPARTMENT OF RADIOLOGY Final Report Signed by: Dr. Brian Lindsey
--- NOTE | 2017-06-06 11:12 | Hospitalist Progress Note ---
Assessment and Plan (1) Pneumonia involving left lung Status: Acute Assessment and plan: Patient receiving aztreonam and vancomycin. Appears improved. Fevers have improved on vancomycin Removed central lines yesterday with tip cultures pending. 1 out of 2 blood cultures positive for gram-positive cocci - non-MRSA. Current Visit: Yes Qualifiers: Pneumonia type: due to unspecified organism Lung location: lower lobe of lung Qualified Code(s): J18.1 - Lobar pneumonia, unspecified organism (2) IDDM (insulin dependent diabetes mellitus) Status: Acute Assessment and plan: The patient has insulin-dependent diabetes mellitus related to his acute severe pancreatitis. He has been receiving IV insulin and will be transitioned to subcutaneous NovoLog. Continue Accu-Cheks and sliding scale insulin coverage every 4 hours. Blood sugars remain under 200 with subcutaneous insulin administration and Glucerna tube feeds. Reduce insulin dose to 40 units subcutaneously 2 times daily. Reduce Lantus to 30 units daily. Current Visit: Yes (3) Hypernatremia Status: Acute Assessment and plan: Continue free water flushes at 60 cc/h. Continue to monitor sodium and chloride levels. Improving with free water flushes Current Visit: Yes (4) Pancreatitis Status: Acute Assessment and plan: This is improving. Repeat lipase in a.m. Current Visit: Yes Qualifiers: Chronicity: acute Pancreatitis type: other (5) Hypertriglyceridemia Status: Resolved Assessment and plan: Continue medications. Repeat triglyceride level in a.m. Current Visit: Yes Hospitalist: Subjective Interval history: Patient seen and examined. No acute events overnight. Case discussed with nursing staff. Labs reviewed. The patient did well with sitting in the chair yesterday evening. Nurses report minimal sleep overnight. He looks and feels better this morning. Case discussed with his in the waiting room. Exam - Constitutional Vitals: Period Temp Pulse Resp BP Sys/Gutierrez Pulse Ox Last 24 Hr 98.9 F-101.4 F 92-119 18-50 125-158/77-98 92-98 Exam: Constitutional System: No distress. No tremulousness. Follows commands. More awake today. Head: Normocephalic, atraumatic. Ears, Nose and Throat System: No pain or tenderness. No epistaxis or discharge. NG tube in place Eyes System: Pupils equal, round, and reactive. Extraocular muscles intact. Neck: Supple, without adenopathy, No jugular venous distention. Respiratory System: Chest clear to auscultation. Tachypneic but improving, still has some shallow respirations. Cardiovascular System: Heart with tachycardic rate and rhythm. No murmur. GI System: Abdomen is distended with hypoactive bowel sounds. Wound VAC dressing in place Musculoskeletal System: limbs with improving edema. Full distal pulses. Normal capillary refill. Neurology: No focal neurological deficit Results - Labs CBC & BMP: 06/06/17 01:24 06/06/17 04:15 Lab Results: I have reviewed the past 24 hour labs
[2017-06-06] MEDS: diphenhydrAMINE CAP 50 MG CAPSULE PO PRN (21:07)
[2017-06-06] MEDS: ENOXAPARIN 40 MG/0.4 ML SYRINGE SUBCUT SCH (21:07)
[2017-06-07] MEDS ORDERED: MELATONIN 3 MG TABLET PO ONE (00:42)
[2017-06-07] MEDS ORDERED: DIAZEPAM 10 MG/2 ML SYRINGE IV ONE (01:53)
[2017-06-07] MEDS ORDERED: DIAZEPAM 10 MG/2 ML SYRINGE IV PRN (02:19)
[2017-06-07] MEDS: INSULIN LISPRO 100 UNIT/ML SUBCUT SCH ×6 (02:25→21:30)
[2017-06-07] MEDS: VANCOMYCIN INJ 1,500 MG in SODIUM CHLORIDE 0.9% 500 ML IV SCH ×3 (02:36→17:18)
[2017-06-07 05:12] LABS: Basophils # 0.1 10*3/uL (0.0-0.2); Basophils % 0.3 % (0.0-0.8); Eosinophils # 0.1 10*3/uL (0.0-0.87); Eosinophils % 0.7 % (0.00-10.9); Hematocrit 27.9 VOL% (42.0-52.0); Hemoglobin 9.1 GM/DL (14.0-18.0); Immature Granulocytes Absolute 0.14 #; Lymphocytes # 1.4 10*3/uL (1.4-4.0); Mean Corpuscular HGB Conc 32.6 GM/DL (32-36); Mean Corpuscular Hemoglobin 29 PG (27-34); Mean Corpuscular Volume 88.6 FL (87-102); Mean Platelet Volume 10.2 FL (9.6-12.0); Monocytes # 1.2 10*3/uL (0.11-0.8); Neutrophils # 11.5 10*3/uL (1.4-7.4); Platelet Count 586 T/CUMM (130-400); Red Blood Count 3.15 MC/CUMM (3.8-5.5); Red Cell Distribution Width 14.2 % (9.3-17.3); White Blood Count 14.4 T/CUMM (4-12)
[2017-06-07] MEDS: METOCLOPRAMIDE 10 MG/2 ML VIAL IV SCH ×4 (05:18→21:12)
[2017-06-07 05:48] LABS: Albumin 1.7 G/DL (3.4-5.0); Bilirubin,Total 0.7 MG/DL (0.2-1.0); Calcium 8.1 MG/DL (8.5-10.1); Potassium 3.6 MMOL/L (3.5-5.1); Total Protein 6.7 G/DL (6.4-8.3)
[2017-06-07] MEDS: INSULIN ASPART PROTAMINE/ASPART 70/30 100 UNIT/ML SUBCUT SCH ×2 (07:34→17:39)
[2017-06-07] MEDS: AZTREONAM 2,000 MG in SODIUM CHLORIDE 0.9% 50 ML IV SCH ×2 (07:36→14:38)
[2017-06-07] MEDS: PANTOPRAZOLE 40 MG VIAL IV SCH (08:12)
[2017-06-07] MEDS: INSULIN GLARGINE 100 UNIT/ML SUBCUT SCH (08:12)
[2017-06-07] MEDS: DESITIN 4OZ/NYSTATIN 15 GRAM MIXTURE PASTE TOP SCH ×2 (08:13→21:12)
[2017-06-07] MEDS: MINERAL OIL/PETROLATUM OPH OINT 3.5 GM TUBE BOTH EYES SCH ×2 (08:13→21:13)
[2017-06-07] MEDS: METOPROLOL TARTRATE 25 MG TABLET PO SCH ×2 (08:13→21:12)
[2017-06-07 08:56] LABS: ABG Base Excess 2.4 MMOL/L (-2.5-2.5); ABG HCO3 26.5 MMOL/L (20-26); ABG Oxygen Saturation 96.3 % (95-100); ABG PCO2 35.1 MM HG (35-48); ABG PH 7.475 (7.35-7.45); ABG PO2 84.3 MM HG (80-95); ABG TCO2 23.6 MMOL/L (23-27); Allen Test Positive
--- NOTE | 2017-06-07 09:21 | Hospitalist Progress Note ---
Assessment and Plan (1) Staphylococcus epidermidis bacteremia Status: Acute Assessment and plan: Continue vancomycin. Blood cultures and catheter tip cultures positive. Sensitive to vancomycin with DUSTIN of 2. Current Visit: Yes (2) Pneumonia involving left lung Status: Acute Assessment and plan: Patient receiving aztreonam and vancomycin. Appears improved. Fevers have improved on vancomycin Removed central lines yesterday with tip cultures pending. 1 out of 2 blood cultures positive for gram-positive cocci - non-MRSA. 06/07/17 Blood cultures and catheter tip cultures show Staphylococcus epidermidis sensitive to vancomycin with an DUSTIN of 2. Continue current antibiotic therapy. Current Visit: Yes Qualifiers: Pneumonia type: due to unspecified organism Lung location: lower lobe of lung Qualified Code(s): J18.1 - Lobar pneumonia, unspecified organism (3) IDDM (insulin dependent diabetes mellitus) Status: Acute Assessment and plan: The patient has insulin-dependent diabetes mellitus related to his acute severe pancreatitis. He has been receiving IV insulin and will be transitioned to subcutaneous NovoLog. Continue Accu-Cheks and sliding scale insulin coverage every 4 hours. Blood sugars remain under 200 with subcutaneous insulin administration and Glucerna tube feeds. Reduce insulin dose to 40 units subcutaneously 2 times daily. Reduce Lantus to 30 units daily. Current Visit: Yes (4) Pancreatitis Status: Acute Assessment and plan: This is improving. Current Visit: Yes Qualifiers: Chronicity: acute Pancreatitis type: other (5) Hypertriglyceridemia Status: Resolved Assessment and plan: Continue medications. Repeat triglyceride level in a.m. Current Visit: Yes Hospitalist: Subjective Interval history: Mr. Calloway continues to improve from his severe pancreatitis secondary to hypertriglyceridemia. His abdominal wall has been closed and he has a wound VAC in place. He is being followed by Dr. Seymour. He is tolerating tube feeds through the J-tube. He pulled out his NG tube again. His abdomen feels tense although he denies pain. He remains tachypneic. His blood cultures show Staphylococcus epidermidis in the blood and the catheter tip. It is sensitive to vancomycin with an DUSTIN of 2. His ABG was done this morning and was reviewed. I have ordered a CAT scan of the abdomen and pelvis with IV contrast. Exam - Constitutional Vitals: Period Temp Pulse Resp BP Sys/Gutierrez Pulse Ox Last 24 Hr 98.8 F-100.8 F 93-111 18-51 125-158/80-104 93-100 Exam: Constitutional System: Mild distress with tachypnea. No tremulousness. Follows commands. More awake today. Head: Normocephalic, atraumatic. Ears, Nose and Throat System: No pain or tenderness. No epistaxis or discharge. Eyes System: Pupils equal, round, and reactive. Extraocular muscles intact. Neck: Supple, without adenopathy, No jugular venous distention. Respiratory System: Chest decreased breath sounds at the bases. Tachypneic but improving, still has some shallow respirations. Cardiovascular System: Heart with tachycardic rate and rhythm. No murmur. GI System: Abdomen is distended with normal bowel sounds. Wound VAC dressing in place Musculoskeletal System: limbs with improving edema. Full distal pulses. Normal capillary refill. Neurology: No focal neurological deficit Results - Labs CBC & BMP: 06/07/17 04:14 06/07/17 04:14 Lab Results: I have reviewed the past 24 hour labs - Diagnostic Findings Procedure: CT Abdomen and Pelvis: image reviewed by me
--- NOTE | 2017-06-07 09:40 | CT Report ---
CT abdomen pelvis Indication: Abdominal pain Comparison: 24 May 2017 Technique: Axial CT imaging of the abdomen and pelvis is performed with intravenous contrast. Contrast dose is 100 cc of Omnipaque 350. And oral contrast was not used. Findings: There are small pleural effusions greater on the left and lower lung airspace densities present also greater on the left. CT abdomen: Multiple fluid collections are present around the pancreas and portions of the pancreas are not visible. Portion of the pancreatic head and a small segment of the pancreatic body are still visible. Pockets of fluid extending the superiorly and causing mass effect upon the posterior stomach. Largest pocket is estimated 9.6 x 4.5 cm. Laterally the fluid extends into the left paracolic gutter, along the left psoas and to a lesser degree the right paracolic gutter. The liver spleen and adrenal glands are normal in size and enhancement. No evidence of focal lesion is demonstrated in these solid organs. Gallbladder has been removed. Kidneys are normal in size and enhancement. No evidence of hydronephrosis or nephrolithiasis is seen. Percutaneous small bowel tube is present. There is less abdominal swelling and the midline abdominal wound is diminished in size. The bowel caliber is normal and no wall thickening or adjacent inflammatory change is seen. No evidence of free fluid or free air is present. CT pelvis: Moderate amount of free pelvic fluid is seen. The pelvic bowel appears within normal limits. Bladder shows no evidence of abnormality. The pelvic organs show no evidence of abnormality Impression: Multiple peripancreatic fluid collections as described above, the larger pockets are present posterior to the stomach and causing a mass effect upon the stomach. Portions of the pancreas are not visible suggesting pancreatic necrosis. Fluid extends bilaterally and inferiorly, more prominently on the left. This CT exam was performed using one or more the following dose reduction techniques: Automated exposure control, adjustment of the MA and/or KV according to patient size, or use of iterative reconstruction technique. PROCEDURE INTERPRETED AT [facility] DEPARTMENT OF RADIOLOGY Final Report Signed by: Dr. Brian Lindsey
--- NOTE | 2017-06-07 10:50 | Event Note ---
T-max 100.2 vital signs stable. Overall fever curve improving. He is tolerating tube feeds through his J-tube at goal. He is having bowel movements. He appeared more distended today which prompted a CT scan. He says he is feeling better. On exam his abdomen is soft distended with a wound VAC in place with some serosanguineous output. He is mildly tender globally but no peritoneal signs. White blood cell count is slightly elevated at 14.4. He had staph epidermidis bacteremia which grew on his HD catheter tip is well. He is being treated for that with vancomycin. CT scan images reviewed. All consistent with severe pancreatitis, probable some pancreatic necrosis with peripancreatic fluid collections but no evidence of infection. Recommend continuing antibiotics. No plans for pancreatic necrosectomy unless the pancreas or fluid collections become infected.
--- NOTE | 2017-06-07 11:06 | Pulmonology Progress Note ---
Pulmonary - PN: Subj Interval history: This is a 46-year-old white male. He was admitted with severe abdominal pain and had pancreatitis due to high triglycerides. His triglycerides were over 3000. He was very ill. Eventually required surgery. He had abdominal compartment syndrome. He had renal insufficiency which is improved. He was on mechanical ventilation postop but he is now extubated and his breathing seems to be fine. He still has a lot of discomfort and he is clearly confused Chest x-ray done 06/05/2017 shows a left pleural effusion which is probably from his pancreatitis I see no infiltrates there is no evidence of congestive heart failure. Lab electrolytes normal creatinine 0.7 BUNs 20 proteins albumin and globulin 6.0 , 1.5 and 4.5 respectively. Lipase is 656 which is elevated. Vancomycin trough level which is being managed by pharmacology is dropped from 34.1-17.8. White blood cell count is 13,800 with 7910 lymphs H&H 10.10/06.2. Platelets 333, 000. 06/07/2017. This patient looks better to me from a pulmonary standpoint today. He did not have a chest x-ray. He has had a CT of the abdomen and pelvis. There are large pockets of fluid present and some of these are causing the mass- effect upon the stomach. Portions of the pancreas were not visible and Dr. Lindsey noted that this suggested pancreatic necrosis. Fluid extends bilaterally inferiorly and is more prominent on the left. ABGs on FiO2 36% shows a pH 7.47, PCO2 35, PO2 of 84, bicarb 26.5. Electrolytes are normal. Creatinine 0.7 with a BUN of 17. Liver function tests are close to normal. Vancomycin trough level which is being managed by pharmacology is 22.2.. Physical exam. Psychiatric confused Neurologic. Cranial nerves are grossly intact the patient clearly moves all 4 extremities. Vital signs. See below temp is 100.8 has been elevated for a number of days at a consistent level. Patient previously had gram-positive cocci in his blood. Face. Symmetrical. No edema. Neck. Symmetrical no meningismus. Chest reveals a faint amount of coarse large airway congestion Heart. No gallop Abdomen post surgical Extremities. No obvious deep venous thrombophlebitis. The remainder the physical exam is noncontributory Plan. 06/06/2017 1. Continue present regimen. 2. Continue to follow present parameters 06/07/2017. 1. See today's note above 2. See CT of abdomen and pelvis. 3. No new orders today Exam (Progress Note) - Constitutional Vitals: Period Temp Pulse Resp BP Sys/Gutierrez Pulse Ox Last 24 Hr 98.8 F-100.2 F 93-111 18-51 125-158/80-104 93-100 Results - Labs CBC & BMP: 06/07/17 04:14 06/07/17 04:14
--- NOTE | 2017-06-07 15:16 | Event Note ---
I had a one-hour conference with the family regarding the transfer of Mr. Calloway to [facility] for further evaluation of his peripancreatic fluid collections. I spoke with Dr. Rockwell, the on-call physician for the intensive care unit at [facility]. We discussed the case at length. He felt that the patient would be best served on the gastroenterology service on the regular floor. The transfer the patient to a regular floor bed, he would have to be on our medical surgical floor for 24 hours prior to transfer. The family and I do not believe that transferring him out of the ICU is in his best interest at this time. They have asked for an interventional radiology consultation in the morning for evaluation of drainage of his peripancreatic fluid collections.
[2017-06-07] MEDS: ONDANSETRON 4 MG/2 ML VIAL IV PRN (17:19)
[2017-06-07] MEDS: HYDROmorphone 2 MG/1 ML VIAL IV PRN ×2 (17:20→21:12)
[2017-06-07] MEDS: diphenhydrAMINE CAP 50 MG CAPSULE PO PRN (21:12)
[2017-06-07] MEDS: ENOXAPARIN 40 MG/0.4 ML SYRINGE SUBCUT SCH (21:12)
[2017-06-08] MEDS: AZTREONAM 2,000 MG in SODIUM CHLORIDE 0.9% 50 ML IV SCH ×4 (00:30→22:32)
[2017-06-08] MEDS: VANCOMYCIN INJ 1,500 MG in SODIUM CHLORIDE 0.9% 500 ML IV SCH ×3 (02:55→17:31)
[2017-06-08] MEDS: INSULIN LISPRO 100 UNIT/ML SUBCUT SCH ×6 (03:10→21:03)
[2017-06-08] MEDS: HYDROmorphone 2 MG/1 ML VIAL IV PRN ×5 (03:30→23:14)
[2017-06-08 05:49] LABS: Basophils # 0.1 10*3/uL (0.0-0.2); Basophils % 0.4 % (0.0-0.8); Eosinophils # 0.3 10*3/uL (0.0-0.87); Hematocrit 27.8 VOL% (42.0-52.0); Hemoglobin 8.7 GM/DL (14.0-18.0); Immature Granulocytes % 1.4 %; Immature Granulocytes Absolute 0.23 #; Lymphocytes # 1.5 10*3/uL (1.4-4.0); Lymphocytes % 9.2 % (21.2-54.2); Mean Corpuscular HGB Conc 31.3 GM/DL (32-36); Mean Corpuscular Hemoglobin 28 PG (27-34); Mean Corpuscular Volume 89.7 FL (87-102); Mean Platelet Volume 9.8 FL (9.6-12.0); Monocytes # 1.4 10*3/uL (0.11-0.8); Monocytes % 8.6 % (1.7-12.7); Neutrophils # 12.7 10*3/uL (1.4-7.4); Neutrophils % 78.4 % (38.7-73.9); Platelet Count 618 T/CUMM (130-400); Red Cell Distribution Width 14.4 % (9.3-17.3); White Blood Count 16.2 T/CUMM (4-12)
[2017-06-08 06:16] LABS: Calcium 7.5 MG/DL (8.5-10.1); Magnesium 2.5 MG/DL (1.8-2.4); Osmolality,Calculated 285.4 MOS/KG (273-304); Potassium 4.3 MMOL/L (3.5-5.1)
[2017-06-08 06:24] LABS: Magnesium 2.5 MG/DL (1.8-2.4); Prealbumin 7.5 MG/DL (20-40)
[2017-06-08] MEDS: METOCLOPRAMIDE 10 MG/2 ML VIAL IV SCH ×3 (06:44→21:03)
--- NOTE | 2017-06-08 07:54 | Pulmonology Progress Note ---
Pulmonary - PN: Subj Interval history: The patient is a 46-year-old white man that has very severe pancreatitis from hypertriglyceridemia. He was found to be a diabetic recently and had very high lipids. He came in with abdominal pain and acute pancreatitis. He has been very ill but seems to be improving now. He had a compartment syndrome with the renal failure and had exploratory lap last week. He has gone back to surgery several times and still has an open abdomen with wound VAC in place. He has been stable off the ventilator all weekend and is more alert. He says he is thirsty now. He is not having that much abdominal pain. On his CT he apparently has collections of fluid. He is going to have a needle aspiration of the fluid today. Otherwise he seems to be stable. Exam (Progress Note) - Constitutional Vitals: Period Temp Pulse Resp BP Sys/Gutierrez Pulse Ox Last 24 Hr 97.3 F-99.6 F 92-114 18-47 122-159/70-101 88-98 Exam: General appearance: normal weight, other (Patient is restless and confused at times. He still has a low-grade fever.) Head exam: Present: normal inspection, normocephalic - Eye Eye exam: Present: EOMI. Absent: scleral icterus Pupils: Present: JACOB - ENT ENT exam: Present: normal exam, - Neck Neck exam: Absent: lymphadenopathy, thyromegaly - Respiratory Respiratory exam: Present: His lungs have good breath sounds bilaterally and his lungs are still reasonably clear now. - Cardiovascular Cardiovascular exam: Present: regular rate and rhythm. Absent: gallop, systolic murmur - GI/Abdominal GI/Abdominal exam: Present: His abdomen is less distended and appears to be softer and still has a wound VAC in place. He still has an open wound. - Extremities Exam Extremities exam: Absent: calf tenderness, edema, he has no signs of phlebitis. - Neurological Exam Neurological exam: Present: other (Patient is responding better and is much more alert.) - Skin Skin exam: Present: warm, dry Results - Labs CBC & BMP: 06/08/17 05:00 06/08/17 05:00 - Diagnostic Findings Procedure: Chest x-ray: image reviewed by me, report reviewed by me (Chest x- ray has been stable with minimal atelectasis left base) Assessment and Plan (1) Hypertriglyceridemia Status: Resolved Assessment and plan: Patient has severe hypertriglyceridemia which likely precipitated his pancreatitis. His triglycerides are now down to 121. Current Visit: Yes (2) Acute respiratory failure Status: Acute Assessment and plan: The patient has done okay off the ventilator. His breathing is much better and is comfortable. His O2 saturations have been okay. Current Visit: Yes (3) Pancreatitis Status: Acute Assessment and plan: Patient has severe pancreatitis and now has an abdomen opened. He has a wound VAC in place. He will have a needle aspiration of fluid collection near his pancreas. Otherwise he is fairly stable. Current Visit: Yes Qualifiers: Chronicity: acute Pancreatitis type: other (4) New onset type 2 diabetes mellitus Status: Chronic Assessment and plan: The patient has been found to be a diabetic and his glucoses are better at this point. His glucose was 174 today. He is getting insulin infusion. Current Visit: Yes (5) Renal insufficiency Status: Resolved Assessment and plan: His creatinine is 0.7 today. He has had good urine output. Current Visit: Yes
[2017-06-08] MEDS: INSULIN ASPART PROTAMINE/ASPART 70/30 100 UNIT/ML SUBCUT SCH ×2 (08:03→16:05)
[2017-06-08] MEDS: PANTOPRAZOLE 40 MG VIAL IV SCH (08:04)
[2017-06-08] MEDS: METOPROLOL TARTRATE 25 MG TABLET PO SCH ×2 (08:04→21:03)
[2017-06-08] MEDS: MINERAL OIL/PETROLATUM OPH OINT 3.5 GM TUBE BOTH EYES SCH ×2 (09:45→21:07)
[2017-06-08] MEDS: INSULIN GLARGINE 100 UNIT/ML SUBCUT SCH (09:45)
--- NOTE | 2017-06-08 09:45 | Gastrointestinal Progress Note ---
<HiteshGenie Anish - Last Filed: 06/08/17 09:40> Assessment and Plan (1) Pancreatitis Status: Acute Assessment and plan: 06/08-events of the weekend noted. CT findings on yesterday noted as well. Afebrile at 99.6 last night. Continue to monitor present time. IR consult is noted. Plan an addendum to follow Dr. Christensen. 06/05-extubated and stable at present time. Continues with fever of 100.9. ID following. Plan an addendum to follow Dr. Christensen. 06/03-tolerating tube feedings. Lipase level is elevated today at 413. Continues to be febrile however WBCs down today. Her extubation later this morning. Plan an addendum to follow Dr. Christensen. 06/01-continues tolerate tube feedings. Events noted as below. Continue to monitor this time. Plan an addendum to followed by Dr. Christensen. 05/29-tolerating tube feedings. Labs noted as below. Continue to monitor present time. Plan an addendum to followed by Dr. Christensen 05/28-continues to tolerate his tube feedings. Findings noted as below. Continue to monitor present time. Plan an addendum to followed by Dr. Christensen. 05/27-tolerating tube feedings. Postop from partial abdominal wound closure. Lab values noted as below. Plan an addendum to followed by Dr. Christensen. 05/26-no changes noted as below. Tolerating tube feedings at present time. Plan an addendum to followed by Dr. Christensen. 05/25-postop reopened laparotomy. Labs noted as below. Hemodynamically stable at present time. Jejunostomy tube placed today and to start feedings tomorrow. Plan an addendum to followed by Dr. Christensen. 05/22-series of events noted as below. Patient continue with aggressive management for his multiple system organ failure at this time. To begin dialysis. Continue to monitor present time. Plan an addendum to followed by Dr. Christensen. 05/21-sudden onset of abdominal pain with intractable nausea and vomiting, with findings of elevated lipase and CT findings of pancreatitis. No prior history of pancreatitis. History of laparoscopic cholecystectomy with cholelithiasis. New onset diabetes with hemoglobin A1c of 9.8. Elevated lactic acid at 6.1. Continue NPO and IV fluids. Abdominal US this morning. Plan and addendum to follow by Dr Christensen. Current Visit: Yes Qualifiers: Chronicity: acute Pancreatitis type: other Gastroenterology - PN: Subj Interval history: CC: Pancreatitis Patient is seen, resting in bed. He is more alert however does fall asleep during visit. Events over the weekend reviewed. Patient reportedly has pulled his NG tube out and this has been left out at this time. He has continued tube feedings which he appears to be tolerating. He is denying any abdominal pain at this time. CT of the abdomen was repeated on yesterday with multiple peripancreatic fluid collections with larger pockets and posterior stomach causing mass-effect and portions of pancreas nonvisible suggesting necrosis. On interventional radiology consult has been placed on yesterday by Dr. Noel. Noted also regarding family's concern in transferring patient to [facility] however patient is unable to be transferred to this facility until he has been out of the ICU for over 24 hours and stable. Decision at this time noted to keep patient in ICU for further observation and continued to be managed by her surgeons. WBCs at 16,000 with low-grade fever overnight at 99.6. He remained stable off ventilator although at times tachypneic. Wound VAC is in place. ROS: Denies shortness of breath or chest pain Exam (Progress Note) - Constitutional Vitals: Period Temp Pulse Resp BP Sys/Gutierrez Pulse Ox Last 24 Hr 97.3 F-99.6 F 92-114 18-47 111-159/70-101 88-98 General appearance: normal weight, no acute distress - Head Head exam: Present: normal inspection, normocephalic - Eye Eye exam: Present: other (Lids and conjunctivae are unremarkable). Absent: scleral icterus - ENT ENT exam: Present: normal exam, normal oropharynx - Neck Neck exam: Present: normal inspection - Respiratory Respiratory exam: Present: clear to auscultation bilaterally. Absent: rales, rhonchi, wheezes - Cardiovascular Cardiovascular exam: Present: regular rate and rhythm. Absent: diastolic murmur , JVD, systolic murmur - GI/Abdominal GI/Abdominal exam: Present: normal bowel sounds, soft. Absent: ascites, distended, mass, organomegaly, tenderness - Extremities Exam Extremities exam: Present: normal inspection, full ROM - Back Exam Back exam: Present: normal inspection - Neurological Exam Neurological exam: Present: alert, altered - Psychiatric Psychiatric exam: Present: normal affect, normal mood - Skin Skin exam: Present: normal color, warm, dry Results - Labs CBC & BMP: 06/08/17 05:00 06/08/17 05:00 Lab Results: I have reviewed the past 24 hour labs - Diagnostic Findings Procedure: CT Abdomen and Pelvis: report reviewed by me <Alan Christensen - Last Filed: 06/08/17 22:30> Exam (Progress Note) - Constitutional Vitals: Period Temp Pulse Resp BP Sys/Gutierrez Pulse Ox Last 24 Hr 97.9 F-99.5 F 94-114 21-43 111-158/66-99 88-97 Results - Labs CBC & BMP: 06/08/17 05:00 06/08/17 05:00
[2017-06-08] MEDS: DESITIN 4OZ/NYSTATIN 15 GRAM MIXTURE PASTE TOP SCH ×2 (09:46→21:07)
--- NOTE | 2017-06-08 11:08 | Event Note ---
Chief Complaint Patient is a 46-year-old male initially admitted with pancreatitis who underwent exploratory laparotomy for concern for abdominal compartment syndrome with drainage of pancreatic ascites on 05/22/2017. Repeat laparotomy with abdominal washout and Jtube placement 05/25/2017. Additional repeat abdominal washouts 05/27, 05/29, and 06/01 with abdominal wall closure and wound vac placement. Interval History No events overnight. Continues on IV aztreonam and vancomycin per ID. Wound vac remains intact and operational without leak. Tmax 99.5 overnight. Tolerating tube feeds via J tube Objective: T-max 99.5; slight tachycardia; tachyneic; blood pressure stable Wound VAC in place without leak. J-tube without local evidence of infection. Abdomen is soft and less distended today; nontender throughout. Bowel sounds hypoactive. Labs reviewed CBC: WBC: 16.2, hgb 8.7, hct 27.8, plt 618 06/04/2017 Blood cultures: staph epidermis (MRSE) 06/04/2017 Catheter tip culture: staph epidermis (MRSE) Assessment and plan Wound VAC in place will be changed today. Slight increase in leukocytosis, but his fever curve has improved. Bacteremia noted as above. Abdomen is completely nontender; no surgical complications evident at this time. The case was discussed with Drs. Lopez and Kirit -from a surgical standpoint, would not recommend fluid drainage unless there is convincing evidence of infection.
--- NOTE | 2017-06-08 11:26 | Hospitalist Progress Note ---
Assessment and Plan (1) Pancreatitis Status: Acute Assessment and plan: 1)Pancreatitis- pain improved, tolerating tube feeds at goal but complains of dry mouth. Repeat CT over the weekend showed multiple pancreatic fluid collections with pockets causing mass effect on stomach, with portions of pancreas not visible suggesting necrosis. Dr Lopez recommends that we not try to drain the fluid as that increases risk that it will become infected. Anticipate repeat CT in a few days to reassess. monitor WBC, fever curve. Continue in ICU for now, reassess move to floor room over the next few days. 2)staph epi bacteremia- on vanc, Dr Murry- Ethan managing this . 3)pneumonia in left lung- on aztreonam and vanc. Afebrile. WBC now 16,000 4)hypertriglyceridemia- continue meds. Current Visit: Yes Qualifiers: Chronicity: acute Pancreatitis type: other (2) Hypertriglyceridemia Status: Resolved Current Visit: Yes (3) IDDM (insulin dependent diabetes mellitus) Status: Acute Current Visit: Yes (4) Pneumonia involving left lung Status: Acute Current Visit: Yes Qualifiers: Pneumonia type: due to unspecified organism Lung location: lower lobe of lung Qualified Code(s): J18.1 - Lobar pneumonia, unspecified organism (5) Staphylococcus epidermidis bacteremia Status: Acute Current Visit: Yes Hospitalist: Subjective Interval history: Mr Batista is doing well this morning, though he expressed frustration with not being able to do anything about the pancreatitis. I also spoke with his and father who provided context for the question of transfer to [facility]. They do not want him out of ICU at this point so they understand he can not go to [facility] to the ICU. Exam - Constitutional Vitals: Period Temp Pulse Resp BP Sys/Gutierrez Pulse Ox Last 24 Hr 97.3 F-99.6 F 92-114 18-47 111-159/70-100 88-98 General appearance: no acute distress, over weight - Eye Eye exam: Present: EOMI. Absent: scleral icterus - Respiratory Respiratory exam: Present: rales (few at bases, otherwise clear) - Cardiovascular Cardiovascular exam: Present: regular rate and rhythm - GI/Abdominal GI/Abdominal exam: Present: normal bowel sounds, soft - Extremities Exam Extremities exam: Absent: edema - Neurological Exam Neurological exam: Present: alert, oriented X3 - Skin Skin exam: Present: warm, dry Results - Labs CBC & BMP: 06/08/17 05:00 06/08/17 05:00 Lab Results: I have reviewed the past 24 hour labs
--- NOTE | 2017-06-08 11:32 | Event Note ---
I was unaware that the request for drainage had been canceled. However, I discussed with the patient that drainage catheter placement is not indicated at this time. Placement of drainage catheters into peripancreatic collections are fraught with complications and would only be considered in extreme circumstances. Thank you for the consult.
--- NOTE | 2017-06-08 11:48 | Infectious Disease Progress ---
Assessment and Plan (1) Acute respiratory failure Status: Acute Current Visit: Yes (2) Hypertriglyceridemia Status: Resolved Current Visit: Yes (3) New onset type 2 diabetes mellitus Status: Chronic Current Visit: Yes (4) Pancreatitis Status: Acute Assessment and plan: He has significant fluid collections about the pancreas, possibly inflammatory versus infectious. He is now defervesced for the past 48 hours. Recommendations: I am likely with aztreonam in case we are dealing with infection about the pancreas. Apparently patient may be transferred to [facility]. Current Visit: Yes Qualifiers: Chronicity: acute Pancreatitis type: other (5) Renal insufficiency Status: Resolved Current Visit: Yes (6) Fever Status: Acute Assessment and plan: Patient had very prolonged fever but has finally defervesced, possibly in response removal of central lines. He did have 1 of 2 cultures positive for MRSE on 2 different occasions, and a positive catheter tip culture for the same organism. This may still be contamination however had to say that the patient did not defervesce in response to the vancomycin added late last week. Recommendations: 1. I am going to complete a two-week treatment course of vancomycin, that is 2 weeks from date of negative cultures. The DUSTIN was 2 however the patient seems to have responded with defervesced, therefore I will not change vancomycin. 2. Continue aztreonam as well 3. Repeat blood cultures again today Discussed with patient's Discussed with Dr. Beth Current Visit: Yes Infectious Disease - PN: Subj Interval history: Patient remains comfortable off the vent. He has been afebrile now for about 48 hours. His mentation is improving, he is asking for something to drink. Continues to be n.p.o. and getting J-tube feedings. Infectious Disease Exam (PN) - Constitutional Vitals: Temp Pulse Resp BP Pulse Ox 98.1 F 99 H 34 H 122/71 97 06/08/17 07:00 06/08/17 10:00 06/08/17 10:00 06/08/17 10:00 06/08/17 10:00 General appearance: no acute distress, over weight Exam: General appearance: Awake, conversant, relatively comfortable - Eye Eye exam: Present: EOMI. no icterus Pupils: Present: JACOB - ENT ENT exam: No oral exudates, mouth dry - Respiratory Respiratory exam: vesicular BS decreased in bases, no crepitations or wheezes - Cardiovascular Cardiovascular exam: regular rate and rhythm, no murmurs - GI/Abdominal GI/Abdominal exam: Wound VAC to midline abdominal wound, abdomen less distended , bowel sounds heard - Extremities Exam Extremities exam: Still with bilateral lower extremity edema - Skin Skin exam: no rash Results - Labs CBC & BMP: 06/08/17 05:00 06/08/17 05:00 Lab Results: I have reviewed the past 24 hour labs (MRSE in 1 of 2 sets of blood cultures, on 2 different occasions. Catheter tip positive for MRSE) - Diagnostic Findings Procedure: Chest x-ray: image reviewed by me, report reviewed by me, CT Abdomen and Pelvis: image reviewed by me, report reviewed by me (Multiple fluid collections and pancreas with mass-effect, no significant infiltrate visualized portions of lung bases)
[2017-06-08] MEDS: ENOXAPARIN 40 MG/0.4 ML SYRINGE SUBCUT SCH (21:03)
[2017-06-08] MEDS: diphenhydrAMINE CAP 50 MG CAPSULE PO PRN (21:03)
[2017-06-08] MEDS: ALBUTEROL 0.63 MG/3 ML NEB RESP TX PRN (22:41)
[2017-06-09] MEDS: VANCOMYCIN INJ 1,500 MG in SODIUM CHLORIDE 0.9% 500 ML IV SCH ×3 (01:31→18:11)
[2017-06-09] MEDS: INSULIN LISPRO 100 UNIT/ML SUBCUT SCH ×6 (01:33→21:24)
[2017-06-09] MEDS: ACETAMINOPHEN 325 MG/10.15 ML UDCUP PO PRN ×2 (01:42→19:15)
[2017-06-09] MEDS: HYDROmorphone 2 MG/1 ML VIAL IV PRN ×7 (02:26→23:54)
[2017-06-09] MEDS: METOCLOPRAMIDE 10 MG/2 ML VIAL IV SCH ×3 (05:39→21:23)
--- NOTE | 2017-06-09 07:21 | Pulmonology Progress Note ---
Pulmonary - PN: Subj Interval history: The patient is a 46-year-old white man that has very severe pancreatitis from hypertriglyceridemia. He was found to be a diabetic recently and had very high lipids. He came in with abdominal pain and acute pancreatitis. He has been very ill but seems to be improving now. He had a compartment syndrome with the renal failure and had exploratory lap last week. He has gone back to surgery several times and still has an open abdomen with wound VAC in place. He has been stable off the ventilator all weekend and is more alert. He says he is thirsty now. He is not having that much abdominal pain. On his CT he apparently has collections of fluid. He says his abdomen is feeling better however. He is tolerating some feedings in his jejunum. He says he still thirsty and hungry. He is not having any trouble with his breathing now. His fever is much better also Exam (Progress Note) - Constitutional Vitals: Period Temp Pulse Resp BP Sys/Gutierrez Pulse Ox Last 24 Hr 97.9 F-101.2 F 94-106 19-39 111-160/66-92 91-100 Exam: General appearance: normal weight, other (Patient is alert and comfortable and looks much better now.) Head exam: Present: normal inspection, normocephalic - Eye Eye exam: Present: EOMI. Absent: scleral icterus Pupils: Present: JACOB - ENT ENT exam: Present: normal exam, - Neck Neck exam: Absent: lymphadenopathy, thyromegaly - Respiratory Respiratory exam: Present: His lungs have good breath sounds bilaterally and is moving air well without any wheezing or rales. - Cardiovascular Cardiovascular exam: Present: regular rate and rhythm. Absent: gallop, systolic murmur - GI/Abdominal GI/Abdominal exam: Present: His abdomen is less distended and appears to be softer and still has a wound VAC in place. He still has an open wound. - Extremities Exam Extremities exam: Absent: calf tenderness, edema, he has no signs of phlebitis. - Neurological Exam Neurological exam: Present: other (Patient is responding better and is much more alert. He does look much more comfortable today.) - Skin Skin exam: Present: warm, dry Results - Labs CBC & BMP: 06/08/17 05:00 06/08/17 05:00 Assessment and Plan (1) Hypertriglyceridemia Status: Resolved Assessment and plan: Patient has severe hypertriglyceridemia which likely precipitated his pancreatitis. His triglycerides are now down to 121. Current Visit: Yes (2) Acute respiratory failure Status: Resolved Assessment and plan: The patient has done okay off the ventilator. His breathing is much better and is comfortable. His O2 saturations have been okay. Overall his respiratory status is much better. Current Visit: Yes (3) Pancreatitis Status: Acute Assessment and plan: Patient has severe pancreatitis and now has an abdomen opened. He has a wound VAC in place. He is tolerating some tube feedings and seems to be stable now. Current Visit: Yes Qualifiers: Chronicity: acute Pancreatitis type: other (4) New onset type 2 diabetes mellitus Status: Chronic Assessment and plan: The patient has been found to be a diabetic and his glucoses are better at this point. His glucose was 120 today. His insulin has been adjusted. Current Visit: Yes (5) Renal insufficiency Status: Resolved Assessment and plan: His creatinine is 0.7 today. He has had good urine output. Current Visit: Yes
[2017-06-09] MEDS: AZTREONAM 2,000 MG in SODIUM CHLORIDE 0.9% 50 ML IV SCH ×3 (07:42→22:45)
[2017-06-09] MEDS: INSULIN ASPART PROTAMINE/ASPART 70/30 100 UNIT/ML SUBCUT SCH ×2 (07:42→16:55)
[2017-06-09] MEDS: INSULIN GLARGINE 100 UNIT/ML SUBCUT SCH (08:47)
[2017-06-09] MEDS: PANTOPRAZOLE 40 MG VIAL IV SCH (08:47)
[2017-06-09] MEDS: MINERAL OIL/PETROLATUM OPH OINT 3.5 GM TUBE BOTH EYES SCH ×2 (08:48→21:23)
[2017-06-09] MEDS: METOPROLOL TARTRATE 25 MG TABLET PO SCH ×2 (08:48→21:22)
[2017-06-09] MEDS: DESITIN 4OZ/NYSTATIN 15 GRAM MIXTURE PASTE TOP SCH ×2 (08:48→21:24)
[2017-06-09] MEDS: IBUPROFEN 100 MG/5 ML UDCUP PO PRN ×2 (09:30→23:53)
--- NOTE | 2017-06-09 10:43 | Event Note ---
Chief Complaint Patient is a 46-year-old male initially admitted with pancreatitis who underwent exploratory laparotomy for concern for abdominal compartment syndrome with drainage of pancreatic ascites on 05/22/2017. Repeat laparotomy with abdominal washout and Jtube placement 05/25/2017. Additional repeat abdominal washouts 05/27, 05/29, and 06/01 with abdominal wall closure and wound vac placement. Interval History No events overnight. Continues on IV aztreonam and vancomycin per ID. Wound vac remains intact and operational without leak. Tmax 101.2 overnight, but overall fever curve improved. Tolerating tube feeds via J tube. Requesting fluids for oral intake. Objective: T-max 101.2; slight tachycardia; tachyneic; blood pressure stable Wound VAC in place without leak. J-tube without local evidence of infection. Abdomen is soft and less distended today; nontender throughout. Bowel sounds hypoactive. Labs No new labs today Repeat blood cultures pending drawn 06/08/2017 06/04/2017 Blood cultures: staph epidermis (MRSE) 06/04/2017 Catheter tip culture: staph epidermis (MRSE) Assessment and plan Wound VAC in place was changed yesterday. Spiked fever overnight, but overall curve has improved. Bacteremia noted as above. Abdomen is completely nontender ; no surgical complications evident at this time. No evidence of surgical complications at this time. Will trial clear liquid diet.
--- NOTE | 2017-06-09 11:45 | Hospitalist Progress Note ---
Assessment and Plan (1) Pancreatitis Status: Acute Assessment and plan: 1)Pancreatitis- pain improved, tolerating tube feeds at goal but complains of dry mouth. Repeat CT over the weekend showed multiple pancreatic fluid collections with pockets causing mass effect on stomach, with portions of pancreas not visible suggesting necrosis. Dr Lopez recommends that we not try to drain the fluid as that increases risk that it will become infected. Anticipate repeat CT in a few days to reassess. Now febrile again to 101.2- on vanc and aztreonam per ID to cover abdominal infection as well as the MRSE that grew from BCx and catheter tip. repeat CBC this morning. Repeat CXR. Continue in ICU for now, reassess move to floor room over the next few days. 2)staph epi bacteremia- on vanc, Dr Mike Long managing this . 3)hypertriglyceridemia- continue meds. 4)renal- UOP good, creatinine 0.7 yesterday. repeat chemistry now. Current Visit: Yes Qualifiers: Chronicity: acute Pancreatitis type: other (2) Hypertriglyceridemia Status: Resolved Current Visit: Yes (3) IDDM (insulin dependent diabetes mellitus) Status: Acute Current Visit: Yes (4) Pneumonia involving left lung Status: Acute Current Visit: Yes Qualifiers: Pneumonia type: due to unspecified organism Lung location: lower lobe of lung Qualified Code(s): J18.1 - Lobar pneumonia, unspecified organism (5) Staphylococcus epidermidis bacteremia Status: Acute Current Visit: Yes Hospitalist: Subjective Interval history: Mr Batista is awake and alert and wants something to drink. He is feeling better he says and denies shortness of breath or nausea or vomiting. He has had some pain at his incision since the wound vac was changed yesterday and has asked for pain meds a couple of times. He had temp to 101.2 at 1:45 this morning and again at 8Am. He was afebrile on Jun [address] Francisco has seen him this morning. He was able to get up to chair yesterday and has demonstrated more strength than previously with therapy. I also spoke to his and father. Exam - Constitutional Vitals: Period Temp Pulse Resp BP Sys/Gutierrez Pulse Ox Last 24 Hr 97.9 F-101.2 F 87-109 19-39 111-160/66-95 91-100 General appearance: no acute distress, over weight - Head Head exam: Present: other (mouth dry) - Eye Eye exam: Present: EOMI. Absent: scleral icterus - Respiratory Respiratory exam: Present: clear to auscultation bilaterally - Cardiovascular Cardiovascular exam: Present: regular rate and rhythm - GI/Abdominal GI/Abdominal exam: Present: normal bowel sounds, distended. Absent: tenderness - Extremities Exam Extremities exam: Absent: edema - Neurological Exam Neurological exam: Present: alert, oriented X3 Results - Labs CBC & BMP: 06/08/17 05:00 06/08/17 05:00
--- NOTE | 2017-06-09 13:07 | XRay Report ---
Exam: XR chest 1V portable Indication: Fever Comparison study: Prior chest radiograph dated 06/06/2017 Findings: Similar prominence of the cortex silhouette and perihilar opacities with slight increased airspace opacities and probable pleural effusion within the left lower chest. No pneumothorax. Osseous structures are stable. Impression: Slight worsening of airspace disease in the left lung base may represent atelectasis or developing infectious/inflammatory infiltrate and small to moderate pleural effusion. PROCEDURE INTERPRETED AT [facility] DEPARTMENT OF RADIOLOGY Final Report Signed by: Lisandro Ozuna
[2017-06-09 13:15] LABS: Basophils % 0.2 % (0.0-0.8); Eosinophils # 0.3 10*3/uL (0.0-0.87); Eosinophils % 2.3 % (0.00-10.9); Hematocrit 25.7 VOL% (42.0-52.0); Hemoglobin 8.3 GM/DL (14.0-18.0); Immature Granulocytes Absolute 0.14 #; Lymphocytes # 1.4 10*3/uL (1.4-4.0); Lymphocytes % 10.1 % (21.2-54.2); Mean Corpuscular HGB Conc 32.3 GM/DL (32-36); Mean Corpuscular Hemoglobin 29 PG (27-34); Mean Corpuscular Volume 88.9 FL (87-102); Mean Platelet Volume 9.7 FL (9.6-12.0); Monocytes # 1.3 10*3/uL (0.11-0.8); Monocytes % 9.8 % (1.7-12.7); Neutrophils # 10.4 10*3/uL (1.4-7.4); Neutrophils % 76.6 % (38.7-73.9); Platelet Count 565 T/CUMM (130-400); Red Blood Count 2.89 MC/CUMM (3.8-5.5); Red Cell Distribution Width 14.2 % (9.3-17.3); White Blood Count 13.6 T/CUMM (4-12)
[2017-06-09 13:54] LABS: Alanine Aminotransferase 26 U/L (16-61); Albumin 1.4 G/DL (3.4-5.0); Alkaline Phosphatase 82 U/L (45-117); Aspartate Amino Transferase 37 U/L (0-37); Bilirubin,Total < 0.39 MG/DL (0.2-1.0); Blood Urea Nitrogen 17 MG/DL (7-18); Calcium 7.7 MG/DL (8.5-10.1); Glucose 55 MG/DL (74-106); Osmolality,Calculated 276.5 MOS/KG (273-304); Potassium 3.8 MMOL/L (3.5-5.1); Sodium 139 MMOL/L (136-145); Total Protein 6.2 G/DL (6.4-8.3)
[2017-06-09] MEDS: DEXTROSE 50% 25 GM/50 ML SYRINGE IV PRN (14:10)
--- NOTE | 2017-06-09 15:18 | Infectious Disease Progress ---
Assessment and Plan (1) Acute respiratory failure Status: Resolved Current Visit: Yes (2) Hypertriglyceridemia Status: Resolved Current Visit: Yes (3) New onset type 2 diabetes mellitus Status: Chronic Current Visit: Yes (4) Pancreatitis Status: Acute Assessment and plan: He has significant fluid collections about the pancreas, possibly inflammatory versus infectious. He had defervesced but fever has come back once again.. Recommendations: Continue vancomycin and aztreonam and follow-up repeat blood cultures from today. Current Visit: Yes Qualifiers: Chronicity: acute Pancreatitis type: other (5) Renal insufficiency Status: Resolved Current Visit: Yes (6) Fever Status: Acute Assessment and plan: Fever is back but patient looks great. Suspect cause is related to the pancreatic fluid collections. Recommendations: Continue current antibiotics and follow-up latest blood cultures Current Visit: Yes Infectious Disease - PN: Subj Interval history: Patient said he felt great when I saw him this morning, this is in spite of the fact that he started spiking fever again overnight to 101 and then again this morning to 101. Denies abdominal pain and nausea. Continues to tolerate G- tube feedings. Had a large soft stool but has not gone more than 3 times in a 24 hours. Infectious Disease Exam (PN) - Constitutional Vitals: Temp Pulse Resp BP Pulse Ox 97.7 F 90 28 H 132/81 93 L 06/09/17 12:00 06/09/17 13:00 06/09/17 13:00 06/09/17 13:00 06/09/17 13:00 General appearance: no acute distress, over weight Exam: General appearance: Awake, looks very comfortable - Eye Eye exam: Present: EOMI. no icterus Pupils: Present: JACOB - ENT ENT exam: No oral exudates - Respiratory Respiratory exam: vesicular BS decreased in bases, no crepitations or wheezes - Cardiovascular Cardiovascular exam: regular rate and rhythm, no murmurs - GI/Abdominal GI/Abdominal exam: Wound VAC to midline abdominal wound, abdomen less distended , bowel sounds heard - Extremities Exam Extremities exam: bilateral lower extremity edema - Skin Skin exam: no rash Results - Labs CBC & BMP: 06/09/17 12:19 06/09/17 12:19 Lab Results: I have reviewed the past 24 hour labs
--- NOTE | 2017-06-09 16:45 | Fluoroscopy Report ---
FL injection GI tube Clinical Information: Check position of feeding tube Comparison: None Findings: 20 cc of Gastrografin was administered into the end patient's indwelling jejunal feeding tube. There is opacification of small bowel within the left lower quadrant, as expected. Small bowel is normal caliber with no focal abnormality identified. There is no definite evidence of extravasation. Impression: Opacification of the small bowel within the left lower quadrant. PROCEDURE INTERPRETED AT [facility] DEPARTMENT OF RADIOLOGY Final Report Signed by: Lisandro Ozuna
[2017-06-09] MEDS: ENOXAPARIN 40 MG/0.4 ML SYRINGE SUBCUT SCH (21:22)
[2017-06-09] MEDS: diphenhydrAMINE CAP 50 MG CAPSULE PO PRN (21:22)
[2017-06-10] MEDS: VANCOMYCIN INJ 1,500 MG in SODIUM CHLORIDE 0.9% 500 ML IV SCH ×2 (01:43→10:57)
[2017-06-10] MEDS: INSULIN LISPRO 100 UNIT/ML SUBCUT SCH ×4 (01:44→14:16)
[2017-06-10] MEDS: HYDROmorphone 2 MG/1 ML VIAL IV PRN ×4 (05:09→14:30)
[2017-06-10] MEDS: METOCLOPRAMIDE 10 MG/2 ML VIAL IV SCH ×2 (05:09→14:19)
[2017-06-10 05:15] LABS: Basophils # 0.1 10*3/uL (0.0-0.2); Basophils % 0.3 % (0.0-0.8); Eosinophils # 0.4 10*3/uL (0.0-0.87); Eosinophils % 2.5 % (0.00-10.9); Hemoglobin 9.5 GM/DL (14.0-18.0); Immature Granulocytes % 1.5 %; Immature Granulocytes Absolute 0.22 #; Lymphocytes # 1.8 10*3/uL (1.4-4.0); Lymphocytes % 12.4 % (21.2-54.2); Mean Corpuscular HGB Conc 32.8 GM/DL (32-36); Mean Corpuscular Hemoglobin 29 PG (27-34); Mean Platelet Volume 9.8 FL (9.6-12.0); Monocytes # 1.4 10*3/uL (0.11-0.8); Monocytes % 9.8 % (1.7-12.7); Neutrophils # 10.5 10*3/uL (1.4-7.4); Neutrophils % 73.5 % (38.7-73.9); Platelet Count 625 T/CUMM (130-400); Red Blood Count 3.26 MC/CUMM (3.8-5.5); Red Cell Distribution Width 14.3 % (9.3-17.3); White Blood Count 14.3 T/CUMM (4-12)
[2017-06-10 05:42] LABS: Albumin 1.5 G/DL (3.4-5.0); Bilirubin,Total 0.8 MG/DL (0.2-1.0); Calcium 7.5 MG/DL (8.5-10.1); Osmolality,Calculated 270.1 MOS/KG (273-304); Potassium 4.4 MMOL/L (3.5-5.1); Total Protein 6.7 G/DL (6.4-8.3)
--- NOTE | 2017-06-10 07:04 | Event Note ---
Chief Complaint Patient is a 46-year-old male initially admitted with pancreatitis who underwent exploratory laparotomy for concern for abdominal compartment syndrome with drainage of pancreatic ascites on 05/22/2017. Repeat laparotomy with abdominal washout and Jtube placement 05/25/2017. Additional repeat abdominal washouts 05/27, 05/29, and 06/01 with abdominal wall closure and wound vac placement. Interval History The jejunostomy tube fell out yesterday and was replaced. Tube study showed appropriate position and tube feeds were restarted. Patient started on clear liquids yesterday with no abdominal pain, nausea, or vomiting. T-max 101.3 overnight Physical exam The patient is currently afebrile but he was febrile to 101.3 overnight and is currently tachycardic in the low 100s with normal blood pressure Urine output is adequate Abdominal wound VAC with serosanguineous output and good seal Snow catheter in place and prior jejunostomy tube site with tube feeds going Abdominal exam reveals midline incision with wound VAC in place and no erythema. Normal bowel sounds. Labs Reviewed Imaging CT abdomen and pelvis from earlier this week shows pancreatic necrosis with developing pseudocysts looks very immature and some free fluid in the retroperitoneum but no air or evidence of infection in the fluid or pancreatic necrosis. Assessment and plan Continue wound VAC and tube feeds with advancement of oral intake as tolerated. The clear liquid diet had no evidence of recurrent pancreatitis so we will advance his diet slowly to a low-fat diet Continue physical therapy and activity as tolerated I will reevaluate the wound at the next VAC change on No plans for intervention on pancreatic fluid collections at this time. Most of these resolve with time and unless they develop infection in the meantime there is no indication for intervention.
[2017-06-10] MEDS: INSULIN ASPART PROTAMINE/ASPART 70/30 100 UNIT/ML SUBCUT SCH (07:20)
[2017-06-10] MEDS: AZTREONAM 2,000 MG in SODIUM CHLORIDE 0.9% 50 ML IV SCH (07:21)
--- NOTE | 2017-06-10 07:53 | Pulmonology Progress Note ---
Pulmonary - PN: Subj Interval history: The patient is a 46-year-old white man that has very severe pancreatitis from hypertriglyceridemia. He was found to be a diabetic recently and had very high lipids. He came in with abdominal pain and acute pancreatitis. He has been very ill but seems to be improving now. He had a compartment syndrome with the renal failure and had exploratory lap last week. He has gone back to surgery several times and still has an open abdomen with wound VAC in place. He has been stable off the ventilator all weekend and is more alert. He says he is thirsty now. He is not having that much abdominal pain. His J-tube came out yesterday and was replaced. His diet has been advanced. He still has a low -grade fever and some abdominal pain. He has been given some narcotics and resting well now. His breathing has been quite stable. His chest x-ray looked okay yesterday. Exam (Progress Note) - Constitutional Vitals: Period Temp Pulse Resp BP Sys/Gutierrez Pulse Ox Last 24 Hr 97.7 F-101.8 F 86-123 18-39 112-167/66-98 90-98 Exam: General appearance: normal weight, other (Patient is sleeping now and looks like he is breathing comfortably.) Head exam: Present: normal inspection, normocephalic - Eye Eye exam: Present: EOMI. Absent: scleral icterus Pupils: Present: JACOB - ENT ENT exam: Present: normal exam, - Neck Neck exam: Absent: lymphadenopathy, thyromegaly - Respiratory Respiratory exam: Present: His lungs have good breath sounds bilaterally and is moving air well without any wheezing or rales. - Cardiovascular Cardiovascular exam: Present: regular rate and rhythm. Absent: gallop, systolic murmur - GI/Abdominal GI/Abdominal exam: Present: His abdomen is less distended and appears to be softer and still has a wound VAC in place. He still has an open wound. - Extremities Exam Extremities exam: Absent: calf tenderness, edema, he has no signs of phlebitis. - Neurological Exam Neurological exam: Present: other (Patient is responding better and is much more alert. He does look much more comfortable today.) - Skin Skin exam: Present: warm, dry Results - Labs CBC & BMP: 06/10/17 04:33 06/10/17 04:33 Assessment and Plan (1) Hypertriglyceridemia Status: Resolved Assessment and plan: Patient has severe pancreatitis related to his hypertriglyceridemia. He is slowly improving Current Visit: Yes (2) Acute respiratory failure Status: Resolved Assessment and plan: The patient has done okay off the ventilator. His breathing is much better and is comfortable. His O2 saturations have been okay. He occasionally gets a little short of breath but for the most part he is stable. Current Visit: Yes (3) Pancreatitis Status: Acute Assessment and plan: Patient has severe pancreatitis and now has an abdomen opened. He has a wound VAC in place. He is tolerating some tube feedings and seems to be stable now. He still has a low-grade fever and pockets of inflammatory areas on his pancreas Current Visit: Yes Qualifiers: Chronicity: acute Pancreatitis type: other (4) New onset type 2 diabetes mellitus Status: Chronic Assessment and plan: The patient has been found to be a diabetic and his glucoses are better at this point. His glucose was 145 today. His insulin has been adjusted. Current Visit: Yes (5) Renal insufficiency Status: Resolved Assessment and plan: His creatinine is 0.6 today. He has had good urine output. Current Visit: Yes
[2017-06-10] MEDS: ONDANSETRON 4 MG/2 ML VIAL IV PRN (08:06)
[2017-06-10] MEDS: INSULIN GLARGINE 100 UNIT/ML SUBCUT SCH (08:07)
[2017-06-10] MEDS: MINERAL OIL/PETROLATUM OPH OINT 3.5 GM TUBE BOTH EYES SCH (08:07)
[2017-06-10] MEDS: PANTOPRAZOLE 40 MG VIAL IV SCH (08:07)
[2017-06-10] MEDS: DESITIN 4OZ/NYSTATIN 15 GRAM MIXTURE PASTE TOP SCH (08:07)
[2017-06-10] MEDS: ACETAMINOPHEN 325 MG/10.15 ML UDCUP PO PRN (08:08)
[2017-06-10] MEDS: METOPROLOL TARTRATE 25 MG TABLET PO SCH (08:49)
--- NOTE | 2017-06-10 10:11 | Gastrointestinal Progress Note ---
<Genie Proctor - Last Filed: 06/10/17 10:08> Assessment and Plan (1) Pancreatitis Status: Acute Assessment and plan: 06/10-Pt stable, continued fever. No pain. Tolerating diet well. Possible plans for LTAC noted. Plan and addendum to follow by Dr Christensen. 06/08-events of the weekend noted. CT findings on yesterday noted as well. Afebrile at 99.6 last night. Continue to monitor present time. IR consult is noted. Plan an addendum to follow Dr. Christensen. 06/05-extubated and stable at present time. Continues with fever of 100.9. ID following. Plan an addendum to follow Dr. Leger 06/03-tolerating tube feedings. Lipase level is elevated today at 413. Continues to be febrile however WBCs down today. Her extubation later this morning. Plan an addendum to follow Dr. Christensen. 06/01-continues tolerate tube feedings. Events noted as below. Continue to monitor this time. Plan an addendum to followed by Dr. Christensen. 05/29-tolerating tube feedings. Labs noted as below. Continue to monitor present time. Plan an addendum to followed by Dr. Christensen 05/28-continues to tolerate his tube feedings. Findings noted as below. Continue to monitor present time. Plan an addendum to followed by Dr. Christensen. 05/27-tolerating tube feedings. Postop from partial abdominal wound closure. Lab values noted as below. Plan an addendum to followed by Dr. Christensen. 05/26-no changes noted as below. Tolerating tube feedings at present time. Plan an addendum to followed by Dr. Christensen. 05/25-postop reopened laparotomy. Labs noted as below. Hemodynamically stable at present time. Jejunostomy tube placed today and to start feedings tomorrow. Plan an addendum to followed by Dr. Leger 05/22-series of events noted as below. Patient continue with aggressive management for his multiple system organ failure at this time. To begin dialysis. Continue to monitor present time. Plan an addendum to followed by Dr. Christensen. 05/21-sudden onset of abdominal pain with intractable nausea and vomiting, with findings of elevated lipase and CT findings of pancreatitis. No prior history of pancreatitis. History of laparoscopic cholecystectomy with cholelithiasis. New onset diabetes with hemoglobin A1c of 9.8. Elevated lactic acid at 6.1. Continue NPO and IV fluids. Abdominal US this morning. Plan and addendum to follow by Dr Christensen. Qualifiers: Chronicity: acute Pancreatitis type: other Gastroenterology - PN: Subj Interval history: CC: Pancreatitis Patient is seen, awake and alert and well oriented sitting up in bed. He has no complaints of pain this morning. He states overall he is feeling very well. Patient states that he was able to tolerate a solid diet this morning and denies any abdominal pain, nausea or vomiting associated with this. He is getting up and going to the bathroom and states he is having bowel movements that are continued watery but no reports of bleeding or pain with this. He continues to run fever up to 101.3 last night. WBCs at 14,000. He also continues with some mild tachycardia. Urine output is adequate. Noted that his jejunostomy tube fell on yesterday was replaced. He is continuing with tube feedings and these will be tapered down as his oral intake increases. Physical therapy has began working with patient as well. There are tentative plans for transfer to LTAC. Abdomen is soft, nontender. Wound VAC dressing intact. ROS: Denies shortness of breath or chest pain Exam (Progress Note) - Constitutional Vitals: Period Temp Pulse Resp BP Sys/Gutierrez Pulse Ox Last 24 Hr 97.7 F-101.8 F 86-123 18-39 92-167/58-98 90-98 General appearance: normal weight, no acute distress - Head Head exam: Present: normal inspection, normocephalic - Eye Eye exam: Present: other (Lids and conjunctive are unremarkable). Absent: scleral icterus - ENT ENT exam: Present: normal exam, normal oropharynx - Neck Neck exam: Present: normal inspection - Respiratory Respiratory exam: Present: clear to auscultation bilaterally. Absent: rales, rhonchi, wheezes - Cardiovascular Cardiovascular exam: Present: regular rate and rhythm. Absent: diastolic murmur , JVD, systolic murmur - GI/Abdominal GI/Abdominal exam: Present: normal bowel sounds, soft. Absent: ascites, distended, mass, organomegaly, tenderness - Extremities Exam Extremities exam: Present: normal inspection, full ROM - Back Exam Back exam: Present: normal inspection - Neurological Exam Neurological exam: Present: alert, oriented X3 - Psychiatric Psychiatric exam: Present: normal affect, normal mood - Skin Skin exam: Present: normal color, warm, dry Results - Labs CBC & BMP: 06/10/17 04:33 06/10/17 04:33 Lab Results: I have reviewed the past 24 hour labs <Alan Christensen - Last Filed: 06/10/17 22:11> Exam (Progress Note) - Constitutional Vitals: Period Temp Pulse Resp BP Sys/Gutierrez Pulse Ox Last 24 Hr 98 F-101.3 F 91-110 16-31 92-155/58-97 90-100 Results - Labs CBC & BMP: 06/10/17 04:33 06/10/17 04:33
--- NOTE | 2017-06-10 11:43 | Discharge Summary ---
<Jessica Back - Last Filed: 06/10/17 11:39> Hospital Course - Hospital Course Hospital Course: Mr Calloway presented with pancreatitis from his hypertriglycerdemia. He was critically ill and required surgery for abdominal compartment syndrome. He had a prolonged and complicated course including bacteremia- please see progress notes from this admission for details. He has begun to improve and is tolerating soft diet. He will be transferred to LTAC today to continue his intensive level of treatment. He has fluid collections in his pancreas that will be monitored. He will be seen by general surgery, ID, GI while there. Discharge Plan - Discharge Data Disposition: Disch/Xfer to Care Home [facility] Condition at Discharge: Stable Discharge Diet: low fat, low cholesterol Activity: as per physical therapy - Discharge Medications New Aztreonam [Azactam] 2,000 mg IV Q8H vial Dextrose 50% [D50] 25 gm IV PRN PRN syringe PRN Reason: Hypoglycemia with IV access diphenhydrAMINE CAP [Benadryl Cap] 50 mg PO BEDTIME PRN capsule PRN Reason: Sleep Glucagon 1 mg IM PRN PRN vial PRN Reason: Hypoglycemia w/o IV access HYDROmorphone INJ [Dilaudid Inj] 1 mg IV Q2H PRN vial PRN Reason: Pain Insulin Aspart Prot/Asp 70/30 [NovoLOG Mix 70/30] 40 unit SUBCUT BIDAC unit Insulin Glargine [Lantus] 30 unit SUBCUT DAILY unit Insulin Lispro [HumaLOG] See Protocol SUBCUT Q4HR unit Metoprolol Tartrate Tab [Lopressor Tab] 25 mg PO BID tablet Ondansetron Inj [Zofran Inj] 8 mg IV Q4H PRN vial PRN Reason: Nausea Pantoprazole Inj [Protonix Inj] 40 mg IV DAILY vial Vancomycin Inj 1,500 mg IV Q8H vial Albuterol Neb [Proventil Neb] 0.63 mg RESP TX RT Q8H PRN PRN Reason: Shortness Of Breath/Wheezing Enoxaparin [Lovenox] 40 mg SUBCUT Q24H syringe Ibuprofen Liquid [Motrin Liquid] 800 mg PO Q8H PRN PRN Reason: Fever, Headache, Mild Pain LORazepam INJ [Ativan Inj] 1 mg IV Q4H PRN vial PRN Reason: Agitation Discontinued Omeprazole Magnesium [Prilosec Otc] 20 mg PO DAILY - Follow Up or Referral - Forms/Instructions Discharge Results Procedures and tests throughout hospitalization: Pending Orders 06/02/17 14:20 Fungal Culture w/ Prep Routine 06/08/17 12:09 Susceptibility Panel, Yeast Stat Labs on day of discharge: Preliminary micro results at discharge 06/02/17 14:20 Fungal Culture - Preliminary Bronchial Washings Karla albicans DS: Provider Date of admission: 05/20/17 21:47 Primary care physician: . No PCP Attending physician on admission: Ahsan Lopez MD Consults: 05/21/17 07:19 Consult to [facility], Educator [CONS] Routine Reason for Business Office Technology Instructor: Diabetes Education Consult Comment: new diabetic 05/21/17 07:33 Consult to [facility], Educator [CONS] Routine Reason for Business Office Technology Instructor: Diabetes Education 05/21/17 07:50 Consult to Physician [CONS] Routine Comment: Consult for Pancreatitis Consulting Provider: Alan Christensen When should Consulting Provider be notified: Now Person Notified: KYLEE GONZALES Date Notified: 05/21/17 Time Notified: 08:01 05/21/17 13:16 Consult to [facility], Educator [CONS] Routine Reason for Business Office Technology Instructor: Diabetes Education Initial Insulin Education Consult Comment: INSULIN EDUCATION 05/21/17 18:32 Consult to Physician [CONS] Routine Comment: possible oliguria Consulting Provider: Von Morales Jr. 05/21/17 18:33 Consult to Physician [CONS] Routine Comment: pancreatitis Consulting Provider: Andre Seymour 05/21/17 19:46 Consult to Physician [CONS] Routine Comment: Consulting Provider: Bob Martinez When should Consulting Provider be notified: Now 05/22/17 03:15 Consult to Anesthesiology [CONS] Routine Consulting Provider: Reason for Anesthesiology: Pre-op Clearance 05/22/17 09:13 Consult to Pharmacy [CONS] Routine Reason for Pharmacy Consult: Adjust Meds Renal Funct Dose/Manage Antibiotics Comment: dialysis for two hours today 05/22/17 09:15 Consult to Physician [CONS] Routine Comment: shock, fever Consulting Provider: Zari Francisco 05/24/17 12:15 Consult to Anesthesiology [CONS] Routine Consulting Provider: Reason for Anesthesiology: Pre-op Clearance 05/26/17 07:34 Consult to Anesthesiology [CONS] Routine Consulting Provider: Reason for Anesthesiology: Pre-op Clearance 05/28/17 07:10 Consult to Anesthesiology [CONS] Routine Consulting Provider: Reason for Anesthesiology: Pre-op Clearance 05/29/17 09:38 Consult to Case Mgmt/Social Srvs [CONS] Routine Reason for Case Mgmt/Social Srvs: LTAC 05/29/17 11:56 Consult to Anesthesiology [CONS] Routine Consulting Provider: Reason for Anesthesiology: Pre-op Clearance 06/03/17 09:34 Consult to Occupational Therapy [CONS] Routine Reason for Occupational Therapy: Evaluate and Treat Start Therapy: Today Consult to Physical Therapy [CONS] Routine Reason for Physical Therapy: Evaluate and Treat Start Therapy: Tomorrow 06/04/17 15:43 Consult to Pharmacy [CONS] Routine Reason for Pharmacy Consult: Dose/Manage Vancomycin Discharging clinician: RADHA Pierson Expected date of discharge: 06/10/17 <Romina Beth - Last Filed: 06/17/17 07:50> Hospital Course - Time spent with patient Time with patient DS: Greater than 30 minutes (45 minutes were required for discharge planning, coordination of care, medicine reconciliation, and documentation) Diagnosis - Discharge Diagnosis (1) Pancreatitis Status: Acute (2) Hypertriglyceridemia Status: Resolved (3) IDDM (insulin dependent diabetes mellitus) Status: Acute (4) Pneumonia involving left lung Status: Acute (5) Staphylococcus epidermidis bacteremia Status: Acute
--- NOTE | 2017-06-10 12:09 | Infectious Disease Progress ---
Assessment and Plan (1) Acute respiratory failure Status: Resolved Current Visit: Yes (2) Hypertriglyceridemia Status: Resolved Current Visit: Yes (3) New onset type 2 diabetes mellitus Status: Chronic Current Visit: Yes (4) Pancreatitis Status: Acute Assessment and plan: He has significant fluid collections about the pancreas, possibly inflammatory rather than infectious. Recommendations: I discussed the case in detail with Dr. Seymour. Will discontinue aztreonam [this was being given for the pancreas] and just monitor the patient closely. Discussed with at bedside Current Visit: Yes Qualifiers: Chronicity: acute Pancreatitis type: other (5) Renal insufficiency Status: Resolved Current Visit: Yes (6) Fever Status: Acute Assessment and plan: Fever is back and now we have a positive culture for yeast. Recommendations: 1. Start micafungin 100 mg daily 2. Continue the vancomycin as before 3. Discontinue aztreonam as above as were not going to give antibiotic coverage for the pancreas Current Visit: Yes (7) Fungemia Status: Acute Assessment and plan: Most likely candidemia. We will start empiric micafungin and follow-up final culture result. Patient no longer has central lines. We will repeat blood cultures in about 2 days. Current Visit: Yes Infectious Disease - PN: Subj Interval history: Patient doing better and better every day. He is now tolerating a normal diet having done well with liquids yesterday. His G-tube came out yesterday accidentally and has a Snow catheter temporarily in its place. He still having intermittent fevers, 101 this morning. No complaints, denies abdominal pain even after he ate this morning. Infectious Disease Exam (PN) - Constitutional Vitals: Temp Pulse Resp BP Pulse Ox 99.8 F H 91 H 16 126/78 96 06/10/17 11:00 06/10/17 11:00 06/10/17 11:00 06/10/17 11:00 06/10/17 11:00 General appearance: normal weight, no acute distress Exam: General appearance: Awake, very comfortable, conversant - Eye Eye exam: Present: EOMI. no icterus Pupils: Present: JACOB - ENT ENT exam: No oral exudates - Respiratory Respiratory exam: vesicular BS decreased in bases, no crepitations or wheezes - Cardiovascular Cardiovascular exam: regular rate and rhythm, no murmurs - GI/Abdominal GI/Abdominal exam: Wound VAC to midline abdominal wound, Snow catheter coming from area with J-tube, abdomen mildly distended, bowel sounds normal - Extremities Exam Extremities exam: bilateral lower extremity edema - Skin Skin exam: no rash Results - Labs CBC & BMP: 06/10/17 04:33 06/10/17 04:33 Lab Results: I have reviewed the past 24 hour labs
[2017-06-10] MEDS ORDERED: DEXTROSE 50% 25 GM/50 ML VIAL IV PRN (13:00)
[2017-06-10] MEDS ORDERED: MICAFUNGIN IV SCH (13:00)
[2017-06-10] MEDS ORDERED: SODIUM CHLORIDE 0.9% IV SCH (13:00)
[2017-06-10 15:01] VITALS: BP 115/89
== END 2017-06-10 15:15 | DRG 420 ==
LOC: N.ED 17:10 → SUATTDRO 21:47 → N.EDINP 21:47 → N.5E 22:13 → N.CC 05-21 13:30
PROVIDERS: ADMIT Internal Medicine; ATTEND Internal Medicine

== ENCOUNTER 2017-07-05 19:48 | Inpatient (IN) ==
[2017-07-05] MEDS ORDERED: SODIUM CHLORIDE 0.9% 500 ML IV STA (20:26)
[2017-07-05] MEDS ORDERED: ALUM/MAG/SIMETH/LIDO VISC 1:1 30 ML BOTTLE PO STA (20:26)
[2017-07-05] MEDS ORDERED: ONDANSETRON 4 MG/2 ML VIAL IV STA (20:26)
[2017-07-05] MEDS ORDERED: PANTOPRAZOLE 40 MG VIAL IV STA (20:26)
[2017-07-05] MEDS ORDERED: HYDROmorphone 2 MG/1 ML VIAL IV STA (20:26)
[2017-07-05] MEDS ORDERED: ONDANSETRON 4 MG/2 ML VIAL ONE (20:32)
[2017-07-05] MEDS ORDERED: PANTOPRAZOLE 40 MG VIAL IV ONE (20:32)
[2017-07-05] MEDS ORDERED: ALUM/MAG/SIMETH/LIDO VISC 1:1 30 ML BOTTLE PO ONE (20:33)
[2017-07-05] MEDS ORDERED: HYDROmorphone 2 MG/1 ML VIAL ONE (20:33)
[2017-07-05 20:54] LABS: Basophils # 0.1 10*3/uL (0.0-0.2); Basophils % 0.8 % (0.0-0.8); Eosinophils # 0.2 10*3/uL (0.0-0.87); Eosinophils % 2.8 % (0.00-10.9); Hematocrit 36.9 VOL% (42.0-52.0); Hemoglobin 11.8 GM/DL (14.0-18.0); Immature Granulocytes % 0.3 %; Immature Granulocytes Absolute 0.02 #; Lymphocytes # 2.7 10*3/uL (1.4-4.0); Lymphocytes % 42.7 % (21.2-54.2); Mean Corpuscular Hemoglobin 26 PG (27-34); Mean Corpuscular Volume 82.2 FL (87-102); Mean Platelet Volume 8.8 FL (9.6-12.0); Monocytes # 0.5 10*3/uL (0.11-0.8); Neutrophils # 2.9 10*3/uL (1.4-7.4); Neutrophils % 45.4 % (38.7-73.9); Platelet Count 353 T/CUMM (130-400); Red Blood Count 4.49 MC/CUMM (3.8-5.5); Red Cell Distribution Width 14.9 % (9.3-17.3); White Blood Count 6.4 T/CUMM (4-12)
[2017-07-05 21:06] LABS: Lactic Acid 1.6 MMOL/L (0.4-2.0)
[2017-07-05 21:08] LABS: Alanine Aminotransferase 15 U/L (16-61); Albumin 3.1 G/DL (3.4-5.0); Alkaline Phosphatase 136 U/L (45-117); Amylase 186 U/L (25-115); Aspartate Amino Transferase 11 U/L (0-37); Blood Urea Nitrogen 6 MG/DL (7-18); Calcium 9.1 MG/DL (8.5-10.1); Glucose 129 MG/DL (74-106); Magnesium 1.8 MG/DL (1.8-2.4); Osmolality,Calculated 272.8 MOS/KG (273-304); Sodium 137 MMOL/L (136-145); Total Protein 8.4 G/DL (6.4-8.3); Troponin I Only < 0.015 NG/ML (0.00-0.045)
[2017-07-05] MEDS ORDERED: GLUCAGON 1 MG VIAL IM PRN (23:23)
[2017-07-05] MEDS ORDERED: DEXTROSE 50% 25 GM/50 ML VIAL IV PRN (23:23)
[2017-07-06] MEDS: MORPHINE 2 MG/1 ML SYRINGE IV PRN ×5 (00:48→20:22)
[2017-07-06] MEDS: ONDANSETRON 4 MG/2 ML VIAL IV PRN ×5 (00:50→20:22)
[2017-07-06] MEDS: INSULIN LISPRO 100 UNIT/ML SUBCUT SCH ×4 (01:33→20:14)
[2017-07-06] MEDS: SODIUM CHLORIDE 0.9% 2,000 ML IV SCH ×3 (01:35→14:19)
[2017-07-06] MEDS: HEPARIN 5,000 UNIT/1 ML VIAL SUBCUT SCH ×2 (01:44→14:20)
[2017-07-06 02:04] LABS: Basophils % 0.6 % (0.0-0.8); Eosinophils # 0.1 10*3/uL (0.0-0.87); Eosinophils % 2.6 % (0.00-10.9); Hematocrit 30.2 VOL% (42.0-52.0); Hemoglobin 9.7 GM/DL (14.0-18.0); Immature Granulocytes % 0.2 %; Immature Granulocytes Absolute 0.01 #; Lymphocytes # 1.9 10*3/uL (1.4-4.0); Lymphocytes % 38.2 % (21.2-54.2); Mean Corpuscular HGB Conc 32.1 GM/DL (32-36); Mean Corpuscular Hemoglobin 26 PG (27-34); Mean Corpuscular Volume 82.3 FL (87-102); Mean Platelet Volume 8.8 FL (9.6-12.0); Monocytes # 0.4 10*3/uL (0.11-0.8); Monocytes % 8.5 % (1.7-12.7); Neutrophils # 2.5 10*3/uL (1.4-7.4); Neutrophils % 49.9 % (38.7-73.9); Platelet Count 268 T/CUMM (130-400); Red Blood Count 3.67 MC/CUMM (3.8-5.5); Red Cell Distribution Width 15.1 % (9.3-17.3); White Blood Count 5.1 T/CUMM (4-12)
[2017-07-06 02:32] LABS: Albumin 2.5 G/DL (3.4-5.0); Bilirubin,Total 0.6 MG/DL (0.2-1.0); Calcium 8.5 MG/DL (8.5-10.1); Osmolality,Calculated 275.5 MOS/KG (273-304); Potassium 3.7 MMOL/L (3.5-5.1); Risk Ratio 7.44; Total Protein 6.8 G/DL (6.4-8.3); VLDL CHOLESTEROL 63.8 MG/DL
[2017-07-06 07:35] LABS: Apearance,Urine CLEAR (Clear); Bilirubin,Urine Negative (Negative); Blood, Urine Negative (Negative); Glucose,Urine (UA) Negative (Negative); Ketones,Urine Negative (Negative); Nitrite,Urine Negative (Negative); Protein,Urine Negative; RBC,Urine 2 /HPF (0-4); Urine Color Yellow (Yellow); WBC,Urine 1 /HPF (0-6)
[2017-07-06] MEDS ORDERED: ACETAMINOPHEN 325 MG TABLET PO PRN (17:28)
[2017-07-06] MEDS: SODIUM CHLORIDE 0.9% 1,000 ML IV SCH (20:23)
[2017-07-07] MEDS: INSULIN LISPRO 100 UNIT/ML SUBCUT SCH ×4 (02:06→18:37)
[2017-07-07] MEDS: HEPARIN 5,000 UNIT/1 ML VIAL SUBCUT SCH ×2 (02:15→13:50)
[2017-07-07] MEDS: MORPHINE 2 MG/1 ML SYRINGE IV PRN ×4 (02:16→22:18)
[2017-07-07] MEDS: ONDANSETRON 4 MG/2 ML VIAL IV PRN ×2 (02:17→20:55)
[2017-07-07] MEDS: SODIUM CHLORIDE 0.9% 1,000 ML IV SCH ×4 (02:32→23:30)
[2017-07-07 06:52] LABS: Basophils % 0.7 % (0.0-0.8); Eosinophils # 0.1 10*3/uL (0.0-0.87); Eosinophils % 3.1 % (0.00-10.9); Hematocrit 28.9 VOL% (42.0-52.0); Hemoglobin 9.2 GM/DL (14.0-18.0); Immature Granulocytes % 0.5 %; Immature Granulocytes Absolute 0.02 #; Lymphocytes # 1.6 10*3/uL (1.4-4.0); Lymphocytes % 36.7 % (21.2-54.2); Mean Corpuscular HGB Conc 31.8 GM/DL (32-36); Mean Corpuscular Hemoglobin 26 PG (27-34); Mean Corpuscular Volume 82.6 FL (87-102); Mean Platelet Volume 9.1 FL (9.6-12.0); Monocytes # 0.3 10*3/uL (0.11-0.8); Monocytes % 7.1 % (1.7-12.7); Neutrophils # 2.2 10*3/uL (1.4-7.4); Neutrophils % 51.9 % (38.7-73.9); Platelet Count 261 T/CUMM (130-400); Red Cell Distribution Width 14.8 % (9.3-17.3); White Blood Count 4.3 T/CUMM (4-12)
[2017-07-07 07:37] LABS: Albumin 2.5 G/DL (3.4-5.0); Bilirubin,Total 0.7 MG/DL (0.2-1.0); Calcium 8.5 MG/DL (8.5-10.1); Osmolality,Calculated 272.5 MOS/KG (273-304); Potassium 3.7 MMOL/L (3.5-5.1); Total Protein 6.3 G/DL (6.4-8.3)
[2017-07-07] MEDS ORDERED: LIPASE/PROTEASE/AMYLASE 4,200 UNITS CAPSULE PO PRN (15:43)
[2017-07-07] MEDS: LIPASE/PROTEASE/AMYLASE 4,200 UNITS CAPSULE PO SCH (16:43)
[2017-07-08] MEDS: INSULIN LISPRO 100 UNIT/ML SUBCUT SCH ×4 (00:31→18:19)
[2017-07-08] MEDS: HEPARIN 5,000 UNIT/1 ML VIAL SUBCUT SCH ×3 (00:37→20:22)
[2017-07-08] MEDS: ONDANSETRON 4 MG/2 ML VIAL IV PRN (02:32)
[2017-07-08] MEDS: MORPHINE 2 MG/1 ML SYRINGE IV PRN ×2 (02:32→20:33)
[2017-07-08] MEDS: LIPASE/PROTEASE/AMYLASE 4,200 UNITS CAPSULE PO SCH ×3 (09:55→18:20)
[2017-07-08] MEDS: SODIUM CHLORIDE 0.9% 1,000 ML IV SCH ×2 (13:42→20:23)
[2017-07-09] MEDS: INSULIN LISPRO 100 UNIT/ML SUBCUT SCH ×3 (00:38→12:10)
[2017-07-09] MEDS: SODIUM CHLORIDE 0.9% 1,000 ML IV SCH ×2 (03:04→12:10)
[2017-07-09] MEDS: MORPHINE 2 MG/1 ML SYRINGE IV PRN (06:26)
[2017-07-09] MEDS: LIPASE/PROTEASE/AMYLASE 4,200 UNITS CAPSULE PO SCH ×2 (08:41→12:10)
[2017-07-09] MEDS: HEPARIN 5,000 UNIT/1 ML VIAL SUBCUT SCH (09:49)
[2017-07-09 11:31] VITALS: BP 123/82
[2017-07-09] MEDS: ONDANSETRON 4 MG/2 ML VIAL IV PRN (11:50)
== END 2017-07-09 12:11 | disposition home health service (06) | DRG 439 ==
LOC: N.ED 19:48 → N.EDINP 23:14 → N.2E 07-06 00:19
PROVIDERS: ADMIT Internal Medicine; ATTEND Internal Medicine

== ENCOUNTER 2017-08-02 17:34 | Inpatient (IN) ==
[2017-08-02] MEDS ORDERED: ONDANSETRON 4 MG/2 ML VIAL IV STA (19:47)
[2017-08-02] MEDS ORDERED: HYDROmorphone 2 MG/1 ML VIAL IV STA ×2 (19:47→23:03)
[2017-08-02] MEDS ORDERED: SODIUM CHLORIDE 0.9% 2,400 ML IV ONE (19:50)
[2017-08-02] MEDS ORDERED: ONDANSETRON 4 MG/2 ML VIAL ONE (20:24)
[2017-08-02] MEDS ORDERED: HYDROmorphone 2 MG/1 ML VIAL ONE (20:24)
[2017-08-02 20:28] LABS: Basophils % 0.4 % (0.0-0.8); Eosinophils # 0.1 10*3/uL (0.0-0.87); Eosinophils % 1.2 % (0.00-10.9); Hematocrit 40.1 VOL% (42.0-52.0); Immature Granulocytes % 0.3 %; Immature Granulocytes Absolute 0.03 #; Lymphocytes # 2.7 10*3/uL (1.4-4.0); Lymphocytes % 28.3 % (21.2-54.2); Mean Corpuscular HGB Conc 32.4 GM/DL (32-36); Mean Corpuscular Hemoglobin 26 PG (27-34); Mean Corpuscular Volume 81.5 FL (87-102); Mean Platelet Volume 9.8 FL (9.6-12.0); Monocytes # 0.5 10*3/uL (0.11-0.8); Monocytes % 5.6 % (1.7-12.7); Neutrophils # 6.1 10*3/uL (1.4-7.4); Neutrophils % 64.2 % (38.7-73.9); Platelet Count 273 T/CUMM (130-400); Red Blood Count 4.92 MC/CUMM (3.8-5.5); Red Cell Distribution Width 15.5 % (9.3-17.3); VBG Base Excess 3.5 MEQ/L (0-4); VBG HCO3 27.3 MEQ/L (24-28); VBG Oxygen Saturation 87.1 %; VBG PCO2 35.7 MMHG (41-51); VBG PH 7.483; VBG PO2 52.4 MMHG (17-40); White Blood Count 9.5 T/CUMM (4-12)
[2017-08-02 20:49] LABS: Lactic Acid 1.8 MMOL/L (0.4-2.0)
[2017-08-02 21:03] LABS: Alanine Aminotransferase 48 U/L (16-61); Albumin 3.4 G/DL (3.4-5.0); Alkaline Phosphatase 168 U/L (45-117); Aspartate Amino Transferase 20 U/L (0-37); Blood Urea Nitrogen 10 MG/DL (7-18); Calcium 8.9 MG/DL (8.5-10.1); Glucose 117 MG/DL (74-106); Osmolality,Calculated 276.5 MOS/KG (273-304); Potassium 3.9 MMOL/L (3.5-5.1); Sodium 139 MMOL/L (136-145); Total Protein 6.7 G/DL (6.4-8.3); Troponin I Only < 0.015 NG/ML (0.00-0.045)
[2017-08-02] MEDS ORDERED: ONDANSETRON 4 MG/2 ML VIAL IV PRN (21:24)
[2017-08-02] MEDS: HYDROmorphone 2 MG/1 ML VIAL IV PRN (23:37)
[2017-08-02] MEDS: DEXTROSE 5% NACL 0.9% 1,000 ML IV SCH (23:37)
[2017-08-03] MEDS: HYDROmorphone 2 MG/1 ML VIAL IV PRN ×2 (03:30→07:41)
[2017-08-03] MEDS: DEXTROSE 5% NACL 0.9% 1,000 ML IV SCH ×2 (07:01→15:07)
[2017-08-03] MEDS: PANTOPRAZOLE 40 MG TABLET PO SCH ×2 (07:42→09:20)
[2017-08-03] MEDS ORDERED: GLUCAGON 1 MG VIAL IM PRN (09:05)
[2017-08-03] MEDS ORDERED: DEXTROSE 50% 25 GM/50 ML VIAL IV PRN (09:05)
[2017-08-03] MEDS ORDERED: HYDROmorphone 2 MG/1 ML VIAL IV PRN (09:32)
[2017-08-03] MEDS ORDERED: HYDROmorphone 2 MG/1 ML VIAL IV ONE (09:35)
[2017-08-03 10:04] LABS: Basophils % 0.4 % (0.0-0.8); Eosinophils # 0.2 10*3/uL (0.0-0.87); Eosinophils % 2.9 % (0.00-10.9); Hematocrit 35.3 VOL% (42.0-52.0); Hemoglobin 11.1 GM/DL (14.0-18.0); Immature Granulocytes % 0.4 %; Immature Granulocytes Absolute 0.02 #; Lymphocytes # 1.5 10*3/uL (1.4-4.0); Lymphocytes % 29.9 % (21.2-54.2); Mean Corpuscular HGB Conc 31.4 GM/DL (32-36); Mean Corpuscular Hemoglobin 27 PG (27-34); Mean Corpuscular Volume 84.9 FL (87-102); Mean Platelet Volume 10.1 FL (9.6-12.0); Monocytes # 0.4 10*3/uL (0.11-0.8); Monocytes % 8.2 % (1.7-12.7); Neutrophils % 58.2 % (38.7-73.9); Platelet Count 196 T/CUMM (130-400); Red Blood Count 4.16 MC/CUMM (3.8-5.5); Red Cell Distribution Width 15.6 % (9.3-17.3); White Blood Count 5.2 T/CUMM (4-12)
[2017-08-03 10:35] LABS: Albumin 2.7 G/DL (3.4-5.0); Bilirubin,Total 1.2 MG/DL (0.2-1.0); Calcium 8.3 MG/DL (8.5-10.1); Osmolality,Calculated 281.3 MOS/KG (273-304); Potassium 3.7 MMOL/L (3.5-5.1); Total Protein 5.5 G/DL (6.4-8.3)
[2017-08-03] MEDS: INSULIN LISPRO 100 UNIT/ML SUBCUT SCH ×2 (11:58→18:06)
[2017-08-03] MEDS: HYDROmorphone PCA 30 MG/30 ML SYRINGE IV SCH (13:15)
[2017-08-04] MEDS: INSULIN LISPRO 100 UNIT/ML SUBCUT SCH ×5 (04:27→23:53)
[2017-08-04 05:35] LABS: Basophils % 0.4 % (0.0-0.8); Eosinophils # 0.2 10*3/uL (0.0-0.87); Eosinophils % 4.1 % (0.00-10.9); Hematocrit 35.1 VOL% (42.0-52.0); Hemoglobin 10.9 GM/DL (14.0-18.0); Immature Granulocytes % 0.4 %; Immature Granulocytes Absolute 0.02 #; Lymphocytes # 1.6 10*3/uL (1.4-4.0); Lymphocytes % 32.3 % (21.2-54.2); Mean Corpuscular HGB Conc 31.1 GM/DL (32-36); Mean Corpuscular Hemoglobin 27 PG (27-34); Monocytes # 0.4 10*3/uL (0.11-0.8); Monocytes % 8.5 % (1.7-12.7); Neutrophils # 2.8 10*3/uL (1.4-7.4); Neutrophils % 54.3 % (38.7-73.9); Platelet Count 193 T/CUMM (130-400); Red Blood Count 4.08 MC/CUMM (3.8-5.5); Red Cell Distribution Width 15.5 % (9.3-17.3); White Blood Count 5.1 T/CUMM (4-12)
[2017-08-04 06:12] LABS: Albumin 2.6 G/DL (3.4-5.0); Bilirubin,Total 1.8 MG/DL (0.2-1.0); Osmolality,Calculated 281.1 MOS/KG (273-304); Potassium 3.9 MMOL/L (3.5-5.1); Total Protein 5.4 G/DL (6.4-8.3)
[2017-08-04] MEDS ORDERED: INSULIN GLARGINE 100 UNIT/ML SUBCUT PRN (07:20)
[2017-08-04] MEDS ORDERED: LIPASE/PROTEASE/AMYLASE 4,200 UNITS CAPSULE PO PRN (07:20)
[2017-08-04] MEDS: LIPASE/PROTEASE/AMYLASE 4,200 UNITS CAPSULE PO SCH ×3 (07:57→16:41)
[2017-08-04] MEDS: PANTOPRAZOLE 40 MG TABLET PO SCH (08:00)
[2017-08-04] MEDS: DEXTROSE 5% NACL 0.9% 1,000 ML IV SCH ×3 (08:02→15:17)
[2017-08-05] MEDS: DEXTROSE 5% NACL 0.9% 1,000 ML IV SCH ×3 (04:25→19:43)
[2017-08-05] MEDS: INSULIN LISPRO 100 UNIT/ML SUBCUT SCH ×3 (05:40→18:37)
[2017-08-05 05:58] LABS: Basophils % 0.4 % (0.0-0.8); Eosinophils # 0.2 10*3/uL (0.0-0.87); Eosinophils % 3.2 % (0.00-10.9); Hematocrit 32.7 VOL% (42.0-52.0); Hemoglobin 10.3 GM/DL (14.0-18.0); Immature Granulocytes % 0.4 %; Immature Granulocytes Absolute 0.02 #; Lymphocytes # 1.7 10*3/uL (1.4-4.0); Lymphocytes % 31.4 % (21.2-54.2); Mean Corpuscular HGB Conc 31.5 GM/DL (32-36); Mean Corpuscular Hemoglobin 27 PG (27-34); Mean Corpuscular Volume 84.3 FL (87-102); Mean Platelet Volume 10.3 FL (9.6-12.0); Monocytes # 0.4 10*3/uL (0.11-0.8); Monocytes % 7.1 % (1.7-12.7); Neutrophils # 3.1 10*3/uL (1.4-7.4); Neutrophils % 57.5 % (38.7-73.9); Platelet Count 171 T/CUMM (130-400); Red Blood Count 3.88 MC/CUMM (3.8-5.5); Red Cell Distribution Width 15.1 % (9.3-17.3); White Blood Count 5.4 T/CUMM (4-12)
[2017-08-05] MEDS: HYDROmorphone PCA 30 MG/30 ML SYRINGE IV SCH ×2 (06:09→18:55)
[2017-08-05 06:43] LABS: Albumin 2.5 G/DL (3.4-5.0); Bilirubin,Total 1.6 MG/DL (0.2-1.0); Calcium 8.1 MG/DL (8.5-10.1); Osmolality,Calculated 277.4 MOS/KG (273-304); Potassium 3.6 MMOL/L (3.5-5.1); Total Protein 5.3 G/DL (6.4-8.3)
[2017-08-05] MEDS: PANTOPRAZOLE 40 MG TABLET PO SCH (09:48)
[2017-08-05] MEDS: LIPASE/PROTEASE/AMYLASE 4,200 UNITS CAPSULE PO SCH ×3 (09:48→18:39)
[2017-08-06] MEDS: INSULIN LISPRO 100 UNIT/ML SUBCUT SCH ×4 (00:42→18:42)
[2017-08-06] MEDS: DEXTROSE 5% NACL 0.9% 1,000 ML IV SCH (01:44)
[2017-08-06 05:50] LABS: Basophils % 0.7 % (0.0-0.8); Eosinophils # 0.1 10*3/uL (0.0-0.87); Eosinophils % 3.3 % (0.00-10.9); Hematocrit 31.1 VOL% (42.0-52.0); Hemoglobin 10.1 GM/DL (14.0-18.0); Immature Granulocytes % 0.5 %; Immature Granulocytes Absolute 0.02 #; Lymphocytes # 1.6 10*3/uL (1.4-4.0); Lymphocytes % 37.4 % (21.2-54.2); Mean Corpuscular HGB Conc 32.5 GM/DL (32-36); Mean Corpuscular Hemoglobin 27 PG (27-34); Mean Corpuscular Volume 82.1 FL (87-102); Mean Platelet Volume 10.3 FL (9.6-12.0); Monocytes # 0.4 10*3/uL (0.11-0.8); Monocytes % 8.6 % (1.7-12.7); Neutrophils # 2.1 10*3/uL (1.4-7.4); Neutrophils % 49.5 % (38.7-73.9); Platelet Count 179 T/CUMM (130-400); Red Blood Count 3.79 MC/CUMM (3.8-5.5); Red Cell Distribution Width 14.9 % (9.3-17.3); White Blood Count 4.3 T/CUMM (4-12)
[2017-08-06 06:27] LABS: Albumin 2.4 G/DL (3.4-5.0); Bilirubin,Total 1.7 MG/DL (0.2-1.0); Calcium 8.4 MG/DL (8.5-10.1); Osmolality,Calculated 280.3 MOS/KG (273-304); Total Protein 5.4 G/DL (6.4-8.3)
[2017-08-06] MEDS ORDERED: HYDROmorphone 2 MG/1 ML VIAL IV PRN (07:42)
[2017-08-06] MEDS: LIPASE/PROTEASE/AMYLASE 4,200 UNITS CAPSULE PO SCH ×3 (09:56→16:10)
[2017-08-06] MEDS: PANTOPRAZOLE 40 MG TABLET PO SCH (09:56)
[2017-08-06] MEDS: oxyCODONE/ACETAMINOPHEN 5-325 MG TABLET PO SCH ×4 (09:57→20:17)
[2017-08-07] MEDS: INSULIN LISPRO 100 UNIT/ML SUBCUT SCH ×3 (00:10→11:30)
[2017-08-07] MEDS: oxyCODONE/ACETAMINOPHEN 5-325 MG TABLET PO SCH ×3 (03:52→16:25)
[2017-08-07] MEDS ORDERED: POTASSIUM CHLORIDE 20 MEQ TABLET PO ONE (09:00)
[2017-08-07] MEDS: PANTOPRAZOLE 40 MG TABLET PO SCH (09:47)
[2017-08-07] MEDS: LIPASE/PROTEASE/AMYLASE 4,200 UNITS CAPSULE PO SCH ×2 (09:47→12:08)
[2017-08-07 11:14] VITALS: BP 115/76
== END 2017-08-07 13:43 | disposition home or self-care (01) | DRG 439 ==
LOC: N.ED 17:34 → N.EDINP 21:24 → N.2E 23:02
PROVIDERS: ADMIT Family Medicine; ATTEND Family Medicine

== ENCOUNTER 2018-02-19 17:33 | Inpatient (IN) ==
[2018-02-19] MEDS ORDERED: SODIUM CHLORIDE 0.9% 1,000 ML IV STA ×2 (18:07→19:21)
[2018-02-19] MEDS ORDERED: MORPHINE 4 MG/1 ML VIAL IV STA (18:07)
[2018-02-19] MEDS ORDERED: ONDANSETRON 4 MG/2 ML VIAL IV STA (18:07)
[2018-02-19] MEDS ORDERED: ONDANSETRON 4 MG/2 ML VIAL ONE (18:11)
[2018-02-19 18:33] LABS: Basophils % 0.6 % (0.0-0.8); Eosinophils # 0.2 10*3/uL (0.0-0.87); Eosinophils % 2.9 % (0.00-10.9); Hematocrit 39.6 VOL% (42.0-52.0); Hemoglobin 12.9 GM/DL (14.0-18.0); Immature Granulocytes % 0.5 %; Immature Granulocytes Absolute 0.03 #; Lymphocytes # 1.9 10*3/uL (1.4-4.0); Lymphocytes % 28.8 % (21.2-54.2); Mean Corpuscular HGB Conc 32.6 GM/DL (32-36); Mean Corpuscular Hemoglobin 27 PG (27-34); Mean Corpuscular Volume 82.2 FL (87-102); Mean Platelet Volume 10.7 FL (9.6-12.0); Monocytes # 0.3 10*3/uL (0.11-0.8); Monocytes % 4.6 % (1.7-12.7); Neutrophils % 62.6 % (38.7-73.9); Platelet Count 142 T/CUMM (130-400); Red Blood Count 4.82 MC/CUMM (3.8-5.5); Red Cell Distribution Width 14.6 % (9.3-17.3); White Blood Count 6.5 T/CUMM (4-12)
[2018-02-19 18:52] LABS: Albumin 3.4 G/DL (3.4-5.0); Bilirubin,Total 0.5 MG/DL (0.2-1.0); Calcium 8.5 MG/DL (8.5-10.1); Osmolality,Calculated 285.7 MOS/KG (273-304); Potassium 3.5 MMOL/L (3.5-5.1); Total Protein 6.8 G/DL (6.4-8.3)
[2018-02-19 19:04] LABS: Apearance,Urine CLEAR (Clear); Bilirubin,Urine Negative (Negative); Blood, Urine Negative (Negative); Glucose,Urine (UA) >=500 mg/dL (Negative); Ketones,Urine Negative (Negative); Mucus,Urine Occasional /LPF (Occasional); Nitrite,Urine Negative (Negative); Protein,Urine Negative; RBC,Urine 1 /HPF (0-4); Urine Color Yellow (Yellow); Urine Specific Gravity 1.022 (1.001-1.035); Urine Urobilinogen < 2.0 EU/DL (0.2-1.0); WBC,Urine <1 /HPF (0-6)
[2018-02-19] MEDS ORDERED: fentaNYL 100 MCG/2 ML VIAL ONE (19:08)
[2018-02-19] MEDS ORDERED: fentaNYL 100 MCG/2 ML VIAL IV STA (19:12)
[2018-02-19] MEDS ORDERED: ONDANSETRON 4 MG/2 ML VIAL IV PRN (21:09)
[2018-02-19] MEDS: SODIUM CHLOR 0.9% KCL 20 MEQ 20 MEQ/1,000 ML BAG IV SCH (23:30)
[2018-02-19] MEDS: fentaNYL 100 MCG/2 ML VIAL IV PRN (23:31)
[2018-02-20] MEDS: fentaNYL 100 MCG/2 ML VIAL IV PRN ×2 (06:08→10:10)
[2018-02-20] MEDS: SODIUM CHLOR 0.9% KCL 20 MEQ 20 MEQ/1,000 ML BAG IV SCH ×4 (07:30→23:38)
[2018-02-20 09:45] LABS: Basophils % 0.4 % (0.0-0.8); Eosinophils # 0.1 10*3/uL (0.0-0.87); Eosinophils % 2.3 % (0.00-10.9); Hematocrit 35.8 VOL% (42.0-52.0); Hemoglobin 11.7 GM/DL (14.0-18.0); Immature Granulocytes % 0.2 %; Immature Granulocytes Absolute 0.01 #; Lymphocytes # 1.5 10*3/uL (1.4-4.0); Lymphocytes % 31.9 % (21.2-54.2); Mean Corpuscular HGB Conc 32.7 GM/DL (32-36); Mean Corpuscular Hemoglobin 27 PG (27-34); Mean Corpuscular Volume 83.6 FL (87-102); Mean Platelet Volume 11.7 FL (9.6-12.0); Monocytes # 0.3 10*3/uL (0.11-0.8); Monocytes % 5.7 % (1.7-12.7); Neutrophils # 2.8 10*3/uL (1.4-7.4); Neutrophils % 59.5 % (38.7-73.9); Platelet Count 134 T/CUMM (130-400); Red Blood Count 4.28 MC/CUMM (3.8-5.5); Red Cell Distribution Width 14.7 % (9.3-17.3); White Blood Count 4.7 T/CUMM (4-12)
[2018-02-20 10:12] LABS: Calcium 7.9 MG/DL (8.5-10.1); Osmolality,Calculated 283.3 MOS/KG (273-304)
[2018-02-20] MEDS ORDERED: GLUCAGON 1 MG VIAL IM PRN (10:42)
[2018-02-20] MEDS ORDERED: DEXTROSE 50% 25 GM/50 ML VIAL IV PRN (10:42)
[2018-02-20] MEDS: INSULIN LISPRO 100 UNIT/ML SUBCUT SCH ×3 (12:14→22:11)
[2018-02-20] MEDS: MORPHINE 4 MG/1 ML VIAL IV PRN ×3 (14:06→22:15)
[2018-02-21] MEDS: MORPHINE 4 MG/1 ML VIAL IV PRN ×7 (01:13→23:55)
[2018-02-21] MEDS: SODIUM CHLOR 0.9% KCL 20 MEQ 20 MEQ/1,000 ML BAG IV SCH ×3 (04:40→15:58)
[2018-02-21 06:41] LABS: Basophils % 0.4 % (0.0-0.8); Eosinophils # 0.1 10*3/uL (0.0-0.87); Eosinophils % 2.5 % (0.00-10.9); Hematocrit 36.7 VOL% (42.0-52.0); Immature Granulocytes % 0.4 %; Immature Granulocytes Absolute 0.02 #; Lymphocytes # 1.5 10*3/uL (1.4-4.0); Lymphocytes % 31.7 % (21.2-54.2); Mean Corpuscular HGB Conc 32.7 GM/DL (32-36); Mean Corpuscular Hemoglobin 27 PG (27-34); Mean Platelet Volume 10.5 FL (9.6-12.0); Monocytes # 0.3 10*3/uL (0.11-0.8); Monocytes % 5.9 % (1.7-12.7); Neutrophils # 2.8 10*3/uL (1.4-7.4); Neutrophils % 59.1 % (38.7-73.9); Platelet Count 123 T/CUMM (130-400); Red Blood Count 4.42 MC/CUMM (3.8-5.5); Red Cell Distribution Width 14.6 % (9.3-17.3); White Blood Count 4.7 T/CUMM (4-12)
[2018-02-21 06:57] LABS: Calcium 8.1 MG/DL (8.5-10.1); Osmolality,Calculated 285.1 MOS/KG (273-304); Potassium 3.9 MMOL/L (3.5-5.1)
[2018-02-21] MEDS: INSULIN LISPRO 100 UNIT/ML SUBCUT SCH ×4 (08:03→21:31)
[2018-02-22] MEDS: SODIUM CHLOR 0.9% KCL 20 MEQ 20 MEQ/1,000 ML BAG IV SCH ×3 (00:45→20:42)
[2018-02-22] MEDS: MORPHINE 4 MG/1 ML VIAL IV PRN ×5 (03:14→21:58)
[2018-02-22 08:15] LABS: Basophils % 0.4 % (0.0-0.8); Eosinophils # 0.1 10*3/uL (0.0-0.87); Eosinophils % 2.3 % (0.00-10.9); Immature Granulocytes % 0.4 %; Immature Granulocytes Absolute 0.02 #; Lymphocytes # 1.4 10*3/uL (1.4-4.0); Lymphocytes % 28.8 % (21.2-54.2); Mean Corpuscular HGB Conc 34.3 GM/DL (32-36); Mean Corpuscular Hemoglobin 28 PG (27-34); Mean Corpuscular Volume 80.5 FL (87-102); Mean Platelet Volume 10.7 FL (9.6-12.0); Monocytes # 0.3 10*3/uL (0.11-0.8); Monocytes % 6.4 % (1.7-12.7); Neutrophils % 61.7 % (38.7-73.9); Platelet Count 147 T/CUMM (130-400); Red Blood Count 4.35 MC/CUMM (3.8-5.5); Red Cell Distribution Width 14.3 % (9.3-17.3); White Blood Count 4.8 T/CUMM (4-12)
[2018-02-22] MEDS: INSULIN LISPRO 100 UNIT/ML SUBCUT SCH ×3 (08:28→16:37)
[2018-02-22] MEDS: ENOXAPARIN 40 MG/0.4 ML SYRINGE SUBCUT SCH (08:29)
[2018-02-23] MEDS: INSULIN LISPRO 100 UNIT/ML SUBCUT SCH ×2 (01:15→09:01)
[2018-02-23] MEDS: MORPHINE 4 MG/1 ML VIAL IV PRN (01:22)
[2018-02-23] MEDS: SODIUM CHLOR 0.9% KCL 20 MEQ 20 MEQ/1,000 ML BAG IV SCH (04:45)
[2018-02-23] MEDS ORDERED: GLUCAGON 1 MG VIAL IM PRN (07:22)
[2018-02-23] MEDS ORDERED: DEXTROSE 50% 25 GM/50 ML VIAL IV PRN (07:22)
[2018-02-23 07:30] VITALS: BP 112/70
[2018-02-23] MEDS: ENOXAPARIN 40 MG/0.4 ML SYRINGE SUBCUT SCH (09:02)
== END 2018-02-23 11:25 | disposition home or self-care (01) | DRG 440 ==
LOC: N.ED 17:33 → N.EDINP 17:33 → N.2E 20:47
PROVIDERS: ADMIT Family Medicine; ATTEND Family Medicine

== ENCOUNTER 2018-12-08 01:15 | Observation (INO) ==
[2018-12-08 01:48] LABS: Basophils % 0.3 % (0.0-0.8); Eosinophils # 0.1 10*3/uL (0.0-0.87); Eosinophils % 1.1 % (0.00-10.9); Hematocrit 45.3 VOL% (42.0-52.0); Immature Granulocytes % 0.5 %; Immature Granulocytes Absolute 0.06 #; Lymphocytes # 1.5 10*3/uL (1.4-4.0); Lymphocytes % 12.9 % (21.2-54.2); Mean Corpuscular HGB Conc 33.1 GM/DL (32-36); Mean Corpuscular Hemoglobin 28 PG (27-34); Mean Corpuscular Volume 85.5 FL (87-102); Mean Platelet Volume 9.8 FL (9.6-12.0); Monocytes # 0.7 10*3/uL (0.11-0.8); Monocytes % 5.7 % (1.7-12.7); Neutrophils # 9.3 10*3/uL (1.4-7.4); Neutrophils % 79.5 % (38.7-73.9); Platelet Count 171 T/CUMM (130-400); Red Cell Distribution Width 13.2 % (9.3-17.3); White Blood Count 11.7 T/CUMM (4-12)
[2018-12-08] MEDS ORDERED: PANTOPRAZOLE 40 MG VIAL IV STA (01:53)
[2018-12-08] MEDS ORDERED: HYDROmorphone 2 MG/1 ML VIAL IV STA (01:53)
[2018-12-08] MEDS ORDERED: ONDANSETRON 4 MG/2 ML VIAL IV STA (01:53)
[2018-12-08] MEDS ORDERED: SODIUM CHLORIDE 0.9% 1,000 ML IV STA (01:53)
[2018-12-08 02:13] LABS: Albumin 3.7 G/DL (3.4-5.0); Bilirubin,Total 1.5 MG/DL (0.2-1.0); Calcium 8.4 MG/DL (8.5-10.1); Potassium 4.1 MMOL/L (3.5-5.1); Total Protein 7.1 G/DL (6.4-8.3)
[2018-12-08 02:50] LABS: PT Patient Result 10.7 SECS; Partial Thromboplastin Time 25.8 SECS (0-40)
[2018-12-08] MEDS ORDERED: GLUCAGON 1 MG VIAL IM PRN (04:10)
[2018-12-08] MEDS ORDERED: DEXTROSE 50% 25 GM/50 ML SYRINGE IV PRN (04:10)
[2018-12-08] MEDS: HYDROmorphone 2 MG/1 ML VIAL IV PRN ×5 (05:10→22:26)
[2018-12-08] MEDS: ONDANSETRON 4 MG/2 ML VIAL IV PRN ×2 (05:10→13:48)
[2018-12-08] MEDS: SODIUM CHLORIDE 0.9% 1,000 ML IV SCH ×3 (05:15→20:31)
[2018-12-08 05:40] LABS: Apearance,Urine CLEAR (Clear); Bilirubin,Urine Negative (Negative); Blood, Urine Negative (Negative); Glucose,Urine (UA) 150 mg/dL (Negative); Ketones,Urine Negative (Negative); Mucus,Urine Occasional /LPF (Occasional); Nitrite,Urine Negative (Negative); Protein,Urine Negative; RBC,Urine 3 /HPF (0-4); Urine Color Yellow (Yellow); Urine Specific Gravity 1.009 (1.001-1.035); Urine Urobilinogen < 2.0 EU/DL (0.2-1.0); WBC,Urine 1 /HPF (0-6)
[2018-12-08] MEDS: INSULIN REGULAR 100 UNIT/ML SUBCUT SCH ×3 (06:25→18:02)
[2018-12-08] MEDS: DOCUSATE SODIUM 100 MG CAPSULE PO SCH ×2 (08:33→20:21)
[2018-12-08] MEDS: INSULIN LISPRO 100 UNIT/ML SUBCUT SCH (08:52)
[2018-12-08] MEDS: INSULIN GLARGINE 100 UNIT/ML SUBCUT SCH (08:52)
[2018-12-08] MEDS: PANTOPRAZOLE 40 MG VIAL IV SCH (08:53)
[2018-12-08] MEDS: ENOXAPARIN 40 MG/0.4 ML SYRINGE SUBCUT SCH (08:53)
[2018-12-08] MEDS ORDERED: NON-FORMULARY MEDICATION (Omeprazole [Omeprazole] 40 MG) PO SCH (09:00)
[2018-12-08] MEDS: ACETAMINOPHEN 325 MG TABLET PO PRN (20:31)
[2018-12-08] MEDS: LEVOFLOXACIN INJ 750 MG in PREMIX 1 EACH IV SCH (20:49)
[2018-12-09] MEDS: INSULIN REGULAR 100 UNIT/ML SUBCUT SCH ×4 (00:05→19:12)
[2018-12-09] MEDS: HYDROmorphone 2 MG/1 ML VIAL IV PRN ×5 (02:24→20:37)
[2018-12-09] MEDS: ACETAMINOPHEN 325 MG TABLET PO PRN (02:26)
[2018-12-09] MEDS: SODIUM CHLORIDE 0.9% 1,000 ML IV SCH ×3 (04:56→23:03)
[2018-12-09 05:17] LABS: Basophils % 0.3 % (0.0-0.8); Eosinophils # 0.1 10*3/uL (0.0-0.87); Hematocrit 37.1 VOL% (42.0-52.0); Hemoglobin 12.3 GM/DL (14.0-18.0); Immature Granulocytes % 0.3 %; Immature Granulocytes Absolute 0.02 #; Lymphocytes # 1.7 10*3/uL (1.4-4.0); Lymphocytes % 26.1 % (21.2-54.2); Mean Corpuscular HGB Conc 33.2 GM/DL (32-36); Mean Corpuscular Hemoglobin 29 PG (27-34); Mean Corpuscular Volume 86.3 FL (87-102); Mean Platelet Volume 10.4 FL (9.6-12.0); Monocytes # 0.5 10*3/uL (0.11-0.8); Neutrophils # 4.1 10*3/uL (1.4-7.4); Neutrophils % 63.3 % (38.7-73.9); Platelet Count 123 T/CUMM (130-400); Red Cell Distribution Width 13.2 % (9.3-17.3); White Blood Count 6.5 T/CUMM (4-12)
[2018-12-09 05:30] LABS: Albumin 2.9 G/DL (3.4-5.0); Bilirubin,Total 2.1 MG/DL (0.2-1.0); Calcium 7.7 MG/DL (8.5-10.1); Osmolality,Calculated 273.7 MOS/KG (273-304); Risk Ratio 3.5; Total Protein 5.9 G/DL (6.4-8.3); VLDL CHOLESTEROL 22.4 MG/DL
[2018-12-09] MEDS: INSULIN LISPRO 100 UNIT/ML SUBCUT SCH (08:11)
[2018-12-09] MEDS: INSULIN GLARGINE 100 UNIT/ML SUBCUT SCH (08:12)
[2018-12-09] MEDS: PANTOPRAZOLE 40 MG VIAL IV SCH (08:12)
[2018-12-09] MEDS: ENOXAPARIN 40 MG/0.4 ML SYRINGE SUBCUT SCH (08:12)
[2018-12-09] MEDS: DOCUSATE SODIUM 100 MG CAPSULE PO SCH ×2 (08:13→20:37)
[2018-12-09] MEDS: LEVOFLOXACIN INJ 750 MG in PREMIX 1 EACH IV SCH (20:35)
[2018-12-10] MEDS: HYDROmorphone 2 MG/1 ML VIAL IV PRN ×4 (00:48→13:45)
[2018-12-10] MEDS: INSULIN REGULAR 100 UNIT/ML SUBCUT SCH ×3 (01:26→12:10)
[2018-12-10] MEDS: SODIUM CHLORIDE 0.9% 1,000 ML IV SCH (07:03)
[2018-12-10] MEDS: DOCUSATE SODIUM 100 MG CAPSULE PO SCH (09:04)
[2018-12-10] MEDS: INSULIN GLARGINE 100 UNIT/ML SUBCUT SCH (09:04)
[2018-12-10] MEDS: PANTOPRAZOLE 40 MG VIAL IV SCH (09:05)
[2018-12-10] MEDS: INSULIN LISPRO 100 UNIT/ML SUBCUT SCH (09:05)
[2018-12-10] MEDS: ENOXAPARIN 40 MG/0.4 ML SYRINGE SUBCUT SCH (09:06)
[2018-12-10 15:43] VITALS: BP 110/65
== END 2018-12-10 16:45 | disposition home or self-care (01) ==
LOC: N.EDINP 01:15 → N.ED 01:15 → N.4E 03:41
PROVIDERS: ADMIT Family Medicine; ATTEND Family Medicine